=== PATIENT | male | born 1965 | race Caucasian/White ===

== ENCOUNTER 2018-09-29 18:07 | Observation (INO) | payer OTHER ==
--- NOTE | 2018-09-29 18:32 | ED ---
General Adult HPI - General Chief complaint: Shortness of Breath Stated complaint: Cough/Chest pain Time Seen by Provider: 09/29/18 18:16 Source: patient Mode of arrival: wheelchair Limitations: no limitations - History of Present Illness Initial comments: Dictation was produced using noodls dictation software. please excuse any gramma tical, word or spelling errors. Chief Complaint: 53-year-old male withpast medical history presents with exertional cough and chest pain. History of Present Illness: She is a 53-year-old male presents today with exertional cough and shortness of breath. Patient states he's been sick on and off for the last one week. Patient reports that he became really anxious about his symptoms. He did see his primary care doctor who told him a trial of antibiotics and antinausea medications. He states that he doesn't feel like he really improved with those interventions. Patient states that he is very active and over the last month he feels as though his symptoms have been worse with exe rtion. At rest patient does not feel any symptoms. He does report having strong family history of cardiac disease. He localizes the chest pain to his left anterior chest. States that it is improved with rest and only present with exertion. Denies any radiation to the shoulders and jaw. No associated diaphoresis. The ROS documented in this emergency department record has been reviewed and c onfirmed by me. Those systems with pertinent positive or negative responses have been documented in the HPI. All other systems are other negative and/or noncontributory. PHYSICAL EXAM: General Impression: Alert and oriented x3, not in acute distress HEENT: Normocephalic atraumatic, extra-ocular movements intact, pupils equal and reactive to light bilaterally, mucous membranes moist. Cardiovascular: Heart regular rate and rhythm, S1&S2 audible, no murmurs, rubs or gallops Chest: Lungs clear to auscultation bilaterally, no rhonchi, no wheeze, no rales Abdomen: Bowel sounds present, abdomen soft, non-tender, non-distended, no organomegaly Musculoskeletal: Pulses present and equal in all extremities, no peripheral edema Motor: no focal deficits noted Neurological: CN II-XII grossly intact, no focal motor or sensory deficits noted Skin: Intact with no visualized rashes Psych: Normal affect and mood ED course: 53yo male with chief complaint of exertional shortness of breath and chest pain. Vital signs upon I'll shows heart rate of 113, worse vital signs within acceptable limits. EKG shows nonspecific T-wave changes in the inferior leads. Laboratory evaluation obtained. CBC, coag panel, metabolic panel is obtained. There is essentially 3 showed potassium of 3.2. Patient also has some metabolic alkalosis. Magnesium 0.8. Cardiac enzymes negative. Chest x-ray is unremarkable. Patient given parenteral magnesium and by mouth potassium. Patient is pain-free at this time. We gave him 1 dose of chewable aspirin. Patient be admitted for ACS-type symptoms and electronic duration. Patient is understandable and agreeable to disposition. EKG interpretation: Ventricular rate 106, sinus tachycardia, VA interval 132, care Center 6, QTC 432. No VA prolongation, no QTC prolongation, no ST or T-wave changes noted. Overall, this EKG is unremarkable - Related Data Home Medications Medication Instructions Recorded Confirmed HYDROcodone/APAP 10-325MG [[place] 1 tab PO QID 09/29/18 09/29/18 10-325] Allergies Allergy/AdvReac Type Severity Reaction Status Date / Time No Known Allergies Allergy Verified 09/29/18 18:38 Review of Systems ROS Statement: Those systems with pertinent positive or pertinent negative responses have been documented in the HPI. ROS Other: All systems not noted in ROS Statement are negative. Past Medical History Past Medical History: No Reported History History of Any Multi-Drug Resistant Organisms: None Reported Past Surgical History: Hernia Repair Past Psychological History: No Psychological Hx Reported Smoking Status: Never smoker Past Alcohol Use History: None Reported Past Drug Use History: Marijuana General Exam Limitations: no limitations Course Vital Signs 09/29/18 09/29/18 09/29/18 18:10 18:32 18:34 Temperature 98.4 F Pulse Rate 113 H Respiratory 18 15 16 Rate Blood Pressure 125/85 O2 Sat by Pulse 97 Oximetry 09/29/18 09/29/18 09/29/18 19:00 19:10 19:40 Temperature Pulse Rate 104 H Respiratory 19 9 L Rate Blood Pressure 133/83 113/74 123/77 O2 Sat by Pulse 97 97 Oximetry Medical Decision Making - Lab Data Result diagrams: 09/29/18 18:46 09/29/18 18:46 Lab Results 09/29/18 09/29/18 09/29/18 Range/Units 18:46 18:46 18:46 WBC 5.8 (3.8-10.6) k/uL RBC 4.38 (4.30-5.90) m/uL Hgb 13.2 (13.0-17.5) gm/dL Hct 36.9 L (39.0-53.0) % MCV 84.4 (80.0-100.0) fL MCH 30.2 (25.0-35.0) pg MCHC 35.8 (31.0-37.0) g/dL RDW 13.1 (11.5-15.5) % Plt Count 129 L (150-450) k/uL Neutrophils % (Manual) 37 % Lymphocytes % (Manual) 46 % Monocytes % (Manual) 17 % Neutrophils # (Manual) 2.15 (1.3-7.7) k/uL Lymphocytes # (Manual) 2.67 (1.0-4.8) k/uL Monocytes # (Manual) 0.99 (0-1.0) k/uL Nucleated RBCs 0 (0-0) /100 WBC Hyperchromasia Slight PT (9.0-12.0) sec INR (<1.2) APTT (22.0-30.0) sec Sodium 139 (137-145) mmol/L Potassium 3.2 L (3.5-5.1) mmol/L Chloride 98 (98-107) mmol/L Carbon Dioxide 31 H (22-30) mmol/L Anion Gap 10 mmol/L BUN 16 (9-20) mg/dL Creatinine 1.25 (0.66-1.25) mg/dL Est GFR (CKD-EPI)AfAm 77 (>60 ml/min/1.73 sqM) Est GFR (CKD-EPI)NonAf 67 (>60 ml/min/1.73 sqM) Glucose 85 (74-99) mg/dL Calcium 8.1 L (8.4-10.2) mg/dL Magnesium 0.8 L* (1.6-2.3) mg/dL Total Bilirubin 0.9 (0.2-1.3) mg/dL AST 43 (17-59) U/L ALT 57 (21-72) U/L Alkaline Phosphatase 93 (38-126) U/L Troponin I (0.000-0.034) ng/mL NT-Pro-B Natriuret Pep 96 pg/mL Total Protein 6.7 (6.3-8.2) g/dL Albumin 3.6 (3.5-5.0) g/dL 09/29/18 09/29/18 Range/Units 18:46 18:46 WBC (3.8-10.6) k/uL RBC (4.30-5.90) m/uL Hgb (13.0-17.5) gm/dL Hct (39.0-53.0) % MCV (80.0-100.0) fL MCH (25.0-35.0) pg MCHC (31.0-37.0) g/dL RDW (11.5-15.5) % Plt Count (150-450) k/uL Neutrophils % (Manual) % Lymphocytes % (Manual) % Monocytes % (Manual) % Neutrophils # (Manual) (1.3-7.7) k/uL Lymphocytes # (Manual) (1.0-4.8) k/uL Monocytes # (Manual) (0-1.0) k/uL Nucleated RBCs (0-0) /100 WBC Hyperchromasia PT 11.5 (9.0-12.0) sec INR 1.1 (<1.2) APTT 25.8 (22.0-30.0) sec Sodium (137-145) mmol/L Potassium (3.5-5.1) mmol/L Chloride (98-107) mmol/L Carbon Dioxide (22-30) mmol/L Anion Gap mmol/L BUN (9-20) mg/dL Creatinine (0.66-1.25) mg/dL Est GFR (CKD-EPI)AfAm (>60 ml/min/1.73 sqM) Est GFR (CKD-EPI)NonAf (>60 ml/min/1.73 sqM) Glucose (74-99) mg/dL Calcium (8.4-10.2) mg/dL Magnesium (1.6-2.3) mg/dL Total Bilirubin (0.2-1.3) mg/dL AST (17-59) U/L ALT (21-72) U/L Alkaline Phosphatase (38-126) U/L Troponin I <0.012 (0.000-0.034) ng/mL NT-Pro-B Natriuret Pep pg/mL Total Protein (6.3-8.2) g/dL Albumin (3.5-5.0) g/dL Disposition Clinical Impression: Chest pain Disposition: ADMITTED IP TO THIS HOSP Condition: Good Is patient prescribed a controlled substance at d/c from ED?: No Referrals: Wing Whitney MD [Primary Care Provider] - 1-2 days Decision Time: 20:51
[2018-09-29 19:03] LABS: INR 1.1 (<1.2); Partial Thromboplastin Time 25.8 sec (22.0-30.0); Prothrombin Time 11.5 sec (9.0-12.0)
[2018-09-29 19:19] LABS: Albumin 3.6 g/dL (3.5-5.0); Calcium 8.1 mg/dL (8.4-10.2); Potassium 3.2 mmol/L (3.5-5.1); Total Bilirubin 0.9 mg/dL (0.2-1.3); Total Protein 6.7 g/dL (6.3-8.2)
--- NOTE | 2018-09-29 19:23 | XR ---
EXAMINATION TYPE: XR chest 2V DATE OF EXAM: 09/29/2018 COMPARISON: NONE HISTORY: Chest pain TECHNIQUE: Frontal and lateral views of the chest are obtained. FINDINGS: Heart and mediastinum are normal. Lungs are clear. Diaphragm is normal. Bony thorax appear s normal. There are chest leads. IMPRESSION: Normal chest.
[2018-09-29 19:25] LABS: HCT 36.9 % (39.0-53.0); HGB 13.2 gm/dL (13.0-17.5); Hyperchromasia Slight; MCH 30.2 pg (25.0-35.0); MCHC 35.8 g/dL (31.0-37.0); MCV 84.4 fL (80.0-100.0); Mean Platelet Volume 8.3; Platelet Count 129 k/uL (150-450); RBC 4.38 m/uL (4.30-5.90); RDW 13.1 % (11.5-15.5); WBC 5.8 k/uL (3.8-10.6)
[2018-09-29 19:28] LABS: Magnesium 0.8 mg/dL (1.6-2.3)
[2018-09-29] MEDS ORDERED: POTASSIUM CHLORIDE ER 20 MEQ TAB.ER PO STA (19:39)
[2018-09-29] MEDS: MAGNESIUM SULFATE-D5W PMX 1 GM in DEXTROSE/WATER 1 100ML.BAG IVPB SCH (20:05)
[2018-09-29 20:13] LABS: Lymphocytes # (M) 2.67 k/uL (1.0-4.8); Monocytes # (M) 0.99 k/uL (0-1.0); Neutrophils # (M) 2.15 k/uL (1.3-7.7); Neutrophils % (M) 37 %; Nucleated Red Blood Cells 0 /100 WBC (0-0); Total Cells Counted 100
[2018-09-29] MEDS ORDERED: ASPIRIN 81 MG PO STA (20:44)
[2018-09-29] MEDS ORDERED: NITROGLYCERIN SL TABS 0.4 MG TAB SUBLINGUAL PRN (20:44)
[2018-09-29] MEDS ORDERED: MAGNESIUM SULFATE-D5W PMX 1 GM in DEXTROSE/WATER 1 100ML.BAG IVPB ONE (21:04)
[2018-09-30 00:57] VITALS: BMI 20.6
[2018-09-30] MEDS: MAGNESIUM SULFATE-D5W PMX 1 GM in DEXTROSE/WATER 1 100ML.BAG IVPB SCH ×3 (00:58→11:29)
[2018-09-30 07:53] LABS: Cholesterol 125 mg/dL (<200); HDL Cholesterol 24 mg/dL (40-60); LDL Cholesterol,Calculated 76 mg/dL (0-99); Triglycerides 126 mg/dL (<150)
[2018-09-30] MEDS: ASPIRIN 325 MG TAB PO SCH (08:00)
--- NOTE | 2018-09-30 09:10 | P.CRDCN ---
<Maria T Cates E - Last Filed: 09/30/18 08:58> History of Present Illness Consult date: 09/30/18 Requesting physician: Carlos Catherine Consult reason: chest pain Chief complaint: Exertional chest pain and shortness of breath History of present illness: This is a 53-year-old gentleman who does not follow regularly with the doctor, he states that he sees Dr. Del Toro when needed. Over the past couple of weeks, patient states that he's been having cold symptoms and felt as though he may have the flu, he was having significant episodes of vomiting and diarrhea. According to the patient, he has also noticed over the past several months to have symptoms of exertional shortness of breath and chest tightness. He works at the [employer], states that he walks stairs on a regular basis, tries to avoid any walking or stairs because of these symptoms. As he thinks back, he thinks that this may have been going on for several months however worsening recently. When the patient sits down to rest, he states that the symptoms subside. He takes no home medications, he does take an occasional [place]. He denies any history of hypertension, no diabetes, no hyperlipidemia although he states he has not had regular lab tests, and does not check his blood pressure regularly. He does have a history of nicotine dependence but quit over 20 years ago, also states that as a young man he drank heavily but does not drink any alcohol. He Does use marijuana on occasion. He also states that his father had a myocardial infarction at a young age. I pressure on arrival here 125/85, heart rate 114, temperature 98.4 897% on room air. Chest x-ray normal. EKG showed normal sinus rhythm with nonspecific ST-T wave changes noted in the inferior leads. Laboratory data was reviewed, white blood cell count 5.8, hemoglobin 13.2, platelet count 129. Sodium 139, potassium 3.2, BUN 16, creatinine 1.2. Magnesium on admission 0.8, calcium 8.1. Troponins have been negative 3. Cholesterol 125, LDL 76, HDL 24, triglycerides 126. At the time of my examination this morning, patient denies any chest discomfort, he is res ting in bed. He does state that earlier this morning after a blood draw that he had some mild lightheadedness. Past Medical History Past Medical History: No Reported History History of Any Multi-Drug Resistant Organisms: None Reported Past Surgical History: Hernia Repair Past Anesthesia/Blood Transfusion Reactions: No Reported Reaction Past Psychological History: No Psychological Hx Reported Smoking Status: Never smoker Past Alcohol Use History: None Reported Past Drug Use History: Marijuana Medications and Allergies Home Medications Medication Instructions Recorded Confirmed Type HYDROcodone/APAP 10-325MG [[place] 1 tab PO QID 09/29/18 09/29/18 History 10-325] Allergies Allergy/AdvReac Type Severity Reaction Status Date / Time No Known Allergies Allergy Verified 09/29/18 18:38 Physical Exam Vitals: Vital Signs Temp Pulse Pulse Resp BP BP Pulse Ox 09/30/18 08:04 95 20 09/30/18 08:00 98.1 F 96 20 119/76 97 09/30/18 04:00 98.3 F 90 15 130/70 98 09/30/18 01:21 100 15 09/30/18 00:45 97.3 F L 100 15 131/76 96 09/30/18 00:10 98.1 F 93 15 09/29/18 23:10 127/85 09/29/18 22:40 10 L 123/99 96 09/29/18 22:10 12 128/95 97 09/29/18 21:40 105 H 9 L 141/94 97 09/29/18 21:10 103 H 9 L 134/100 97 09/29/18 21:00 106 H 13 99 09/29/18 20:40 127/77 99 09/29/18 20:10 114/80 98 09/29/18 19:50 123/77 97 09/29/18 19:40 104 H 9 L 123/77 97 09/29/18 19:10 113/74 09/29/18 19:00 19 133/83 97 09/29/18 18:34 16 09/29/18 18:32 15 09/29/18 18:10 98.4 F 113 H 18 125/85 97 Intake and Output 09/29/18 09/30/18 09/30/18 22:59 06:59 14:59 Intake Total 130 Balance 130 Intake: Oral 130 Other: Voiding Method Toilet # Voids 2 Weight 58.967 kg 66.3 kg PHYSICAL EXAMINATION: GENERAL: 53-year-old, anxious appearing gentleman in no acute distress at the time of my examination HEENT: Head is atraumatic, normocephalic. Pupils equal, round. Sclera anicteric. Conjunctiva are clear. Mucous membranes of the mouth are moist. Neck is supple. There is no elevated jugular venous pressure. No carotid bruit is heard. HEART EXAMINATION: Heart S1, S2 tachycardic . No murmur or gallop heard. CHEST EXAMINATION: Lungs are clear to auscultation and precussion. No chest wall tenderness is noted on palpation or with deep breathing. ABDOMEN: Soft, nontender. Bowel sounds are heard. No organomegaly noted. EXTREMITIES: 2+ peripheral pulses with no evidence of peripheral edema and no calf tenderness noted. NEUROLOGIC patient is awake, alert and oriented 3 . . Results 09/29/18 18:46 09/29/18 18:46 Cardiac Enzymes 09/29/18 09/29/18 09/30/18 Range/Units 18:46 18:46 00:31 AST 43 (17-59) U/L Troponin I <0.012 <0.012 (0.000-0.034) ng/mL 09/30/18 Range/Units 07:15 AST (17-59) U/L Troponin I <0.012 (0.000-0.034) ng/mL Coagulation 09/29/18 Range/Units 18:46 PT 11.5 (9.0-12.0) sec APTT 25.8 (22.0-30.0) sec Lipids 09/30/18 Range/Units 07:15 Triglycerides 126 (<150) mg/dL Cholesterol 125 (<200) mg/dL HDL Cholesterol 24 L (40-60) mg/dL CBC 09/29/18 Range/Units 18:46 WBC 5.8 (3.8-10.6) k/uL RBC 4.38 (4.30-5.90) m/uL Hgb 13.2 (13.0-17.5) gm/dL Hct 36.9 L (39.0-53.0) % Plt Count 129 L (150-450) k/uL Comprehensive Metabolic Panel 09/29/18 Range/Units 18:46 Sodium 139 (137-145) mmol/L Potassium 3.2 L (3.5-5.1) mmol/L Chloride 98 (98-107) mmol/L Carbon Dioxide 31 H (22-30) mmol/L BUN 16 (9-20) mg/dL Creatinine 1.25 (0.66-1.25) mg/dL Glucose 85 (74-99) mg/dL Calcium 8.1 L (8.4-10.2) mg/dL AST 43 (17-59) U/L ALT 57 (21-72) U/L Alkaline Phosphatase 93 (38-126) U/L Total Protein 6.7 (6.3-8.2) g/dL Albumin 3.6 (3.5-5.0) g/dL Current Medications Generic Name Dose Route Start Last Admin Trade Name Freq PRN Reason Stop Dose Admin Aspirin 325 mg 09/30/18 09:00 09/30/18 08:00 Aspirin PO 325 mg DAILY [facility]NEY Administration Nitroglycerin 0.4 mg 09/29/18 20:44 Nitrostat SUBLINGUAL Q5M PRN Chest Pain Intake and Output 09/29/18 09/30/18 09/30/18 22:59 06:59 14:59 Intake Total 130 Balance 130 Intake: Oral 130 Other: Voiding Method Toilet # Voids 2 Weight 58.967 kg 66.3 kg 09/29/18 18:46 09/29/18 18:46 EKG Interpretations (text) EKG shows normal sinus rhythm with ST-T wave changes noted in the inferior leads. Assessment and Plan Plan: Assessment and plan #1 symptoms of exertional shortness of breath and chest tightness, inserting 4 of possible angina. Troponins are negative 3. EKG shows normal sinus rhythm with nonspecific ST-T wave changes noted in the inferior leads. #2 hypomagnesemia, likely secondary to several episodes of vomiting and diarrhea #3 high flow currently anemia, likely secondary to same #4 no prior documented history of hypertension, nondiabetic, no hyperlipidemia #5 nonsmoker, patient did smoke, quit smoking approximately 20 years ago #6 marijuana use #7 family history of premature coronary artery disease in his father Plan We will obtain an echocardiogram with Doppler study. We will also obtain a hemoglobin A1c level, TSH and d-dimer. It was explained to the patient that he would need further evaluation to rule out underlying coronary artery disease by way of a stress test or cardiac catheterization, we will review his echocardiogram with Doppler study and further recommendations will be made. Potassium and magnesium levels will be replaced. Further recommendations to follow. DNP note has been reviewed, I agree with a documented findings and plan of care. Patient was seen and examined. <Shahid Bartholomew - Last Filed: 09/30/18 19:39> Physical Exam Vitals: Vital Signs Temp Pulse Pulse Resp BP BP Pulse Ox 09/30/18 19:37 97.6 F 100 18 123/81 97 09/30/18 15:34 98.0 F 94 20 119/75 98 09/30/18 14:50 81 18 09/30/18 11:25 81 18 09/30/18 11:24 97.6 F 81 18 117/73 97 09/30/18 08:04 95 20 09/30/18 08:00 98.1 F 96 20 119/76 97 09/30/18 04:00 98.3 F 90 15 130/70 98 09/30/18 01:21 100 15 09/30/18 00:45 97.3 F L 100 15 131/76 96 09/30/18 00:10 98.1 F 93 15 09/29/18 23:10 127/85 09/29/18 22:40 10 L 123/99 96 09/29/18 22:10 12 128/95 97 09/29/18 21:40 105 H 9 L 141/94 97 09/29/18 21:10 103 H 9 L 134/100 97 09/29/18 21:00 106 H 13 99 09/29/18 20:40 127/77 99 09/29/18 20:10 114/80 98 09/29/18 19:50 123/77 97 09/29/18 19:40 104 H 9 L 123/77 97 Intake and Output 09/30/18 09/30/18 09/30/18 06:59 14:59 22:59 Intake Total 930 240 Output Total 500 Balance 430 240 Intake: Intake, IV Titration 200 Amount Magnesium Sulfate-D5w Pmx 200 1 gm In Dextrose/Water 1 100ml.bag @ 100 mls/hr IVPB Q1H [facility] Rx#: [id number] Oral 730 240 Output: Urine 500 Other: Voiding Method Toilet # Voids 2 1 # Bowel Movements 1 Weight 66.3 kg Results 09/30/18 08:37 09/30/18 09:09 Cardiac Enzymes 04/10/1509/30/18 09/30/18 Range/Units 00:31 07:15 09:09 AST 32 (17-59) U/L Troponin I <0.012 <0.012 (0.000-0.034) ng/mL Lipids 09/30/18 Range/Units 07:15 Triglycerides 126 (<150) mg/dL Cholesterol 125 (<200) mg/dL HDL Cholesterol 24 L (40-60) mg/dL CBC 09/30/18 Range/Units 08:37 WBC 6.7 (3.8-10.6) k/uL RBC 4.31 (4.30-5.90) m/uL Hgb 12.9 L (13.0-17.5) gm/dL Hct 36.5 L (39.0-53.0) % Plt Count 137 L (150-450) k/uL Comprehensive Metabolic Panel 09/30/18 Range/Units 09:09 Sodium 141 (137-145) mmol/L Potassium 4.4 (3.5-5.1) mmol/L Chloride 102 (98-107) mmol/L Carbon Dioxide 31 H (22-30) mmol/L BUN 22 H (9-20) mg/dL Creatinine 1.37 H (0.66-1.25) mg/dL Glucose 93 (74-99) mg/dL Calcium 8.4 (8.4-10.2) mg/dL AST 32 (17-59) U/L ALT 57 (21-72) U/L Alkaline Phosphatase 78 (38-126) U/L Total Protein 6.6 (6.3-8.2) g/dL Albumin 3.6 (3.5-5.0) g/dL Current Medications Generic Name Dose Route Start Last Admin Trade Name Freq PRN Reason Stop Dose Admin Alprazolam 0.25 mg 09/30/18 12:10 Xanax PO Q6HR PRN Mild Anxiety Alprazolam 0.5 mg 09/30/18 12:10 Xanax PO Q6HR PRN Moderate Anxiety Aspirin 325 mg 09/30/18 09:00 09/30/18 08:00 Aspirin PO 325 mg DAILY [facility] Administration Atorvastatin Calcium 80 mg 10/01/18 08:00 Lipitor PO 10/01/18 08:01 ONCE ONE Sodium Chloride 1,000 ml/ IV 1,000 mls @ 66.3 mls/hr 09/30/18 12:10 09/30/18 13:02 Solution IV 10/01/18 03:14 Not Given .Q15H5M ONE 1 ML/KG/HR Sodium Chloride 1,000 mls @ 75 mls/hr 09/30/18 12:15 09/30/18 13:49 Saline 0.9% IV 75 mls/hr .[id number] K[facility]NEY Administration Nitroglycerin 0.4 mg 09/29/18 20:44 Nitrostat SUBLINGUAL Q5M PRN Chest Pain Intake and Output 09/30/18 09/30/18 09/30/18 06:59 14:59 22:59 Intake Total 930 240 Output Total 500 Balance 430 240 Intake: Intake, IV Titration 200 Amount Magnesium Sulfate-D5w Pmx 200 1 gm In Dextrose/Water 1 100ml.bag @ 100 mls/hr IVPB Q1H [facility] Rx#: [id number] Oral 730 240 Output: Urine 500 Other: Voiding Method Toilet # Voids 2 1 # Bowel Movements 1 Weight 66.3 kg 09/30/18 08:37 09/30/18 09:09
[2018-09-30 10:00] LABS: Albumin 3.6 g/dL (3.5-5.0); Calcium 8.4 mg/dL (8.4-10.2); Magnesium 1.4 mg/dL (1.6-2.3); Potassium 4.4 mmol/L (3.5-5.1); Total Bilirubin 0.8 mg/dL (0.2-1.3); Total Protein 6.6 g/dL (6.3-8.2)
[2018-09-30 10:18] LABS: HCT 36.5 % (39.0-53.0); HGB 12.9 gm/dL (13.0-17.5); MCH 29.9 pg (25.0-35.0); MCHC 35.3 g/dL (31.0-37.0); MCV 84.7 fL (80.0-100.0); Mean Platelet Volume 9.5; Platelet Count 137 k/uL (150-450); RBC 4.31 m/uL (4.30-5.90); RDW 12.6 % (11.5-15.5); WBC 6.7 k/uL (3.8-10.6)
--- NOTE | 2018-09-30 10:49 | ECHOF ---
Referral Reason:sob on exertion MEASUREMENTS -------- HEIGHT: 167.6 cm WEIGHT: 65.8 kg BP: IVSd: 0.6 cm (0.6 - 1.1) LVIDd: 4.4 cm (3.9 - 5.3) LVPWd: 0.7 cm (0.6 - 1.1) IVSs: 1.0 cm LVIDs: 2.5 cm LVPWs: 1.2 cm LAESV Index (A-L): 14.99 ml/m Ao Diam: 3.3 cm (2.0 - 3.7) AV Cusp: 2.2 cm (1.5 - 2.6) LA Diam: 2.5 cm (2.7 - 3.8) MV EXCURSION: 14.577 mm (> 18.000) MV EF SLOPE: 86 mm/s (70 - 150) EPSS: 0.5 cm MV E Ba: 0.73 m/s MV DecT: 186 ms MV A Ba: 0.71 m/s MV E/A Ratio: 1.04 RAP: 5.00 mmHg RVSP: 15.17 mmHg FINDINGS -------- Sinus rhythm. This was a technically good study. The left ventricular size is normal. Left ventricular wall thickness is normal. Overall left vent ricular systolic function is normal with, an EF between 55 - 60 %. The right ventricle is normal in size. The left atrial size is normal. The right atrial size is normal. The aortic valve is trileaflet and appears structurally normal. There is trace mitral regurgitation. Trace tricuspid regurgitation present. The right ventricular systolic pressure, as measured by Dopp ler, is 15.17mmHg. Pulmonic valve appears structurally normal. The aortic root size is normal. Normal inferior vena cava with normal inspiratory collapse consistent with estimated right atrial pre ssure of 5 mmHg. There is no pericardial effusion. CONCLUSIONS -------- 1. Sinus rhythm. 2. This was a technically good study. 3. The left ventricular size is normal. 4. Left ventricular wall thickness is normal. 5. Overall left ventricular systolic function is normal with, an EF between 55 - 60 %. 6. The right ventricle is normal in size. 7. The left atrial size is normal. 8. The right atrial size is normal. 9. The aortic valve is trileaflet and appears structurally normal. 10. There is trace mitral regurgitation. 11. Trace tricuspid regurgitation present. 12. The right ventricular systolic pressure, as measured by Doppler, is 15.17mmHg. 13. Pulmonic valve appears structurally normal. 14. The aortic root size is normal. 15. Normal inferior vena cava with normal inspiratory collapse consistent with estimated right atrial pressure of 5 mmHg. 16. There is no pericardial effusion. FASHION PATTERNMAKER: Noemi Dhillon RDCS
[2018-09-30] MEDS ORDERED: SODIUM CHLORIDE 0.9% 1,000 ML in EMPTY BAG 1 BAG IV ONE (12:10)
[2018-09-30] MEDS ORDERED: NITROGLYCERIN SL TABS 0.4 MG TAB SUBLINGUAL PRN (12:10)
[2018-09-30] MEDS ORDERED: ALPRAZolam 0.25 MG TAB PO PRN (12:10)
[2018-09-30] MEDS ORDERED: ASPIRIN 325 MG TAB PO STA (12:10)
[2018-09-30] MEDS ORDERED: ALPRAZolam 0.5 MG TAB PO PRN (12:10)
[2018-09-30] MEDS ORDERED: ATORVASTATIN 80 MG TAB PO STA (12:12)
[2018-09-30] MEDS: SODIUM CHLORIDE 0.9% 1,000 ML IV SCH (13:49)
--- NOTE | 2018-09-30 19:40 | P.CRDCN ---
History of Present Illness History of present illness: Patient admitted with at least one month of nausea vomiting diarrhea of unclear etiology at this time However even prior to that he was experiencing exertional chest discomfort and shortness of breath which she had ignored Review proceed with coronary angiography Patient states he has stopped smoking many years back and does not consume any significant amounts of alcohol Lipid panel Patient is nondiabetic no hypertension He was severely hypomagnesemic and had mild hypokalemia. This was replaced IV fluids were administered Plan is to perform coronary angiography tomorrow He will follow with me as an outpatient Past Medical History Past Medical History: No Reported History History of Any Multi-Drug Resistant Organisms: None Reported Past Surgical History: Hernia Repair Past Anesthesia/Blood Transfusion Reactions: No Reported Reaction Past Psychological History: No Psychological Hx Reported Smoking Status: Never smoker Past Alcohol Use History: None Reported Past Drug Use History: Marijuana Medications and Allergies Home Medications Medication Instructions Recorded Confirmed Type RX: HYDROcodone/APAP 10-325MG 1 tab PO QID 09/29/18 09/29/18 History [[place] 10-325] Allergies Allergy/AdvReac Type Severity Reaction Status Date / Time No Known Allergies Allergy Verified 09/29/18 18:38 Physical Exam Vitals: Vital Signs Temp Pulse Pulse Resp BP BP Pulse Ox 09/30/18 19:37 97.6 F 100 18 123/81 97 09/30/18 15:34 98.0 F 94 20 119/75 98 09/30/18 14:50 81 18 09/30/18 11:25 81 18 09/30/18 11:24 97.6 F 81 18 117/73 97 09/30/18 08:04 95 20 09/30/18 08:00 98.1 F 96 20 119/76 97 09/30/18 04:00 98.3 F 90 15 130/70 98 09/30/18 01:21 100 15 09/30/18 00:45 97.3 F L 100 15 131/76 96 09/30/18 00:10 98.1 F 93 15 09/29/18 23:10 127/85 09/29/18 22:40 10 L 123/99 96 09/29/18 22:10 12 128/95 97 09/29/18 21:40 105 H 9 L 141/94 97 09/29/18 21:10 103 H 9 L 134/100 97 09/29/18 21:00 106 H 13 99 04/03/19 20:40 127/77 99 09/29/18 20:10 114/80 98 09/29/18 19:50 123/77 97 Intake and Output 09/30/18 09/30/18 09/30/18 06:59 14:59 22:59 Intake Total 930 240 Output Total 500 Balance 430 240 Intake: Intake, IV Titration 200 Amount Magnesium Sulfate-D5w Pmx 200 1 gm In Dextrose/Water 1 100ml.bag @ 100 mls/hr IVPB Q1H [facility] Rx#: [id number] Oral 730 240 Output: Urine 500 Other: Voiding Method Toilet # Voids 2 1 1 # Bowel Movements 1 Weight 66.3 kg Results 09/30/18 08:37 09/30/18 09:09 Cardiac Enzymes 09/30/18 09/30/18 09/30/18 Range/Units 00:31 07:15 09:09 AST 32 (17-59) U/L Troponin I <0.012 <0.012 (0.000-0.034) ng/mL Lipids 09/30/18 Range/Units 07:15 Triglycerides 126 (<150) mg/dL Cholesterol 125 (<200) mg/dL HDL Cholesterol 24 L (40-60) mg/dL CBC 09/30/18 Range/Units 08:37 WBC 6.7 (3.8-10.6) k/uL RBC 4.31 (4.30-5.90) m/uL Hgb 12.9 L (13.0-17.5) gm/dL Hct 36.5 L (39.0-53.0) % Plt Count 137 L (150-450) k/uL Comprehensive Metabolic Panel 09/30/18 Range/Units 09:09 Sodium 141 (137-145) mmol/L Potassium 4.4 (3.5-5.1) mmol/L Chloride 102 (98-107) mmol/L Carbon Dioxide 31 H (22-30) mmol/L BUN 22 H (9-20) mg/dL Creatinine 1.37 H (0.66-1.25) mg/dL Glucose 93 (74-99) mg/dL Calcium 8.4 (8.4-10.2) mg/dL AST 32 (17-59) U/L ALT 57 (21-72) U/L Alkaline Phosphatase 78 (38-126) U/L Total Protein 6.6 (6.3-8.2) g/dL Albumin 3.6 (3.5-5.0) g/dL Current Medications Generic Name Dose Route Start Last Admin Trade Name Freq PRN Reason Stop Dose Admin Alprazolam 0.25 mg 09/30/18 12:10 Xanax PO Q6HR PRN Mild Anxiety Alprazolam 0.5 mg 09/30/18 12:10 Xanax PO Q6HR PRN Moderate Anxiety Aspirin 325 mg 09/30/18 09:00 09/30/18 08:00 Aspirin PO 325 mg DAILY [facility] Administration Atorvastatin Calcium 80 mg 10/01/18 08:00 Lipitor PO 10/01/18 08:01 ONCE ONE Sodium Chloride 1,000 ml/ IV 1,000 mls @ 66.3 mls/hr 09/30/18 12:10 09/30/18 13:02 Solution IV 10/01/18 03:14 Not Given .Q15H5M ONE 1 ML/KG/HR Sodium Chloride 1,000 mls @ 75 mls/hr 09/30/18 12:15 09/30/18 13:49 Saline 0.9% IV 75 mls/hr .[id number] KORTNEY Administration Nitroglycerin 0.4 mg 09/29/18 20:44 Nitrostat SUBLINGUAL Q5M PRN Chest Pain Intake and Output 09/30/18 09/30/18 09/30/18 06:59 14:59 22:59 Intake Total 930 240 Output Total 500 Balance 430 240 Intake: Intake, IV Titration 200 Amount Magnesium Sulfate-D5w Pmx 200 1 gm In Dextrose/Water 1 100ml.bag @ 100 mls/hr IVPB Q1H [facility] Rx#: [id number] Oral 730 240 Output: Urine 500 Other: Voiding Method Toilet # Voids 2 1 1 # Bowel Movements 1 Weight 66.3 kg 09/30/18 08:37 09/30/18 09:09
[2018-09-30 19:49] LABS: Hemoglobin A1C 5.8 % (4.0-6.0)
--- NOTE | 2018-09-30 22:07 | P.HPIM ---
History of Present Illness H&P Date: 09/30/18 Chief Complaint: Chest pain Patient is a 53-year-old male without significant past medical history and previous history of smoking came to ER with complaints of feeling sick for the past 2 weeks with nausea and vomiting and diarrhea. Patient says that he's been having chest tightness and exertional shortness of breath even prior to this illness, more than a month.. Patient has been having left retrosternal chest pain and not feeling right. Patient is also complaining of dizziness when he gets up. Patient has also having cough basically dry for the past 2 weeks. De nied any other illnesses. No fever no chills. Denied any recent alcohol use. No history of hypertension, diabetes, hyperlipidemia or family history of coronary disease. Patient used to smoke but quit over 20 years ago. EKG showed normal sinus rhythm with ST-T wave changes in the inferior leads Chest x-ray showed no acute cardio pulmonary process Medications 0.8, troponin 3 negative LDL 76 D-dimer not elevated. TSH within normal limits. His B A1c 5.8 Review of Systems Constitutional: Patient denies any fever or chills . No generalized weakness or weight loss. Abdomen: Patient denied any abdominal pain. Patient does have nausea vomiting a nd diarrhea Cardiovascular: Does have chest discomfort and exertional shortness of breath. No leg swelling. No palpitations.. Respiratory: patient denied any cough is from production. No shortness of breath Neurologic: Patient denied any numbness or tingling headache. Musculoskeletal: Patient denies any complaints of joint swelling or deformity. Skin: Negative Psychiatric: Negative Endocrine: No heat or cold intolerance. No recent weight gain. Genitourinary: No dysuria or hematuria. All other 14 point ROS negative except the above Past Medical History Past Medical History: No Reported History History of Any Multi-Drug Resistant Organisms: None Reported Past Surgical History: Hernia Repair Past Anesthesia/Blood Transfusion Reactions: No Reported Reaction Past Psychological History: No Psychological Hx Reported Smoking Status: Never smoker Past Alcohol Use History: None Reported Past Drug Use History: Marijuana Medications and Allergies Home Medications Medication Instructions Recorded Confirmed Type HYDROcodone/APAP 10-325MG [[place] 1 tab PO QID 09/29/18 09/29/18 History 10-325] Allergies Allergy/AdvReac Type Severity Reaction Status Date / Time No Known Allergies Allergy Verified 09/29/18 18:38 Physical Exam Vitals: Vital Signs Temp Pulse Pulse Resp BP BP Pulse Ox 09/30/18 14:50 81 18 09/30/18 11:25 81 18 09/30/18 11:24 97.6 F 81 18 117/73 97 09/30/18 08:04 95 20 09/30/18 08:00 98.1 F 96 20 119/76 97 09/30/18 04:00 98.3 F 90 15 130/70 98 09/30/18 01:21 100 15 09/30/18 00:45 97.3 F L 100 15 131/76 96 09/30/18 00:10 98.1 F 93 15 09/29/18 23:10 127/85 09/29/18 22:40 10 L 123/99 96 09/29/18 22:10 12 128/95 97 09/29/18 21:40 105 H 9 L 141/94 97 09/29/18 21:10 103 H 9 L 134/100 97 09/29/18 21:00 106 H 13 99 09/29/18 20:40 127/77 99 09/29/18 20:10 114/80 98 09/29/18 19:50 123/77 97 09/29/18 19:40 104 H 9 L 123/77 97 09/29/18 19:10 113/74 09/29/18 19:00 19 133/83 97 09/29/18 18:34 16 09/29/18 18:32 15 09/29/18 18:10 98.4 F 113 H 18 125/85 97 Intake and Output 09/30/18 09/30/18 09/30/18 06:59 14:59 22:59 Intake Total 930 Output Total 500 Balance 430 Intake: Intake, IV Titration 200 Amount Magnesium Sulfate-D5w Pmx 200 1 gm In Dextrose/Water 1 100ml.bag @ 100 mls/hr IVPB Q1H [facility] Rx#: [id number] Oral 730 Output: Urine 500 Other: Voiding Method Toilet # Voids 2 1 # Bowel Movements 1 Weight 66.3 kg PHYSICAL EXAMINATION: Patient is lying in the bed comfortably, no acute distress, awake alert and oriented.. HEENT: Normocephalic. Neck is supple. Pupils reactive. Nostrils clear. Oral cavity is moist. Ears reveal no drainage. Neck reveals no JVD, carotid bruits, or thyromegaly. CHEST EXAMINATION: Trachea is central. Symmetrical expansion. Lung hatch clear to auscultation and percussion. CARDIAC: Normal S1, S2 with no gallops. No murmurs ABDOMEN: Soft. Bowel sounds normal. No organomegaly. No abdominal bruits. Extremities: reveal no edema. No clubbing or cyanosis Neurologically awake, alert, oriented x3 with well-coordinated movements. No focal deficits noted Skin: No rash or skin lesions. Psychiatric: Coperative. Nonsuicidal. Anxious. Musculoskeletal: No joint swelling or deformity. Normal range of motion. Results CBC & Chem 7: 09/30/18 08:37 09/30/18 09:09 Labs: Abnormal Lab Results - Last 24 Hours (Table) 09/29/18 09/29/18 09/30/18 Range/Units 18:46 18:46 07:15 Hgb (13.0-17.5) gm/dL Hct 36.9 L (39.0-53.0) % Plt Count 129 L (150-450) k/uL Potassium 3.2 L (3.5-5.1) mmol/L Carbon Dioxide 31 H (22-30) mmol/L BUN (9-20) mg/dL Creatinine (0.66-1.25) mg/dL Calcium 8.1 L (8.4-10.2) mg/dL Magnesium 0.8 L* (1.6-2.3) mg/dL HDL Cholesterol 24 L (40-60) mg/dL 09/30/18 09/30/18 Range/Units 08:37 09:09 Hgb 12.9 L (13.0-17.5) gm/dL Hct 36.5 L (39.0-53.0) % Plt Count 137 L (150-450) k/uL Potassium (3.5-5.1) mmol/L Carbon Dioxide 31 H (22-30) mmol/L BUN 22 H (9-20) mg/dL Creatinine 1.37 H (0.66-1.25) mg/dL Calcium (8.4-10.2) mg/dL Magnesium 1.4 L (1.6-2.3) mg/dL HDL Cholesterol (40-60) mg/dL Thrombosis Risk Factor Assmnt - DVT/VTE Prophylaxis DVT/VTE Prophylaxis: Pharmacologic Prophylaxis ordered - Choose All That Apply Any of the Below Risk Factors Present?: Yes Each Factor Represents 1 point: Age 41-60 years Other Risk Factors: No Other congenital or acquired thrombophilia - If yes, enter type in comment: No Thrombosis Risk Factor Assessment Total Risk Factor Score: 1 Thrombosis Risk Factor Assessment Level: Low Risk Assessment and Plan Assessment: Chest tightness and Exertional shortness of breath possible stable angina. Hypomagnesemia Nausea vomiting and diarrhea. Possible acute gastroenteritis. improved now. History of marijuana use Previous history of smoking. Previous history of alcohol abuse Family history of coronary artery disease in his father DVT prophylaxis. Plan: The patient was replaced. Further admissions based on the clinical course. Patient be continued on telemetry monitoring. Serial troponins negative. 2-D levocardia was ordered. Cardiology is planning for catheterization tomorrow. Time with Patient: Greater than 30
[2018-10-01] MEDS: SODIUM CHLORIDE 0.9% 1,000 ML IV SCH ×2 (01:38→14:28)
[2018-10-01 06:23] LABS: Glucose,Whole Blood 116 mg/dL (75-99)
[2018-10-01] MEDS: ASPIRIN 325 MG TAB PO SCH (06:23)
[2018-10-01 06:47] LABS: HCT 36.7 % (39.0-53.0); HGB 12.8 gm/dL (13.0-17.5); MCH 29.6 pg (25.0-35.0); MCHC 34.9 g/dL (31.0-37.0); MCV 84.7 fL (80.0-100.0); Mean Platelet Volume 9.7; Platelet Count 124 k/uL (150-450); RBC 4.33 m/uL (4.30-5.90); RDW 13.6 % (11.5-15.5); WBC 5.2 k/uL (3.8-10.6)
[2018-10-01 06:57] LABS: Albumin 3.3 g/dL (3.5-5.0); Calcium 8.7 mg/dL (8.4-10.2); Magnesium 1.3 mg/dL (1.6-2.3); Potassium 4.4 mmol/L (3.5-5.1); Total Bilirubin 0.6 mg/dL (0.2-1.3); Total Protein 6.4 g/dL (6.3-8.2)
[2018-10-01] MEDS ORDERED: ATORVASTATIN 80 MG TAB PO ONE (08:00)
[2018-10-01] MEDS: MAGNESIUM SULFATE-D5W PMX 1 GM in DEXTROSE/WATER 1 100ML.BAG IVPB SCH ×4 (09:23→18:17)
[2018-10-01] MEDS ORDERED: LIDOCAINE 1% INJ 10MG/ML (20 ML MDV) ONE (10:01)
[2018-10-01] MEDS ORDERED: fentaNYL (PF) 50 MCG/ML 2 ML AMP ONE (10:01)
[2018-10-01] MEDS ORDERED: fentaNYL (PF) 50 MCG/ML 2 ML AMP IV ONE (10:18)
[2018-10-01] MEDS: MIDAZOLAM 2 MG/2 ML VIAL IVP ONE ×2 (10:18→10:26)
[2018-10-01] MEDS ORDERED: IV FLUID CONTINUATION 300 ML IV ONE (10:19)
[2018-10-01] MEDS ORDERED: LIDOCAINE 1% INJ 10MG/ML (20 ML MDV) SQ ONE (10:26)
[2018-10-01] MEDS ORDERED: IOPAMIDOL-370 150ML BTL INJ ONE (10:42)
[2018-10-01] MEDS ORDERED: SODIUM CHLORIDE 0.9% 500 ML 500 ML IV ONE (10:43)
[2018-10-01] MEDS ORDERED: RX INFO: IV CONTRAST WAS GIVEN 1 EACH MISC MISCELLANE PRN (10:53)
[2018-10-01] MEDS ORDERED: SODIUM CHLORIDE 0.9% 1,000 ML IV SCH (11:00)
--- NOTE | 2018-10-01 11:46 | CC ---
CARDIAC CATHETERIZATION REPORT Mr. Reyes is a 53-year-old gentleman who was admitted to the hospital with nausea, vomiting. Patient has been having symptoms of exertional shortness of breath over the last few weeks. The patient gets short of breath with minimal activities and climbing the stairs with a mild chest pressure. This may be suggestive of unstable angina. In view of that, the patient was recommended to have a cardiac catheterization for definitive diagnosis to rule out any significant underlying coronary artery disease. PROCEDURE: The right groin was prepped and draped in the usual manner and the right femoral artery was entered using a micropuncture needle under ultrasound guidance. A #6-Welsh sheath was placed in. Selective coronary angiography was then performed in multiple projections and the left ventriculography was performed in 30-degree WHEELER projection. Patient tolerated the procedure well. Good hemostasis was achieved with the use of Angio-Seal. Moderate sedation was used. Total sedation time was 27 minutes. HEMODYNAMICS: Left ventricular end-diastolic pressure is 8-10 mmHg prior to angiography. No gradient is noted across the aortic valve. SELECTIVE CORONARY ANGIOGRAPHY: Left main coronary artery is normal and patent. LAD is a good caliber blood vessel and mid LAD has a smooth narrowing of about 30%. Diagonal branch is normal. Circumflex coronary artery is a non-dominant in distribution and gives rise to a good size obtuse marginal branch. Circumflex coronary artery and its branches are normal. Right coronary artery is dominant in distribution and gives rise to small size PDA branch. Right coronary artery and its branches are normal. FINAL IMPRESSION: This study reveals mild nonobstructive coronary artery disease with about 30% smooth narrowing in the mid LAD. Circumflex and right coronary arteries are normal. Left ventriculography reveals normal left ventricular systolic function. RECOMMENDATION: Medical treatment and risk factor modification. We would recommend to start the patient on Lipitor 40 mg daily in view of the mild coronary artery disease and patient has a low HDL of 26. MMODL / IJN: [id number] /
--- NOTE | 2018-10-01 12:23 | P.PN ---
Progress Note - Text Patient underwent coronary angiography today and this showed nonobstructive coronary artery disease. Antiplatelet agents and statins have recommended Patient to follow with Dr. Reed as an outpatient within the next 2 weeks
[2018-10-01] MEDS ORDERED: MAGNESIUM SULFATE-D5W PMX 1 GM in DEXTROSE/WATER 1 100ML.BAG IVPB SCH (16:30)
[2018-10-01 17:35] VITALS: BP 120/75; PULSE 97; RESP 22; TEMP 97.8
[2018-10-02] MEDS ORDERED: ATORVASTATIN 40 MG TAB PO SCH (09:00)
[2018-10-02] MEDS ORDERED: ASPIRIN 81 MG PO SCH (09:00)
--- NOTE | 2018-10-12 12:25 | P.DS ---
Providers Date of admission: 09/29/18 20:46 Expected date of discharge: 10/01/18 Attending physician: Carlos Catherine Consults: 09/29/18 20:44 Consult Physician Urgent Consulting Provider: Terrell Holloway Consult Reason/Comments: chest pain Do you want consulting provider notified?: Yes Primary care physician: Chelo Dimas [facility] Course: Discharge diagnosis Chest tightness and Exertional shortness of breath possible stable angina. Ruled out ACS. Status post cardiac catheterization with normal coronaries. Hypomagnesemia Nausea vomiting and diarrhea. Possible acute gastroenteritis. improved now. History of marijuana use Previous history of smoking. Previous history of alcohol abuse Family history of coronary artery disease in his father DVT prophylaxis. Hospital course Patient is a 53-year-old male without significant past medical history and previous history of smoking came to ER with complaints of feeling sick for the past 2 weeks with nausea and vomiting and diarrhea. Patient says that he's been having chest tightness and exertional shortness of breath even prior to this illness, more than a month.. Patient has been having left retrosternal chest pain and not feeling right. Patient is also complaining of dizziness when he gets up. Patient has also having cough basically dry for the past 2 weeks. Denied any other illnesses. No fever no chills. Denied any recent alcohol use. No history of hypertension, diabetes, hyperlipidemia or family history of coronary disease. Patient used to smoke but quit over 20 years ago. EKG showed normal sinus rhythm with ST-T wave changes in the inferior leads Chest x-ray showed no acute cardio pulmonary process Medications 0.8, troponin 3 negative LDL 76 D-dimer not elevated. TSH within normal limits. His B A1c 5.8 Serial troponins negative. 2-D levocardia showed normal ejection fraction. Patient underwent coronary angiography today and this showed nonobstructive coronary artery disease. Antiplatelet agents and statins have recommended Patient to follow with Dr. Reed as an outpatient within the next 2 weeks. PHYSICAL EXAMINATION: Patient is lying in the bed comfortably, no acute distress, awake alert and oriented.. HEENT: Normocephalic. Neck is supple. Pupils reactive. Nostrils clear. Oral cavity is moist. Ears reveal no drainage. Neck reveals no JVD, carotid bruits, or thyromegaly. CHEST EXAMINATION: Trachea is central. Symmetrical expansion. Lung hatch clear to auscultation and percussion. CARDIAC: Normal S1, S2 with no gallops. No murmurs ABDOMEN: Soft. Bowel sounds normal. No organomegaly. No abdominal bruits. Extremities: reveal no edema. No clubbing or cyanosis Neurologically awake, alert, oriented x3 with well-coordinated movements. No focal deficits noted Skin: No rash or skin lesions. Psychiatric: Coperative. Nonsuicidal Musculoskeletal: No joint swelling or deformity. Normal range of motion. Discharge vitals reviewed Patient Condition at Discharge: Good Plan - Discharge Summary Discharge Rx Participant: Yes New Discharge Prescriptions: New Aspirin 81 mg PO DAILY #90 chewable Atorvastatin [Lipitor] 40 mg PO DAILY #90 tablet Magnesium Oxide [Mag-Ox] 400 mg PO BID 5 Days #10 tablet Discontinued HYDROcodone/APAP 10-325MG [[place] 10-325] 1 tab PO QID Discharge Medication List Aspirin 81 mg PO DAILY #90 chewable 10/01/18 [Rx] Atorvastatin [Lipitor] 40 mg PO DAILY #90 tablet 10/01/18 [Rx] Magnesium Oxide [Mag-Ox] 400 mg PO BID 5 Days #10 tablet 10/01/18 [Rx] Follow up Appointment(s)/Referral(s): Shahid Bartholomew MD [STAFF PHYSICIAN] - 10/14/18 8:30 am Wing Whitney MD [Primary Care Provider] - 10/12/18 10:40 am Patient Instructions/Handouts: *Surgery [facility] - After Heart Catheterization - [employer] [employer] Instructions, Heart Healthy Diet (DC), Hypokalemia (DC), Hypomagnesemia (DC) Activity/Diet/Wound Care/Special Instructions: Magnesium replacement for 5 more days Discharge Disposition: HOME SELF-CARE
== END 2018-10-01 20:00 | disposition home or self-care (01) ==
LOC: EC 18:07 → 3SCARD 20:46 → INTOOBSV 20:46 → 3SCARD 09-30 00:04 → UNDODISIN 10-01 20:00
PROVIDERS: ADMIT Hospitalist; ATTEND Hospitalist
PROC: B2151ZZ Fluoroscopy of Left Heart using Low Osmolar Contrast (ICD-10-PCS; 2018-10-01)
PROC: 4A023N7 Measurement of Cardiac Sampling and Pressure, Left Heart, Percutaneous Approach (ICD-10-PCS; principal; 2018-10-01 10:00)
PROC: B2111ZZ Fluoroscopy of Multiple Coronary Arteries using Low Osmolar Contrast (ICD-10-PCS; 2018-10-01 10:00)
DX: R07.2 Precordial pain (principal); E87.3 Alkalosis; R06.02 Shortness of breath; R11.2 Nausea with vomiting, unspecified; R19.7 Diarrhea, unspecified; R42 Dizziness and giddiness; R05 Cough; I25.10 Atherosclerotic heart disease of native coronary artery without angina pectoris; E83.42 Hypomagnesemia; E87.6 Hypokalemia; D64.9 Anemia, unspecified; Z79.891 Long term (current) use of opiate analgesic; Z87.891 Personal history of nicotine dependence; Z82.49 Family history of ischemic heart disease and other diseases of the circulatory system
CPT/HCPCS: 96361 ×2; 96366 ×3; 96365; 99285; 36415; 93005; 93306; 93458; 76937; 85379; 83880; 80061; 80053 ×3; 83735 ×3; 84443; 84484 ×2; 85025; 85027 ×2; 85610; 85730; 83036; 71046; G0378 ×3; C1760; C1894; C1769 ×2; J2250; J2001; J3010; J3475 ×3; Q9967

== ENCOUNTER 2019-02-03 15:21 | Inpatient (IN) | payer OTHER ==
[2019-02-03] MEDS ORDERED: SODIUM CHLORIDE 0.9% 1,000 ML IV STA ×2 (16:01)
[2019-02-03] MEDS ORDERED: ASPIRIN 81 MG PO STA (16:01)
--- NOTE | 2019-02-03 16:18 | ED ---
Chest Pain HPI - General Source: patient, RN notes reviewed, old records reviewed Mode of arrival: wheelchair Limitations: no limitations <Vani Robert - Last Filed: 02/03/19 17:12> <Tex Castro - Last Filed: 02/03/19 18:53> - General Chief Complaint: Chest Pain Stated Complaint: chest pain Time Seen by Provider: 02/03/19 16:01 - History of Present Illness Initial Comments: Patient is a 53-year-old male who presents emergency Department today with complaints of chest pain, general fatigue for the past week. Patient reports that he's had similar symptoms as this and at that time he was diagnosed with hypomagnesemia. Patient reports that he has been feeling like his magnesium levels were low acute earlier this year. Complains of generalized body aches. He does complain of heaviness over his chest. He reports he had a heart catheterization earlier this year which was read to be normal, unable to find report of catheterization on chart. Patient states that he's had no fevers or chills. He does report that he has daily vomiting after eating. Patient states that he doesn't seem to be vomiting is much as he was the first time he came in for hypomagnesemia. (Vani Robert) - Related Data Home Medications Medication Instructions Recorded Confirmed HYDROcodone/APAP 10-325MG [[place] 1 tab PO Q6HR PRN 02/03/19 02/03/19 10-325] Allergies Allergy/AdvReac Type Severity Reaction Status Date / Time No Known Allergies Allergy Verified 02/03/19 16:25 Review of Systems ROS Other: All systems not noted in ROS Statement are negative. <Vani Robert - Last Filed: 02/03/19 17:12> ROS Other: All systems not noted in ROS Statement are negative. <Tex Catsro - Last Filed: 02/03/19 18:53> ROS Statement: Those systems with pertinent positive or pertinent negative responses have been documented in the HPI. EKG Findings - EKG Comments: EKG Findings:: EKG performed at 1556 shows normal sinus rhythm normal EKG. Ventricular rate of 81 bpm. MT interval is 118 ms. QRS duration 86 ms. QT QTc is 356/413 ms. <Vani Robert - Last Filed: 02/03/19 17:12> Past Medical History Past Medical History: No Reported History History of Any Multi-Drug Resistant Organisms: None Reported Past Surgical History: Heart Catheterization With Stent, Hernia Repair Past Anesthesia/Blood Transfusion Reactions: No Reported Reaction Past Psychological History: No Psychological Hx Reported Smoking Status: Never smoker Past Alcohol Use History: None Reported Past Drug Use History: Marijuana <Vani Robert - Last Filed: 02/03/19 17:12> General Exam Limitations: no limitations General appearance: alert, in no apparent distress Head exam: Present: atraumatic, normocephalic, normal inspection Eye exam: Present: normal appearance, PERRL, EOMI. Absent: scleral icterus, conjunctival injection, periorbital swelling ENT exam: Present: normal exam, mucous membranes moist Neck exam: Present: normal inspection. Absent: tenderness, meningismus, lymphadenopathy Respiratory exam: Present: normal lung sounds bilaterally Cardiovascular Exam: Present: regular rate, normal rhythm, normal heart sounds. Absent: systolic murmur, diastolic murmur, rubs, gallop, clicks GI/Abdominal exam: Present: soft, normal bowel sounds. Absent: distended, tenderness, guarding, rebound, rigid Extremities exam: Present: normal inspection, full ROM, normal capillary refill. Absent: tenderness, pedal edema, joint swelling, calf tenderness Back exam: Present: normal inspection Neurological exam: Present: alert, oriented X3, CN II-XII intact Psychiatric exam: Present: normal affect, normal mood <Vani Robert - Last Filed: 02/03/19 17:12> - General Exam Comments Initial Comments: 33-year-old male. Alert and oriented 3. No distress. (Vani Robert) Course <Txe Castro - Last Filed: 02/03/19 18:53> Vital Signs 02/03/19 15:45 Temperature 98.4 F Pulse Rate 103 H Respiratory 20 Rate Blood Pressure 125/79 O2 Sat by Pulse 97 Oximetry - Reevaluation(s) Reevaluation #1: 02/03/19 18:52 Patient present: The patient did present with complaints of chest pain a recent catheterization showed nonobstructive coronary artery disease. Workup thus far is negative however the patient presentation is suspicious for heart disease he will be admitted Dr Antunez was consulted (Tex Castro) Chest Pain MDM <Vani Robert - Last Filed: 02/03/19 17:12> - [facility] This is a 53-year-old male presents emergency department for evaluation with complaints of chest discomfort, having this in the past week and complains of general fatigue. Patient reports he has had no energy to do in his normal activities. Patient reports he is concerned for his magnesium levels being low. At this time patient's magnesium is 1.0. Given IV replacement. Troponin EKG reviewed normal. He continues some chest discomfort. He did have an aspirin earlier today. Patient's case discussed with Dr. Paul. [place] the Patient for serial cardiac enzymes and hypomagnesemia. [facility] (Vani Robert) Disposition Is patient prescribed a controlled substance at d/c from ED?: No Time of Disposition: 17:14 <Vani Robert - Last Filed: 02/03/19 17:12> <Tex Castro - Last Filed: 02/03/19 18:53> Clinical Impression: Chest pain, Hypomagnesemia Disposition: HOME SELF-CARE Condition: Good Instructions (If sedation given, give patient instructions): Chest Pain (ED) Referrals: Wing Whitney MD [Primary Care Provider] - 1-2 days
[2019-02-03 16:34] LABS: Basophils % (A) 1 %; Eosinophils # (A) 0.2 k/uL (0-0.7); Eosinophils % (A) 4 %; HCT 40.7 % (39.0-53.0); HGB 14.4 gm/dL (13.0-17.5); Lymphocytes # (A) 1.7 k/uL (1.0-4.8); Lymphocytes % (A) 37 %; MCH 30.4 pg (25.0-35.0); MCHC 35.4 g/dL (31.0-37.0); Monocytes # (A) 0.3 k/uL (0-1.0); Monocytes % (A) 7 %; Neutrophils # (A) 2.1 k/uL (1.3-7.7); Neutrophils % (A) 48 %; Platelet Count 154 k/uL (150-450); RBC 4.73 m/uL (4.30-5.90); RDW 12.7 % (11.5-15.5); WBC 4.5 k/uL (3.8-10.6)
[2019-02-03 16:41] LABS: Prothrombin Time 10.4 sec (9.0-12.0)
[2019-02-03 16:44] LABS: Albumin 4.2 g/dL (3.5-5.0); Calcium 8.7 mg/dL (8.4-10.2); Potassium 4.2 mmol/L (3.5-5.1); Total Bilirubin 0.7 mg/dL (0.2-1.3)
--- NOTE | 2019-02-03 16:54 | XR ---
EXAMINATION TYPE: XR chest 2V DATE OF EXAM: 02/03/2019 COMPARISON: 09/29/2018 HISTORY: Chest pain TECHNIQUE: Frontal and lateral views of the chest are obtained. FINDINGS: Heart and mediastinum are normal. Lungs are clear. Diaphragm is normal. There are chest le ads. IMPRESSION: Normal chest. No change.
[2019-02-03] MEDS ORDERED: NITROGLYCERIN SL TABS 0.4 MG TAB SUBLINGUAL PRN (17:15)
[2019-02-03] MEDS: MAGNESIUM SULFATE-D5W PMX 1 GM in DEXTROSE/WATER 1 100ML.BAG IVPB SCH ×2 (17:50→18:53)
[2019-02-03 21:28] VITALS: BMI 25.5
[2019-02-03] MEDS ORDERED: HYDROcodone/APAP 10-325MG 1 EACH TAB PO PRN (22:22)
[2019-02-04 04:53] LABS: Calcium 8.6 mg/dL (8.4-10.2); Magnesium 1.5 mg/dL (1.6-2.3); Potassium 3.8 mmol/L (3.5-5.1)
[2019-02-04] MEDS ORDERED: Magnesium Replacement Protocol 1 EACH MISC MISCELLANE PRN (05:29)
[2019-02-04] MEDS: MAGNESIUM SULFATE-D5W PMX 1 GM in DEXTROSE/WATER 1 100ML.BAG IVPB SCH ×2 (05:45→06:47)
--- NOTE | 2019-02-04 08:21 | P.CRDCN ---
History of Present Illness Consult date: 02/04/19 Requesting physician: Carlos Catherine Consult reason: chest pain Chief complaint: Chest pain, vomiting History of present illness: This is a 53-year-old gentleman with no prior documented history of hypertension, no diabetes, no hyperlipidemia, he does not smoke, he states he used to drink heavily but does not drink anymore at all. He does use marijuana occasionally. His father had a myocardial infarction at a young age. Patient was admitted to the hospital in September with symptoms of chest discomfort with associated shortness of breath, he was noted on that admission to have a low magnesium level, he underwent a cardiac catheterization on that admission which revealed mild nonobstructive coronary artery disease with about a 30% smooth narrowing of the mid LAD, medical therapy was advised at that time. He also had an echocardiogram with Doppler study performed on that admission which revealed an ejection fraction of 55-60%. He presents to the hospital on this occasion with symptoms of chest pressure which she states has been occurring off and on for the past, however somewhat constant in nature. He does have associated nausea and vomiting, he states that whenever he eats, he is unable to keep it down and he vomits. He denies any diarrhea. He does complain of some mild shortness of breath. Chest x-ray on admission was normal. EKG shows normal sinus rhythm with no acute changes. Blood pressure 104/60 with a heart rate in the 60s, 98% on room air. White blood cell count 4.5, hemoglobin 14.4, platelet count 154. Sodium 141, potassium 3.8, BUN 18, creatinine 1.1. Magnesium on admission 1.0, this morning 1.5. Troponins are negative 3. Cholesterol 158, L DL 113, HDL 24 and triglycerides 107. Amylase and lipase are normal. At the time of my examination this morning, the patient is currently chest pain-free. Past Medical History Past Medical History: No Reported History History of Any Multi-Drug Resistant Organisms: None Reported Past Surgical History: Heart Catheterization With Stent, Hernia Repair Additional Past Surgical History / Comment(s): november 2018 heart cath with stent Past Anesthesia/Blood Transfusion Reactions: No Reported Reaction Date of Last Stent Placement:: 11/2018 Past Psychological History: No Psychological Hx Reported Smoking Status: Former smoker Past Alcohol Use History: None Reported Additional Past Alcohol Use History / Comment(s): quit smoking when he was 22 years old Past Drug Use History: Marijuana Medications and Allergies Home Medications Medication Instructions Recorded Confirmed Type HYDROcodone/APAP 10-325MG [[place] 1 tab PO Q6HR PRN 02/03/19 02/03/19 History 10-325] Allergies Allergy/AdvReac Type Severity Reaction Status Date / Time No Known Allergies Allergy Verified 02/03/19 16:25 Physical Exam Vitals: Vital Signs Temp Pulse Pulse Resp BP BP Pulse Ox 02/04/19 04:00 97.7 F 69 16 105/63 98 02/04/19 03:59 62 18 02/03/19 23:18 80 18 02/03/19 23:17 97.6 F 80 18 107/56 99 02/03/19 21:19 97.8 F 82 16 134/68 98 02/03/19 20:40 75 20 143/78 99 02/03/19 20:10 85 12 125/93 98 02/03/19 20:00 80 82 18 98 02/03/19 19:50 84 14 97 02/03/19 19:40 78 16 113/76 97 02/03/19 19:10 80 20 125/90 99 02/03/19 19:00 75 17 122/90 98 02/03/19 15:45 98.4 F 103 H 20 125/79 97 Intake and Output 02/03/19 02/04/19 02/04/19 22:59 06:59 14:59 Intake Total 800 Balance 800 Intake: Intake, IV Titration 800 Amount Sodium Chloride 0.9% 1, 800 000 ml @ 100 mls/hr IV . Q10H STA Rx#:[id number] Other: Voiding Method Toilet Toilet # Voids 1 Weight 58.967 kg 67.6 kg PHYSICAL EXAMINATION: GENERAL: 53-year-old gentleman in no acute distress at the time of my examination HEENT: Head is atraumatic, normocephalic. Pupils equal, round. Sclera anicteric. Conjunctiva are clear. Mucous membranes of the mouth are moist. Neck is supple. There is no elevated jugular venous pressure. No carotid] bruit is heard. HEART EXAMINATION: Heart S1, S2 normal. No murmur or gallop heard. CHEST EXAMINATION: Lungs are clear to auscultation and precussion. No chest wall tenderness is noted on palpation or with deep breathing. ABDOMEN: Soft, nontender. Bowel sounds are heard. No organomegaly noted. EXTREMITIES: 2+ peripheral pulses with no evidence of peripheral edema and no calf tenderness noted. NEUROLOGIC patient is awake, alert and oriented 3 . . Results 02/03/19 16:23 02/04/19 03:58 Cardiac Enzymes 02/03/19 02/03/19 02/03/19 Range/Units 16:23 16:23 22:24 AST 50 (17-59) U/L Troponin I <0.012 <0.012 (0.000-0.034) ng/mL 02/04/19 Range/Units 03:58 AST (17-59) U/L Troponin I <0.012 (0.000-0.034) ng/mL Coagulation 02/03/19 Range/Units 16:23 PT 10.4 (9.0-12.0) sec APTT 24.0 (22.0-30.0) sec Lipids 02/04/19 Range/Units 03:58 Triglycerides 107 (<150) mg/dL Cholesterol 158 (<200) mg/dL HDL Cholesterol 24 L (40-60) mg/dL CBC 02/03/19 Range/Units 16:23 WBC 4.5 (3.8-10.6) k/uL RBC 4.73 (4.30-5.90) m/uL Hgb 14.4 (13.0-17.5) gm/dL Hct 40.7 (39.0-53.0) % Plt Count 154 (150-450) k/uL Comprehensive Metabolic Panel 02/03/19 02/04/19 Range/Units 16:23 03:58 Sodium 143 141 (137-145) mmol/L Potassium 4.2 3.8 (3.5-5.1) mmol/L Chloride 105 103 (98-107) mmol/L Carbon Dioxide 29 33 H (22-30) mmol/L BUN 19 18 (9-20) mg/dL Creatinine 1.19 1.19 (0.66-1.25) mg/dL Glucose 119 H 101 H (74-99) mg/dL Calcium 8.7 8.6 (8.4-10.2) mg/dL AST 50 (17-59) U/L ALT 55 (21-72) U/L Alkaline Phosphatase 68 (38-126) U/L Total Protein 8.0 (6.3-8.2) g/dL Albumin 4.2 (3.5-5.0) g/dL Current Medications Generic Name Dose Route Start Last Admin Trade Name Freq PRN Reason Stop Dose Admin Hydrocodone Bitart/Acetaminophen 1 each 02/03/19 22:22 [place] 10 PO Q6HR PRN Pain Aspirin 325 mg 02/04/19 09:00 Aspirin PO DAILY KORTNEY Miscellaneous Information 1 each 02/04/19 05:29 Magnesium Per Protocol MISCELLANE DAILY PRN Per Protocol Protocol Nitroglycerin 0.4 mg 02/03/19 17:15 Nitrostat SUBLINGUAL Q5M PRN Chest Pain Intake and Output 02/03/19 02/04/19 02/04/19 22:59 06:59 14:59 Intake Total 800 Balance 800 Intake: Intake, IV Titration 800 Amount Sodium Chloride 0.9% 1, 800 000 ml @ 100 mls/hr IV . Q10H STA Rx#:[id number] Other: Voiding Method Toilet Toilet # Voids 1 Weight 58.967 kg 67.6 kg 02/03/19 16:23 02/04/19 03:58 EKG Interpretations (text) EKG shows normal sinus rhythm with no acute changes. Assessment and Plan Plan: Assessment and plan #1 chest pain, atypical for acute coronary syndrome. Troponins negative 3. Patient underwent a cardiac catheterization in September of this year which revealed mild nonobstructive coronary artery disease. Echo performed at that time showed normal LV function. #2 family history of premature coronary artery disease #3 hypomagnesemia #4 persistent nausea and vomiting #5 marijuana use #6 prior history of EtOH use of smoking Plan Patient had a heart cath in September of this year which revealed mild nonobstructive coronary artery disease, echo at that time showed normal LV function. No further workup from cardiac perspective. Recommend follow-up appointment in the office. DNP note has been reviewed, I agree with a documented findings and plan of care. Patient was seen and examined.
[2019-02-04 08:29] VITALS: BP 120/80; PULSE 80; RESP 18; TEMP 96.8
[2019-02-04] MEDS ORDERED: ASPIRIN 325 MG TAB PO SCH (09:00)
--- NOTE | 2019-02-18 12:19 | P.HPIM ---
History of Present Illness H&P Date: 02/04/19 Chief Complaint: Chest pain/vomiting 53-year-old gentleman with no prior documented history of hypertension, no diabetes, no hyperlipidemia, he does not smoke, he states he used to drink heavily but does not drink anymore at all. He does use marijuana occasionally. His father had a myocardial infarction at a young age. Patient was admitted to the hospital in September with symptoms of chest discomfort with associated shortness of breath, he was noted on that admission to have a low magnesium level, he underwent a cardiac catheterization on that admission which revealed mild nonobstructive coronary artery disease with about a 30% smooth narrowing of the mid LAD, medical therapy was advised at that time. He also had an echocardiogram with Doppler study performed on that admission which revealed an ejection fraction of 55-60%. He presents to the hospital on this occasion with symptoms of chest pressure which she states has been occurring off and on for the past, however somewhat constant in nature. He does have associated nausea and vomiting, he states that whenever he eats, he is unable to keep it down and he vomits. He denies any diarrhea. He does complain of some mild shortness of breath. Chest x-ray on admission was normal. EKG shows normal sinus rhythm with no acute changes. Blood pressure 104/60 with a heart rate in the 60s, 98% on room air. White blood cell count 4.5, hemoglobin 14.4, platelet count 154. Sodium 141, potassium 3.8, BUN 18, creatinine 1.1. Magnesium on admission 1.0, this morning 1.5. Troponins are negative 3. Cholesterol 158, LDL 113, HDL 24 and triglycerides 107. Amylase and lipase are normal. Review of Systems Constitutional: Denies chills, Denies fever Eyes: denies blurred vision, denies loss of vision Cardiovascular: Reports chest pain, Denies rapid heart beat, Denies shortness of breath Respiratory: Denies cough with sputum Gastrointestinal: Reports abdominal pain, Reports nausea, Reports vomiting Genitourinary: Denies dysuria, Denies hematuria Musculoskeletal: Denies arm numbness/tingling Past Medical History Past Medical History: No Reported History History of Any Multi-Drug Resistant Organisms: None Reported Past Surgical History: Heart Catheterization With Stent, Hernia Repair Additional Past Surgical History / Comment(s): november 2018 heart cath with stent Past Anesthesia/Blood Transfusion Reactions: No Reported Reaction Date of Last Stent Placement:: 11/2018 Past Psychological History: No Psychological Hx Reported Smoking Status: Former smoker Past Alcohol Use History: None Reported Additional Past Alcohol Use History / Comment(s): quit smoking when he was 22 years old Past Drug Use History: Marijuana Medications and Allergies Home Medications Medication Instructions Recorded Confirmed Type HYDROcodone/APAP 10-325MG [[place] 1 tab PO Q6HR PRN 02/03/19 02/03/19 History 10-325] Allergies Allergy/AdvReac Type Severity Reaction Status Date / Time No Known Allergies Allergy Verified 02/03/19 16:25 Physical Exam Vitals: Vital Signs Temp Pulse Pulse Resp BP BP Pulse Ox 02/04/19 08:23 96.8 F L 80 18 120/80 97 02/04/19 04:00 97.7 F 69 16 105/63 98 02/04/19 03:59 62 18 02/03/19 23:18 80 18 02/03/19 23:17 97.6 F 80 18 107/56 99 02/03/19 21:19 97.8 F 82 16 134/68 98 02/03/19 20:40 75 20 143/78 99 02/03/19 20:10 85 12 125/93 98 02/03/19 20:00 80 82 18 98 02/03/19 19:50 84 14 97 02/03/19 19:40 78 16 113/76 97 02/03/19 19:10 80 20 125/90 99 02/03/19 19:00 75 17 122/90 98 02/03/19 15:45 98.4 F 103 H 20 125/79 97 Intake and Output 02/03/19 02/04/19 02/04/19 22:59 06:59 14:59 Intake Total 800 Balance 800 Intake: Intake, IV Titration 800 Amount Sodium Chloride 0.9% 1, 800 000 ml @ 100 mls/hr IV . Q10H STA Rx#:[id number] Other: Voiding Method Toilet Toilet # Voids 1 Weight 58.967 kg 67.6 kg PHYSICAL EXAMINATION: GENERAL: The patient is alert and oriented x3, not in any acute distress. Well developed, well nourished. HEENT: Pupils are round and equally reacting to light. EOMI. No scleral icterus. No conjunctival pallor. Normocephalic, atraumatic. No pharyngeal erythema. No thyromegaly. CARDIOVASCULAR: S1 and S2 present. No murmurs, rubs, or gallops. PULMONARY: Chest is clear to auscultation, no wheezing or crackles. ABDOMEN: Soft, nontender, nondistended, normoactive bowel sounds. No palpable organomegaly. MUSCULOSKELETAL: No joint swelling or deformity. EXTREMITIES: No cyanosis, clubbing, or pedal edema. NEUROLOGICAL: Gross neurological examination did not reveal any focal deficits. SKIN: No rashes. Results CBC & Chem 7: 02/03/19 16:23 02/04/19 03:58 Labs: Abnormal Lab Results - Last 24 Hours (Table) 02/03/19 02/04/19 Range/Units 16:23 03:58 Carbon Dioxide 33 H (22-30) mmol/L Glucose 119 H 101 H (74-99) mg/dL Magnesium 1.0 L 1.5 L (1.6-2.3) mg/dL LDL Cholesterol, Calc 113 H (0-99) mg/dL HDL Cholesterol 24 L (40-60) mg/dL Thrombosis Risk Factor Assmnt - Choose All That Apply Any of the Below Risk Factors Present?: Yes Each Factor Represents 1 point: Age 41-60 years Other Risk Factors: No Other congenital or acquired thrombophilia - If yes, enter type in comment: No Thrombosis Risk Factor Assessment Total Risk Factor Score: 1 Thrombosis Risk Factor Assessment Level: Low Risk Assessment and Plan Assessment: 1. Chest pain; atypical for acute coronary syndrome per cardiology; EKG has been more noted and stable; troponin is negative; patient did have cardiac catheterization done in September 2018 which showed mild nonobstructive coronary artery disease; echo done at that time showed normal LV function - No further cardiac workup is recommended by cardiology service - Recommendations are possible discharge with follow-up with cardiology as outpatient 2. DVT prophylaxis; early ambulation CODE STATUS; full code Time with Patient: Greater than 30
--- NOTE | 2019-02-18 12:20 | P.DS ---
Providers Date of admission: 02/03/19 18:52 Expected date of discharge: 02/04/19 Attending physician: Carlos Catherine Consults: 02/03/19 17:15 Consult Physician Urgent Consulting Provider: Terrell Holloway Consult Reason/Comments: Chest pain Do you want consulting provider notified?: Yes Primary care physician: Chelo Gonzalez [facility] Course: 53-year-old gentleman with no prior documented history of hypertension, no diabetes, no hyperlipidemia, he does not smoke, he states he used to drink heavily but does not drink anymore at all. He does use marijuana occasionally. His father had a myocardial infarction at a young age. Patient was admitted to the hospital in September with symptoms of chest discomfort with associated shortness of breath, he was noted on that admission to have a low magnesium level, he underwent a cardiac catheterization on that admission which revealed mild nonobstructive coronary artery disease with about a 30% smooth narrowing of the mid LAD, medical therapy was advised at that time. He also had an echocardiogram with Doppler study performed on that admission which revealed an ejection fraction of 55-60%. He presents to the hospital on this occasion with symptoms of chest pressure which she states has been occurring off and on for the past, however somewhat constant in nature. He does have associated nausea and vomiting, he states that whenever he eats, he is unable to keep it down and he vomits. He denies any diarrhea. He does complain of some mild shortness of breath. Chest x-ray on admission was normal. EKG shows normal si nus rhythm with no acute changes. Blood pressure 104/60 with a heart rate in the 60s, 98% on room air. White blood cell count 4.5, hemoglobin 14.4, platelet count 154. Sodium 141, potassium 3.8, BUN 18, creatinine 1.1. Magnesium on admission 1.0, this morning 1.5. Troponins are negative 3. Cholesterol 158, LDL 113, HDL 24 and triglycerides 107. Amylase and lipase are normal. At the time of my examination this morning, the patient is currently chest pain-free. Patient had recent cardiac catheterization in September 2018 which showed mild nonobstructive coronary artery disease; echocardiogram done at that time showed stable left ventricular function; cardiology saw patient and recommended no further treatment and follow-up with cardiology as an outpatient Patient Condition at Discharge: Good Plan - Discharge Summary Discharge Rx Participant: No New Discharge Prescriptions: Continue HYDROcodone/APAP 10-325MG [[place] 10-325] 1 tab PO Q6HR PRN PRN Reason: Pain Discharge Medication List HYDROcodone/APAP 10-325MG [[place] 10-325] 1 tab PO Q6HR PRN 02/03/19 [History] Follow up Appointment(s)/Referral(s): Wing Whitney MD [Primary Care Provider] - 1-2 days Jyoti Jovel MD [STAFF PHYSICIAN] - 03/24/19 9:15 am (with Me[facility] [employer] Please call if there are any problems if you need to get in sooner) Patient Instructions/Handouts: Chest Pain (ED), Hypomagnesemia (DC) Discharge Disposition: HOME SELF-CARE
== END 2019-02-04 13:39 | disposition home or self-care (01) | DRG 641 ==
LOC: EC 15:21 → 3SCARD 18:52
PROVIDERS: ADMIT Hospitalist; ATTEND Hospitalist
DX: E83.42 Hypomagnesemia (principal); R07.89 Other chest pain; R06.02 Shortness of breath; R11.2 Nausea with vomiting, unspecified; I25.10 Atherosclerotic heart disease of native coronary artery without angina pectoris; F10.11 Alcohol abuse, in remission; Z95.5 Presence of coronary angioplasty implant and graft; Z87.891 Personal history of nicotine dependence; Z98.890 Other specified postprocedural states; Z82.49 Family history of ischemic heart disease and other diseases of the circulatory system
CPT/HCPCS: 36415; 71046; 80048; 80053; 80061; 82150; 83690; 83735; 83880; 84484; 85025; 85610; 85730; 93005; 96361; 96365; 96366; 99285

== ENCOUNTER 2019-05-14 16:28 | Inpatient (IN) | payer OTHER ==
[2019-05-14 16:57] VITALS: RESP 18
--- NOTE | 2019-05-14 17:06 | ED ---
Chest Pain HPI - General Chief Complaint: Chest Pain Stated Complaint: abn labs Time Seen by Provider: 05/14/19 17:01 Source: patient, RN notes reviewed, old records reviewed Mode of arrival: ambulatory Limitations: no limitations - History of Present Illness Initial Comments: This is a 53-year-old male the ER for evaluation presented today for evaluation of chest pain patient states he feels like his magnesium is low no significant medical history denies drugs or alcohol abuse. Patient states she's been feeling jittery and anxious. He states he does suffer from depression when he gets like this he does not have significantly high activity level. He has had previous hospitalizations for the same amount of low magnesium but unknown reason why. Patient does not take any supplementations no [id number] medications. Patient has no real significant waking or weight loss as of late MD Complaint: chest pain -: unknown Onset: during rest, during exertion Pain Location: substernal Pain Radiation: none Severity: mild Severity scale (1-10): 3 Quality: tightness Consistency: constant Improves With: nothing Worsens With: nothing Context: recent illness Anginal Symptoms: nausea, dyspnea Other Symptoms: palpitations Treatments Prior to Arrival: none - Related Data Home Medications Medication Instructions Recorded Confirmed HYDROcodone/APAP 10-325MG [[place] 1 tab PO Q6H 02/03/19 05/14/19 10-325] Multivitamins, Thera [Multivitamin 1 tab PO DAILY 05/14/19 05/14/19 (formulary)] Allergies Allergy/AdvReac Type Severity Reaction Status Date / Time No Known Allergies Allergy Verified 05/14/19 18:52 Review of Systems ROS Statement: Those systems with pertinent positive or pertinent negative responses have been documented in the HPI. ROS Other: All systems not noted in ROS Statement are negative. EKG Findings - EKG Comments: EKG Findings:: EKG shows sinus rhythm rate of 86, PA 120, QRS 70, QTc 411 Past Medical History Past Medical History: No Reported History History of Any Multi-Drug Resistant Organisms: None Reported Past Surgical History: Heart Catheterization With Stent, Hernia Repair Additional Past Surgical History / Comment(s): november 2018 heart cath with stent Past Anesthesia/Blood Transfusion Reactions: No Reported Reaction Date of Last Stent Placement:: 11/2018 Past Psychological History: No Psychological Hx Reported Smoking Status: Former smoker Past Alcohol Use History: None Reported Past Drug Use History: Marijuana General Exam Limitations: no limitations General appearance: alert, in no apparent distress, anxious Head exam: Present: atraumatic, normocephalic, normal inspection Eye exam: Present: normal appearance, PERRL, EOMI. Absent: scleral icterus, conjunctival injection, periorbital swelling ENT exam: Present: normal exam, mucous membranes moist Neck exam: Present: normal inspection. Absent: tenderness, meningismus, lymphadenopathy Respiratory exam: Present: normal lung sounds bilaterally. Absent: respiratory distress, wheezes, rales, rhonchi, stridor Cardiovascular Exam: Present: normal rhythm, tachycardia, normal heart sounds. Absent: systolic murmur, diastolic murmur, rubs, gallop, clicks GI/Abdominal exam: Present: soft, normal bowel sounds. Absent: distended, tenderness, guarding, rebound, rigid Extremities exam: Present: normal inspection, full ROM, normal capillary refill. Absent: tenderness, pedal edema, joint swelling, calf tenderness Back exam: Present: normal inspection Neurological exam: Present: alert, oriented X3, CN II-XII intact Psychiatric exam: Present: normal affect, normal mood Skin exam: Present: warm, dry, intact, normal color. Absent: rash Course Vital Signs 05/14/19 05/14/19 16:51 18:44 Temperature 97.9 F Pulse Rate 114 H 82 Respiratory 18 18 Rate Blood Pressure 137/82 109/63 O2 Sat by Pulse 97 98 Oximetry - Reevaluation(s) Reevaluation #1: 05/14/19 19:07 Medical record is reviewed Reevaluation #2: 05/14/19 19:07 Patient not feeling any better so chest pain still feels weak - Consultations Consultation #1: spoke with Dr. Singleton who is okay for admission Chest Pain MDM - [facility] 53 male the ER for evaluation patient presents today for evaluation of chest pain chest pain low magnesium will not for magnesium replacement troponin rule out Disposition Clinical Impression: Chest pain, Hypomagnesemia Disposition: ADMITTED IP TO THIS HOSP Condition: Fair Is patient prescribed a controlled substance at d/c from ED?: No Referrals: Jessee Sandoval MD [Primary Care Provider] - 1-2 days
[2019-05-14 18:14] LABS: ALT 54 U/L (21-72); AST 38 U/L (17-59); African American GFR (CKD) >90 (>60 ml/min/1.73 sqM); Albumin 4.1 g/dL (3.5-5.0); Alcohol <10 mg/dL; Alkaline Phosphatase 68 U/L (38-126); Anion Gap 9 mmol/L; Blood Urea Nitrogen 16 mg/dL (9-20); Calcium 8.7 mg/dL (8.4-10.2); Carbon Dioxide 31 mmol/L (22-30); Chloride 100 mmol/L (98-107); Glucose 86 mg/dL (74-99); Non-African American GFR(CKD) 78 (>60 ml/min/1.73 sqM); Partial Thromboplastin Time 26.4 sec (22.0-30.0); Potassium 3.4 mmol/L (3.5-5.1); Prothrombin Time 10.4 sec (9.0-12.0); Sodium 140 mmol/L (137-145); Total Bilirubin 0.3 mg/dL (0.2-1.3); Total Protein 8.1 g/dL (6.3-8.2)
[2019-05-14] MEDS ORDERED: POTASSIUM BICARBONATE/CIT AC 20 MEQ TABLET.EFF PO ONE (18:17)
[2019-05-14] MEDS ORDERED: MAGNESIUM OXIDE 400 MG TAB PO STA (18:17)
--- NOTE | 2019-05-14 18:19 | XR ---
EXAMINATION TYPE: XR chest 2V DATE OF EXAM: 05/14/2019 COMPARISON: 02/03/2019 HISTORY: Chest pain TECHNIQUE: Frontal and lateral views of the chest are obtained. FINDINGS: Heart and mediastinum are normal. Lungs are clear. Diaphragm is normal. Bony thorax appear s normal. There are chest leads. IMPRESSION: Normal chest. No change.
[2019-05-14 18:28] LABS: Basophils # (A) 0.1 k/uL (0-0.2); Basophils % (A) 3 %; Eosinophils # (A) 0.1 k/uL (0-0.7); Eosinophils % (A) 2 %; HCT 37.9 % (39.0-53.0); HGB 13.2 gm/dL (13.0-17.5); Lymphocytes % (A) 27 %; MCH 31.2 pg (25.0-35.0); MCHC 34.9 g/dL (31.0-37.0); MCV 89.4 fL (80.0-100.0); Mean Platelet Volume 7.8; Monocytes # (A) 0.3 k/uL (0-1.0); Monocytes % (A) 10 %; Neutrophils # (A) 1.9 k/uL (1.3-7.7); Neutrophils % (A) 55 %; Platelet Count 113 k/uL (150-450); RBC 4.24 m/uL (4.30-5.90); RDW 12.4 % (11.5-15.5); WBC 3.5 k/uL (3.8-10.6)
[2019-05-14] MEDS: MAGNESIUM SULFATE-D5W PMX 1 GM in DEXTROSE/WATER 1 100ML.BAG IVPB SCH ×2 (18:56→20:00)
[2019-05-14] MEDS ORDERED: ASPIRIN 81 MG PO STA (19:04)
[2019-05-14] MEDS ORDERED: NITROGLYCERIN SL TABS 0.4 MG TAB SUBLINGUAL PRN (19:04)
[2019-05-14] MEDS: SODIUM CHLORIDE 0.9% 1,000 ML IV SCH (19:27)
[2019-05-15 06:10] LABS: Cholesterol 130 mg/dL (<200); HDL Cholesterol 27 mg/dL (40-60); LDL Cholesterol,Calculated 85 mg/dL (0-99); Triglycerides 89 mg/dL (<150)
[2019-05-15] MEDS: SODIUM CHLORIDE 0.9% 1,000 ML IV SCH (06:21)
[2019-05-15] MEDS ORDERED: INFLUENZA VACCINE (6 MOS+) 60 MCG/0.5 ML SYRINGE IM ONE (06:45)
[2019-05-15 06:52] LABS: Calcium 8.3 mg/dL (8.4-10.2); Magnesium 1.5 mg/dL (1.6-2.3); Potassium 4.3 mmol/L (3.5-5.1)
[2019-05-15] MEDS ORDERED: ASPIRIN 325 MG TAB PO SCH (09:00)
[2019-05-15] MEDS ORDERED: MAGNESIUM OXIDE 400 MG TAB PO SCH (09:00)
[2019-05-15 09:05] VITALS: TEMP 98
[2019-05-15 09:54] LABS: Calcium 8.2 mg/dL (8.4-10.2); Magnesium 1.5 mg/dL (1.6-2.3); Potassium 4.3 mmol/L (3.5-5.1)
--- NOTE | 2019-05-15 11:06 | P.HPIM ---
History of Present Illness H&P Date: 05/15/19 Chief Complaint: Chest pain, anorexia HISTORY AND PHYSICAL AND DISCHARGE SUMMARY: This is a 53-year-old male who recently started seen Dr. Sandoval 2 days ago. He has past medical history other than chronic pain to his knee for torn meniscus following with Dr. Martines for pain management and hypomagnesemia, remote history of tobacco use and alcohol abuse. He has had 2 admissions this year as he presented with chest discomfort with associated shortness of breath, noted to have a low magnesium level. He underwent a cardiac catheterization on his September admission which revealed mild nonobstructive coronary artery disease with about a 30% smooth narrowing of the mid LAD, medical therapy was advised at that time. He also had an echocardiogram with Doppler study performed on that admission which revealed an ejection fraction of 55-60%. He present presented on his second admission in January of this year with chest pressure occurring on and off and he was evaluated by cardiology with no further investigation. Patient now presents again with chest pain states he has not been eating and he has the same symptoms as previously on other admissions. He is also concerned that he may be depressed lately or have a new onset of anxiety but he denies any depression or anxiety at the time of evaluation. Patient denies having any diarrhea or frequent bowel movements. He does not know why he does not have much appetite. On presentation patient was found to have a magnesium level of 1 and potassium 3.4. W BC 3.4, hemoglobin 13.2 and platelet count 113. Sodium 140, potassium 3.4, chloride 100, CO2 31, BUN 16 creatinine 1.09. Liver function tests were normal and troponins negative on 3 draws. Triglycerides 89, cholesterol 130, LDL 85, HDL 27, lipase 168 and serum alcohol level less than 10. Patient was given 2 g IV magnesium and oral along with potassium 40 mEq and recheck of magnesium is 1.5, potassium 4.3. The patient will be provided magnesium IV to grams and discharge home today with follow-up with Dr. Sandoval in the office this week for repeat blood work. Patient has mild pancytopenia which may need to have further workup with hematology. Review of Systems Constitutional: Reports anorexia, Reports chronic pain, Reports poor appetite, Denies chills, Denies fever, Denies lethargy, Denies malaise Eyes: denies blurred vision, denies pain Ears, nose, mouth and throat: Denies headache, Denies nasal congestion, Denies nasal discharge, Denies sore throat, Denies vertigo Cardiovascular: Reports chest pain, Denies decreased exercise tolerance, Denies leg edema, Denies lightheadedness, Denies shortness of breath, Denies syncope Respiratory: Denies cough, Denies cough with sputum, Denies dyspnea, Denies excessive sputum, Denies hemoptysis, Denies home oxygen, Denies wheezing Gastrointestinal: Reports loss of appetite, Denies abdominal pain, Denies diarrhea, Denies nausea, Denies vomiting Genitourinary: Denies dysuria, Denies urinary retention Musculoskeletal: Denies frequent falls, Denies gait dysfunction, Denies muscle weakness, Denies myalgias Integumentary: Denies pruritus, Denies rash, Denies wounds Neurological: Denies gait dysfunction, Denies numbness, Denies weakness Psychiatric: Reports anxiety, Reports depression Endocrine: Denies fatigue, Denies weight change Past Medical History Past Medical History: No Reported History History of Any Multi-Drug Resistant Organisms: None Reported Past Surgical History: Heart Catheterization, Hernia Repair Additional Past Surgical History / Comment(s): november 2018 heart cath Past Anesthesia/Blood Transfusion Reactions: No Reported Reaction Date of Last Stent Placement:: 11/2018 Past Psychological History: No Psychological Hx Reported Smoking Status: Former smoker Past Alcohol Use History: None Reported Additional Past Alcohol Use History / Comment(s): Patient was a smoker of 2 packs per day for 25 years and quit most 20 years ago. He also states that he drank alcohol heavily up to a fifth a day for 10 years and quit about 20 years ago. He has not followed with AA and did it on his own. He works in [employer] and [employer]. He is single and does not have any children. Past Drug Use History: Marijuana - Past Family History Father Additional Family Medical History / Comment(s): Father in his 70s from some type of cancer. Mother Additional Family Medical History / Comment(s): Mother in her 60s from Alzheimer's dementia. Brother(s) Additional Family Medical History / Comment(s): Patient has 1 brother and 1 sister with no major medical problems. Medications and Allergies Home Medications Medication Instructions Recorded Confirmed Type HYDROcodone/APAP 10-325MG [[place] 1 tab PO Q6H 02/03/19 05/14/19 History 10-325] Multivitamins, Thera [Multivitamin 1 tab PO DAILY 05/14/19 05/14/19 History (formulary)] Magnesium Oxide [Mag-Ox] 400 mg PO BID tab 05/15/19 Rx Allergies Allergy/AdvReac Type Severity Reaction Status Date / Time No Known Allergies Allergy Verified 05/14/19 18:52 Physical Exam Vitals: Vital Signs Temp Pulse Pulse Resp BP BP Pulse Ox 05/15/19 04:00 72 18 101/62 96 05/15/19 00:00 78 18 120/80 98 05/14/19 20:00 82 05/14/19 19:41 97.7 F 82 18 125/81 99 05/14/19 19:38 98.2 F 05/14/19 19:32 76 18 112/82 100 05/14/19 18:44 82 18 109/63 98 05/14/19 16:51 97.9 F 114 H 18 137/82 97 Intake and Output 05/14/19 05/15/19 05/15/19 22:59 06:59 14:59 Other: Voiding Method Toilet Toilet # Voids 1 Weight 58.967 kg 66.1 kg Gen: This is a thin 53-year-old male. He is resting in bed appears be comfortable and in no acute distress. HEENT: Head is atraumatic, normocephalic. Pupils equal, round. Sclerae is anicteric. NECK: Supple. No JVD. No lymphadenopathy. No thyromegaly. LUNGS: Clear to auscultation. No wheezes or rhonchi. No intercostal retractions. HEART: Regular rate and rhythm. No murmur. ABDOMEN: Soft. Bowel sounds are present. No masses. No abdominal tenderness. EXTREMITIES: No pedal edema. No calf tenderness. NEUROLOGICAL: Patient is awake, alert and oriented x3. Cranial nerves 2 through 12 are grossly intact. Results CBC & Chem 7: 05/14/19 17:52 05/15/19 09:24 Labs: Abnormal Lab Results - Last 24 Hours (Table) 05/14/19 05/14/19 05/15/19 Range/Units 17:52 17:52 05:25 WBC 3.5 L (3.8-10.6) k/uL RBC 4.24 L (4.30-5.90) m/uL Hct 37.9 L (39.0-53.0) % Plt Count 113 L (150-450) k/uL Potassium 3.4 L (3.5-5.1) mmol/L Carbon Dioxide 31 H (22-30) mmol/L Glucose (74-99) mg/dL Calcium (8.4-10.2) mg/dL Magnesium 1.0 L (1.6-2.3) mg/dL HDL Cholesterol 27 L (40-60) mg/dL 05/15/19 Range/Units 05:25 WBC (3.8-10.6) k/uL RBC (4.30-5.90) m/uL Hct (39.0-53.0) % Plt Count (150-450) k/uL Potassium (3.5-5.1) mmol/L Carbon Dioxide 31 H (22-30) mmol/L Glucose 106 H (74-99) mg/dL Calcium 8.3 L (8.4-10.2) mg/dL Magnesium 1.5 L (1.6-2.3) mg/dL HDL Cholesterol (40-60) mg/dL Thrombosis Risk Factor Assmnt - Choose All That Apply Each Factor Represents 1 point: Age 41-60 years Thrombosis Risk Factor Assessment Total Risk Factor Score: 1 Thrombosis Risk Factor Assessment Level: Low Risk Assessment and Plan Plan: 1. Chest plain with negative troponins, resolved. 2. Electrolyte abnormalities including hypomagnesemia and hypokalemia of unclear etiology. Patient denies any recent diarrhea or frequent bowel movements. Magnesium will be placed and patient will be discharged home on magnesium twice daily. 3. Mild pancytopenia of unclear etiology. Patient to follow-up with Dr. Sandoval and have repeat lab work done next week. Patient may need follow-up with deputy insurance commissioner. 4. Intermittent episodes of anorexia of unclear etiology. 5. Remote history of tobacco use and dependence and alcohol abuse. 6. Chronic knee pain under the care of Dr. Martines. Patient will be admitted to the hospital for a minimum of 1 night stay. Discharge plan: Home Discharge Medication List HYDROcodone/APAP 10-325MG [[place] 10-325] 1 tab PO Q6H 02/03/19 [History] Multivitamins, Thera [Multivitamin (formulary)] 1 tab PO DAILY 05/14/19 [History] Magnesium Oxide [Mag-Ox] 400 mg PO BID tab 05/15/19 [Rx] Impression and plan of care have been directed as dictated by the signing physician. Niesha Quintana nurse practitioner acting as scribe for signing physician.
[2019-05-15] MEDS: MAGNESIUM SULFATE-D5W PMX 1 GM in DEXTROSE/WATER 1 100ML.BAG IVPB SCH ×2 (11:44→12:46)
[2019-05-15 12:38] VITALS: BP 130/80; PULSE 76
== END 2019-05-15 14:51 | disposition home or self-care (01) | DRG 641 ==
LOC: EC 16:28 → 3SCARD 19:04
PROVIDERS: ADMIT Internal Medicine; ATTEND Internal Medicine
DX: E83.42 Hypomagnesemia (principal); D61.818 Other pancytopenia; E87.6 Hypokalemia; R07.9 Chest pain, unspecified; I25.10 Atherosclerotic heart disease of native coronary artery without angina pectoris; F32.9 Major depressive disorder, single episode, unspecified; Z23 Encounter for immunization; G89.29 Other chronic pain; S83.209A Unspecified tear of unspecified meniscus, current injury, unspecified knee, initial encounter; F10.10 Alcohol abuse, uncomplicated; R63.0 Anorexia; Y90.0 Blood alcohol level of less than 20 mg/100 ml; Z79.891 Long term (current) use of opiate analgesic; Z79.899 Other long term (current) drug therapy; Z95.5 Presence of coronary angioplasty implant and graft; Z98.890 Other specified postprocedural states; Z87.891 Personal history of nicotine dependence; Z82.0 Family history of epilepsy and other diseases of the nervous system; Z80.9 Family history of malignant neoplasm, unspecified
CPT/HCPCS: 36415; 71046; 80048; 80053; 80061; 80320; 83690; 83735; 84484; 85025; 85610; 85730; 93005; 96365; 99285

== ENCOUNTER 2019-07-31 19:16 | Inpatient (IN) | payer OTHER ==
--- NOTE | 2019-07-31 19:49 | ED ---
General Adult HPI - General Chief complaint: Chest Pain Stated complaint: Chest pain Time Seen by Provider: 07/31/19 19:28 Source: patient, RN notes reviewed, old records reviewed Mode of arrival: ambulatory Limitations: no limitations - History of Present Illness Initial comments: 54-year-old male presents for evaluation of chest pain, dyspnea, and concern for low magnesium. Patient states he's had several episodes similar to this in the past. He states 1 week history of mild chest tightness and dyspnea. He is not currently on a magnesium supplement. He denies alcohol consumption. He has no known history of CAD. He denies cough or fever. Denies abdominal pain. He said some nausea and vomiting associated with his chest tightness. No lower extremity edema. - Related Data Home Medications Medication Instructions Recorded Confirmed HYDROcodone/APAP 10-325MG [[place] 1 tab PO Q6H 02/03/19 05/14/19 10-325] Multivitamins, Thera [Multivitamin 1 tab PO DAILY 05/14/19 05/14/19 (formulary)] Previous Rx's Medication Instructions Recorded Magnesium Oxide [Mag-Ox] 400 mg PO BID tab 05/15/19 Allergies Allergy/AdvReac Type Severity Reaction Status Date / Time No Known Allergies Allergy Verified 07/31/19 19:22 Review of Systems ROS Statement: Those systems with pertinent positive or pertinent negative responses have been documented in the HPI. ROS Other: All systems not noted in ROS Statement are negative. Past Medical History Past Medical History: No Reported History History of Any Multi-Drug Resistant Organisms: None Reported Past Surgical History: Heart Catheterization, Hernia Repair Additional Past Surgical History / Comment(s): november 2018 heart cath Past Anesthesia/Blood Transfusion Reactions: No Reported Reaction Date of Last Stent Placement:: 11/2018 Past Psychological History: No Psychological Hx Reported Smoking Status: Former smoker Past Alcohol Use History: None Reported Past Drug Use History: Marijuana - Past Family History Father Additional Family Medical History / Comment(s): Father in his 70s from some type of cancer. Mother Additional Family Medical History / Comment(s): Mother in her 60s from Alzheimer's dementia. Brother(s) Additional Family Medical History / Comment(s): Patient has 1 brother and 1 sister with no major medical problems. General Exam Limitations: no limitations General appearance: alert, in no apparent distress Head exam: Present: atraumatic, normocephalic Eye exam: Present: normal appearance, PERRL ENT exam: Present: normal exam Neck exam: Present: normal inspection. Absent: tenderness, meningismus Respiratory exam: Present: normal lung sounds bilaterally. Absent: respiratory distress, wheezes Cardiovascular Exam: Present: regular rate, normal rhythm GI/Abdominal exam: Present: soft. Absent: distended, tenderness, guarding Extremities exam: Present: normal inspection, normal capillary refill. Absent: pedal edema Neurological exam: Present: alert, oriented X3, CN II-XII intact. Absent: motor sensory deficit Psychiatric exam: Present: normal affect, normal mood Skin exam: Present: warm, dry, intact. Absent: cyanosis, diaphoretic Course Vital Signs 07/31/19 07/31/19 07/31/19 19:20 19:40 20:32 Temperature 100.0 F H 99.9 F H 99.3 F Pulse Rate 107 H 94 98 Respiratory 16 18 18 Rate Blood Pressure 124/74 94/82 102/79 O2 Sat by Pulse 98 99 99 Oximetry 07/31/19 21:43 Temperature Pulse Rate 97 Respiratory 18 Rate Blood Pressure 96/62 O2 Sat by Pulse 96 Oximetry EKG Findings - EKG Comments: EKG Findings:: EKG: Normal sinus rhythm with sinus arrhythmia, rate of 85, SC interval 112, QRS duration 74, QTC 406, no ST segment elevation Medical Decision Making - Medical Decision Making 54-year-old male presenting with mild dyspnea vague chest discomfort, stating this is related to his magnesium level. Magnesium level is obtained, this is 1.0 which is very low. He also has additional abnormalities including calcium 7.9. Creatinine 1.32 which is mildly increased from baseline. He has pancytopenia with white blood cell count 3.1, hemoglobin down trending of 11.7, platelets down trending of 101. His troponin is negative. Chest x-ray is negative. Patient is given both magnesium and calcium in the emergency department. I did discuss case with the admitting physician Dr. Alejo, will admit for likely replacement, serial troponins, close monitoring. - Lab Data Result diagrams: 07/31/19 19:50 07/31/19 19:50 Lab Results 07/31/19 07/31/19 07/31/19 Range/Units 19:50 19:50 19:50 WBC 3.1 L (3.8-10.6) k/uL RBC 3.78 L (4.30-5.90) m/uL Hgb 11.7 L (13.0-17.5) gm/dL Hct 33.4 L (39.0-53.0) % MCV 88.3 (80.0-100.0) fL MCH 31.0 (25.0-35.0) pg MCHC 35.1 (31.0-37.0) g/dL RDW 12.1 (11.5-15.5) % Plt Count 101 L (150-450) k/uL Neutrophils % (Manual) 54 % Lymphocytes % (Manual) 27 % Monocytes % (Manual) 10 % Eosinophils % (Manual) 9 % Neutrophils # (Manual) 1.67 (1.3-7.7) k/uL Lymphocytes # (Manual) 0.84 L (1.0-4.8) k/uL Monocytes # (Manual) 0.31 (0-1.0) k/uL Eosinophils # (Manual) 0.28 (0-0.7) k/uL Nucleated RBCs 0 (0-0) /100 WBC Manual Slide Review Performed RBC Morphology Normal PT 10.2 (9.0-12.0) sec INR 1.0 (<1.2) APTT 25.2 (22.0-30.0) sec D-Dimer 0.40 (<0.60) mg/L FEU Sodium 139 (137-145) mmol/L Potassium 3.8 (3.5-5.1) mmol/L Chloride 101 (98-107) mmol/L Carbon Dioxide 31 H (22-30) mmol/L Anion Gap 7 mmol/L BUN 15 (9-20) mg/dL Creatinine 1.32 H (0.66-1.25) mg/dL Est GFR (CKD-EPI)AfAm 72 (>60 ml/min/1.73 sqM) Est GFR (CKD-EPI)NonAf 62 (>60 ml/min/1.73 sqM) Glucose 127 H (74-99) mg/dL Calcium 7.9 L (8.4-10.2) mg/dL Magnesium 1.0 L (1.6-2.3) mg/dL Total Bilirubin 0.5 (0.2-1.3) mg/dL AST 32 (17-59) U/L ALT 26 (4-49) U/L Alkaline Phosphatase 72 (38-126) U/L Troponin I (0.000-0.034) ng/mL NT-Pro-B Natriuret Pep pg/mL Total Protein 7.5 (6.3-8.2) g/dL Albumin 3.6 (3.5-5.0) g/dL Lipase 168 (23-300) U/L 07/31/19 07/31/19 Range/Units 19:50 19:50 WBC (3.8-10.6) k/uL RBC (4.30-5.90) m/uL Hgb (13.0-17.5) gm/dL Hct (39.0-53.0) % MCV (80.0-100.0) fL MCH (25.0-35.0) pg MCHC (31.0-37.0) g/dL RDW (11.5-15.5) % Plt Count (150-450) k/uL Neutrophils % (Manual) % Lymphocytes % (Manual) % Monocytes % (Manual) % Eosinophils % (Manual) % Neutrophils # (Manual) (1.3-7.7) k/uL Lymphocytes # (Manual) (1.0-4.8) k/uL Monocytes # (Manual) (0-1.0) k/uL Eosinophils # (Manual) (0-0.7) k/uL Nucleated RBCs (0-0) /100 WBC Manual Slide Review RBC Morphology PT (9.0-12.0) sec INR (<1.2) APTT (22.0-30.0) sec D-Dimer (<0.60) mg/L FEU Sodium (137-145) mmol/L Potassium (3.5-5.1) mmol/L Chloride (98-107) mmol/L Carbon Dioxide (22-30) mmol/L Anion Gap mmol/L BUN (9-20) mg/dL Creatinine (0.66-1.25) mg/dL Est GFR (CKD-EPI)AfAm (>60 ml/min/1.73 sqM) Est GFR (CKD-EPI)NonAf (>60 ml/min/1.73 sqM) Glucose (74-99) mg/dL Calcium (8.4-10.2) mg/dL Magnesium (1.6-2.3) mg/dL Total Bilirubin (0.2-1.3) mg/dL AST (17-59) U/L ALT (4-49) U/L Alkaline Phosphatase (38-126) U/L Troponin I <0.012 (0.000-0.034) ng/mL NT-Pro-B Natriuret Pep 40 pg/mL Total Protein (6.3-8.2) g/dL Albumin (3.5-5.0) g/dL Lipase (23-300) U/L Disposition Clinical Impression: Chest pain, Hypomagnesemia, Pancytopenia Disposition: ADMITTED IP TO THIS [facility] Condition: Stable Is patient prescribed a controlled substance at d/c from ED?: No Referrals: Jessee Sandoval MD [Primary Care Provider] - 1-2 days Decision to Admit Reason: Admit from EC Decision Date: 07/31/19 Decision Time: 21:54
[2019-07-31 20:03] LABS: HCT 33.4 % (39.0-53.0); HGB 11.7 gm/dL (13.0-17.5); MCHC 35.1 g/dL (31.0-37.0); MCV 88.3 fL (80.0-100.0); Mean Platelet Volume 9.2; Platelet Count 101 k/uL (150-450); RBC 3.78 m/uL (4.30-5.90); RDW 12.1 % (11.5-15.5); WBC 3.1 k/uL (3.8-10.6)
[2019-07-31 20:08] LABS: Albumin 3.6 g/dL (3.5-5.0); Calcium 7.9 mg/dL (8.4-10.2); Potassium 3.8 mmol/L (3.5-5.1); Total Bilirubin 0.5 mg/dL (0.2-1.3); Total Protein 7.5 g/dL (6.3-8.2)
[2019-07-31 20:13] LABS: D-Dimer 0.4 mg/L FEU (<0.60); Partial Thromboplastin Time 25.2 sec (22.0-30.0); Prothrombin Time 10.2 sec (9.0-12.0)
[2019-07-31 20:18] LABS: Eosinophils # (M) 0.28 k/uL (0-0.7); Lymphocytes # (M) 0.84 k/uL (1.0-4.8); Monocytes # (M) 0.31 k/uL (0-1.0); Neutrophils # (M) 1.67 k/uL (1.3-7.7); Neutrophils % (M) 54 %; Nucleated Red Blood Cells 0 /100 WBC (0-0); Total Cells Counted 100
--- NOTE | 2019-07-31 20:33 | XR ---
EXAMINATION TYPE: XR chest 2V DATE OF EXAM: 07/31/2019 COMPARISON: 05/14/2019 HISTORY: Chest pain TECHNIQUE: FINDINGS: Heart and mediastinum are normal. Lungs are clear. Diaphragm is normal. Bony thorax appears normal. IMPRESSION: Normal chest. No change.
[2019-07-31] MEDS ORDERED: CALCIUM GLUCONATE 1 GM in SODIUM CHLORIDE 0.9% 100 ML IVPB ONE (21:00)
[2019-07-31] MEDS: MAGNESIUM SULFATE-D5W PMX 1 GM in DEXTROSE/WATER 1 100ML.BAG IVPB SCH ×2 (21:19→22:25)
[2019-07-31] MEDS: SODIUM CHLORIDE 0.9% 1,000 ML IV SCH ×2 (21:19→22:54)
[2019-07-31] MEDS ORDERED: NALOXONE 0.4 MG/ML 1 ML VIAL IV PRN (21:49)
[2019-07-31] MEDS ORDERED: ACETAMINOPHEN TAB 325 MG TAB PO PRN (21:49)
[2019-07-31] MEDS ORDERED: HYDROmorphone 0.5 MG/0.5 ML SYRINGE IVP PRN (21:49)
[2019-07-31] MEDS ORDERED: Magnesium Replacement Protocol 1 EACH MISC MISCELLANE PRN (23:10)
[2019-07-31] MEDS ORDERED: Potassium Replacement Protocol 1 EACH MISC MISCELLANE PRN (23:11)
[2019-07-31] MEDS ORDERED: HYDROcodone/APAP 10-325MG 1 EACH TAB PO PRN (23:12)
[2019-07-31] MEDS ORDERED: HYDROcodone/APAP 10-325MG 1 EACH TAB PO SCH (23:15)
[2019-08-01 07:00] LABS: Basophils # (A) 0.1 k/uL (0-0.2); Basophils % (A) 3 %; Eosinophils # (A) 0.3 k/uL (0-0.7); Eosinophils % (A) 11 %; HCT 31.6 % (39.0-53.0); HGB 10.8 gm/dL (13.0-17.5); Lymphocytes # (A) 0.8 k/uL (1.0-4.8); Lymphocytes % (A) 25 %; MCH 30.3 pg (25.0-35.0); MCHC 34.3 g/dL (31.0-37.0); MCV 88.3 fL (80.0-100.0); Mean Platelet Volume 9.6; Monocytes # (A) 0.3 k/uL (0-1.0); Monocytes % (A) 9 %; Neutrophils # (A) 1.5 k/uL (1.3-7.7); Neutrophils % (A) 50 %; RBC 3.57 m/uL (4.30-5.90); RDW 12.3 % (11.5-15.5); WBC 3.1 k/uL (3.8-10.6)
[2019-08-01 07:07] LABS: Albumin 3.1 g/dL (3.5-5.0); Calcium 7.8 mg/dL (8.4-10.2); Magnesium 1.4 mg/dL (1.6-2.3); Phosphorus 3.3 mg/dL (2.5-4.5); Potassium 3.7 mmol/L (3.5-5.1); Total Bilirubin 0.6 mg/dL (0.2-1.3); Total Protein 6.9 g/dL (6.3-8.2)
[2019-08-01 08:39] LABS: Platelet Count 96 k/uL (150-450)
[2019-08-01] MEDS: MAGNESIUM OXIDE 400 MG TAB PO SCH ×2 (09:20→21:18)
[2019-08-01] MEDS: MULTIVITAMINS, THERA 1 EACH TAB PO SCH (09:20)
[2019-08-01 10:59] LABS: Reticulocyte % 1.7 % (0.5-2.0)
--- NOTE | 2019-08-01 15:13 | P.HPIM ---
History of Present Illness H&P Date: 08/01/19 This is a 54-year-old male patient of Dr. Sandoval with past medical history other than chronic pain to his knee for torn meniscus following with Dr. Martines for pain management and hypomagnesemia, remote history of tobacco use and alcohol abuse. He has had 3 admissions last year as he presented with chest discomfort with associated shortness of breath, noted to have a low magnesium level. He underwent a cardiac catheterization on his September admission which revealed mild nonobstructive coronary artery disease with about a 30% smooth narrowing of the mid LAD, medical therapy was advised at that time. He also had an echocardiogram with Doppler study performed on that admission which revealed an ejection fraction of 55-60%. He present presented on his second admission in January 2019 with chest pressure occurring on and off and he was evaluated by cardiology with no further investigation. Third episode was in April 2019, patient presented with chest pain states he has not been eating and he has the same symptoms as previously on other admissions. He had a magnesium level of 1, potassium 3.4. Patient had replacement done and was discharged home with planned follow-up with Dr. Sandoval. Patient followed up once with Dr. Sandoval but due to miscommunication has not been back to see him. Patient presents initially starting a little dizzy with shortness of breath and chest pain. He states he stopped eating and then had vomiting. He came in the hospital and was found to have a low magnesium level. He denies any lower extremity cramps, no restless leg syndrome. He states he urinates a lot and his nocturia. With all admissions, patient has been noted to have pancytopenia gradually worsening over time. Lab work reveals white count 3.1, hemoglobin 13.7, platelet count 101, d-dimer 0.4. BUN 15 and creatinine 1.32, CO2 31, electrolytes within normal limits, magnesium 1.0, troponins negative on 3 draws, lipase 168. Patient admitted to the cardiac stepdown unit and magnesium replaced with repeat magnesium this morning of 1.4 to be replaced again. Consult added for oncology, iron studies, ARIC, rheumatoid factor, B12 and folate. Patient also complains of new onset of rash to his left hand and forearm that appears to be some psoriatic type. Review of Systems Constitutional: Reports anorexia, Reports chronic pain, Reports poor appetite, Denies chills, Denies fever, Denies lethargy, Denies malaise Eyes: denies blurred vision, denies pain Ears, nose, mouth and throat: Denies headache, Denies nasal congestion, Denies nasal discharge, Denies sore throat, Denies vertigo Cardiovascular: Reports chest pain, Denies decreased exercise tolerance, Denies leg edema, Denies lightheadedness, reports intermittent shortness of breath, Denies syncope Respiratory: Denies cough, Denies cough with sputum, Denies dyspnea, Denies excessive sputum, Denies hemoptysis, Denies home oxygen, Denies wheezing Gastrointestinal: Reports loss of appetite, Denies abdominal pain, Denies diarrhea, Denies nausea, Denies vomiting Genitourinary: Denies dysuria, Denies urinary retention, reports nocturia Musculoskeletal: Denies frequent falls, Denies gait dysfunction, Denies muscle weakness, Denies myalgias, reports bone pain Integumentary: Denies pruritus, Denies rash, Denies wounds Neurological: Denies gait dysfunction, Denies numbness, Denies weakness Psychiatric: Reports anxiety, Reports depression Endocrine: Denies fatigue, Denies weight change Past Medical History Past Medical History: No Reported History History of Any Multi-Drug Resistant Organisms: None Reported Past Surgical History: Heart Catheterization, Hernia Repair Additional Past Surgical History / Comment(s): november 2018 heart cath Past Anesthesia/Blood Transfusion Reactions: No Reported Reaction Date of Last Stent Placement:: 11/2018 Past Psychological History: No Psychological Hx Reported Smoking Status: Former smoker Past Alcohol Use History: None Reported Additional Past Alcohol Use History / Comment(s): Patient was a smoker of 2 packs per day for 25 years and quit most 20 years ago. He also states that he drank alcohol heavily up to a fifth a day for 15 years and quit about 20 years ago. He has not followed with AA and did it on his own. He works in [employer] and [employer]. He is single and does not have any children. Past Drug Use History: Marijuana - Past Family History Father Additional Family Medical History / Comment(s): Father in his 70s from some type of cancer. Mother Additional Family Medical History / Comment(s): Mother in her 60s from Alzheimer's dementia. Brother(s) Additional Family Medical History / Comment(s): Patient has 1 brother and 1 sister with no major medical problems. Medications and Allergies Home Medications Medication Instructions Recorded Confirmed Type HYDROcodone/APAP 10-325MG [[place] 1 tab PO QID 02/03/19 08/01/19 History 10-325] Multivitamins, Thera [Multivitamin 1 tab PO DAILY 05/14/19 08/01/19 History (formulary)] Magnesium Oxide [Mag-Ox] 400 mg PO BID tab 05/15/19 08/01/19 Rx Allergies Allergy/AdvReac Type Severity Reaction Status Date / Time No Known Allergies Allergy Verified 08/01/19 08:15 Physical Exam Vitals: Vital Signs Temp Pulse Pulse Resp BP BP Pulse Ox 08/01/19 04:00 98.5 F 86 18 103/88 97 07/31/19 23:59 85 18 07/31/19 23:58 98.7 F 85 18 125/74 99 07/31/19 22:43 98.9 F 89 18 132/61 99 07/31/19 22:30 89 18 07/31/19 22:24 98.6 F 83 15 105/58 99 07/31/19 21:43 97 18 96/62 96 07/31/19 20:32 99.3 F 98 18 102/79 99 07/31/19 19:40 99.9 F H 94 18 94/82 99 07/31/19 19:20 100.0 F H 107 H 16 124/74 98 Intake and Output 07/31/19 08/01/19 08/01/19 22:59 06:59 14:59 Intake Total 600 240 Balance 600 240 Intake: Intake, IV Titration 600 Amount Sodium Chloride 0.9% 1, 600 000 ml @ 75 mls/hr IV . [id number] [facility] Rx#:[id number] Oral 240 Other: Voiding Method Toilet Toilet Weight 63.503 kg 61.5 kg Gen: This is a thin 54-year-old male. He is resting in bed appears be comfortable and in no acute distress. HEENT: Head is atraumatic, normocephalic. Pupils equal, round. Sclerae is anicteric. NECK: Supple. No JVD. No lymphadenopathy. No thyromegaly. LUNGS: Clear to auscultation. No wheezes or rhonchi. No intercostal retractions. HEART: Regular rate and rhythm. No murmur. ABDOMEN: Soft. Bowel sounds are present. No masses. No abdominal tenderness. Hepatosplenomegaly. EXTREMITIES: No pedal edema. No calf tenderness. NEUROLOGICAL: Patient is awake, alert and oriented x3. Cranial nerves 2 through 12 are grossly intact. Results CBC & Chem 7: 08/01/19 06:45 08/01/19 06:45 Labs: Abnormal Lab Results - Last 24 Hours (Table) 07/31/19 07/31/19 08/01/19 Range/Units 19:50 19:50 06:45 WBC 3.1 L 3.1 L (3.8-10.6) k/uL RBC 3.78 L 3.57 L (4.30-5.90) m/uL Hgb 11.7 L 10.8 L (13.0-17.5) gm/dL Hct 33.4 L 31.6 L (39.0-53.0) % Plt Count 101 L 96 L (150-450) k/uL Lymphocytes # 0.8 L (1.0-4.8) k/uL Lymphocytes # (Manual) 0.84 L (1.0-4.8) k/uL Carbon Dioxide 31 H (22-30) mmol/L Creatinine 1.32 H (0.66-1.25) mg/dL Glucose 127 H (74-99) mg/dL Calcium 7.9 L (8.4-10.2) mg/dL Magnesium 1.0 L (1.6-2.3) mg/dL Albumin (3.5-5.0) g/dL 08/01/19 Range/Units 06:45 WBC (3.8-10.6) k/uL RBC (4.30-5.90) m/uL Hgb (13.0-17.5) gm/dL Hct (39.0-53.0) % Plt Count (150-450) k/uL Lymphocytes # (1.0-4.8) k/uL Lymphocytes # (Manual) (1.0-4.8) k/uL Carbon Dioxide (22-30) mmol/L Creatinine 1.32 H (0.66-1.25) mg/dL Glucose 120 H (74-99) mg/dL Calcium 7.8 L (8.4-10.2) mg/dL Magnesium 1.4 L (1.6-2.3) mg/dL Albumin 3.1 L (3.5-5.0) g/dL Thrombosis Risk Factor Assmnt - DVT/VTE Prophylaxis DVT/VTE Prophylaxis: Mechanical Prophylaxis ordered - Choose All That Apply Any of the Below Risk Factors Present?: Yes Each Factor Represents 1 point: Age 41-60 years Other Risk Factors: No Other congenital or acquired thrombophilia - If yes, enter type in comment: No Thrombosis Risk Factor Assessment Total Risk Factor Score: 1 Thrombosis Risk Factor Assessment Level: Low Risk Assessment and Plan Plan: 1. Chest plain with negative troponins, resolved. No need for cardiac workup. 2. Hypomagnesemia of unclear etiology. Replace and recheck levels in the morning. 3. Pancytopenia of unclear etiology, rule out underlying autoimmune disorder or other pathology causing bone marrow suppression. Consult with Dr. Zuluaga. Patient was recommended to follow-up with hematology after discharge on April admission. ARIC, rheumatoid factor, B12, folate, ferritin, haptoglobin, recheck count, iron studies ordered. 4. Hepatomegaly, splenomegaly. Abdominal ultrasound ordered. 5. Intermittent episodes of anorexia of unclear etiology. 6. Remote history of tobacco use and dependence and alcohol abuse. 7. Chronic knee pain under the care of Dr. Martines. 8. DVT prophylaxis. SCDs and YARI [place]. Patient will be admitted to the hospital for a minimum of 2night stay. Discharge plan: Home Impression and plan of care have been directed as dictated by the signing physician. Niesha Quintana nurse practitioner acting as scribe for signing physician.
--- NOTE | 2019-08-01 15:58 | US ---
EXAMINATION TYPE: US abdomen complete DATE OF EXAM: 08/01/2019 COMPARISON: NONE CLINICAL HISTORY: splenomegaly, hepatomegaly. Pain EXAM MEASUREMENTS: Liver Length: 13.1 cm Gallbladder Wall: .2 cm CBD: .4 cm Spleen: 12.6 cm Right Kidney: 8.3 x 3.2 x 4.1 cm Left Kidney: 9.1 x 4.6 x 3.4 cm Pancreas: Obscured by bowel gas Liver: There is increased echogenicity of the hepatic parenchyma with diminished visualization of th e portal triads most commonly relating to hepatic steatosis and limiting evaluation for underlying he patic masses. Gallbladder: Limited evaluation however biliary sludge is seen layering dependently. Evidence for sonographic Cormier's sign: No CBD: wnl Spleen: wnl Right Kidney: No hydronephrosis. Probable cyst measuring 1.4 x 1.4 x 1.3 cm within the the right lowe r pole, however no increased or transmission is seen definitively. Left Kidney: wnl Upper IVC: wnl Abd Aorta: wnl Spleen: Upper limits of normal size. IMPRESSION: 1. Upper limits of normal size of the spleen. 2. Biliary sludge. 3. Sonographic findings most commonly related to hepatic steatosis. Correlate with liver function madeline ts. 4. Probable right renal cyst measuring 1.4 cm. This could be confirmed with three-phase CT abdomen. 5. Obscuration of the pancreas by overlying bowel gas.
[2019-08-01] MEDS: MAGNESIUM SULFATE-D5W PMX 1 GM in DEXTROSE/WATER 1 100ML.BAG IVPB SCH ×2 (16:30→18:53)
[2019-08-01 17:42] LABS: % Iron Saturation 46.74 (15.00-50.00); Ferritin 719.2 ng/mL (22.0-322.0)
[2019-08-01] MEDS: SODIUM CHLORIDE 0.9% 1,000 ML IV SCH (23:30)
[2019-08-02 08:26] LABS: HCT 34.6 % (39.0-53.0); HGB 11.6 gm/dL (13.0-17.5); MCH 30.1 pg (25.0-35.0); MCHC 33.7 g/dL (31.0-37.0); MCV 89.5 fL (80.0-100.0); Mean Platelet Volume 9.5; RBC 3.86 m/uL (4.30-5.90); RDW 12.2 % (11.5-15.5); WBC 2.5 k/uL (3.8-10.6)
[2019-08-02 08:32] LABS: Platelet Count 91 k/uL (150-450)
[2019-08-02 08:39] LABS: Albumin 3.4 g/dL (3.5-5.0); Calcium 8.7 mg/dL (8.4-10.2); Magnesium 1.5 mg/dL (1.6-2.3); Potassium 3.6 mmol/L (3.5-5.1); Total Bilirubin 0.6 mg/dL (0.2-1.3); Total Protein 7.5 g/dL (6.3-8.2)
[2019-08-02] MEDS: MAGNESIUM OXIDE 400 MG TAB PO SCH (09:12)
[2019-08-02] MEDS: MULTIVITAMINS, THERA 1 EACH TAB PO SCH (09:12)
[2019-08-02] MEDS: MAGNESIUM SULFATE-D5W PMX 1 GM in DEXTROSE/WATER 1 100ML.BAG IVPB SCH ×2 (11:56→13:29)
[2019-08-02 12:22] VITALS: BP 124/72; PULSE 77; RESP 16; TEMP 97.4
--- NOTE | 2019-08-02 14:21 | P.DS ---
Providers Date of admission: 07/31/19 21:49 Expected date of discharge: 08/02/19 Attending physician: Camille Alejo Consults: 08/01/19 10:32 Consult Physician Routine Consulting Provider: Juan Zuluaga Consult Reason/Comments: pancytopenia Do you want consulting provider notified?: Yes Primary care physician: Jessee [facility] Course: This is a 54-year-old male patient of Dr. Sandoval with past medical history other than chronic pain to his knee for torn meniscus following with Dr. Martines for pain management and hypomagnesemia, remote history of tobacco use and alcohol abuse. He has had 3 admissions last year as he presented with chest discomfort with associated shortness of breath, noted to have a low magnesium level. He underwent a cardiac catheterization on his September admission which revealed mild nonobstructive coronary artery disease with about a 30% smooth narrowing of the mid LAD, medical therapy was advised at that time. He also had an echocardiogram with Doppler study performed on that admission which revealed an ejection fraction of 55-60%. He present presented on his second admission in January 2019 with chest pressure occurring on and off and he was evaluated by cardiology with no further investigation. Third episode was in April 2019, patient presented with chest pain states he has not been eating and he has the same symptoms as previously on other admissions. He had a magnesium level of 1, potassium 3.4. Patient had replacement done and was discharged home with planned follow-up with Dr. Sandoval. Patient followed up once with Dr. Sandoval but due to miscommunication has not been back to see him. Patient presents initially starting a little dizzy with shortness of breath and chest pain. He states he stopped eating and then had vomiting. He came in the hospital and was found to have a low magnesium level. He denies any lower extremity cramps, no restless leg syndrome. He states he urinates a lot and his nocturia. With all admissions, patient has been noted to have pancytopenia gradually worsening over time. Lab work reveals white count 3.1, hemoglobin 13.7, platelet count 101, d-dimer 0.4. BUN 15 and creatinine 1.32, CO2 31, electrolytes within normal limits, magnesium 1.0, troponins negative on 3 draws, lipase 168. Patient admitted to the cardiac stepdown unit and magnesium replaced with repeat magnesium this morning of 1.4 to be replaced again. Consult added for oncology, iron studies, ARIC, rheumatoid factor, B12 and folate. Patient also complains of new onset of rash to his left hand and forearm that appears to be some psoriatic type. 2: Repeat lab work reveals WBC 2.5, hemoglobin 11.6, platelet count 91. Magnesium 1.5 and will be replaced with 2 g of magnesium sulfate today prior to discharge. Rheumatoid factor XVII, ARIC negative, vitamin B12 778, RBC folate 696, iron 43, TIBC 92, iron saturation 46.7, ferritin 719. Abdominal ultrasound revealed upper limits of normal size for spleen. Biliary sludge. Hepatic steatosis. Probable right renal cyst 1.4 cm. Obscuration of the pancreas by bowel gas. Patient has no new complaints. He has been seen by oncology and additional lab work has been ordered. Patient will be discharged home today in stable condition. Free [place] light chain, immunofixation, methylmalonic acid, protein electrophoresis ordered by oncology. Discharge diagnoses: 1. Chest plain with negative troponins, resolved. No need for cardiac workup. 2. Hypomagnesemia of unclear etiology status post replacement. 3. Pancytopenia of unclear etiology, rule out underlying autoimmune disorder or other pathology causing bone marrow suppression. 4. Hepatomegaly, splenomegaly. 5. Intermittent episodes of anorexia of unclear etiology. 6. Remote history of tobacco use and dependence and alcohol abuse. 7. Chronic knee pain under the care of Dr. Martines. Discharge plan: Home Impression and plan of care have been directed as dictated by the signing physician. Niesha Quintana nurse practitioner acting as scribe for signing physician. Patient Condition at Discharge: Good Plan - Discharge Summary Discharge Rx Participant: No New Discharge Prescriptions: Continue HYDROcodone/APAP 10-325MG [[place] 10-325] 1 tab PO QID Multivitamins, Thera [Multivitamin (formulary)] 1 tab PO DAILY Magnesium Oxide [Mag-Ox] 400 mg PO BID tab Discharge Medication List HYDROcodone/APAP 10-325MG [[place] 10-325] 1 tab PO QID 02/03/19 [History] Multivitamins, Thera [Multivitamin (formulary)] 1 tab PO DAILY 05/14/19 [History] Magnesium Oxide [Mag-Ox] 400 mg PO BID tab 05/15/19 [Rx] Follow up Appointment(s)/Referral(s): Juan Zuluaga MD [STAFF PHYSICIAN] - 2 Weeks (office will call patient to schedule his appt) Jessee Sandoval MD [Primary Care Provider] - 08/09/19 11:00 am Discharge Disposition: HOME SELF-CARE
[2019-08-02] MEDS: SODIUM CHLORIDE 0.9% 1,000 ML IV SCH (15:03)
--- NOTE | 2019-08-02 16:31 | P.CONS ---
History of Present Illness - Reason for Consult Consult date: 08/02/19 pancytopenia Requesting physician: Niesha Quintana - Chief Complaint chest pain - History of Present Illness Mr. Reyes is a very pleasant 54 year old male with a benign medical history other then right knee pain and low magnesium levels, who we have been asked to see for pancytopenia. He denies previously low counts, fevers, chills, sweats, lymph node swellings, thinks he has had a colonoscopy, no other physical c/o on a 14 point ROS, he feels he generally in good health Review of Systems 14 point ROS is negative except as stated in HPI Past Medical History Past Medical History: No Reported History History of Any Multi-Drug Resistant Organisms: None Reported Past Surgical History: Heart Catheterization, Hernia Repair Additional Past Surgical History / Comment(s): november 2018 heart cath Past Anesthesia/Blood Transfusion Reactions: No Reported Reaction Date of Last Stent Placement:: 11/2018 Past Psychological History: No Psychological Hx Reported Smoking Status: Former smoker Past Alcohol Use History: None Reported, Heavy (remote, fifth of alcohol daily) Additional Past Alcohol Use History / Comment(s): Patient was a smoker of 2 packs per day for 25 years and quit most 20 years ago. He also states that he drank alcohol heavily up to a fifth a day for 15 years and quit about 20 years ago. He has not followed with AA and did it on his own. He works in [employer] and [employer]. He is single and does not have any children. Past Drug Use History: Marijuana - Past Family History Father Additional Family Medical History / Comment(s): Father in his 70s from some type of cancer. Mother Additional Family Medical History / Comment(s): Mother in her 60s from Alzheimer's dementia. Brother(s) Additional Family Medical History / Comment(s): Patient has 1 brother and 1 sister with no major medical problems. Medications and Allergies Home Medications Medication Instructions Recorded Confirmed Type HYDROcodone/APAP 10-325MG [[place] 1 tab PO QID 02/03/19 08/01/19 History 10-325] Multivitamins, Thera [Multivitamin 1 tab PO DAILY 05/14/19 08/01/19 History (formulary)] Magnesium Oxide [Mag-Ox] 400 mg PO BID tab 05/15/19 08/01/19 Rx Allergies Allergy/AdvReac Type Severity Reaction Status Date / Time No Known Allergies Allergy Verified 08/01/19 08:15 Physical Exam Vitals: Vital Signs Temp Pulse Resp BP Pulse Ox 08/02/19 12:20 97.4 F L 77 16 124/72 98 08/02/19 12:09 98.6 F 80 17 105/63 98 08/02/19 08:09 78 08/02/19 08:06 97.6 F 78 18 118/71 08/02/19 05:00 97.8 F 80 16 99/60 98 08/02/19 00:52 98.4 F 76 18 107/58 98 08/01/19 23:26 98.2 F 89 16 100/63 95 08/01/19 20:00 98 F 92 18 124/65 97 Intake and Output 08/02/19 08/02/19 08/02/19 06:59 14:59 22:59 Other: Voiding Method Toilet Toilet # Voids 1 - Constitutional General appearance: average body habitus, cooperative, no acute distress - EENT Eyes: anicteric sclerae, edentulous ENT: hearing grossly normal, normal oropharynx - Neck Neck: no lymphadenopathy - Respiratory Respiratory: bilateral: CTA - Cardiovascular Rhythm: regular Heart sounds: normal: S1, S2 Abnormal Heart Sounds: no systolic murmur, no diastolic murmur, no rub, no S3 Gallop, no S4 Gallop, no click, no other leg Peripheral Edema: bilateral: None - Gastrointestinal General gastrointestinal: no absent bowel sounds, no decreased bowel sounds, no distended, no hepatomegaly, no hyperactive bowel sounds, normal bowel sounds, no organomegaly, no rigid, no scaphoid, soft, no splenomegaly, no tenderness, no umbilical hernia, no ventral hernia - Integumentary Integumentary: normal - Neurologic Neurologic: CNII-XII intact - Musculoskeletal Musculoskeletal: strength equal bilaterally - Psychiatric Psychiatric: A&O x's 3, appropriate affect, intact judgment & insight Results CBC & Chem 7: 08/02/19 07:21 08/02/19 07:21 Labs: Abnormal Lab Results - Last 24 Hours (Table) 08/01/19 08/02/19 08/02/19 Range/Units 06:45 07:21 07:21 WBC 2.5 L (3.8-10.6) k/uL RBC 3.86 L (4.30-5.90) m/uL Hgb 11.6 L (13.0-17.5) gm/dL Hct 34.6 L (39.0-53.0) % Plt Count 91 L (150-450) k/uL Carbon Dioxide 31 H (22-30) mmol/L Glucose 102 H (74-99) mg/dL Magnesium 1.5 L (1.6-2.3) mg/dL Iron 43 L (65-175) ug/dL TIBC 92 L (228-460) ug/dL Ferritin 719.2 H (22.0-322.0) ng/mL Albumin 3.4 L (3.5-5.0) g/dL Rheumatoid Factor 17 H (0-15) IU/mL Chest x-ray: report reviewed US - abdomen: report reviewed Assessment and Plan (1) Pancytopenia Narrative/Plan: Low counts noted in chart for last 6 months, initially platelets, now progressive including WBC and Hgb. None of his counts are at a dangerous level or requiring transfusion/intervention. Discussed with pt the Hx of heavy ETOH can cause marrow damage and over time his counts can go down. Pancytopenia will be worse when he is acutely ill. Pancytopenia work up ordered. If progressively low counts, bone marrow may be indicated. He verbalized understanding. Status: Acute Priority: Medium Code(s): D61.818 - OTHER PANCYTOPENIA SNOMED Code(s): 373679193
[2019-08-02 18:41] LABS: Protein, Total 6.6 g/dL (6.2-8.2)
[2019-08-04 13:01] LABS: Albumin 3.14 g/dL (3.80-4.90); Gamma Globulin 1.49 g/dL (0.70-1.50)
== END 2019-08-02 15:30 | disposition home or self-care (01) | DRG 641 ==
LOC: EC 19:16 → 3SCARD 21:49 → 5NMEDONC 08-02 00:43
PROVIDERS: ADMIT Internal Medicine; ATTEND Internal Medicine
DX: E83.42 Hypomagnesemia (principal); D61.818 Other pancytopenia; R07.89 Other chest pain; G89.29 Other chronic pain; I25.10 Atherosclerotic heart disease of native coronary artery without angina pectoris; N28.1 Cyst of kidney, acquired; D89.89 Other specified disorders involving the immune mechanism, not elsewhere classified; L40.9 Psoriasis, unspecified; R16.2 Hepatomegaly with splenomegaly, not elsewhere classified; R63.0 Anorexia; M25.569 Pain in unspecified knee; Z82.0 Family history of epilepsy and other diseases of the nervous system; Z87.891 Personal history of nicotine dependence
CPT/HCPCS: 36415; 71046; 76700; 80053; 82607; 82728; 82747; 83010; 83540; 83550; 83690; 83735; 83880; 83883; 83921; 84100; 84165; 84484; 85025; 85027; 85045; 85379; 85610; 85730; 86038; 86334; 86431; 93005; 96365; 96368; 99285

== ENCOUNTER 2019-08-22 16:31 | Inpatient (IN) | payer OTHER ==
--- NOTE | 2019-08-22 17:35 | ED ---
Weakness HPI - General Chief complaint: Recheck/Abnormal Lab/Rx Stated complaint: chest pain/SOB/vomiting Time Seen by Provider: 08/22/19 17:18 Source: patient, RN notes reviewed, old records reviewed Mode of arrival: ambulatory Limitations: no limitations - History of Present Illness Initial comments: This is a 54-year-old male who presents to the ER for evaluation of weakness not final present nausea vomiting and what he believes is related to low magnesium. Patient is similar with hydration here in the ER magnesium again is significantly low. Patient has been taking her magnesium pills on medication at home denies drug or alcohol abuse. Denies significantly cane or weight loss. No other supplements. Patient denies any other complaints except just feeling weak and not himself Complaint: generalized weakness, lack of energy -: month(s) Location: generalized Severity: moderate Severity scale (1-10): 4 Quality: numbness Consistency: constant Improves with: none Worsens with: none Context: new medication, recent illness Associated Symptoms: nausea/vomiting, myalgias - Related Data Home Medications Medication Instructions Recorded Confirmed RX: HYDROcodone/APAP 10-325MG 1 tab PO QID 02/03/19 08/01/19 [[place] 10-325] RX: Multivitamins, Thera 1 tab PO DAILY 05/14/19 08/01/19 [Multivitamin (formulary)] Previous Rx's Medication Instructions Recorded RX: Magnesium Oxide [Mag-Ox] 400 mg PO BID tab 05/15/19 Allergies Allergy/AdvReac Type Severity Reaction Status Date / Time No Known Allergies Allergy Verified 08/22/19 16:37 Review of Systems ROS Statement: Those systems with pertinent positive or pertinent negative responses have been documented in the HPI. ROS Other: All systems not noted in ROS Statement are negative. Past Medical History Past Medical History: No Reported History Additional Past Medical History / Comment(s): low mag History of Any Multi-Drug Resistant Organisms: None Reported Past Surgical History: Heart Catheterization, Hernia Repair Additional Past Surgical History / Comment(s): november 2018 heart cath Past Anesthesia/Blood Transfusion Reactions: No Reported Reaction Date of Last Stent Placement:: 11/2018 Past Psychological History: Depression Smoking Status: Former smoker Past Alcohol Use History: Heavy Past Drug Use History: Marijuana - Past Family History Father Additional Family Medical History / Comment(s): Father in his 70s from some type of cancer. Mother Additional Family Medical History / Comment(s): Mother in her 60s from Alzheimer's dementia. Brother(s) Additional Family Medical History / Comment(s): Patient has 1 brother and 1 sister with no major medical problems. General Exam Limitations: no limitations General appearance: alert, in no apparent distress Head exam: Present: atraumatic, normocephalic, normal inspection Eye exam: Present: normal appearance, PERRL, EOMI. Absent: scleral icterus, conjunctival injection, periorbital swelling ENT exam: Present: normal exam, mucous membranes moist Neck exam: Present: normal inspection. Absent: tenderness, meningismus, lymphadenopathy Respiratory exam: Present: normal lung sounds bilaterally. Absent: respiratory distress, wheezes, rales, rhonchi, stridor Cardiovascular Exam: Present: normal rhythm, tachycardia, normal heart sounds. Absent: systolic murmur, diastolic murmur, rubs, gallop, clicks GI/Abdominal exam: Present: soft, normal bowel sounds. Absent: distended, tenderness, guarding, rebound, rigid Extremities exam: Present: normal inspection, full ROM, normal capillary refill. Absent: tenderness, pedal edema, joint swelling, calf tenderness Back exam: Present: normal inspection Neurological exam: Present: alert, oriented X3, CN II-XII intact Psychiatric exam: Present: normal affect, normal mood Skin exam: Present: warm, dry, intact, normal color. 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 ] Respiratory 20 Rate Blood Pressure 108/81 O2 Sat by Pulse 100 Oximetry - Reevaluation(s) Reevaluation #1: 08/22/19 19:45 Records reviewed as well as prior lab studies Reevaluation #2: 08/22/19 19:45 Patient's magnesium is chronically low 08/22/19 19:45 Reevaluation #3: 08/22/19 19:45 Patient will be admitted for magnesium replacement Reevaluation #4: 08/22/19 19:46 Patient still feels terrible, weak nausea and vomiting - Consultations Consultation #1: Spoke with [facility] were agreeable to admission EKG Findings - EKG Comments: EKG Findings:: KEG shows NSR 100 MA 114 QRS 76 QTc 430 Medical Decision Making - Medical Decision Making 52 male to the ER for evaluation persistent weakness with nausea and vomiting decreased appetite severely low magnesium. Patient will be admitted for magnesium replacement continued evaluation monitor - Lab Data Result diagrams: 08/22/19 17:11 08/22/19 17:11 Lab Results 08/22/19 08/22/19 08/22/19 Range/Units 17:11 17:11 18:30 WBC 3.5 L (3.8-10.6) k/uL RBC 4.13 L (4.30-5.90) m/uL Hgb 12.4 L (13.0-17.5) gm/dL Hct 36.3 L (39.0-53.0) % MCV 87.8 (80.0-100.0) fL MCH 29.9 (25.0-35.0) pg MCHC 34.0 (31.0-37.0) g/dL RDW 12.0 (11.5-15.5) % Plt Count 144 L D (150-450) k/uL Neutrophils % 61 % Lymphocytes % 19 % Monocytes % 9 % Eosinophils % 7 % Basophils % 0 % Neutrophils # 2.1 (1.3-7.7) k/uL Lymphocytes # 0.7 L (1.0-4.8) k/uL Monocytes # 0.3 (0-1.0) k/uL Eosinophils # 0.2 (0-0.7) k/uL Basophils # 0.0 (0-0.2) k/uL Sodium 137 (137-145) mmol/L Potassium 3.9 (3.5-5.1) mmol/L Chloride 94 L (98-107) mmol/L Carbon Dioxide 30 (22-30) mmol/L Anion Gap 13 mmol/L BUN 23 H (9-20) mg/dL Creatinine 1.48 H (0.66-1.25) mg/dL Est GFR (CKD-EPI)AfAm 62 (>60 ml/min/1.73 sqM) Est GFR (CKD-EPI)NonAf 54 (>60 ml/min/1.73 sqM) Glucose 90 (74-99) mg/dL Calcium 8.8 (8.4-10.2) mg/dL Phosphorus 3.6 (2.5-4.5) mg/dL Magnesium 1.0 L (1.6-2.3) mg/dL Total Bilirubin 0.5 (0.2-1.3) mg/dL AST 64 H (17-59) U/L ALT 87 H (4-49) U/L Alkaline Phosphatase 107 (38-126) U/L Creatine Kinase 35 L (55-170) U/L Total Protein 9.1 H (6.3-8.2) g/dL Albumin 4.4 (3.5-5.0) g/dL TSH 3.740 (0.465-4.680) mIU/L Urine Color Yellow Urine Appearance Clear (Clear) Urine pH 5.5 (5.0-8.0) Ur Specific [place] 1.012 (1.001-1.035) Urine Protein Trace H (Negative) Urine Glucose (UA) Negative (Negative) Urine Ketones Negative (Negative) Urine Blood Negative (Negative) Urine Nitrite Negative (Negative) Urine Bilirubin Negative (Negative) Urine Urobilinogen 2.0 (<2.0) mg/dL Ur Leukocyte Esterase Negative (Negative) Salicylates <1.0 mg/dL Urine Opiates Screen Not Detected (NotDetected) Ur Oxycodone Screen Not Detected (NotDetected) Urine Methadone Screen Not Detected (NotDetected) Ur Propoxyphene Screen Not Detected (NotDetected) Acetaminophen <10.0 ug/mL Ur Barbiturates Screen Not Detected (NotDetected) U Tricyclic Antidepress Not Detected (NotDetected) Ur Phencyclidine Scrn Not Detected (NotDetected) Ur Amphetamines Screen Not Detected (NotDetected) U Methamphetamines Scrn Not Detected (NotDetected) U Benzodiazepines Scrn Not Detected (NotDetected) Urine Cocaine Screen Not Detected (NotDetected) U Marijuana (THC) Screen Not Detected (NotDetected) Serum Alcohol <10 mg/dL Disposition Clinical Impression: Hypomagnesemia, Weakness Disposition: ADMITTED IP TO THIS [facility] Condition: Good Is patient prescribed a controlled substance at d/c from ED?: No Referrals: None,Stated [Primary Care Provider] - 1-2 days
[2019-08-22] MEDS ORDERED: SODIUM CHLORIDE 0.9% 1,000 ML IV STA (17:36)
[2019-08-22 17:52] LABS: Basophils % (A) 0 %; Eosinophils # (A) 0.2 k/uL (0-0.7); Eosinophils % (A) 7 %; HCT 36.3 % (39.0-53.0); HGB 12.4 gm/dL (13.0-17.5); Lymphocytes # (A) 0.7 k/uL (1.0-4.8); Lymphocytes % (A) 19 %; MCH 29.9 pg (25.0-35.0); MCV 87.8 fL (80.0-100.0); Mean Platelet Volume 9.3; Monocytes # (A) 0.3 k/uL (0-1.0); Monocytes % (A) 9 %; Neutrophils # (A) 2.1 k/uL (1.3-7.7); Neutrophils % (A) 61 %; RBC 4.13 m/uL (4.30-5.90); WBC 3.5 k/uL (3.8-10.6)
[2019-08-22 18:02] LABS: ALT 87 U/L (4-49); AST 64 U/L (17-59); Acetaminophen <10.0 ug/mL; African American GFR (CKD) 62 (>60 ml/min/1.73 sqM); Albumin 4.4 g/dL (3.5-5.0); Alcohol <10 mg/dL; Alkaline Phosphatase 107 U/L (38-126); Anion Gap 13 mmol/L; Blood Urea Nitrogen 23 mg/dL (9-20); Calcium 8.8 mg/dL (8.4-10.2); Carbon Dioxide 30 mmol/L (22-30); Chloride 94 mmol/L (98-107); Creatine Kinase 35 U/L (55-170); Glucose 90 mg/dL (74-99); Non-African American GFR(CKD) 54 (>60 ml/min/1.73 sqM); Phosphorus 3.6 mg/dL (2.5-4.5); Platelet Count 144 k/uL (150-450); Potassium 3.9 mmol/L (3.5-5.1); Salicylate <1.0 mg/dL; Sodium 137 mmol/L (137-145); Total Bilirubin 0.5 mg/dL (0.2-1.3); Total Protein 9.1 g/dL (6.3-8.2)
[2019-08-22 18:36] LABS: Appearance,Urine Clear (Clear); Bilirubin,Urine Negative (Negative); Blood,Urine Negative (Negative); Color,Urine Yellow; Glucose,Urine (UA) Negative (Negative); Ketones,Urine Negative (Negative); Leukocyte Esterase,Urine Negative (Negative); Nitrite,Urine Negative (Negative); PH, Urine 5.5 (5.0-8.0); Protein,Urine Trace (Negative); Specific Gravity,Urine 1.012 (1.001-1.035)
[2019-08-22 18:45] LABS: Amphetamine Screen,Urine Not Detected (NotDetected); Barbiturate Screen,Urine Not Detected (NotDetected); Benzodiazepines Screen,Urine Not Detected (NotDetected); Cocaine Screen,Urine Not Detected (NotDetected); Methadone Screen, Urine Not Detected (NotDetected); Opiate Screen,Urine Not Detected (NotDetected); Oxycodone Screen, Urine Not Detected (NotDetected); Phencyclidine Screen,Urine Not Detected (NotDetected); Tricyclic Antidepressant,Urine Not Detected (NotDetected); Urn Cannabinoid Scrn Not Detected (NotDetected)
[2019-08-22] MEDS ORDERED: Magnesium Replacement Protocol 1 EACH MISC MISCELLANE PRN (19:43)
[2019-08-22] MEDS ORDERED: SODIUM CHLORIDE 0.9% 1,000 ML IV ONE (19:43)
[2019-08-22] MEDS ORDERED: MAGNESIUM OXIDE 400 MG TAB PO STA (19:44)
[2019-08-22] MEDS: MAGNESIUM SULFATE-D5W PMX 1 GM in DEXTROSE/WATER 1 100ML.BAG IVPB SCH ×4 (20:15→23:48)
[2019-08-22] MEDS: HYDROcodone/APAP 10-325MG 1 EACH TAB PO SCH (22:19)
[2019-08-23 07:59] VITALS: RESP 16
[2019-08-23] MEDS: HYDROcodone/APAP 10-325MG 1 EACH TAB PO SCH ×2 (08:34→12:06)
[2019-08-23] MEDS ORDERED: MULTIVITAMINS, THERA 1 EACH TAB PO SCH (09:00)
[2019-08-23] MEDS ORDERED: HEPARIN SODIUM,PORCINE 5,000 UNIT/ML 1 ML VIAL SQ SCH (09:00)
[2019-08-23] MEDS ORDERED: MAGNESIUM OXIDE 400 MG TAB PO SCH (09:00)
[2019-08-23 09:45] LABS: HCT 29.8 % (39.0-53.0); HGB 10.4 gm/dL (13.0-17.5); MCH 30.7 pg (25.0-35.0); MCHC 34.9 g/dL (31.0-37.0); MCV 87.8 fL (80.0-100.0); Mean Platelet Volume 9.5; Platelet Count 121 k/uL (150-450); RBC 3.39 m/uL (4.30-5.90); RDW 12.1 % (11.5-15.5); WBC 2.7 k/uL (3.8-10.6)
[2019-08-23 11:49] LABS: Eosinophils # (M) 0.16 k/uL (0-0.7); Lymphocytes # (M) 0.49 k/uL (1.0-4.8); Monocytes # (M) 0.43 k/uL (0-1.0); Neutrophils # (M) 1.62 k/uL (1.3-7.7); Neutrophils % (M) 60 %; Nucleated Red Blood Cells 0 /100 WBC (0-0); Total Cells Counted 100
[2019-08-23] MEDS ORDERED: PANTOPRAZOLE 40 MG/10 ML VIAL IVP SCH (12:45)
[2019-08-23 12:56] LABS: Calcium 7.8 mg/dL (8.4-10.2); Potassium 4.1 mmol/L (3.5-5.1)
--- NOTE | 2019-08-23 13:47 | P.HPIM ---
History of Present Illness Patient is a pleasant the 54-year-old male came in with complains of for generalized weakness. Patient believed his generalized weakness is secondary to hypomagnesemia because it happened in the past as per the patient and the patie nt is found to have low magnesium of 1 and patient. Secondly admitted for further evaluation. Upon questioning patient admits to gastroesophageal reflux disease on multiple episodes of vomiting patient has acute and failure with creatinine of 1.48 patient had multiple episodes of nausea vomiting along with the burning sensation in the epigastric area. Patient denied alcohol abuse use to drink alcohol in the past which he quit drinking. Does have mild liver enzyme elevation. Review of Systems REVIEW OF SYSTEMS: CONSTITUTIONAL: No fever, no malaise, HEENT: No recent visual problems or hearing problems. Denied any sore throat. CARDIOVASCULAR: No chest pain, orthopnea, PND, no palpitations, no syncope. PULMONARY: No shortness of breath, no cough, no hemoptysis. GASTROINTESTINAL: As mentioned in HPI NEUROLOGICAL: No headaches, no weakness, no numbness. HEMATOLOGICAL: Denies any bleeding or petechiae. GENITOURINARY: Denies any burning micturition, frequency, or urgency. MUSCULOSKELETAL/RHEUMATOLOGICAL: Denies any joint pain, swelling, or any muscle pain. ENDOCRINE: Denies any polyuria or polydipsia. The rest of the 14-point review of systems is negative. Past Medical History Past Medical History: No Reported History Additional Past Medical History / Comment(s): low mag History of Any Multi-Drug Resistant Organisms: None Reported Past Surgical History: Heart Catheterization, Hernia Repair Additional Past Surgical History / Comment(s): november 2018 heart cath Past Anesthesia/Blood Transfusion Reactions: No Reported Reaction Date of Last Stent Placement:: 11/2018 Past Psychological History: Depression Smoking Status: Former smoker Past Alcohol Use History: Heavy Additional Past Alcohol Use History / Comment(s): Patient was a smoker of 2 packs per day for 25 years and quit most 20 years ago. He also states that he drank alcohol heavily up to a fifth a day for 15 years and quit about 20 years ago. He has not followed with AA and did it on his own. He works in [employer] and [employer]. He is single and does not have any children. Past Drug Use History: Marijuana Additional Drug Use History / Comment(s): states smokes marijuana on occasion. - Past Family History Father Additional Family Medical History / Comment(s): Father in his 70s from some type of cancer. Mother Additional Family Medical History / Comment(s): Mother in her 60s from Alzheimer's dementia. Brother(s) Additional Family Medical History / Comment(s): Patient has 1 brother and 1 sister with no major medical problems. Medications and Allergies Home Medications Medication Instructions Recorded Confirmed Type HYDROcodone/APAP 10-325MG [[place] 1 tab PO QID 02/03/19 08/22/19 History 10-325] Multivitamins, Thera [Multivitamin 1 tab PO DAILY 05/14/19 08/22/19 History (formulary)] Magnesium Oxide [Mag-Ox] 800 mg PO BID #0 tab 08/23/19 08/22/19 Rx Omeprazole [PriLOSEC] 40 mg PO AC-BRKFST #14 capsule. 08/23/19 Rx Allergies Allergy/AdvReac Type Severity Reaction Status Date / Time No Known Allergies Allergy Verified 08/22/19 20:23 Physical Exam Vitals: Vital Signs Temp Pulse Pulse Resp BP BP Pulse Ox 08/23/19 07:00 98.3 F 87 16 107/71 99 08/22/19 21:00 98.4 F 89 18 122/73 100 08/22/19 17:17 105 H 08/22/19 16:33 98.0 F 114 H 20 108/81 100 Intake and Output 08/22/19 08/23/19 08/23/19 22:59 06:59 14:59 Intake Total 350 Balance 350 Intake: Oral 350 Other: Voiding Method Toilet # Voids 1 2 Weight 65.771 kg PHYSICAL EXAMINATION: GENERAL: The patient is alert and oriented x3, not in any acute distress. Well developed, well nourished. HEENT: Pupils are round and equally reacting to light. EOMI. No scleral icterus. No conjunctival pallor. Normocephalic, atraumatic. No pharyngeal erythema. No thyromegaly. CARDIOVASCULAR: S1 and S2 present. No murmurs, rubs, or gallops. PULMONARY: Chest is clear to auscultation, no wheezing or crackles. ABDOMEN: Soft, nontender, nondistended, normoactive bowel sounds. No palpable organomegaly. MUSCULOSKELETAL: No joint swelling or deformity. EXTREMITIES: No cyanosis, clubbing, or pedal edema. NEUROLOGICAL: Gross neurological examination did not reveal any focal deficits. SKIN: No rashes. Results CBC & Chem 7: 08/23/19 08:17 08/23/19 08:17 Labs: Abnormal Lab Results - Last 24 Hours (Table) 08/22/19 08/22/19 08/22/19 Range/Units 17:11 17:11 18:30 WBC 3.5 L (3.8-10.6) k/uL RBC 4.13 L (4.30-5.90) m/uL Hgb 12.4 L (13.0-17.5) gm/dL Hct 36.3 L (39.0-53.0) % Plt Count 144 L D (150-450) k/uL Lymphocytes # 0.7 L (1.0-4.8) k/uL Lymphocytes # (Manual) (1.0-4.8) k/uL Chloride 94 L (98-107) mmol/L BUN 23 H (9-20) mg/dL Creatinine 1.48 H (0.66-1.25) mg/dL Glucose (74-99) mg/dL Calcium (8.4-10.2) mg/dL Magnesium 1.0 L (1.6-2.3) mg/dL AST 64 H (17-59) U/L ALT 87 H (4-49) U/L Creatine Kinase 35 L (55-170) U/L Total Protein 9.1 H (6.3-8.2) g/dL Urine Protein Trace H (Negative) 08/23/19 08/23/19 Range/Units 08:17 08:17 WBC 2.7 L (3.8-10.6) k/uL RBC 3.39 L (4.30-5.90) m/uL Hgb 10.4 L (13.0-17.5) gm/dL Hct 29.8 L (39.0-53.0) % Plt Count 121 L (150-450) k/uL Lymphocytes # (1.0-4.8) k/uL Lymphocytes # (Manual) 0.49 L (1.0-4.8) k/uL Chloride (98-107) mmol/L BUN (9-20) mg/dL Creatinine (0.66-1.25) mg/dL Glucose 135 H (74-99) mg/dL Calcium 7.8 L (8.4-10.2) mg/dL Magnesium (1.6-2.3) mg/dL AST (17-59) U/L ALT (4-49) U/L Creatine Kinase (55-170) U/L Total Protein (6.3-8.2) g/dL Urine Protein (Negative) Thrombosis Risk Factor Assmnt - Choose All That Apply Any of the Below Risk Factors Present?: Yes Each Factor Represents 1 point: Age 41-60 years Other Risk Factors: No Other congenital or acquired thrombophilia - If yes, enter type in comment: No Thrombosis Risk Factor Assessment Total Risk Factor Score: 1 Thrombosis Risk Factor Assessment Level: Low Risk Assessment and Plan Plan: -Generalized weakness probably secondary to dehydration patient received IV fluids we'll repeat basic metabolic profile if it improves patient can be discharged. And the acute renal failure secondary to dehydration from her nausea vomiting. -Nausea vomiting process probably secondary to gastritis or peptic ulcer disease patient had ultrasound of the liver and gallbladder earlier this month which showed mild sludge. Patient will be discharged on empiric proton inhibitor if that doesn't improve his symptoms patient probably will need an upper GI endoscopy at that time -Hypomagnesemia can be related to nausea vomiting although patient denies using any alcohol I'm increasing his magnesium supplementation if her kidney function comes back to normal patient will be discharged patient weakness completely res olved at this time. -Mildly elevated liver enzymes as his only myelination I'm not concerned at this time this can these can be repeated again as an outpatient and this is probably residual elevation from his previous alcohol use -Mild coronary artery disease patient is supposed with aspirin and a statin which she is not taking patient will be advised regarding this Patient probably will be discharged later today as mentioned above
--- NOTE | 2019-08-23 13:47 | P.DS ---
Providers Date of admission: 08/22/19 19:43 Attending physician: Carlos Catherine Primary care physician: Stated None Hospital Course: Please refer to my history of present illness for further details Patient Condition at Discharge: Good Plan - Discharge Summary Discharge Rx Participant: No New Discharge Prescriptions: New Omeprazole [PriLOSEC] 40 mg PO AC-BRKFST #14 capsule. Aspirin 81 mg PO DAILY #30 chewable Atorvastatin Calcium [Lipitor] 20 mg PO HS #30 tab Continue HYDROcodone/APAP 10-325MG [[place] 10-325] 1 tab PO QID Multivitamins, Thera [Multivitamin (formulary)] 1 tab PO DAILY Changed Magnesium Oxide [Mag-Ox] 800 mg PO BID #0 tab Discharge Medication List HYDROcodone/APAP 10-325MG [[place] 10-325] 1 tab PO QID 02/03/19 [History] Multivitamins, Thera [Multivitamin (formulary)] 1 tab PO DAILY 05/14/19 [History] Aspirin 81 mg PO DAILY #30 chewable 08/23/19 [Rx] Atorvastatin Calcium [Lipitor] 20 mg PO HS #30 tab 08/23/19 [Rx] Magnesium Oxide [Mag-Ox] 800 mg PO BID #0 tab 08/23/19 [Rx] Omeprazole [PriLOSEC] 40 mg PO AC-BRKFST #14 capsule. 08/23/19 [Rx] Follow up Appointment(s)/Referral(s): Chante Guerra MD [STAFF PHYSICIAN] - 1 Week Gregory Ruiz III, MD [STAFF PHYSICIAN] - 3 Days None,Stated [Primary Care Provider] - 1-2 days Discharge Disposition: HOME SELF-CARE
--- NOTE | 2019-08-23 14:34 | CDI ---
Documentation Clarification Form Date: 08/23/2019 02:24:19 PM From: Darlene PeraltaLopezMIRANDA jason, CCDS Admit Date: 08/22/2019 07:43:00 PM Patient Name: Ede Reyes Visit Number: [id number] Discharge Date: ATTENTION: The Clinical Documentation Specialists (CDI) and [facility] Coding Staff appreciate your assistance in clarifying documentation. Please respond to the clarification below the line at the bottom and electronically sign. The CDI & [facility] Coding staff will review the response and follow-up if needed. Please note: Queries are made part of the Legal Health Record. If you have any questions, please contact the author of this message via ITS. Dr. Cathy Gutierrez: Patient presented to the ED on 08/22 with low Magnesium (1.0*) despite taking Magnesium at home. The patient also has abnormal labs on admission 08/22: WBC 3.5* RBC 4.13* Hgb 12.4* Hct 36.3* Pl Ct 144* History/Risk Factors: Hypomagnesium, History of alcohol abuse, former smoker, Cannabis use & depression. Clinical indicators: Presented with weakness, nausea & vomiting. Other labs on admission (08/22): BUN 23^, Cr 1.48^, AST 64^, ALT 87^. Treatment: IV fluid bolus 1,000 mls @ 999 mls/hr, IV fluid 1,000 mls @ 100 mls/hr, PO Mag Oxide 400 mg, IV Mag Sulfate/Dextrose 100 mls @ 100 mls/hr. Clinical significance of diagnostic testing and treatment cannot be assumed or coded without physician documentation of significance if any. Please clarify what abnormal laboratory signifies: Abnormal Lab Value, Please specify associated diagnosis: Unable to determine Other, please specify (Last Revision: March 2017) Appropriate documentation is already dictated and this query is unnecessary MTDD
[2019-08-23 14:43] VITALS: BP 105/68; PULSE 97; TEMP 97.6
== END 2019-08-23 15:03 | disposition home or self-care (01) | DRG 641 ==
LOC: EC 16:31 → 6NMEDSUR 19:43
PROVIDERS: ADMIT Hospitalist; ATTEND Hospitalist
DX: E83.42 Hypomagnesemia (principal); N17.9 Acute kidney failure, unspecified; E86.0 Dehydration; F32.9 Major depressive disorder, single episode, unspecified; I25.10 Atherosclerotic heart disease of native coronary artery without angina pectoris; K21.9 Gastro-esophageal reflux disease without esophagitis; K29.70 Gastritis, unspecified, without bleeding; R74.8 Abnormal levels of other serum enzymes; K27.9 Peptic ulcer, site unspecified, unspecified as acute or chronic, without hemorrhage or perforation; Z87.891 Personal history of nicotine dependence; Z79.899 Other long term (current) drug therapy; Z82.0 Family history of epilepsy and other diseases of the nervous system; Z80.9 Family history of malignant neoplasm, unspecified
CPT/HCPCS: 36415; 80048; 80053; 80306; 80320; 80329; 81003; 82550; 83520; 83735; 84100; 84443; 85025; 93005; 96361; 96365; 99285

== ENCOUNTER 2019-09-17 13:15 | Inpatient (IN) | payer OTHER ==
[2019-09-17] MEDS ORDERED: SODIUM CHLORIDE 0.9% 1,000 ML IV STA ×2 (13:32)
--- NOTE | 2019-09-17 13:46 | ED ---
Dizziness HPI - General Chief Complaint: Syncope Stated Complaint: syncope Time Seen by Provider: 09/17/19 13:21 Source: patient, RN notes reviewed, old records reviewed Mode of arrival: ambulatory Limitations: no limitations - History of Present Illness Initial Comments: This Patient is a 54-year-old male who presented today for evaluation after syncopal episode while at [employer]. Patient reportedly was feeling somewhat dizzy and lightheaded and went down. He denies any head injury or loss of consciousness. He was only down for a few brief seconds. He's had syncopal episodes before. He also reports these been having some shortness of breath and occasional chest pain with this. Patient states that he has no current pains at this time. Patient reportedly has low magnesium and they believe his previous syncopal weakness episodes related to his magnesium level. He's been taking supplements but has not had it rechecked. Patient reports that he has no other significant complaints. - Related Data Home Medications Medication Instructions Recorded Confirmed HYDROcodone/APAP 10-325MG [[place] 1 tab PO QID 02/03/19 09/17/19 10-325] Multivitamins, Thera [Multivitamin 1 tab PO DAILY 05/14/19 09/17/19 (formulary)] Atorvastatin Calcium [Lipitor] 20 mg PO DAILY 09/17/19 09/17/19 Previous Rx's Medication Instructions Recorded Aspirin 81 mg PO DAILY #30 chewable 08/23/19 Magnesium Oxide [Mag-Ox] 800 mg PO BID #0 tab 08/23/19 Allergies Allergy/AdvReac Type Severity Reaction Status Date / Time No Known Allergies Allergy Verified 09/17/19 13:25 Review of Systems ROS Statement: Those systems with pertinent positive or pertinent negative responses have been documented in the HPI. ROS Other: All systems not noted in ROS Statement are negative. Past Medical History Past Medical History: No Reported History Additional Past Medical History / Comment(s): low mag History of Any Multi-Drug Resistant Organisms: None Reported Past Surgical History: Heart Catheterization, Hernia Repair Additional Past Surgical History / Comment(s): november 2018 heart cath Past Anesthesia/Blood Transfusion Reactions: No Reported Reaction Date of Last Stent Placement:: 11/2018 Past Psychological History: Depression Smoking Status: Former smoker Past Alcohol Use History: None Reported, Heavy Past Drug Use History: None Reported, Marijuana - Past Family History Father Additional Family Medical History / Comment(s): Father in his 70s from some type of cancer. Mother Additional Family Medical History / Comment(s): Mother in her 60s from Alzheimer's dementia. Brother(s) Additional Family Medical History / Comment(s): Patient has 1 brother and 1 si ster with no major medical problems. General Exam - General Exam Comments Initial Comments: 54 year old male. Limitations: no limitations General appearance: alert, in no apparent distress Head exam: Present: atraumatic, normocephalic, normal inspection Eye exam: Present: normal appearance, PERRL, EOMI. Absent: scleral icterus, conjunctival injection, periorbital swelling ENT exam: Present: normal exam, mucous membranes moist Neck exam: Present: normal inspection. Absent: tenderness, meningismus, lymphadenopathy Respiratory exam: Present: normal lung sounds bilaterally. Absent: respiratory distress, wheezes, rales, rhonchi, stridor Cardiovascular Exam: Present: regular rate, normal rhythm, normal heart sounds. Absent: systolic murmur, diastolic murmur, rubs, gallop, clicks GI/Abdominal exam: Present: soft, normal bowel sounds. Absent: distended, tenderness, guarding, rebound, rigid Extremities exam: Present: normal inspection, full ROM, normal capillary refill. Absent: tenderness, pedal edema, joint swelling, calf tenderness Back exam: Present: normal inspection Neurological exam: Present: alert, oriented X3, CN II-XII intact Psychiatric exam: Present: normal affect, normal mood Skin exam: Present: warm, dry, intact, normal color. Absent: rash Course Vital Signs 09/17/19 09/17/19 13:25 13:31 Temperature 98.5 F Pulse Rate 102 H Pulse Rate [ 102 H [employer] ] Respiratory 18 Rate Blood Pressure 111/76 O2 Sat by Pulse 100 Oximetry Medical Decision Making - Medical Decision Making This Patient is a 54-year-old male presents emergency Department after diaphoresis and syncopal episode today while shopping at [employer]. Also has been complaining some intermittent chest pain shortness of breath. This ends E KG is negative for any acute process. When he was resting in bed and he denies any other further pain at this time. Patient's labwork was reviewed. He has a negative troponin. He does have evidence of a low magnesium level I.1. He is given IV magnesium replacement. Patient Labs shows no evidence of anemia white blood cells of 3.5. Hemoglobin of 10.2. Somewhat dehydrated with sodium of 1:30 elevated BUN of 25 for any and 1.4. He denies any alcohol use. Discussed at this time to admit for concern for syncopal episode and intermittent chest pain. - Lab Data Result diagrams: 09/17/19 13:30 09/17/19 13:30 Lab Results 09/17/19 09/17/19 09/17/19 Range/Units 13:30 13:30 13:30 WBC 3.5 L (3.8-10.6) k/uL RBC 3.40 L (4.30-5.90) m/uL Hgb 10.2 L (13.0-17.5) gm/dL Hct 29.1 L (39.0-53.0) % MCV 85.4 (80.0-100.0) fL MCH 29.9 (25.0-35.0) pg MCHC 35.0 (31.0-37.0) g/dL RDW 12.1 (11.5-15.5) % Plt Count 163 (150-450) k/uL Neutrophils % 63 % Lymphocytes % 17 % Monocytes % 7 % Eosinophils % 9 % Basophils % 1 % Neutrophils # 2.2 (1.3-7.7) k/uL Lymphocytes # 0.6 L (1.0-4.8) k/uL Monocytes # 0.2 (0-1.0) k/uL Eosinophils # 0.3 (0-0.7) k/uL Basophils # 0.0 (0-0.2) k/uL PT 10.8 (9.0-12.0) sec INR 1.1 (<1.2) APTT 25.0 (22.0-30.0) sec Sodium 130 L (137-145) mmol/L Potassium 4.3 (3.5-5.1) mmol/L Chloride 90 L (98-107) mmol/L Carbon Dioxide 30 (22-30) mmol/L Anion Gap 10 mmol/L BUN 25 H (9-20) mg/dL Creatinine 1.40 H (0.66-1.25) mg/dL Est GFR (CKD-EPI)AfAm 67 (>60 ml/min/1.73 sqM) Est GFR (CKD-EPI)NonAf 58 (>60 ml/min/1.73 sqM) Glucose 116 H (74-99) mg/dL Calcium 8.9 (8.4-10.2) mg/dL Magnesium 1.1 L (1.6-2.3) mg/dL Total Bilirubin 0.5 (0.2-1.3) mg/dL AST 57 (17-59) U/L ALT 51 H (4-49) U/L Alkaline Phosphatase 141 H (38-126) U/L Troponin I (0.000-0.034) ng/mL Total Protein 8.2 (6.3-8.2) g/dL Albumin 3.7 (3.5-5.0) g/dL 09/17/19 Range/Units 13:30 WBC (3.8-10.6) k/uL RBC (4.30-5.90) m/uL Hgb (13.0-17.5) gm/dL Hct (39.0-53.0) % MCV (80.0-100.0) fL MCH (25.0-35.0) pg MCHC (31.0-37.0) g/dL RDW (11.5-15.5) % Plt Count (150-450) k/uL Neutrophils % % Lymphocytes % % Monocytes % % Eosinophils % % Basophils % % Neutrophils # (1.3-7.7) k/uL Lymphocytes # (1.0-4.8) k/uL Monocytes # (0-1.0) k/uL Eosinophils # (0-0.7) k/uL Basophils # (0-0.2) k/uL PT (9.0-12.0) sec INR (<1.2) APTT (22.0-30.0) sec Sodium (137-145) mmol/L Potassium (3.5-5.1) mmol/L Chloride (98-107) mmol/L Carbon Dioxide (22-30) mmol/L Anion Gap mmol/L BUN (9-20) mg/dL Creatinine (0.66-1.25) mg/dL Est GFR (CKD-EPI)AfAm (>60 ml/min/1.73 sqM) Est GFR (CKD-EPI)NonAf (>60 ml/min/1.73 sqM) Glucose (74-99) mg/dL Calcium (8.4-10.2) mg/dL Magnesium (1.6-2.3) mg/dL Total Bilirubin (0.2-1.3) mg/dL AST (17-59) U/L ALT (4-49) U/L Alkaline Phosphatase (38-126) U/L Troponin I <0.012 (0.000-0.034) ng/mL Total Protein (6.3-8.2) g/dL Albumin (3.5-5.0) g/dL 09/17/19 13:46 EKG shows sinus tachycardia cannot rule out inferior infarct age undetermined. Abnormal EKG. Ventricular rate of 103 beats were minute. OR interval is 160 ms. QRS duration is 74 ms. QT QTc is 332/434 ms. - Radiology Data Radiology results: report reviewed EKG performed at 1328 shows sinus tachycardia cannot rule out inferior infarct age undetermined. Abnormal EKG. Ventricular rate 103 beats were minute. Intervals 116 ms. QRS duration 74 ms. QT QTc is 332/434 ms. Normal chest x-ray. Disposition Clinical Impression: Chest pain, Hypomagnesemia Disposition: ADMITTED IP TO THIS HOSP Condition: Stable Is patient prescribed a controlled substance at d/c from ED?: No Referrals: None,Stated [Primary Care Provider] - 1-2 days Time of Disposition: 15:00
[2019-09-17 13:50] LABS: Basophils % (A) 1 %; Eosinophils # (A) 0.3 k/uL (0-0.7); Eosinophils % (A) 9 %; HCT 29.1 % (39.0-53.0); HGB 10.2 gm/dL (13.0-17.5); Lymphocytes # (A) 0.6 k/uL (1.0-4.8); Lymphocytes % (A) 17 %; MCH 29.9 pg (25.0-35.0); MCV 85.4 fL (80.0-100.0); Mean Platelet Volume 9.4; Monocytes # (A) 0.2 k/uL (0-1.0); Monocytes % (A) 7 %; Neutrophils # (A) 2.2 k/uL (1.3-7.7); Neutrophils % (A) 63 %; Platelet Count 163 k/uL (150-450); RDW 12.1 % (11.5-15.5); WBC 3.5 k/uL (3.8-10.6)
--- NOTE | 2019-09-17 13:52 | XR ---
EXAMINATION TYPE: XR chest 2V DATE OF EXAM: 09/17/2019 HISTORY: syncope. REFERENCE: Previous study dated 07/31/2019. FINDINGS: The lungs remain clear. Pleural space are clear. The heart is not enlarged. IMPRESSION: NORMAL CHEST.
[2019-09-17 13:55] LABS: INR 1.1 (<1.2); Prothrombin Time 10.8 sec (9.0-12.0)
[2019-09-17 14:02] LABS: Albumin 3.7 g/dL (3.5-5.0); Calcium 8.9 mg/dL (8.4-10.2); Magnesium 1.1 mg/dL (1.6-2.3); Potassium 4.3 mmol/L (3.5-5.1); Total Bilirubin 0.5 mg/dL (0.2-1.3); Total Protein 8.2 g/dL (6.3-8.2)
[2019-09-17] MEDS: MAGNESIUM SULFATE-D5W PMX 1 GM in DEXTROSE/WATER 1 100ML.BAG IVPB SCH ×5 (14:58→22:38)
[2019-09-17] MEDS ORDERED: NITROGLYCERIN SL TABS 0.4 MG TAB SUBLINGUAL PRN (15:01)
[2019-09-17] MEDS ORDERED: MORPHINE SULFATE 4 MG/ML SYRINGE IV PRN ×2 (15:01→18:27)
[2019-09-17] MEDS ORDERED: ASPIRIN 81 MG PO STA (15:01)
[2019-09-17] MEDS ORDERED: INFLUENZA VACCINE (6 MOS+) 60 MCG/0.5 ML SYRINGE IM ONE (16:39)
[2019-09-17] MEDS: HYDROcodone/APAP 10-325MG 1 EACH TAB PO SCH ×2 (18:21→21:16)
[2019-09-17] MEDS ORDERED: ACETAMINOPHEN TAB 325 MG TAB PO PRN (18:27)
[2019-09-17] MEDS ORDERED: NALOXONE 0.4 MG/ML 1 ML VIAL IV PRN (18:27)
[2019-09-17] MEDS ORDERED: HYDROcodone/APAP 5-325MG 1 EACH TAB PO PRN (18:27)
--- NOTE | 2019-09-17 18:35 | P.HPIM ---
History of Present Illness H&P Date: 09/17/19 Chief Complaint: Lightheadedness 54-year-old male with previous history of alcohol abuse quit 20 years ago presents the ED for presyncopal symptoms. Patient states that he was grocery shopping when he felt the sudden onset of lightheadedness. Patient also reported feeling hot and sweaty. He was able to grab onto something but did fall and hit the back of his head. His girlfriend thinks that he may have passed out for a few seconds. Girlfriend noted he had some fine tremors of his hands. There was no bladder or bowel incontinence. Patient states that he was confused for a couple of minutes after regaining consciousness. Patient reports feeling unwell for the last couple of weeks. His symptoms are characteristic of nausea along with anorexia and lightheadedness. He also reports chest pain and shortness of breath that has been getting worse over the past 2 weeks. Patient reports the chest pain to be pressure-like in sensation. He reports diarrhea for the past 2 days but normal bowels otherwise. He denies any headache, lower extremity edema, fever or chills, cough, palpitations, changes in urination. No changes in appetite or weight. No numbness/weakness/tingling of the extremities. Patient reports severe alcohol abuse drinking 1 gallon of liquor daily but quit 20 years ago. He denies any illicit drug use. In the ED, his vital signs are stable except for tachycardia with heart rate of 102. CBC showed WBC count 3.5, hemoglobin 10.2, hematocrit 29.1. CMP shows sodium of 130, chloride 98, BUN 25, creatinine 1.4, glucose 116. Magnesium was 1.1. ALT 51, alkaline phosphatase 141. Troponin was less than 0.012, EKG showing sinus tachycardia with T-wave inversions. Chest x-ray was negative. Patient is admitted for presyncope, rule out acute coronary syndrome and magnesium replacement. Review of Systems Pertinent positives and negatives as discussed in HPI, a complete review of systems was performed and all other systems are negative. Past Medical History Past Medical History: No Reported History Additional Past Medical History / Comment(s): low mag History of Any Multi-Drug Resistant Organisms: None Reported Past Surgical History: Heart Catheterization, Hernia Repair Additional Past Surgical History / Comment(s): november 2018 heart cath Past Anesthesia/Blood Transfusion Reactions: No Reported Reaction Date of Last Stent Placement:: 11/2018 Past Psychological History: Depression Smoking Status: Former smoker Past Alcohol Use History: None Reported, Heavy Additional Past Alcohol Use History / Comment(s): Patient was a smoker of 2 packs per day for 25 years and quit most 20 years ago. He also states that he drank alcohol heavily up to a fifth a day for 15 years and quit about 20 years ago. He has not followed with AA and did it on his own. He works in [employer]. He is single and does not have any children. Past Drug Use History: None Reported - Past Family History Father Additional Family Medical History / Comment(s): Father in his 70s from some type of cancer. Mother Additional Family Medical History / Comment(s): Mother in her 60s from Alzheimer's dementia. Brother(s) Additional Family Medical History / Comment(s): Patient has 1 brother and 1 sister with no major medical problems. Medications and Allergies Home Medications Medication Instructions Recorded Confirmed Type RX: HYDROcodone/APAP 10-325MG 1 tab PO QID 02/03/19 09/17/19 History [[place] 10-325] RX: Multivitamins, Thera 1 tab PO DAILY 05/14/19 09/17/19 History [Multivitamin (formulary)] RX: Aspirin 81 mg PO DAILY #30 chewable 08/23/19 09/17/19 Rx RX: Magnesium Oxide [Mag-Ox] 800 mg PO BID #0 tab 08/23/19 09/17/19 Rx Atorvastatin Calcium [Lipitor] 20 mg PO DAILY 09/17/19 09/17/19 History Allergies Allergy/AdvReac Type Severity Reaction Status Date / Time No Known Allergies Allergy Verified 09/17/19 13:25 Physical Exam Vitals: Vital Signs Temp Pulse Pulse Pulse Resp BP Pulse Ox 09/17/19 16:23 98.5 F 97 16 99 09/17/19 15:00 97 18 110/72 100 09/17/19 13:31 102 H 09/17/19 13:25 98.5 F 102 H 18 111/76 100 Intake and Output 09/17/19 09/17/19 09/17/19 06:59 14:59 22:59 Other: Weight 63.503 kg 57.8 kg General: [non toxic], [no distress], [appears at stated age] Derm: [warm], [dry] Head: [atraumatic], [normocephalic], [symmetric] Eyes: [EOMI], [no lid lag], [anicteric sclera] Mouth: [no lip lesion], [mucus membranes moist] Cardiovascular: [S1S2 reg], [tachycardia], [positive DP pulse bilateral], Lungs: [CTA bilateral], [no rhonchi, no rales] , [no accessory muscle use] Abdominal: [soft], [ nontender to palpation], [no guarding], [no appreciable organomegaly] Ext: [no gross muscle atrophy], [no edema], [no contractures] Neuro: [ CN II-XI grossly intact], [no focal neuro deficits] Psych: [Alert], [oriented], [appropriate affect] Results CBC & Chem 7: 09/17/19 13:30 09/17/19 13:30 Labs: Abnormal Lab Results - Last 24 Hours (Table) 09/17/19 09/17/19 Range/Units 13:30 13:30 WBC 3.5 L (3.8-10.6) k/uL RBC 3.40 L (4.30-5.90) m/uL Hgb 10.2 L (13.0-17.5) gm/dL Hct 29.1 L (39.0-53.0) % Lymphocytes # 0.6 L (1.0-4.8) k/uL Sodium 130 L (137-145) mmol/L Chloride 90 L (98-107) mmol/L BUN 25 H (9-20) mg/dL Creatinine 1.40 H (0.66-1.25) mg/dL Glucose 116 H (74-99) mg/dL Magnesium 1.1 L (1.6-2.3) mg/dL ALT 51 H (4-49) U/L Alkaline Phosphatase 141 H (38-126) U/L Thrombosis Risk Factor Assmnt - Choose All That Apply Any of the Below Risk Factors Present?: Yes Each Factor Represents 1 point: Age 41-60 years Thrombosis Risk Factor Assessment Total Risk Factor Score: 1 Thrombosis Risk Factor Assessment Level: Low Risk Assessment and Plan Assessment: Presyncope with chest pain rule out ACS Hypomagnesemia Hyponatremia Acute kidney injury Elevated ALT Normocytic anemia Patient symptoms of lightheadedness, anorexia, nausea and chest pain could be related to hypomagnesemia. Troponin was less than 0.012 with EKG showing sinus tachycardia and T-wave inversions. Patient will be started on aspirin and Lipitor. Plan is to trend troponin/EKG to rule out ACS. Echocardiogram has been ordered. He will be kept on telemetry monitoring and neurochecks. Patient is noted to have magnesium of 1.1 on admission. This will be replaced via IV. Magnesium will be rechecked tomorrow. Nephrology will be consulted. Patient was noted to have sodium of 130 and creatinine 1.4 which is likely related to dehydration. He'll be started on normal saline at 130 mL/h and BMP will be repeated tomorrow. He will be placed on fall precautions. His elevated ALT of 51 is of uncertain significance and will be repeated tomorrow morning. His hemoglobin of 10.2 stable and at baseline. Patient is pending clinical improvement. Anticipated DC in 1-2 days. DVT prophylaxis: [SCD boots] Discussed with: [Patient] Anticipated discharge: [1-2 days] Anticipated discharge place: [Home] A total of [35] minutes was spent on the care of this complex patient more than 50% of the time was spent in counseling and care coordination. Patient names his siblings Corby and Marielena decision maker if he can't make decisions for himself. Patient elected to be full code.
[2019-09-17 18:41] LABS: Appearance,Urine Clear (Clear); Bilirubin,Urine Negative (Negative); Blood,Urine Negative (Negative); Color,Urine Light Yellow; Glucose,Urine (UA) Negative (Negative); Ketones,Urine Negative (Negative); Leukocyte Esterase,Urine Negative (Negative); Nitrite,Urine Negative (Negative); PH, Urine 5.5 (5.0-8.0); Protein,Urine Negative (Negative); Specific Gravity,Urine 1.005 (1.001-1.035); Urobilinogen,Urine <2.0 mg/dL (<2.0)
[2019-09-17] MEDS: MAGNESIUM OXIDE 400 MG TAB PO SCH (21:16)
[2019-09-17 23:04] LABS: Hemoglobin A1C 5.9 % (4.0-6.0)
[2019-09-18] MEDS: MAGNESIUM SULFATE-D5W PMX 1 GM in DEXTROSE/WATER 1 100ML.BAG IVPB SCH (00:09)
[2019-09-18 07:04] LABS: Basophils % (A) 1 %; Eosinophils # (A) 0.4 k/uL (0-0.7); Eosinophils % (A) 13 %; HCT 27.8 % (39.0-53.0); HGB 9.6 gm/dL (13.0-17.5); Lymphocytes # (A) 0.4 k/uL (1.0-4.8); Lymphocytes % (A) 13 %; MCH 30.2 pg (25.0-35.0); MCHC 34.5 g/dL (31.0-37.0); MCV 87.6 fL (80.0-100.0); Monocytes # (A) 0.2 k/uL (0-1.0); Monocytes % (A) 7 %; Neutrophils # (A) 2.1 k/uL (1.3-7.7); Neutrophils % (A) 64 %; Platelet Count 139 k/uL (150-450); RBC 3.17 m/uL (4.30-5.90); RDW 11.9 % (11.5-15.5); WBC 3.3 k/uL (3.8-10.6)
[2019-09-18 07:18] LABS: Albumin 3.1 g/dL (3.5-5.0); Total Bilirubin 0.3 mg/dL (0.2-1.3); Total Protein 7.3 g/dL (6.3-8.2)
[2019-09-18 07:31] LABS: Calcium 8.1 mg/dL (8.4-10.2); Magnesium 2.7 mg/dL (1.6-2.3); Potassium 4.3 mmol/L (3.5-5.1)
[2019-09-18] MEDS: MAGNESIUM OXIDE 400 MG TAB PO SCH ×2 (07:44→10:20)
[2019-09-18] MEDS: ATORVASTATIN 20 MG TAB PO SCH (07:44)
[2019-09-18] MEDS: ASPIRIN 81 MG PO SCH (07:44)
[2019-09-18] MEDS: HYDROcodone/APAP 10-325MG 1 EACH TAB PO SCH ×3 (07:44→17:43)
[2019-09-18] MEDS ORDERED: ASPIRIN 325 MG TAB PO SCH (09:00)
[2019-09-18] MEDS ORDERED: MAGNESIUM SULFATE-D5W PMX 1 GM in DEXTROSE/WATER 1 100ML.BAG IVPB SCH (09:30)
[2019-09-18] MEDS ORDERED: SODIUM CHLORIDE 0.9% 1,000 ML IV SCH (09:30)
[2019-09-18] MEDS: SODIUM CHLORIDE 0.9% 1,000 ML IV SCH (10:22)
--- NOTE | 2019-09-18 10:41 | P.NPCON ---
History of Present Illness - Reason for Consult acute renal failure - History of Present Illness Reason for consultation: Hypomagnesemia an acute kidney injury History of present illness: Patient is a 54-year-old male seen in renal consultation for acute kidney injury and hypomagnesemia. Patient's creatinine was 1.4 on admission and is down to 1.14 today. He is maintained on IV fluids. He received 1 L of normal saline bolus in the ER and is currently maintained on normal saline at 1 50 mL an hour. Patient's magnesium level was 1.1 on admission and he received total of 6 g of IV magnesium sulfate. Magnesium level is up to 2.7 today. Patient states he was having diarrhea for about 2 days prior to admission. He denies taking any diuretics. Oral intake has been poor the last few days. No history of diabetes. He admits to good urine output. No hematuria or dysuria. Denies any family history of kidney disease or electrolyte disorders. Patient does have history of alcohol use but states he quit about 20 years ago. Denies use of nonsteroidals. Denies using proton pump inhibitors. No nausea or vomiting. No fever or chills. Vital signs are stable. General: The patient appeared well nourished and normally developed. HEENT: Head exam is unremarkable. Neck is without jugular venous distension. LUNGS: Lungs are clear to auscultation and percussion. Breath sounds decreased. HEART: Rate and Rhythm are regular. First and second heart sounds normal. No murmurs, rubs or gallops. ABDOMEN: Abdominal exam reveals normal bowel sounds. Non-tender and non- distended. No evidence of peritonitis. EXTREMITITES: No clubbing, cyanosis, or edema. Past Medical History Past Medical History: No Reported History Additional Past Medical History / Comment(s): low mag History of Any Multi-Drug Resistant Organisms: None Reported Past Surgical History: Heart Catheterization, Hernia Repair Additional Past Surgical History / Comment(s): november 2018 heart cath Past Anesthesia/Blood Transfusion Reactions: No Reported Reaction Date of Last Stent Placement:: 11/2018 Past Psychological History: Depression Smoking Status: Former smoker Past Alcohol Use History: None Reported, Heavy Additional Past Alcohol Use History / Comment(s): Patient was a smoker of 2 packs per day for 25 years and quit most 20 years ago. He also states that he drank alcohol heavily up to a fifth a day for 15 years and quit about 20 years ago. He has not followed with AA and did it on his own. He works in [employer] and [employer]. He is single and does not have any children. Past Drug Use History: None Reported - Past Family History Father Additional Family Medical History / Comment(s): Father in his 70s from some type of cancer. Mother Additional Family Medical History / Comment(s): Mother in her 60s from Alzheimer's dementia. Brother(s) Additional Family Medical History / Comment(s): Patient has 1 brother and 1 sister with no major medical problems. Medications and Allergies Home Medications Medication Instructions Recorded Confirmed Type HYDROcodone/APAP 10-325MG [[place] 1 tab PO QID 02/03/19 09/17/19 History 10-325] Multivitamins, Thera [Multivitamin 1 tab PO DAILY 05/14/19 09/17/19 History (formulary)] Aspirin 81 mg PO DAILY #30 chewable 08/23/19 09/17/19 Rx Magnesium Oxide [Mag-Ox] 800 mg PO BID #0 tab 08/23/19 09/17/19 Rx Atorvastatin Calcium [Lipitor] 20 mg PO DAILY 09/17/19 09/17/19 History Allergies Allergy/AdvReac Type Severity Reaction Status Date / Time No Known Allergies Allergy Verified 09/17/19 13:25 Physical Exam Vitals: Vital Signs Temp Pulse Pulse Pulse Resp BP BP 09/18/19 07:40 98.3 F 87 16 122/79 09/18/19 06:09 98.0 F 84 16 118/74 09/18/19 00:19 97.8 F 81 16 110/66 09/17/19 20:25 97.4 F L 99 16 103/71 09/17/19 16:23 98.5 F 97 16 09/17/19 15:00 97 18 110/72 09/17/19 13:31 102 H 09/17/19 13:25 98.5 F 102 H 18 111/76 Pulse Ox 09/18/19 07:40 98 09/18/19 06:09 96 09/18/19 00:19 96 09/17/19 20:25 97 09/17/19 16:23 99 09/17/19 15:00 100 09/17/19 13:31 09/17/19 13:25 100 Intake and Output 09/17/19 09/18/19 09/18/19 22:59 06:59 14:59 Intake Total 1088 1015 100 Output Total 500 Balance 1088 515 100 Intake: Intake, IV Titration 200 535 Amount Magnesium Sulfate-D5w Pmx 100 100 1 gm In Dextrose/Water 1 100ml.bag @ 100 mls/hr IVPB Q1H [facility] Rx#: [id number] Magnesium Sulfate-D5w Pmx 100 100 1 gm In Dextrose/Water 1 100ml.bag @ 100 mls/hr IVPB Q1H [facility] Rx#: [id number] Sodium Chloride 0.9% 1, 335 000 ml @ 130 mls/hr IV . Q7H42M STA Rx#:[id number] Oral 888 480 100 Output: Urine 500 Other: Weight 57.8 kg 58.3 kg Results - Lab Results Most recent lab results Calcium 8.1 mg/dL (8.4-10.2) L 09/18/19 05:59 Magnesium 2.7 mg/dL (1.6-2.3) H 09/18/19 05:59 09/18/19 05:59 09/18/19 05:59 Assessment and Plan Plan: Assessment: 1. Acute kidney injury mostly prerenal secondary to intravascular volume depletion from diarrhea and poor oral intake. Creatinine was 1.4 on admission and is down to 1.14 today. 2. Hypomagnesemia secondary to GI losses. Also component of renal magnesium loss from volume expansion with normal saline. Improved posterior placement. 3. Hyponatremia from poor oral solute intake and acute kidney injury. 4. Hypocalcemia secondary to hypoalbuminemia as well as hypomagnesemia-induced parathyroid hormone resistance. Plan: Maintain normal saline at 80 mL an hour. Encouraged oral intake, particularly protein. Hold oral magnesium supplementation today. Check fractional excretion of magnesium. Repeat electrolytes in the morning. Thank you for the consultation. I will continue to follow the patient with you during his hospital stay.
[2019-09-18 11:32] VITALS: RESP 18
[2019-09-18] MEDS: MULTIVITAMINS, THERA 1 EACH TAB PO SCH (12:30)
--- NOTE | 2019-09-18 14:15 | P.PN ---
Subjective Progress Note Date: 09/18/19 Principal diagnosis: Hypomagnesemia Patient was seen and examined. No acute events overnight. Patient reports resolution of his symptoms. He denies any chest pain, shortness breath or palpitations. He does complain of some mild tremors. No nausea or vomiting. No fever or chills. Objective - Vital Signs Vital signs: Vital Signs Temp 97.8 F 09/18/19 11:28 Pulse 101 H 09/18/19 11:28 Resp 18 09/18/19 11:28 BP 110/66 09/18/19 11:28 Pulse Ox 94 L 09/18/19 11:28 Intake & Output 09/17/19 09/18/19 09/18/19 18:59 06:59 18:59 Intake Total 444 1659 700 Output Total 500 Balance 444 1159 700 Weight 57.8 kg 58.3 kg Intake: Intake, IV Titration 735 Amount Magnesium Sulfate-D5w Pmx 200 1 gm In Dextrose/Water 1 100ml.bag @ 100 mls/hr IVPB Q1H [facility] Rx#: [id number] Magnesium Sulfate-D5w Pmx 200 1 gm In Dextrose/Water 1 100ml.bag @ 100 mls/hr IVPB Q1H [facility] Rx#: [id number] Sodium Chloride 0.9% 1, 335 000 ml @ 130 mls/hr IV . Q7H42M STA Rx#:[id number] Oral 444 924 700 Output: Urine 500 - Exam General: [non toxic], [no distress], [appears at stated age] Derm: [warm], [dry] Head: [atraumatic], [normocephalic], [symmetric] Eyes: [EOMI], [no lid lag], [anicteric sclera] Mouth: [no lip lesion], [mucus membranes moist] Cardiovascular: [S1S2 reg], [tachycardia], [positive DP pulse bilateral], Lungs: [CTA bilateral], [no rhonchi, no rales] , [no accessory muscle use] Abdominal: [soft], [ nontender to palpation], [no guarding], [no appreciable organomegaly] Ext: [no gross muscle atrophy], [no edema], [no contractures] Neuro: [no focal neuro deficits] Psych: [Alert], [oriented], [appropriate affect] - Labs CBC & Chem 7: 09/18/19 05:59 09/18/19 05:59 Labs: Abnormal Lab Results - Last 24 Hours (Table) 09/18/19 09/18/19 Range/Units 05:59 05:59 WBC 3.3 L (3.8-10.6) k/uL RBC 3.17 L (4.30-5.90) m/uL Hgb 9.6 L (13.0-17.5) gm/dL Hct 27.8 L (39.0-53.0) % Plt Count 139 L (150-450) k/uL Lymphocytes # 0.4 L (1.0-4.8) k/uL Sodium 130 L (137-145) mmol/L Chloride 91 L (98-107) mmol/L BUN 21 H (9-20) mg/dL Glucose 110 H (74-99) mg/dL Calcium 8.1 L (8.4-10.2) mg/dL Magnesium 2.7 H (1.6-2.3) mg/dL Albumin 3.1 L (3.5-5.0) g/dL HDL Cholesterol 22 L (40-60) mg/dL Assessment and Plan Assessment: Presyncope with chest pain rule out ACS Hyponatremia Normocytic anemia Improved: Hypomagnesemia, acute kidney injury Patient symptoms of lightheadedness, anorexia, nausea and chest pain could be related to hypomagnesemia. Troponin was less than 0.012 3 with EKG showing sinus tachycardia and T-wave inversions. Patient will be started on aspirin and Lipitor. Acute coronary syndrome has been ruled out. Echocardiogram has been ordered which is still pending. He will be kept on telemetry monitoring and neurochecks. Patient is noted to have magnesium of 1.1 on admission, his magnesium today is slightly elevated at 2.7. Nephrology was consulted and fractional excretion of magnesium will be obtained. Patient was noted to have sodium of 130 which is likely related to dehydration. He'll be started on normal saline at 80 mL/h and BMP will be repeated tomorrow. He will be placed on fall precautions. His hemoglobin of 10.2-9.6 is stable and at baseline (the drop is likely dilutional). Patient is pending clinical improvement. Anticipated DC in tomorrow once electrolytes are improved.
[2019-09-19] MEDS: HYDROcodone/APAP 10-325MG 1 EACH TAB PO SCH ×3 (06:22→14:28)
[2019-09-19 06:29] LABS: Magnesium 1.6 mg/dL (1.6-2.3); Potassium 4.1 mmol/L (3.5-5.1)
[2019-09-19] MEDS: SODIUM CHLORIDE 0.9% 1,000 ML IV SCH ×2 (08:13→12:09)
[2019-09-19] MEDS: MAGNESIUM OXIDE 400 MG TAB PO SCH (08:14)
[2019-09-19] MEDS: ATORVASTATIN 20 MG TAB PO SCH (08:15)
[2019-09-19] MEDS: MULTIVITAMINS, THERA 1 EACH TAB PO SCH (08:15)
[2019-09-19] MEDS: ASPIRIN 81 MG PO SCH (08:15)
[2019-09-19] MEDS ORDERED: LORazepam 2 MG/ML INJ IV STA (08:29)
[2019-09-19] MEDS: MAGNESIUM SULFATE-D5W PMX 1 GM in DEXTROSE/WATER 1 100ML.BAG IVPB SCH ×2 (09:02→12:08)
--- NOTE | 2019-09-19 09:21 | ECHOF ---
Referral Reason:Syncope, chest pain MEASUREMENTS -------- HEIGHT: 165.1 cm WEIGHT: 57.2 kg BP: IVSd: 1.0 cm (0.6 - 1.1) LVIDd: 3.5 cm (3.9 - 5.3) LVPWd: 0.9 cm (0.6 - 1.1) IVSs: 1.2 cm LVIDs: 2.1 cm LVPWs: 1.3 cm Ao Diam: 3.4 cm (2.0 - 3.7) AV Cusp: 2.0 cm (1.5 - 2.6) MV EXCURSION: 16.095 mm (> 18.000) MV EF SLOPE: 99 mm/s (70 - 150) MV E Ba: 0.59 m/s MV DecT: 174 ms MV A Ba: 0.76 m/s MV E/A Ratio: 0.77 RAP: 5.00 mmHg RVSP: 12.32 mmHg FINDINGS -------- Sinus rhythm. This was a technically good study. LV size, wall thickness and systolic function are normal, with an EF greater than 55%. The left david tricular size is normal. The right ventricle is normal in size. The left atrial size is normal. The right atrial size is normal. There is mild aortic valve sclerosis. There is no evidence of aortic regurgitation. Mild mitral annular calcification present. Mild mitral regurgitation is present. Mild tricuspid regurgitation present. Right ventricular systolic pressure is normal at < 35 mmHg. There is no evidence of pulmonary hypertension. There is no pulmonic regurgitation present. The aortic root size is normal. There is no pericardial effusion. CONCLUSIONS -------- 1. Sinus rhythm. 2. This was a technically good study. 3. LV size, wall thickness and systolic function are normal, with an EF greater than 55%. 4. The left ventricular size is normal. 5. The right ventricle is normal in size. 6. The left atrial size is normal. 7. The right atrial size is normal. 8. There is mild aortic valve sclerosis. 9. Mild mitral annular calcification present. 10. Mild mitral regurgitation is present. 11. Mild tricuspid regurgitation present. 12. Right ventricular systolic pressure is normal at < 35 mmHg. 13. There is no evidence of pulmonary hypertension. 14. There is no pulmonic regurgitation present. 15. The aortic root size is normal. 16. There is no pericardial effusion. [employer]: Roslyn Hale RDCS
--- NOTE | 2019-09-19 11:18 | P.PN ---
Subjective Patient is seen in follow-up for hypomagnesemia. Magnesium level 1.6 today. Oral intake remains poor. He did have loose bowel movements earlier today. Vital signs are stable. General: The patient appeared well nourished and normally developed. HEENT: Head exam is unremarkable. Neck is without jugular venous distension. LUNGS: Lungs are clear to auscultation and percussion. Breath sounds decreased. HEART: Rate and Rhythm are regular. First and second heart sounds normal. No murmurs, rubs or gallops. ABDOMEN: Abdominal exam reveals normal bowel sounds. Non-tender and non- distended. No evidence of peritonitis. EXTREMITITES: No clubbing, cyanosis, or edema. Objective - Vital Signs Vital signs: Vital Signs Temp 98.6 F 09/19/19 08:00 Pulse 114 H 09/19/19 08:00 Resp 18 09/19/19 08:00 BP 117/66 09/19/19 08:00 Pulse Ox 95 09/19/19 08:00 Intake & Output 09/18/19 09/19/19 09/19/19 18:59 06:59 18:59 Intake Total 1780 237 Output Total 1 Balance 1780 -1 237 Weight 58.1 kg Intake: Oral 1780 237 Output: Urine 1 Other: # Voids 1 # Bowel Movements 1 - Labs CBC & Chem 7: 09/18/19 05:59 09/19/19 06:08 Labs: Abnormal Lab Results - Last 24 Hours (Table) 09/19/19 Range/Units 06:08 Sodium 130 L (137-145) mmol/L Chloride 93 L (98-107) mmol/L Glucose 112 H (74-99) mg/dL Calcium 8.0 L (8.4-10.2) mg/dL Assessment and Plan Plan: Assessment: 1. Acute kidney injury mostly prerenal secondary to intravascular volume depletion from diarrhea and poor oral intake. Creatinine was 1.4 on admission and is stable at 1.15 today. 2. Hypomagnesemia secondary to GI losses and poor oral intake. Also component of renal magnesium loss from volume expansion with normal saline. Improved posterior placement. 3. Hyponatremia from poor oral solute intake and acute kidney injury. 4. Hypocalcemia secondary to hypoalbuminemia as well as hypomagnesemia-induced parathyroid hormone resistance. Plan: Maintain normal saline at 80 mL an hour. Encouraged oral intake, particularly protein. Resume oral magnesium supplementation. Increase frequency to 3 times daily. Follow-up fractional excretion of magnesium. Repeat electrolytes in the morning. 2 g IV magnesium sulfate today. Anticipate discharge soon. Repeat BMP and magnesium level 2-3 days postdischarge. Follow up outpatient in 1-2 weeks.
--- NOTE | 2019-09-19 12:54 | P.DS ---
Providers Date of admission: 09/18/19 11:41 Expected date of discharge: 09/19/19 Attending physician: Shae Ross DO Consults: 09/17/19 18:28 Consult Physician Routine Consulting Provider: Chato Liao Consult Reason/Comments: Hypomagnesemia, chronic, unknown etiology Do you want consulting provider notified?: Yes Primary care physician: Stated None Hospital Course: 54-year-old male with previous history of alcohol abuse quit 20 years ago presents the ED for presyncopal symptoms. Patient states that he was grocery shopping when he felt the sudden onset of lightheadedness. Patient also reported feeling hot and sweaty. He was able to grab onto something but did fall and hit the back of his head. His girlfriend thinks that he may have passed out for a few seconds. Girlfriend noted he had some fine tremors of his hands. There was no bladder or bowel incontinence. Patient states that he was confused for a couple of minutes after regaining consciousness. Patient reports feeling unwell for the last couple of weeks. His symptoms are characteristic of nausea along with anorexia and lightheadedness. He also reports chest pain and shortness of breath that has been getting worse over the past 2 weeks. Patient reports the chest pain to be pressure-like in sensation. He reports diarrhea for the past 2 days but normal bowels otherwise. He denies any headache, lower extremity edema, fever or chills, cough, palpitations, changes in urination. No changes in appetite or weight. No numbness/weakness/tingling of the extremities. Patient reports severe alcohol abuse drinking 1 gallon of liquor daily but quit 20 years ago. He denies any illicit drug use. In the ED, his vital signs are stable except for tachycardia with heart rate of 102. CBC sh owed WBC count 3.5, hemoglobin 10.2, hematocrit 29.1. CMP shows sodium of 130, chloride 98, BUN 25, creatinine 1.4, glucose 116. Magnesium was 1.1. ALT 51, alkaline phosphatase 141. Troponin was less than 0.012, EKG showing sinus tachycardia with T-wave inversions. Chest x-ray was negative. Patient is admitted for presyncope, rule out acute coronary syndrome and magnesium replacement. Patient symptoms of lightheadedness, anorexia, nausea and chest pain could be related to hypomagnesemia. Troponin was less than 0.012 3 with EKG showing sinus tachycardia and T-wave inversions. Patient will be started on aspirin and Lipitor. Acute coronary syndrome has been ruled out. Echocardiogram has been ordered which was within normal limits. He will be kept on telemetry monitoring and neurochecks. Patient is noted to have magnesium of 1.1 on admission, his magnesium today is slightly elevated at 2.7 after receiving 6 g. Repeat magnesium was 1.6 which was replaced with another 2 g. Nephrology was consulted and fractional excretion of magnesium will be obtained. Patient was noted to have sodium of 130 which is likely related to dehydration. He was started on normal saline and sodium remained 130 at the time of discharge. Nephrology cleared the patient for discharge. Patient was seen and examined. No acute events overnight. Patient denies any chest pain, shortness of breath or palpitations. Had some anxiety this morning for which he was given Ativan. General: [non toxic], [no distress], [appears at stated age] Derm: [warm], [dry] Head: [atraumatic], [normocephalic], [symmetric] Eyes: [EOMI], [no lid lag], [anicteric sclera] Mouth: [no lip lesion], [mucus membranes moist] Cardiovascular: [S1S2 reg], [tachycardia], [positive DP pulse bilateral], Lungs: [CTA bilateral], [no rhonchi, no rales] , [no accessory muscle use] Abdominal: [soft], [ nontender to palpation], [no guarding], [no appreciable organomegaly] Ext: [no gross muscle atrophy], [no edema], [no contractures] Neuro: [no focal neuro deficits] Psych: [Alert], [oriented], [appropriate affect] Presyncope with chest pain rule out ACS Hyponatremia Normocytic anemia Improved: Hypomagnesemia, acute kidney injury Patient symptoms have resolved. Troponin was less than 0.012 3 with EKG showing sinus tachycardia and T-wave inversions, Acute coronary syndrome has been ruled out. Echocardiogram was within normal limits. Patient is noted to have magnesium of 1.6 today which will be replaced. Nephrology was consulted and fractional excretion of magnesium will be obtained. Patient was noted to have sodium of 130 which has been persistent. He has been asymptomatic. He will be placed on fall precautions. His hemoglobin of 10.2-9.6 is stable and at baseline (the drop is likely dilutional). Patient is pending clinical improvement. Anticipated DC today since he has been cleared by nephrology. This complex discharge took about 35 minutes to complete.. Pertinent Studies: Chest x-ray, echocardiogram Patient Condition at Discharge: Stable Plan - Discharge Summary Discharge Rx Participant: No New Discharge Prescriptions: New Magnesium Oxide [Mag-Ox] 800 mg PO TID #180 tab Continue HYDROcodone/APAP 10-325MG [[place] 10-325] 1 tab PO QID Multivitamins, Thera [Multivitamin (formulary)] 1 tab PO DAILY Aspirin 81 mg PO DAILY #30 chewable Atorvastatin Calcium [Lipitor] 20 mg PO DAILY Discontinued Magnesium Oxide [Mag-Ox] 800 mg PO BID #0 tab Discharge Medication List HYDROcodone/APAP 10-325MG [[place] 10-325] 1 tab PO QID 02/03/19 [History] Multivitamins, Thera [Multivitamin (formulary)] 1 tab PO DAILY 05/14/19 [History] Aspirin 81 mg PO DAILY #30 chewable 08/23/19 [Rx] Atorvastatin Calcium [Lipitor] 20 mg PO DAILY 09/17/19 [History] Magnesium Oxide [Mag-Ox] 800 mg PO TID #180 tab 09/19/19 [Rx] Follow up Appointment(s)/Referral(s): None,Stated [Primary Care Provider] - 1-2 days Chato Liao DO [STAFF PHYSICIAN] - 1 Week Activity/Diet/Wound Care/Special Instructions: Per Dr. Liao patient is to have outpatient labs this (BMP and a Mg). Discharge Disposition: HOME SELF-CARE
[2019-09-19 13:06] VITALS: BP 128/85; PULSE 124; TEMP 98.3
[2019-09-19] MEDS ORDERED: MAGNESIUM OXIDE 400 MG TAB PO SCH (16:00)
== END 2019-09-19 15:57 | disposition home or self-care (01) | DRG 641 ==
LOC: EC 13:15 → 3SCARD 15:28 → OBSVTOIN 09-18 11:41
PROVIDERS: ADMIT Internal Medicine; ATTEND Internal Medicine
DX: E83.42 Hypomagnesemia (principal); N17.9 Acute kidney failure, unspecified; E87.1 Hypo-osmolality and hyponatremia; E88.09 Other disorders of plasma-protein metabolism, not elsewhere classified; Z23 Encounter for immunization; E86.0 Dehydration; E83.51 Hypocalcemia; D64.9 Anemia, unspecified; F10.11 Alcohol abuse, in remission; Z79.82 Long term (current) use of aspirin; Z79.899 Other long term (current) drug therapy; Z87.891 Personal history of nicotine dependence; Z80.9 Family history of malignant neoplasm, unspecified; Z82.0 Family history of epilepsy and other diseases of the nervous system; Z86.59 Personal history of other mental and behavioral disorders
CPT/HCPCS: 36415; 71046; 80048; 80053; 80061; 81003; 82570; 83036; 83735; 84484; 85025; 85610; 85730; 90686; 93005; 93306; 96361; 96365; 99285

== ENCOUNTER 2019-09-30 17:05 | Emergency (ER) | payer OTHER ==
[2019-09-30] MEDS ORDERED: SODIUM CHLORIDE 0.9% 500 ML 500 ML IV STA (17:37)
[2019-09-30] MEDS ORDERED: SODIUM CHLORIDE 0.9% 1,000 ML IV STA ×2 (17:37)
--- NOTE | 2019-09-30 17:39 | ED ---
Recheck HPI - General Chief Complaint: Recheck/Abnormal Lab/Rx Stated Complaint: Low magnesium Time Seen by Provider: 09/30/19 17:28 Source: patient, RN notes reviewed, old records reviewed Mode of arrival: ambulatory Limitations: no limitations - History of Present Illness Initial Comments: This is a 54 male to the ED for evaluation patient presents today for evaluation regards to recurrent low magnesium. This is been an ongoing issue the patient quite some time he is finally got himself into an outpatient, primary care physician doing further evaluations management patient continues to admit to weight loss decreased appetite. Denying any other significant symptoms as far as nausea vomiting headache chest pain abdominal pain diarrhea. Patient was sent here by primary care for evaluation of abnormal lab values MD Complaint: abnormal lab (Low magnesium) -: days(s) Returns Today for: Called Because of Abnormal Lab/Test (Low magnesium) Symptoms Since Prior Visit: no new symptoms Context: called for abnormal lab result Associated Symptoms: none Treatments Prior to Arrival: other medications (A shunt is on outpatient magnesium) - Related Data Home Medications Medication Instructions Recorded Confirmed HYDROcodone/APAP 10-325MG [[place] 1 tab PO QID 02/03/19 09/17/19 10-325] Multivitamins, Thera [Multivitamin 1 tab PO DAILY 05/14/19 09/17/19 (formulary)] Atorvastatin Calcium [Lipitor] 20 mg PO DAILY 09/17/19 09/17/19 Previous Rx's Medication Instructions Recorded Aspirin 81 mg PO DAILY #30 chewable 08/23/19 Magnesium Oxide [Mag-Ox] 800 mg PO TID #180 tab 09/19/19 Allergies Allergy/AdvReac Type Severity Reaction Status Date / Time No Known Allergies Allergy Verified 09/30/19 17:12 Review of Systems ROS Statement: Those systems with pertinent positive or pertinent negative responses have been documented in the HPI. ROS Other: All systems not noted in ROS Statement are negative. Past Medical History Past Medical History: No Reported History Additional Past Medical History / Comment(s): low mag History of Any Multi-Drug Resistant Organisms: None Reported Past Surgical History: Heart Catheterization, Hernia Repair Additional Past Surgical History / Comment(s): november 2018 heart cath Past Anesthesia/Blood Transfusion Reactions: No Reported Reaction Date of Last Stent Placement:: 11/2018 Past Psychological History: Depression Smoking Status: Former smoker Past Alcohol Use History: None Reported, Heavy Past Drug Use History: None Reported - Past Family History Father Additional Family Medical History / Comment(s): Father in his 70s from some type of cancer. Mother Additional Family Medical History / Comment(s): Mother in her 60s from Alzheimer's dementia. Brother(s) Additional Family Medical History / Comment(s): Patient has 1 brother and 1 sister with no major medical problems. General Exam Limitations: no limitations General appearance: alert, in no apparent distress Head exam: Present: atraumatic, normocephalic, normal inspection Eye exam: Present: normal appearance, PERRL, EOMI. Absent: scleral icterus, conjunctival injection, periorbital swelling ENT exam: Present: normal exam, mucous membranes moist Neck exam: Present: normal inspection. Absent: tenderness, meningismus, lymphadenopathy Respiratory exam: Present: normal lung sounds bilaterally. Absent: respiratory distress, wheezes, rales, rhonchi, stridor Cardiovascular Exam: Present: normal rhythm, tachycardia, normal heart sounds. Absent: systolic murmur, diastolic murmur, rubs, gallop, clicks GI/Abdominal exam: Present: soft, normal bowel sounds. Absent: distended, tenderness, guarding, rebound, rigid Extremities exam: Present: normal inspection, full ROM, normal capillary refill. Absent: tenderness, pedal edema, joint swelling, calf tenderness Back exam: Present: normal inspection Neurological exam: Present: alert, oriented X3, CN II-XII intact Psychiatric exam: Present: normal affect, normal mood Skin exam: Present: warm, dry, intact, normal color. Absent: rash Course Vital Signs 09/30/19 17:07 Temperature 98.8 F Pulse Rate 128 H Respiratory 22 Rate Blood Pressure 88/66 O2 Sat by Pulse 100 Oximetry - Reevaluation(s) Reevaluation #1: 09/30/19 18:34 Medical record is reviewed Reevaluation #2: 09/30/19 18:34 Patient presents for for low magnesium and we'll replace Medical Decision Making - Medical Decision Making 50 mailed ER with abnormal lab results hypomagnesemia. Seen and evaluated patient can be discharged home magnesium was replaced - Lab Data Result diagrams: 09/30/19 18:10 09/30/19 18:10 Lab Results 04/03/20 04/03/20 04/03/20 Range/Units 18:10 18:10 18:10 WBC 4.0 (3.8-10.6) k/uL RBC 3.89 L (4.30-5.90) m/uL Hgb 11.3 L (13.0-17.5) gm/dL Hct 33.4 L (39.0-53.0) % MCV 85.9 (80.0-100.0) fL MCH 29.1 (25.0-35.0) pg MCHC 33.9 (31.0-37.0) g/dL RDW 12.2 (11.5-15.5) % Plt Count 130 L (150-450) k/uL Neutrophils % 73 % Lymphocytes % 10 % Monocytes % 6 % Eosinophils % 8 % Basophils % 1 % Neutrophils # 2.9 (1.3-7.7) k/uL Lymphocytes # 0.4 L (1.0-4.8) k/uL Monocytes # 0.2 (0-1.0) k/uL Eosinophils # 0.3 (0-0.7) k/uL Basophils # 0.0 (0-0.2) k/uL Sodium 132 L (137-145) mmol/L Potassium 4.7 (3.5-5.1) mmol/L Chloride 91 L (98-107) mmol/L Carbon Dioxide 27 (22-30) mmol/L Anion Gap 14 mmol/L BUN 23 H (9-20) mg/dL Creatinine 1.23 (0.66-1.25) mg/dL Est GFR (CKD-EPI)AfAm 78 (>60 ml/min/1.73 sqM) Est GFR (CKD-EPI)NonAf 67 (>60 ml/min/1.73 sqM) Glucose 91 (74-99) mg/dL Calcium 9.1 (8.4-10.2) mg/dL Phosphorus 3.9 (2.5-4.5) mg/dL Magnesium 0.9 L* (1.6-2.3) mg/dL Total Bilirubin 0.9 (0.2-1.3) mg/dL AST 74 H (17-59) U/L ALT 70 H (4-49) U/L Alkaline Phosphatase 150 H (38-126) U/L Troponin I <0.012 (0.000-0.034) ng/mL Total Protein 9.1 H (6.3-8.2) g/dL Albumin 4.0 (3.5-5.0) g/dL Serum Alcohol <10 mg/dL - EKG Data -: EKG Interpreted by Me (EKG shows sinus tachycardia rate of 109, NM 140, QRS 70, QTc 425) Disposition Clinical Impression: Hypomagnesemia, Weakness Disposition: HOME SELF-CARE Condition: Good Instructions (If sedation given, give patient instructions): Hypomagnesemia (ED) Is patient prescribed a controlled substance at d/c from ED?: No Referrals: Vega Montoya Jr, DO [Primary Care Provider] - 1-2 days
[2019-09-30 18:19] LABS: Basophils % (A) 1 %; Eosinophils # (A) 0.3 k/uL (0-0.7); Eosinophils % (A) 8 %; HCT 33.4 % (39.0-53.0); HGB 11.3 gm/dL (13.0-17.5); Lymphocytes # (A) 0.4 k/uL (1.0-4.8); Lymphocytes % (A) 10 %; MCH 29.1 pg (25.0-35.0); MCHC 33.9 g/dL (31.0-37.0); MCV 85.9 fL (80.0-100.0); Monocytes # (A) 0.2 k/uL (0-1.0); Monocytes % (A) 6 %; Neutrophils # (A) 2.9 k/uL (1.3-7.7); Neutrophils % (A) 73 %; Platelet Count 130 k/uL (150-450); RBC 3.89 m/uL (4.30-5.90); RDW 12.2 % (11.5-15.5)
[2019-09-30 18:27] LABS: ALT 70 U/L (4-49); AST 74 U/L (17-59); African American GFR (CKD) 78 (>60 ml/min/1.73 sqM); Alcohol <10 mg/dL; Alkaline Phosphatase 150 U/L (38-126); Anion Gap 14 mmol/L; Blood Urea Nitrogen 23 mg/dL (9-20); Calcium 9.1 mg/dL (8.4-10.2); Carbon Dioxide 27 mmol/L (22-30); Chloride 91 mmol/L (98-107); Glucose 91 mg/dL (74-99); Non-African American GFR(CKD) 67 (>60 ml/min/1.73 sqM); Phosphorus 3.9 mg/dL (2.5-4.5); Potassium 4.7 mmol/L (3.5-5.1); Sodium 132 mmol/L (137-145); Total Bilirubin 0.9 mg/dL (0.2-1.3); Total Protein 9.1 g/dL (6.3-8.2)
[2019-09-30 18:30] LABS: Magnesium 0.9 mg/dL (1.6-2.3)
[2019-09-30] MEDS ORDERED: MAGNESIUM OXIDE 400 MG TAB PO STA (18:35)
[2019-09-30] MEDS: MAGNESIUM SULFATE-D5W PMX 1 GM in DEXTROSE/WATER 1 100ML.BAG IVPB SCH ×2 (20:03→21:13)
[2019-09-30 20:28] LABS: Appearance,Urine Clear (Clear); Bilirubin,Urine Negative (Negative); Blood,Urine Negative (Negative); Color,Urine Yellow; Glucose,Urine (UA) Negative (Negative); Ketones,Urine Negative (Negative); Leukocyte Esterase,Urine Negative (Negative); Nitrite,Urine Negative (Negative); Protein,Urine Trace (Negative); Specific Gravity,Urine 1.009 (1.001-1.035); Urobilinogen,Urine <2.0 mg/dL (<2.0)
--- NOTE | 2019-09-30 20:34 | XR ---
EXAMINATION TYPE: XR chest 2V DATE OF EXAM: 09/30/2019 COMPARISON: 09/17/2019 HISTORY: Fever TECHNIQUE: FINDINGS: Heart and mediastinum are normal. Lungs are clear. Diaphragm is normal. Bony thorax appears normal. Pulmonary vascularity is normal. There are chest leads. IMPRESSION: Normal chest. No change.
[2019-09-30 22:22] VITALS: BP 108/65; PULSE 100; RESP 17; TEMP 99.4
== END 2019-09-30 22:25 | disposition home or self-care (01) ==
LOC: EC 17:05
DX: E83.42 Hypomagnesemia (principal); R53.1 Weakness; Z79.899 Other long term (current) drug therapy; Z87.891 Personal history of nicotine dependence; Z95.5 Presence of coronary angioplasty implant and graft
CPT/HCPCS: 36415; 93005; 80053; 83735; 84100; 84484; 85025; 81003; 71046; 99284; 96365; 96366; 96361 ×2; G0480; J3475; 80320

== ENCOUNTER → 2019-09-30 | Outpatient (CLI) | payer OTHER ==
[2019-09-30 23:01] LABS: Protein, Total 7.9 g/dL (6.2-8.2)
[2019-09-30 23:04] LABS: Albumin 3.6 g/dL (3.80-4.90); Albumin/Globulin Ratio 0.82 (1.60-3.17); Bilirubin, Conjugated 0.3 mg/dL (0.20-0.40); Bilirubin,Unconjugated 0.2 mg/dL; Globulin 4.4 g/dL (1.6-3.3); Total Bilirubin 0.5 mg/dL (0.3-1.2)
[2019-10-03 13:14] LABS: Albumin 3.05 g/dL (3.80-4.90); Gamma Globulin 1.32 g/dL (0.70-1.50)
== END | disposition home or self-care (01) ==
LOC: LABMAIN 15:13
PROVIDERS: ATTEND Family Medicine
DX: R11.2 Nausea with vomiting, unspecified (principal); E83.42 Hypomagnesemia; E88.81 Metabolic syndrome and other insulin resistance; R94.5 Abnormal results of liver function studies
CPT/HCPCS: 36415; 80076; 83883; 84165; 84466

== ENCOUNTER → 2019-10-05 | Outpatient (CLI) | payer OTHER ==
[2019-10-05 23:30] LABS: African American GFR (CKD) 66.5 (60.0-200.0); Albumin 3.6 g/dL (3.80-4.90); Albumin/Globulin Ratio 0.8 (1.60-3.17); Anion Gap 14.1 mmol/L (4.00-12.00); BUN/Creat Ratio 12.86 Ratio (12.00-20.00); Calcium 9.1 mg/dL (8.7-10.3); Carbon Dioxide 25.9 mmol/L (21.6-31.8); Globulin 4.5 g/dL (1.6-3.3); Non-African American GFR(CKD) 57.4 (60.0-200.0); Potassium 4.3 mmol/L (3.5-5.5); Total Bilirubin 0.5 mg/dL (0.3-1.2); Total Protein 8.1 g/dL (6.2-8.2)
[2019-10-06 07:26] LABS: Magnesium 0.8 mg/dL (1.5-2.4)
== END | disposition home or self-care (01) ==
LOC: LABMAIN 14:14
PROVIDERS: ATTEND Nurse Practitioner Family
DX: E83.42 Hypomagnesemia (principal); A49.8 Other bacterial infections of unspecified site
CPT/HCPCS: 36415; 80053; 83735

== ENCOUNTER 2019-10-06 00:19 | Emergency (ER) | payer OTHER ==
[2019-10-06] MEDS: MAGNESIUM SULFATE-D5W PMX 1 GM in DEXTROSE/WATER 1 100ML.BAG IVPB SCH ×2 (01:03→02:07)
[2019-10-06 01:08] VITALS: RESP 18
[2019-10-06 01:21] LABS: Basophils % (A) 1 %; Eosinophils # (A) 0.2 k/uL (0-0.7); Eosinophils % (A) 9 %; Lymphocytes # (A) 0.4 k/uL (1.0-4.8); Lymphocytes % (A) 17 %; MCH 30.2 pg (25.0-35.0); MCHC 35.9 g/dL (31.0-37.0); Mean Platelet Volume 9.1; Monocytes # (A) 0.2 k/uL (0-1.0); Monocytes % (A) 8 %; Neutrophils # (A) 1.6 k/uL (1.3-7.7); Neutrophils % (A) 62 %; Platelet Count 158 k/uL (150-450); RDW 12.2 % (11.5-15.5); WBC 2.5 k/uL (3.8-10.6)
--- NOTE | 2019-10-06 01:23 | ED ---
Recheck HPI - General Chief Complaint: Recheck/Abnormal Lab/Rx Stated Complaint: Abnormal Labs Source: patient, family Mode of arrival: ambulatory Limitations: no limitations - History of Present Illness Initial Comments: Ede 54-year-old woman presents the ER today after he was called by his primary care physician and advised that once again his magnesium levels were critically low. This is been happening the patient intermittently for the past few weeks he's had multiple ER visits for critical low magnesium. Patient was also recently diagnosed with HIV and is scheduled to see infectious disease though he has not had any thorough workup as of yet. Primary care is concerned that his electrolyte abnormalities may be related to his acute HIV infection. - Related Data Home Medications Medication Instructions Recorded Confirmed HYDROcodone/APAP 10-325MG [[place] 1 tab PO QID 02/03/19 09/17/19 10-325] Multivitamins, Thera [Multivitamin 1 tab PO DAILY 05/14/19 09/17/19 (formulary)] Atorvastatin Calcium [Lipitor] 20 mg PO DAILY 09/17/19 09/17/19 Previous Rx's Medication Instructions Recorded Aspirin 81 mg PO DAILY #30 chewable 08/23/19 Magnesium Oxide [Mag-Ox] 800 mg PO TID #180 tab 09/19/19 Allergies Allergy/AdvReac Type Severity Reaction Status Date / Time No Known Allergies Allergy Verified 10/06/19 00:30 Review of Systems ROS Statement: Those systems with pertinent positive or pertinent negative responses have been documented in the HPI. ROS Other: All systems not noted in ROS Statement are negative. Past Medical History Past Medical History: No Reported History Additional Past Medical History / Comment(s): low mag History of Any Multi-Drug Resistant Organisms: None Reported Past Surgical History: Heart Catheterization, Hernia Repair Additional Past Surgical History / Comment(s): november 2018 heart cath Past Anesthesia/Blood Transfusion Reactions: No Reported Reaction Date of Last Stent Placement:: 11/2018 Past Psychological History: Depression Smoking Status: Former smoker Past Alcohol Use History: None Reported, Heavy Past Drug Use History: None Reported - Past Family History Father Additional Family Medical History / Comment(s): Father in his 70s from some type of cancer. Mother Additional Family Medical History / Comment(s): Mother in her 60s from Alzheimer's dementia. Brother(s) Additional Family Medical History / Comment(s): Patient has 1 brother and 1 sister with no major medical problems. General Exam - General Exam Comments Initial Comments: Physical Exam GENERAL: Patient is well-developed and well-nourished. Patient is nontoxic and well-hydrated and is in no distress. HENT: Normocephalic, Atraumatic. EYES: PERRL, EOMI PULMONARY: Unlabored respirations. CARDIOVASCULAR: RRR Warm and well perfused extremities ABDOMEN: Non-distended SKIN: No rashes or bruising : Deferred NEUROLOGIC: Alert and oriented Normal speech Normal gait MUSCULOSKELETAL: Moving all extremities with no apparent injury PSYCHIATRIC: No SI/HI Limitations: no limitations Course Vital Signs 10/06/19 10/06/19 00:26 01:08 Temperature 98.1 F Pulse Rate 67 105 H Respiratory 20 18 Rate Blood Pressure 99/62 111/72 O2 Sat by Pulse 100 98 Oximetry Medical Decision Making - Medical Decision Making Vision care was discussed with primary care physician prior to the patient's arrival in the emergency department. Patient was asymptomatic but had a critical low magnesium level in addition patient has possible acute HIV infection and needs further workup prior to seeing Dr. Russell telles. Primary care requested that we obtain a viral load, CD4 count and HIV genotype. Labs also with multiple significant abnormalities which are similar to previous, chronic anemia is worsening, chronic leukopenia, chronic hypomagnesemia better than previous. Patient was given 2 g of IV magnesium here in the ER. Patient was cleared for discharge home for continued outpatient follow-up. - Lab Data Result diagrams: 10/06/19 01:00 10/06/19 01:00 Lab Results 10/06/19 10/06/19 Range/Units 01:00 01:00 WBC 2.5 L (3.8-10.6) k/uL RBC 3.10 L (4.30-5.90) m/uL Hgb 9.4 L D (13.0-17.5) gm/dL Hct 26.0 L (39.0-53.0) % MCV 84.0 (80.0-100.0) fL MCH 30.2 (25.0-35.0) pg MCHC 35.9 (31.0-37.0) g/dL RDW 12.2 (11.5-15.5) % Plt Count 158 (150-450) k/uL Neutrophils % 62 % Lymphocytes % 17 % Monocytes % 8 % Eosinophils % 9 % Basophils % 1 % Neutrophils # 1.6 (1.3-7.7) k/uL Lymphocytes # 0.4 L (1.0-4.8) k/uL Monocytes # 0.2 (0-1.0) k/uL Eosinophils # 0.2 (0-0.7) k/uL Basophils # 0.0 (0-0.2) k/uL Sodium 130 L (137-145) mmol/L Potassium 3.8 (3.5-5.1) mmol/L Chloride 91 L (98-107) mmol/L Carbon Dioxide 28 (22-30) mmol/L Anion Gap 11 mmol/L BUN 21 H (9-20) mg/dL Creatinine 1.20 (0.66-1.25) mg/dL Est GFR (CKD-EPI)AfAm 80 (>60 ml/min/1.73 sqM) Est GFR (CKD-EPI)NonAf 69 (>60 ml/min/1.73 sqM) Glucose 124 H (74-99) mg/dL Calcium 8.5 (8.4-10.2) mg/dL Magnesium 1.0 L (1.6-2.3) mg/dL Total Bilirubin 0.4 (0.2-1.3) mg/dL AST 61 H (17-59) U/L ALT 69 H (4-49) U/L Alkaline Phosphatase 129 H (38-126) U/L Total Protein 7.5 (6.3-8.2) g/dL Albumin 3.2 L (3.5-5.0) g/dL Disposition Clinical Impression: Hypomagnesemia, Pancytopenia, Weakness Disposition: HOME SELF-CARE Condition: Stable Additional Instructions: Follow up with Dr Montoya tomorrow to confirm when your appointment with infectious disease is Return to the ER for any worsening weakness or any new or concerning symptoms Is patient prescribed a controlled substance at d/c from ED?: No Referrals: Vega Montoya Jr, [Primary Care Provider] - 1-2 days
[2019-10-06 01:32] LABS: HGB 9.4 gm/dL (13.0-17.5)
[2019-10-06 01:46] LABS: Albumin 3.2 g/dL (3.5-5.0); Calcium 8.5 mg/dL (8.4-10.2); Potassium 3.8 mmol/L (3.5-5.1); Total Bilirubin 0.4 mg/dL (0.2-1.3); Total Protein 7.5 g/dL (6.3-8.2)
[2019-10-06 03:17] VITALS: BP 112/74; PULSE 108; TEMP 98.5
[2019-10-06 17:28] LABS: Hepatitis B Surface AB- Quant 8.8 mIU/mL; Hepatitis B Surface Antibody Equivocal (Non-Reactive); Hepatitis B Surface Antigen Non-Reactive (Non-Reactive); Hepatitis C IgG Antibody Non-Reactive (Non-Reactive)
[2019-10-07 10:36] LABS: T4/T8 Ratio (CD4:CD8) 0.4 (1.0-3.7)
[2019-10-07 16:13] LABS: HIV-1 RNA DETECTED (Not detected)
== END 2019-10-06 03:17 | disposition home or self-care (01) ==
LOC: EC 00:19
DX: E83.42 Hypomagnesemia (principal); D61.818 Other pancytopenia; R53.1 Weakness; D64.9 Anemia, unspecified; D72.819 Decreased white blood cell count, unspecified; Z21 Asymptomatic human immunodeficiency virus [HIV] infection status; Z79.899 Other long term (current) drug therapy; Z87.891 Personal history of nicotine dependence
CPT/HCPCS: 36415; 86803; 87536; 80053; 87901; 86360; 83735; 85025; 86706; 87340; 86704; 99283; 96365; 96366; J3475

== ENCOUNTER → 2019-10-06 | Outpatient (CLI) | payer OTHER | END | disposition home or self-care (01) | LOC: LABWHC1 11:17 | PROVIDERS: ATTEND Family Medicine | DX: E83.42 Hypomagnesemia (principal) | CPT/HCPCS: 36415; 83735 ==

== ENCOUNTER 2019-10-07 15:49 | Emergency (ER) | payer OTHER ==
[2019-10-07 16:33] LABS: Basophils % (A) 0 %; Eosinophils # (A) 0.2 k/uL (0-0.7); Eosinophils % (A) 4 %; HCT 27.3 % (39.0-53.0); HGB 9.6 gm/dL (13.0-17.5); Lymphocytes # (A) 0.5 k/uL (1.0-4.8); Lymphocytes % (A) 11 %; MCH 29.6 pg (25.0-35.0); MCHC 35.2 g/dL (31.0-37.0); Monocytes # (A) 0.2 k/uL (0-1.0); Monocytes % (A) 5 %; Neutrophils # (A) 3.4 k/uL (1.3-7.7); Neutrophils % (A) 77 %; Platelet Count 177 k/uL (150-450); RBC 3.26 m/uL (4.30-5.90); RDW 12.5 % (11.5-15.5); WBC 4.4 k/uL (3.8-10.6)
[2019-10-07] MEDS: MAGNESIUM SULFATE-D5W PMX 1 GM in DEXTROSE/WATER 1 100ML.BAG IVPB SCH ×2 (16:39→18:00)
[2019-10-07 16:44] LABS: Albumin 3.4 g/dL (3.5-5.0); Calcium 9.1 mg/dL (8.4-10.2); Magnesium 1.2 mg/dL (1.6-2.3); Potassium 4.2 mmol/L (3.5-5.1); Total Bilirubin 0.4 mg/dL (0.2-1.3); Total Protein 7.8 g/dL (6.3-8.2)
--- NOTE | 2019-10-07 17:40 | ED ---
Recheck HPI - General Chief Complaint: Recheck/Abnormal Lab/Rx Stated Complaint: lab recheck Time Seen by Provider: 10/07/19 16:04 Source: patient, RN notes reviewed Mode of arrival: ambulatory Limitations: no limitations - History of Present Illness Initial Comments: This a 54-year-old male presents emergency Department with chief complaint of low magnesium. Patient has been in out of the emergency department recently for this complaint. Patient states he received a call from his PCP who advised him come emergency from for magnesium. Patient denies being symptomatic he states he has no new symptoms. He does admit that this is common been ongoing and not sure why. Patient states he does not eat well he states he is able to hydrate. He does have ongoing diarrhea which is not melanotic. He has no current abdominal pain. Patient doesn't that he has a recent diagnosis of HIV and which she is scheduled see infectious disease. Patient denies any chest pain or shortness of breath or headache or dizziness no fevers or chills. - Related Data Home Medications Medication Instructions Recorded Confirmed HYDROcodone/APAP 10-325MG [[place] 1 tab PO QID 02/03/19 10/07/19 10-325] Multivitamins, Thera [Multivitamin 1 tab PO DAILY 05/14/19 10/07/19 (formulary)] Atorvastatin Calcium [Lipitor] 20 mg PO HS 09/17/19 10/07/19 Magnesium Oxide [Mag-Ox] 800 mg PO BID 10/07/19 10/07/19 Previous Rx's Medication Instructions Recorded Aspirin 81 mg PO DAILY #30 chewable 08/23/19 Allergies Allergy/AdvReac Type Severity Reaction Status Date / Time No Known Allergies Allergy Verified 10/06/19 00:30 Review of Systems ROS Statement: Those systems with pertinent positive or pertinent negative responses have been documented in the HPI. ROS Other: All systems not noted in ROS Statement are negative. Past Medical History Past Medical History: No Reported History Additional Past Medical History / Comment(s): low mag History of Any Multi-Drug Resistant Organisms: None Reported Past Surgical History: Heart Catheterization, Hernia Repair Additional Past Surgical History / Comment(s): november 2018 heart cath Past Anesthesia/Blood Transfusion Reactions: No Reported Reaction Date of Last Stent Placement:: 11/2018 Past Psychological History: Depression Smoking Status: Former smoker Past Alcohol Use History: Heavy Past Drug Use History: None Reported - Past Family History Father Additional Family Medical History / Comment(s): Father in his 70s from some type of cancer. Mother Additional Family Medical History / Comment(s): Mother in her 60s from Alzheimer's dementia. Brother(s) Additional Family Medical History / Comment(s): Patient has 1 brother and 1 sister with no major medical problems. General Exam Limitations: no limitations General appearance: alert, in no apparent distress Head exam: Present: atraumatic, normocephalic, normal inspection Eye exam: Present: normal appearance, PERRL, EOMI. Absent: scleral icterus, conjunctival injection, periorbital swelling ENT exam: Present: normal exam, normal oropharynx, mucous membranes moist Neck exam: Present: normal inspection, full ROM. Absent: tenderness, meningismus, lymphadenopathy Respiratory exam: Present: normal lung sounds bilaterally. Absent: respiratory distress, wheezes, rales, rhonchi, stridor Cardiovascular Exam: Present: normal rhythm, tachycardia, normal heart sounds. Absent: systolic murmur, diastolic murmur, rubs, gallop, clicks GI/Abdominal exam: Present: soft, normal bowel sounds. Absent: distended, tenderness, guarding, rebound, rigid Neurological exam: Present: alert, oriented X3, CN II-XII intact Skin exam: Present: warm, dry, intact, normal color. Absent: rash Course Vital Signs 10/07/19 10/07/19 15:51 17:00 Temperature 99 F Pulse Rate 118 H 111 H Respiratory 18 18 Rate Blood Pressure 113/70 117/73 O2 Sat by Pulse 97 96 Oximetry Medical Decision Making - Medical Decision Making 54-year-old male present emergency department for low magnesium. Magnesium was 1.2. Patient was given 2 g of magnesium , he does have mild hyponatremia which she was hydrated. This has been ongoing issue is no acute symptoms. Patient does have close follow-up on Thursday he is advised to return for any worsening or change in symptoms patient agrees with this plan this time. - Lab Data Result diagrams: 10/07/19 16:19 10/07/19 16:19 Lab Results 10/07/19 10/07/19 Range/Units 16:19 16:19 WBC 4.4 (3.8-10.6) k/uL RBC 3.26 L (4.30-5.90) m/uL Hgb 9.6 L (13.0-17.5) gm/dL Hct 27.3 L (39.0-53.0) % MCV 84.0 (80.0-100.0) fL MCH 29.6 (25.0-35.0) pg MCHC 35.2 (31.0-37.0) g/dL RDW 12.5 (11.5-15.5) % Plt Count 177 (150-450) k/uL Neutrophils % 77 % Lymphocytes % 11 % Monocytes % 5 % Eosinophils % 4 % Basophils % 0 % Neutrophils # 3.4 (1.3-7.7) k/uL Lymphocytes # 0.5 L (1.0-4.8) k/uL Monocytes # 0.2 (0-1.0) k/uL Eosinophils # 0.2 (0-0.7) k/uL Basophils # 0.0 (0-0.2) k/uL Sodium 127 L (137-145) mmol/L Potassium 4.2 (3.5-5.1) mmol/L Chloride 90 L (98-107) mmol/L Carbon Dioxide 32 H (22-30) mmol/L Anion Gap 5 mmol/L BUN 25 H (9-20) mg/dL Creatinine 1.12 (0.66-1.25) mg/dL Est GFR (CKD-EPI)AfAm 87 (>60 ml/min/1.73 sqM) Est GFR (CKD-EPI)NonAf 75 (>60 ml/min/1.73 sqM) Glucose 130 H (74-99) mg/dL Calcium 9.1 (8.4-10.2) mg/dL Magnesium 1.2 L (1.6-2.3) mg/dL Total Bilirubin 0.4 (0.2-1.3) mg/dL AST 58 (17-59) U/L ALT 59 H (4-49) U/L Alkaline Phosphatase 135 H (38-126) U/L Total Protein 7.8 (6.3-8.2) g/dL Albumin 3.4 L (3.5-5.0) g/dL Disposition Clinical Impression: Hypomagnesemia, Hyponatremia Disposition: HOME SELF-CARE Condition: Stable Instructions (If sedation given, give patient instructions): Hypomagnesemia (ED) Additional Instructions: Please return to the Emergency Department if symptoms worsen or any other concerns. Is patient prescribed a controlled substance at d/c from ED?: No Referrals: Vega Montoya Jr, DO [Primary Care Provider] - 1-2 days Time of Disposition: 18:24
[2019-10-07] MEDS ORDERED: SODIUM CHLORIDE 0.9% 1,000 ML IV ONE (17:52)
[2019-10-07 19:57] VITALS: BP 121/70; PULSE 109; RESP 16; TEMP 98.9
== END 2019-10-07 20:04 | disposition home or self-care (01) ==
LOC: EC 15:49
DX: E83.42 Hypomagnesemia (principal); E87.1 Hypo-osmolality and hyponatremia; Z79.899 Other long term (current) drug therapy; Z87.891 Personal history of nicotine dependence
CPT/HCPCS: 36415; 80053; 83735; 85025; 99283; 96365; 96366; J3475

== ENCOUNTER 2019-10-11 11:58 | Emergency (ER) | payer OTHER ==
[2019-10-11 12:04] VITALS: TEMP 98.9
[2019-10-11] MEDS ORDERED: SODIUM CHLORIDE 0.9% 1,000 ML IV STA (12:16)
--- NOTE | 2019-10-11 12:22 | ED ---
Dizziness HPI - General Chief Complaint: Dizziness Stated Complaint: Dizziness Time Seen by Provider: 10/11/19 12:05 Source: patient Mode of arrival: wheelchair Limitations: no limitations - History of Present Illness Initial Comments: Patient is a 54-year-old male, with recent diagnosis of HIV, presenting to the emergency Department with complaints of lightheadedness and nausea but just started an hour prior to arrival. Patient has been seen in the ER on 3 separate occasions in the last 2 weeks for low magnesium. He states he's been working with his doctor to figure out the cause of this. He states he has an appointment for a "scan" later this week, however he is unsure what exactly it is. Patient states he was walking to a doctor's office just prior to arrival when he started feeling lightheaded and nauseous, then came into the ER. He thinks his magnesium is low again. Patient denies any alcohol, drug use. He states he takes pain medication for right knee pain as well as Lipitor. He denies any other medication use. He denies any chest pain, shortness of breath, cough, fever, chills, abdominal pain, vomiting, diarrhea. Patient denies any palpitations. He has no other complaints at this time. Upon arrival to the ER, patient was slightly tachycardia, otherwise vitals were normal. - Related Data Home Medications Medication Instructions Recorded Confirmed HYDROcodone/APAP 10-325MG [[place] 1 tab PO QID 02/03/19 10/07/19 10-325] Multivitamins, Thera [Multivitamin 1 tab PO DAILY 05/14/19 10/07/19 (formulary)] Atorvastatin Calcium [Lipitor] 20 mg PO HS 09/17/19 10/07/19 Magnesium Oxide [Mag-Ox] 800 mg PO BID 10/07/19 10/07/19 Previous Rx's Medication Instructions Recorded Aspirin 81 mg PO DAILY #30 chewable 08/23/19 Allergies Allergy/AdvReac Type Severity Reaction Status Date / Time No Known Allergies Allergy Verified 10/11/19 12:03 Review of Systems ROS Statement: Those systems with pertinent positive or pertinent negative responses have been documented in the HPI. ROS Other: All systems not noted in ROS Statement are negative. Past Medical History Past Medical History: No Reported History Additional Past Medical History / Comment(s): low mag History of Any Multi-Drug Resistant Organisms: None Reported Past Surgical History: Heart Catheterization, Hernia Repair Additional Past Surgical History / Comment(s): november 2018 heart cath Past Anesthesia/Blood Transfusion Reactions: No Reported Reaction Date of Last Stent Placement:: 11/2018 Past Psychological History: Depression Smoking Status: Former smoker Past Alcohol Use History: Abuse, Heavy Past Drug Use History: None Reported - Past Family History Father Additional Family Medical History / Comment(s): Father in his 70s from some type of cancer. Mother Additional Family Medical History / Comment(s): Mother in her 60s from Alzheimer's dementia. Brother(s) Additional Family Medical History / Comment(s): Patient has 1 brother and 1 sister with no major medical problems. General Exam - General Exam Comments Initial Comments: GENERAL: Well-appearing, well-nourished and in no acute distress. HEAD: Atraumatic, normocephalic. EYES: Pupils equal round and reactive to light, extraocular movements intact, sclera anicteric, conjunctiva are normal. ENT: TMs normal, nares patent, oropharynx clear without exudates. Moist mucous membranes. NECK: Normal range of motion, supple without lymphadenopathy or JVD. LUNGS: Breath sounds clear to auscultation bilaterally and equal. No wheezes rales or rhonchi. HEART: Tachycardia rate and rhythm without murmurs, rubs or gallops. ABDOMEN: Soft, nontender, normoactive bowel sounds. No guarding, no rebound. No masses appreciated. : Deferred EXTREMITIES: Normal range of motion, no pitting or edema. No clubbing or cyanosis. NEUROLOGICAL: Cranial nerves II through XII grossly intact. Normal speech, normal gait. PSYCH: Normal mood, normal affect. SKIN: Warm, Dry, normal turgor, no rashes or lesions noted. Limitations: no limitations Course Vital Signs 10/11/19 10/11/19 10/11/19 12:02 12:32 13:46 Temperature 98.9 F Pulse Rate 116 H 114 H 106 H Respiratory 20 18 18 Rate Blood Pressure 112/84 114/78 95/56 O2 Sat by Pulse 100 99 96 Oximetry 10/11/19 10/11/19 14:05 16:22 Temperature Pulse Rate 98 86 Respiratory 16 16 Rate Blood Pressure 109/71 112/86 O2 Sat by Pulse 99 99 Oximetry EKG Findings - EKG Comments: EKG Findings:: Ventricular rate 109, P are normal 128, QTc 457. Sinus tachycardia, otherwise normal ECG. No signs of acute ischemia. Similar to p revious EKG on 09/30/2019. Medical Decision Making - Medical Decision Making Patient is 54-year-old male here for lightheadedness and nausea just prior to arrival. This is patient's fourth visit in to the ER in the past 2 weeks for similar complaint of low magnesium. Recent diagnosis of HIV. Patient was slightly tachycardia on arrival, rest of vitals normal. Sodium is 130, magnesium is 1.1. Slight transaminitis. Serum alcohol is normal. Patient is given a liter of fluids and 2 bags of magnesium. Patient's symptoms have improved. Patient will follow-up with PCP. He is in agreement with this plan of care and is stable for discharge. Return parameters were discussed with the patient and he verbalized understanding. Case discussed with Dr. Mix. - Lab Data Result diagrams: 10/11/19 12:25 10/11/19 12:25 Lab Results 10/11/19 10/11/19 Range/Units 12:25 12:25 WBC 3.6 L (3.8-10.6) k/uL RBC 3.58 L (4.30-5.90) m/uL Hgb 10.4 L (13.0-17.5) gm/dL Hct 30.3 L (39.0-53.0) % MCV 84.6 (80.0-100.0) fL MCH 29.1 (25.0-35.0) pg MCHC 34.4 (31.0-37.0) g/dL RDW 12.8 (11.5-15.5) % Plt Count 206 (150-450) k/uL Neutrophils % 65 % Lymphocytes % 18 % Monocytes % 4 % Eosinophils % 9 % Basophils % 1 % Neutrophils # 2.3 (1.3-7.7) k/uL Lymphocytes # 0.6 L (1.0-4.8) k/uL Monocytes # 0.2 (0-1.0) k/uL Eosinophils # 0.3 (0-0.7) k/uL Basophils # 0.0 (0-0.2) k/uL Sodium 130 L (137-145) mmol/L Potassium 4.1 (3.5-5.1) mmol/L Chloride 86 L (98-107) mmol/L Carbon Dioxide 27 (22-30) mmol/L Anion Gap 17 mmol/L BUN 28 H (9-20) mg/dL Creatinine 1.05 (0.66-1.25) mg/dL Est GFR (CKD-EPI)AfAm >90 (>60 ml/min/1.73 sqM) Est GFR (CKD-EPI)NonAf 82 (>60 ml/min/1.73 sqM) Glucose 139 H (74-99) mg/dL Calcium 9.8 (8.4-10.2) mg/dL Magnesium 1.1 L (1.6-2.3) mg/dL Total Bilirubin 0.7 (0.2-1.3) mg/dL AST 96 H (17-59) U/L ALT 80 H (4-49) U/L Alkaline Phosphatase 167 H (38-126) U/L Total Protein 8.6 H (6.3-8.2) g/dL Albumin 3.8 (3.5-5.0) g/dL Serum Alcohol <10 mg/dL Disposition Clinical Impression: Hypomagnesemia, Dizziness Disposition: HOME SELF-CARE Condition: Good Instructions (If sedation given, give patient instructions): Hypomagnesemia (ED), Dizziness (ED) Additional Instructions: Please return to the Emergency Department if symptoms worsen or any other concerns. Follow-up with PCP as discussed. Is patient prescribed a controlled substance at d/c from ED?: No Referrals: Easton Hobbs MD [Primary Care Provider] - 1-2 days
[2019-10-11 12:43] LABS: Basophils % (A) 1 %; Eosinophils # (A) 0.3 k/uL (0-0.7); Eosinophils % (A) 9 %; HCT 30.3 % (39.0-53.0); HGB 10.4 gm/dL (13.0-17.5); Lymphocytes # (A) 0.6 k/uL (1.0-4.8); Lymphocytes % (A) 18 %; MCH 29.1 pg (25.0-35.0); MCHC 34.4 g/dL (31.0-37.0); MCV 84.6 fL (80.0-100.0); Mean Platelet Volume 8.9; Monocytes # (A) 0.2 k/uL (0-1.0); Monocytes % (A) 4 %; Neutrophils # (A) 2.3 k/uL (1.3-7.7); Neutrophils % (A) 65 %; Platelet Count 206 k/uL (150-450); RBC 3.58 m/uL (4.30-5.90); RDW 12.8 % (11.5-15.5); WBC 3.6 k/uL (3.8-10.6)
[2019-10-11 12:54] LABS: ALT 80 U/L (4-49); AST 96 U/L (17-59); African American GFR (CKD) >90 (>60 ml/min/1.73 sqM); Albumin 3.8 g/dL (3.5-5.0); Alcohol <10 mg/dL; Alkaline Phosphatase 167 U/L (38-126); Anion Gap 17 mmol/L; Blood Urea Nitrogen 28 mg/dL (9-20); Calcium 9.8 mg/dL (8.4-10.2); Carbon Dioxide 27 mmol/L (22-30); Chloride 86 mmol/L (98-107); Glucose 139 mg/dL (74-99); Magnesium 1.1 mg/dL (1.6-2.3); Non-African American GFR(CKD) 82 (>60 ml/min/1.73 sqM); Sodium 130 mmol/L (137-145); Total Bilirubin 0.7 mg/dL (0.2-1.3); Total Protein 8.6 g/dL (6.3-8.2)
[2019-10-11 13:07] LABS: Potassium 4.1 mmol/L (3.5-5.1)
[2019-10-11] MEDS ORDERED: MAGNESIUM OXIDE 400 MG TAB PO STA ×2 (13:13→13:50)
[2019-10-11] MEDS: MAGNESIUM SULFATE-D5W PMX 1 GM in DEXTROSE/WATER 1 100ML.BAG IVPB SCH ×2 (13:48→15:04)
[2019-10-11 14:06] VITALS: RESP 16
[2019-10-11 16:22] VITALS: BP 112/86; PULSE 86
== END 2019-10-11 16:21 | disposition home or self-care (01) ==
LOC: EC 11:58
DX: E83.42 Hypomagnesemia (principal); R42 Dizziness and giddiness; M25.561 Pain in right knee; Z21 Asymptomatic human immunodeficiency virus [HIV] infection status; Z79.899 Other long term (current) drug therapy; Z87.891 Personal history of nicotine dependence
CPT/HCPCS: 36415; 93005; 80053; 83735; 85025; 99284; 96365; 96361 ×3; G0480; J3475; 80320

== ENCOUNTER 2019-10-13 17:16 | Emergency (ER) | payer OTHER ==
[2019-10-13 17:29] VITALS: RESP 18; TEMP 98
--- NOTE | 2019-10-13 18:11 | ED ---
General Adult HPI - General Chief complaint: Recheck/Abnormal Lab/Rx Stated complaint: Low magnesium Source: patient Mode of arrival: wheelchair Limitations: no limitations - History of Present Illness Initial comments: The patient is a 54-year-old male with recent diagnosis of HIV who presents to the emergency department complaining of lightheadedness and nausea. States the symptoms just started today however he does have recurrence of the same symptoms. He has been in the emergency department 4 times in the last 2 weeks because of the same symptoms. He has been known to have low sodium and low magnesium levels. States that he is working with Dr. Raymond to evaluate why this keeps happening. He is also scheduled to see Dr. Ibrahim regarding his new diagnosis of HIV. He denies any new or worsening symptoms. Denies any chest pain, shortness of breath, fevers, chills, nausea, vomiting or diarrhea. There are no alleviating, Perceptin or modifying factors - Related Data Home Medications Medication Instructions Recorded Confirmed HYDROcodone/APAP 10-325MG [[place] 1 tab PO QID 02/03/19 10/07/19 10-325] Multivitamins, Thera [Multivitamin 1 tab PO DAILY 05/14/19 10/07/19 (formulary)] Atorvastatin Calcium [Lipitor] 20 mg PO HS 09/17/19 10/07/19 Magnesium Oxide [Mag-Ox] 800 mg PO BID 10/07/19 10/07/19 Previous Rx's Medication Instructions Recorded Aspirin 81 mg PO DAILY #30 chewable 08/23/19 Allergies Allergy/AdvReac Type Severity Reaction Status Date / Time No Known Allergies Allergy Verified 10/13/19 17:29 Review of Systems ROS Statement: Those systems with pertinent positive or pertinent negative responses have been documented in the HPI. ROS Other: All systems not noted in ROS Statement are negative. Past Medical History Past Medical History: No Reported History Additional Past Medical History / Comment(s): low mag History of Any Multi-Drug Resistant Organisms: None Reported Past Surgical History: Heart Catheterization, Hernia Repair Additional Past Surgical History / Comment(s): november 2018 heart cath Past Anesthesia/Blood Transfusion Reactions: No Reported Reaction Date of Last Stent Placement:: 11/2018 Past Psychological History: Depression Smoking Status: Former smoker Past Alcohol Use History: Abuse, Heavy Past Drug Use History: None Reported - Past Family History Father Additional Family Medical History / Comment(s): Father in his 70s from some type of cancer. Mother Additional Family Medical History / Comment(s): Mother in her 60s from Alzheimer's dementia. Brother(s) Additional Family Medical History / Comment(s): Patient has 1 brother and 1 sister with no major medical problems. General Exam Limitations: no limitations Course Vital Signs 10/13/19 10/13/19 17:25 21:53 Temperature 98.0 F Pulse Rate 115 H 100 Respiratory 18 18 Rate Blood Pressure 105/64 116/75 O2 Sat by Pulse 98 98 Oximetry EKG Findings - EKG Comments: EKG Findings:: EKG demonstrates a sinus tachycardia with a ventricular rate of 105. ER interval 116. QRS 116. QTC 436. No acute ST segment elevations or depressions concerning for ischemic changes Medical Decision Making - Medical Decision Making Upon arrival the patient was placed into room 2. A thorough history and physical exam is performed. 12-lead EKG was performed. Lab studies are drawn and do demonstrate a bicytopenia which has been chronic for the patient and also demonstrates a sodium of 129 and a potassium of 1.2. The patient was given 2 g of magnesium and a liter bolus of normal saline. I discussed diagnosis, differential showed options. I did offer hospital admission over the patient refused. He states he has an appointment with Dr. Montoya tomorrow. Also the primary doctor state next week. I did inform him that he should return to the emergency department for any new or worsening symptoms. Patient agreed and was discharged home in stable condition - Lab Data Result diagrams: 10/13/19 12:59 10/13/19 12:59 Lab Results 10/13/19 10/13/19 Range/Units 12:59 12:59 WBC 2.9 L (3.8-10.6) k/uL RBC 3.29 L (4.30-5.90) m/uL Hgb 9.6 L (13.0-17.5) gm/dL Hct 27.9 L (39.0-53.0) % MCV 84.8 (80.0-100.0) fL MCH 29.2 (25.0-35.0) pg MCHC 34.5 (31.0-37.0) g/dL RDW 13.0 (11.5-15.5) % Plt Count 193 (150-450) k/uL Neutrophils % 71 % Lymphocytes % 12 % Monocytes % 9 % Eosinophils % 5 % Basophils % 1 % Neutrophils # 2.0 (1.3-7.7) k/uL Lymphocytes # 0.4 L (1.0-4.8) k/uL Monocytes # 0.3 (0-1.0) k/uL Eosinophils # 0.2 (0-0.7) k/uL Basophils # 0.0 (0-0.2) k/uL Sodium 129 L (137-145) mmol/L Potassium 4.2 (3.5-5.1) mmol/L Chloride 88 L (98-107) mmol/L Carbon Dioxide 31 H (22-30) mmol/L Anion Gap 10 mmol/L BUN 27 H (9-20) mg/dL Creatinine 0.89 (0.66-1.25) mg/dL Est GFR (CKD-EPI)AfAm >90 (>60 ml/min/1.73 sqM) Est GFR (CKD-EPI)NonAf >90 (>60 ml/min/1.73 sqM) Glucose 112 H (74-99) mg/dL Calcium 9.8 (8.4-10.2) mg/dL Magnesium 1.2 L (1.6-2.3) mg/dL Total Bilirubin 0.4 (0.2-1.3) mg/dL AST 84 H (17-59) U/L ALT 98 H (4-49) U/L Alkaline Phosphatase 144 H (38-126) U/L Total Protein 8.0 (6.3-8.2) g/dL Albumin 3.4 L (3.5-5.0) g/dL Disposition Clinical Impression: Dizziness, Hypomagnesemia, Hyponatremia Disposition: HOME SELF-CARE Condition: Stable Additional Instructions: Follow-up with Dr. Montoya tomorrow. Follow-up with Dr. Martinez at your scheduled appointment next week. Return to the emergency room for any new or worsening symptoms Is patient prescribed a controlled substance at d/c from ED?: No Referrals: Easton Hobbs MD [Primary Care Provider] - 1-2 days Jordi Martinez MD [STAFF PHYSICIAN] - 1-2 days Time of Disposition: 19:02
[2019-10-13 18:17] LABS: Basophils % (A) 1 %; Eosinophils # (A) 0.2 k/uL (0-0.7); Eosinophils % (A) 5 %; HCT 27.9 % (39.0-53.0); HGB 9.6 gm/dL (13.0-17.5); Lymphocytes # (A) 0.4 k/uL (1.0-4.8); Lymphocytes % (A) 12 %; MCH 29.2 pg (25.0-35.0); MCHC 34.5 g/dL (31.0-37.0); MCV 84.8 fL (80.0-100.0); Mean Platelet Volume 9.2; Monocytes # (A) 0.3 k/uL (0-1.0); Monocytes % (A) 9 %; Neutrophils % (A) 71 %; Platelet Count 193 k/uL (150-450); RBC 3.29 m/uL (4.30-5.90); WBC 2.9 k/uL (3.8-10.6)
[2019-10-13 18:20] LABS: ALT 98 U/L (4-49); AST 84 U/L (17-59); African American GFR (CKD) >90 (>60 ml/min/1.73 sqM); Albumin 3.4 g/dL (3.5-5.0); Alkaline Phosphatase 144 U/L (38-126); Anion Gap 10 mmol/L; Blood Urea Nitrogen 27 mg/dL (9-20); Calcium 9.8 mg/dL (8.4-10.2); Carbon Dioxide 31 mmol/L (22-30); Chloride 88 mmol/L (98-107); Glucose 112 mg/dL (74-99); Magnesium 1.2 mg/dL (1.6-2.3); Non-African American GFR(CKD) >90 (>60 ml/min/1.73 sqM); Potassium 4.2 mmol/L (3.5-5.1); Sodium 129 mmol/L (137-145); Total Bilirubin 0.4 mg/dL (0.2-1.3)
[2019-10-13] MEDS ORDERED: SODIUM CHLORIDE 0.9% 2,000 ML IV ONE (18:53)
[2019-10-13] MEDS: MAGNESIUM SULFATE-D5W PMX 1 GM in DEXTROSE/WATER 1 100ML.BAG IVPB SCH ×2 (19:05→20:10)
[2019-10-13 21:57] VITALS: BP 116/75; PULSE 100
== END 2019-10-13 21:43 | disposition home or self-care (01) ==
LOC: EC 17:16
DX: E83.42 Hypomagnesemia (principal); E87.1 Hypo-osmolality and hyponatremia; Z21 Asymptomatic human immunodeficiency virus [HIV] infection status; Z79.899 Other long term (current) drug therapy; Z87.891 Personal history of nicotine dependence
CPT/HCPCS: 36415; 93005; 80053; 83735; 85025; 99284; 96365; 96366; J3475

== ENCOUNTER 2019-10-17 15:30 | Emergency (ER) | payer OTHER ==
[2019-10-17 15:41] VITALS: RESP 18; TEMP 97.7
[2019-10-17] MEDS ORDERED: SODIUM CHLORIDE 0.9% 1,000 ML IV ONE (16:28)
[2019-10-17 16:39] LABS: ALT 89 U/L (4-49); AST 74 U/L (17-59); African American GFR (CKD) >90 (>60 ml/min/1.73 sqM); Albumin 3.8 g/dL (3.5-5.0); Alkaline Phosphatase 151 U/L (38-126); Amylase 80 U/L (30-110); Anion Gap 10 mmol/L; Blood Urea Nitrogen 22 mg/dL (9-20); Calcium 10.1 mg/dL (8.4-10.2); Carbon Dioxide 35 mmol/L (22-30); Chloride 87 mmol/L (98-107); Glucose 137 mg/dL (74-99); Non-African American GFR(CKD) 81 (>60 ml/min/1.73 sqM); Potassium 3.9 mmol/L (3.5-5.1); Sodium 132 mmol/L (137-145); Total Bilirubin 0.4 mg/dL (0.2-1.3); Total Protein 8.7 g/dL (6.3-8.2)
[2019-10-17 16:42] LABS: Creatine Kinase <20 U/L (55-170)
[2019-10-17 16:52] LABS: Creatine Kinase MB <0.2 ng/mL (0.0-2.4)
[2019-10-17 17:07] LABS: Basophils % (A) 1 %; Eosinophils # (A) 0.1 k/uL (0-0.7); Eosinophils % (A) 4 %; HCT 32.7 % (39.0-53.0); HGB 11.4 gm/dL (13.0-17.5); Lymphocytes # (A) 0.3 k/uL (1.0-4.8); Lymphocytes % (A) 10 %; MCH 30.3 pg (25.0-35.0); MCHC 34.9 g/dL (31.0-37.0); MCV 86.8 fL (80.0-100.0); Mean Platelet Volume 9.3; Monocytes # (A) 0.2 k/uL (0-1.0); Monocytes % (A) 6 %; Neutrophils # (A) 2.4 k/uL (1.3-7.7); Neutrophils % (A) 75 %; Platelet Count 218 k/uL (150-450); RBC 3.77 m/uL (4.30-5.90); RDW 13.6 % (11.5-15.5); WBC 3.1 k/uL (3.8-10.6)
[2019-10-17 17:14] LABS: Magnesium 1.2 mg/dL (1.6-2.3); Phosphorus 4.6 mg/dL (2.5-4.5)
[2019-10-17] MEDS: MAGNESIUM SULFATE-D5W PMX 1 GM in DEXTROSE/WATER 1 100ML.BAG IVPB SCH ×2 (17:30→18:03)
[2019-10-17 18:06] VITALS: PULSE 102
--- NOTE | 2019-10-17 18:15 | ED ---
General Adult HPI - General Chief complaint: Recheck/Abnormal Lab/Rx Stated complaint: irregular labs Time Seen by Provider: 10/17/19 16:14 Source: patient Mode of arrival: ambulatory Limitations: no limitations - History of Present Illness Initial comments: 54-year-old male patient presents to the emergency department today for evaluation of possible low magnesium levels. Patient states for the last 2-3 days he has been feeling dizzy and weak. Patient states this is his symptoms when his magnesium is low. States he does take a daily supplement but has low a museum mostly due to malnutrition. Patient states he does get occasional chest pain but is not experiencing any currently. States he's been having issues with magnesium for the last year or so. States he's been having chest pains on and off since that time. Denies any shortness of breath, nausea, or vomiting. States he is having some diarrhea here and there. Denies any hematochezia or melena with this. Denies alcohol or drug use. Patient denies any recent rash, fever, chills, cough, abdominal pain, back pain, numbness, tingling, dizziness, weakness, hematuria, dysuria, urinary urgency, urinary frequency, headache, visual changes, or any other complaints. - Related Data Home Medications Medication Instructions Recorded Confirmed HYDROcodone/APAP 10-325MG [[place] 1 tab PO QID 02/03/19 10/07/19 10-325] Multivitamins, Thera [Multivitamin 1 tab PO DAILY 05/14/19 10/07/19 (formulary)] Atorvastatin Calcium [Lipitor] 20 mg PO HS 09/17/19 10/07/19 Magnesium Oxide [Mag-Ox] 800 mg PO BID 10/07/19 10/07/19 Previous Rx's Medication Instructions Recorded Aspirin 81 mg PO DAILY #30 chewable 08/23/19 Allergies Allergy/AdvReac Type Severity Reaction Status Date / Time No Known Allergies Allergy Verified 10/17/19 15:41 Review of Systems ROS Statement: Those systems with pertinent positive or pertinent negative responses have been documented in the HPI. ROS Other: All systems not noted in ROS Statement are negative. Past Medical History Past Medical History: No Reported History Additional Past Medical History / Comment(s): low mag History of Any Multi-Drug Resistant Organisms: None Reported Past Surgical History: Heart Catheterization, Hernia Repair Additional Past Surgical History / Comment(s): november 2018 heart cath Past Anesthesia/Blood Transfusion Reactions: No Reported Reaction Date of Last Stent Placement:: 11/2018 Past Psychological History: Depression Smoking Status: Former smoker Past Alcohol Use History: Abuse, Heavy Past Drug Use History: None Reported - Past Family History Father Additional Family Medical History / Comment(s): Father in his 70s from some type of cancer. Mother Additional Family Medical History / Comment(s): Mother in her 60s from Alzheimer's dementia. Brother(s) Additional Family Medical History / Comment(s): Patient has 1 brother and 1 sister with no major medical problems. General Exam Limitations: no limitations General appearance: alert, in no apparent distress, other (This is a well- developed, well-nourished adult male patient in no acute distress. Vital signs upon presentation are temperature 97.7F, pulse 122, respirations 18, blood pressure 97/67, pulse ox 98% on room air.) Eye exam: Present: normal appearance, PERRL, EOMI. Absent: scleral icterus, conjunctival injection, periorbital swelling ENT exam: Present: normal exam, normal oropharynx, mucous membranes moist Respiratory exam: Present: normal lung sounds bilaterally. Absent: respiratory distress, wheezes, rales, rhonchi, stridor Cardiovascular Exam: Present: normal rhythm, tachycardia, normal heart sounds. Absent: systolic murmur, diastolic murmur, rubs, gallop, clicks GI/Abdominal exam: Present: soft, normal bowel sounds. Absent: distended, tende rness, guarding, rebound, rigid Neurological exam: Present: alert, oriented X3, CN II-XII intact Psychiatric exam: Present: normal affect, normal mood Skin exam: Present: warm, dry, intact, normal color. Absent: rash Course Vital Signs 10/17/19 10/17/19 10/17/19 15:37 17:33 18:05 Temperature 97.7 F Pulse Rate 122 H 110 H 102 H Respiratory 18 18 18 Rate Blood Pressure 97/67 109/71 102/68 O2 Sat by Pulse 98 98 98 Oximetry EKG Findings - EKG Comments: EKG Findings:: EKG obtained at 1742 shows sinus tachycardia with a ventricular rate of 105, MN interval 118, QRS duration 68, QT 342, QTc 452. No evidence of ST elevation or depression. Medical Decision Making - Medical Decision Making 54-year-old male patient presents to the emergency department today for evaluation of possible low magnesium. Patient is reporting dizziness and weakness. Physical examination is unremarkable. He is neurologically intact with no focal deficits. EKG was obtained and showed sinus tachycardia. Labs reviewed and did reveal low magnesium at 1.2. Phosphorus and potassium levels were within normal ranges. We did replace 2 g per IV. He does report feeling improved. He'll be discharged to follow-up with his primary care physician for recheck in 1-2 days. Return parameters were discussed in detail. He verbalizes understanding and agrees with this plan. - Lab Data Result diagrams: 10/17/19 16:07 10/17/19 16:07 Lab Results 10/17/19 10/17/19 10/17/19 Range/Units 16:07 16:07 16:07 WBC 3.1 L (3.8-10.6) k/uL RBC 3.77 L (4.30-5.90) m/uL Hgb 11.4 L (13.0-17.5) gm/dL Hct 32.7 L (39.0-53.0) % MCV 86.8 (80.0-100.0) fL MCH 30.3 (25.0-35.0) pg MCHC 34.9 (31.0-37.0) g/dL RDW 13.6 (11.5-15.5) % Plt Count 218 (150-450) k/uL Neutrophils % 75 % Lymphocytes % 10 % Monocytes % 6 % Eosinophils % 4 % Basophils % 1 % Neutrophils # 2.4 (1.3-7.7) k/uL Lymphocytes # 0.3 L (1.0-4.8) k/uL Monocytes # 0.2 (0-1.0) k/uL Eosinophils # 0.1 (0-0.7) k/uL Basophils # 0.0 (0-0.2) k/uL Sodium 132 L (137-145) mmol/L Potassium 3.9 (3.5-5.1) mmol/L Chloride 87 L (98-107) mmol/L Carbon Dioxide 35 H (22-30) mmol/L Anion Gap 10 mmol/L BUN 22 H (9-20) mg/dL Creatinine 1.06 (0.66-1.25) mg/dL Est GFR (CKD-EPI)AfAm >90 (>60 ml/min/1.73 sqM) Est GFR (CKD-EPI)NonAf 81 (>60 ml/min/1.73 sqM) Glucose 137 H (74-99) mg/dL Calcium 10.1 (8.4-10.2) mg/dL Phosphorus (2.5-4.5) mg/dL Magnesium (1.6-2.3) mg/dL Total Bilirubin 0.4 (0.2-1.3) mg/dL AST 74 H (17-59) U/L ALT 89 H (4-49) U/L Alkaline Phosphatase 151 H (38-126) U/L Total Creatine Kinase <20 L (55-170) U/L CK-MB (CK-2) <0.2 (0.0-2.4) ng/mL CK-MB (CK-2) Rel Index Total Protein 8.7 H (6.3-8.2) g/dL Albumin 3.8 (3.5-5.0) g/dL Amylase 80 (30-110) U/L Lipase 204 (23-300) U/L /20/20 Range/Units 16:07 WBC (3.8-10.6) k/uL RBC (4.30-5.90) m/uL Hgb (13.0-17.5) gm/dL Hct (39.0-53.0) % MCV (80.0-100.0) fL MCH (25.0-35.0) pg MCHC (31.0-37.0) g/dL RDW (11.5-15.5) % Plt Count (150-450) k/uL Neutrophils % % Lymphocytes % % Monocytes % % Eosinophils % % Basophils % % Neutrophils # (1.3-7.7) k/uL Lymphocytes # (1.0-4.8) k/uL Monocytes # (0-1.0) k/uL Eosinophils # (0-0.7) k/uL Basophils # (0-0.2) k/uL Sodium (137-145) mmol/L Potassium (3.5-5.1) mmol/L Chloride (98-107) mmol/L Carbon Dioxide (22-30) mmol/L Anion Gap mmol/L BUN (9-20) mg/dL Creatinine (0.66-1.25) mg/dL Est GFR (CKD-EPI)AfAm (>60 ml/min/1.73 sqM) Est GFR (CKD-EPI)NonAf (>60 ml/min/1.73 sqM) Glucose (74-99) mg/dL Calcium (8.4-10.2) mg/dL Phosphorus 4.6 H (2.5-4.5) mg/dL Magnesium 1.2 L (1.6-2.3) mg/dL Total Bilirubin (0.2-1.3) mg/dL AST (17-59) U/L ALT (4-49) U/L Alkaline Phosphatase (38-126) U/L Total Creatine Kinase (55-170) U/L CK-MB (CK-2) (0.0-2.4) ng/mL CK-MB (CK-2) Rel Index Total Protein (6.3-8.2) g/dL Albumin (3.5-5.0) g/dL Amylase (30-110) U/L Lipase (23-300) U/L Disposition Clinical Impression: Hypomagnesemia, Dizziness Disposition: HOME SELF-CARE Condition: Good Instructions (If sedation given, give patient instructions): Hypomagnesemia (ED), Dizziness (ED) Additional Instructions: Increase fluids. Rest. Consider using nutritional supplements such as Boost or other protein drinks when not eating. Follow up with your primary care physician for recheck in 1-2 days. Return to the emergency department immediately for any new, worsening, or concerning symptoms. Is patient prescribed a controlled substance at d/c from ED?: No Referrals: Easton Hobbs MD [Primary Care Provider] - 1-2 days
[2019-10-17 18:41] VITALS: BP 103/69
== END 2019-10-17 18:51 | disposition home or self-care (01) ==
LOC: EC 15:30
DX: E83.42 Hypomagnesemia (principal); R42 Dizziness and giddiness; R00.0 Tachycardia, unspecified; F10.10 Alcohol abuse, uncomplicated; Z79.899 Other long term (current) drug therapy; Z79.891 Long term (current) use of opiate analgesic; Z95.5 Presence of coronary angioplasty implant and graft; Z87.891 Personal history of nicotine dependence
CPT/HCPCS: 36415; 93005; 80053; 82150; 82550; 82553; 83690; 83735; 84100; 85025; 96365; 96361; 99285; J3475

== ENCOUNTER 2019-10-21 17:26 | Emergency (ER) | payer OTHER ==
[2019-10-21] MEDS ORDERED: SODIUM CHLORIDE 0.9% 1,000 ML IV STA (18:12)
--- NOTE | 2019-10-21 18:16 | ED ---
General Adult HPI - General Chief complaint: Dizziness Stated complaint: abn labs Time Seen by Provider: 10/21/19 17:45 Source: patient Mode of arrival: ambulatory Limitations: no limitations - History of Present Illness Initial comments: Patient is a 54-year-old male, with recent diagnosis of HIV, presenting to emergency Department with complaints of feeling dizzy for the past 2 days. Patient has been in the ER multiple occasions for low magnesium levels. He states he feels this way again. He states he has an appointment on Thursday with infectious disease doctor. He denies any recent fever, chills, cough, shortness of breath, chest pain. He denies any nausea or vomiting. He states his appetite is very low and he does not eat or drink very much. He has no other complaints at this time. Upon arrival to ER, patient is tachycardia, rest of vital signs are normal. - Related Data Home Medications Medication Instructions Recorded Confirmed HYDROcodone/APAP 10-325MG [[place] 1 tab PO QID 02/03/19 10/07/19 10-325] Multivitamins, Thera [Multivitamin 1 tab PO DAILY 05/14/19 10/07/19 (formulary)] Atorvastatin Calcium [Lipitor] 20 mg PO HS 09/17/19 10/07/19 Magnesium Oxide [Mag-Ox] 800 mg PO BID 10/07/19 10/07/19 Previous Rx's Medication Instructions Recorded Aspirin 81 mg PO DAILY #30 chewable 08/23/19 Allergies Allergy/AdvReac Type Severity Reaction Status Date / Time No Known Allergies Allergy Verified 10/21/19 17:32 Review of Systems ROS Statement: Those systems with pertinent positive or pertinent negative responses have been documented in the HPI. ROS Other: All systems not noted in ROS Statement are negative. Past Medical History Past Medical History: No Reported History Additional Past Medical History / Comment(s): low mag History of Any Multi-Drug Resistant Organisms: None Reported Past Surgical History: Heart Catheterization, Hernia Repair Additional Past Surgical History / Comment(s): november 2018 heart cath Past Anesthesia/Blood Transfusion Reactions: No Reported Reaction Date of Last Stent Placement:: 11/2018 Past Psychological History: Depression Smoking Status: Former smoker Past Alcohol Use History: Abuse, Heavy Past Drug Use History: None Reported - Past Family History Father Additional Family Medical History / Comment(s): Father in his 70s from some type of cancer. Mother Additional Family Medical History / Comment(s): Mother in her 60s from Alzheimer's dementia. Brother(s) Additional Family Medical History / Comment(s): Patient has 1 brother and 1 sister with no major medical problems. General Exam - General Exam Comments Initial Comments: GENERAL: Well-appearing, well-nourished and in no acute distress. HEAD: Atraumatic, normocephalic. EYES: Pupils equal round and reactive to light, extraocular movements intact, sclera anicteric, conjunctiva are normal. ENT: TMs normal, nares patent, oropharynx clear without exudates. Moist mucous membranes. NECK: Normal range of motion, supple without lymphadenopathy or JVD. LUNGS: Breath sounds clear to auscultation bilaterally and equal. No wheezes rales or rhonchi. HEART: Regular rate and rhythm without murmurs, rubs or gallops. ABDOMEN: Soft, nontender, normoactive bowel sounds. No guarding, no rebound. No masses appreciated. : Deferred EXTREMITIES: Normal range of motion, no pitting or edema. No clubbing or cyanosis. NEUROLOGICAL: Normal speech, normal gait. PSYCH: Normal mood, normal affect. SKIN: Warm, Dry, normal turgor, no rashes or lesions noted. Limitations: no limitations Course Vital Signs 10/21/19 10/21/19 17:29 22:47 Temperature 99.2 F 98.3 F Pulse Rate 129 H 97 Respiratory 18 17 Rate Blood Pressure 103/62 108/64 O2 Sat by Pulse 100 98 Oximetry EKG Findings - EKG Comments: EKG Findings:: Pituitary 119, MO interval 114, QTC 438. Sinus tachycardia otherwise normal ECG. No signs of acute ischemia. Medical Decision Making - Medical Decision Making Patient is a 54-year-old male presenting to emergency Department with complaints of dehydration and lightheadedness 2 days. Patient has been in the ER multiple occasions for low magnesium. He was recently diagnosed with HIV. He does have an appointment either on Thursday or Thursday with his infectious disease doctor. Patient arrived slightly tachycardia, afebrile. EKG shows tachycardia, no signs of acute ischemia. Lab work shows magnesium of 1.0. Also shows signs of dehydration. Patient's lab has been stable when compared to the previous 2-3 visits. Patient was given 1 L of fluids as well as 2 bags of magnesium. Patient reports feeling improvement. He is stable for discharge at this time. Return parameters were discussed with the patient he verbalizes understanding. Case discussed with Dr. To. - Lab Data Result diagrams: 10/21/19 17:48 10/21/19 17:48 Lab Results 10/21/19 10/21/19 10/21/19 Range/Units 17:48 17:48 17:48 WBC 3.6 L (3.8-10.6) k/uL RBC 3.42 L (4.30-5.90) m/uL Hgb 10.3 L (13.0-17.5) gm/dL Hct 30.5 L (39.0-53.0) % MCV 89.3 (80.0-100.0) fL MCH 30.0 (25.0-35.0) pg MCHC 33.6 (31.0-37.0) g/dL RDW 14.1 (11.5-15.5) % Plt Count 187 (150-450) k/uL Neutrophils % 66 % Lymphocytes % 14 % Monocytes % 6 % Eosinophils % 12 % Basophils % 1 % Neutrophils # 2.4 (1.3-7.7) k/uL Lymphocytes # 0.5 L (1.0-4.8) k/uL Monocytes # 0.2 (0-1.0) k/uL Eosinophils # 0.4 (0-0.7) k/uL Basophils # 0.0 (0-0.2) k/uL Sodium 129 L (137-145) mmol/L Potassium 4.2 (3.5-5.1) mmol/L Chloride 85 L (98-107) mmol/L Carbon Dioxide 35 H (22-30) mmol/L Anion Gap 9 mmol/L BUN 23 H (9-20) mg/dL Creatinine 0.99 (0.66-1.25) mg/dL Est GFR (CKD-EPI)AfAm >90 (>60 ml/min/1.73 sqM) Est GFR (CKD-EPI)NonAf 87 (>60 ml/min/1.73 sqM) Glucose 120 H (74-99) mg/dL Calcium 10.4 H (8.4-10.2) mg/dL Magnesium 1.0 L (1.6-2.3) mg/dL Total Bilirubin 0.3 (0.2-1.3) mg/dL AST 109 H (17-59) U/L ALT 125 H (4-49) U/L Alkaline Phosphatase 147 H (38-126) U/L Total Protein 7.7 (6.3-8.2) g/dL Albumin 3.4 L (3.5-5.0) g/dL Disposition Clinical Impression: Hypomagnesemia, Lightheadedness Disposition: HOME SELF-CARE Condition: Stable Instructions (If sedation given, give patient instructions): Dehydration (ED) Additional Instructions: Please return to the Emergency Department if symptoms worsen or any other concerns. Continue to follow-up with next week as discussed. Is patient prescribed a controlled substance at d/c from ED?: No Referrals: Easton Hobbs MD [Primary Care Provider] - 1-2 days
[2019-10-21 18:39] LABS: Basophils % (A) 1 %; Eosinophils # (A) 0.4 k/uL (0-0.7); Eosinophils % (A) 12 %; HCT 30.5 % (39.0-53.0); HGB 10.3 gm/dL (13.0-17.5); Lymphocytes # (A) 0.5 k/uL (1.0-4.8); Lymphocytes % (A) 14 %; MCHC 33.6 g/dL (31.0-37.0); MCV 89.3 fL (80.0-100.0); Mean Platelet Volume 9.2; Monocytes # (A) 0.2 k/uL (0-1.0); Monocytes % (A) 6 %; Neutrophils # (A) 2.4 k/uL (1.3-7.7); Neutrophils % (A) 66 %; Platelet Count 187 k/uL (150-450); RBC 3.42 m/uL (4.30-5.90); RDW 14.1 % (11.5-15.5); WBC 3.6 k/uL (3.8-10.6)
[2019-10-21 18:45] LABS: ALT 125 U/L (4-49); AST 109 U/L (17-59); African American GFR (CKD) >90 (>60 ml/min/1.73 sqM); Albumin 3.4 g/dL (3.5-5.0); Alkaline Phosphatase 147 U/L (38-126); Anion Gap 9 mmol/L; Blood Urea Nitrogen 23 mg/dL (9-20); Calcium 10.4 mg/dL (8.4-10.2); Carbon Dioxide 35 mmol/L (22-30); Chloride 85 mmol/L (98-107); Glucose 120 mg/dL (74-99); Non-African American GFR(CKD) 87 (>60 ml/min/1.73 sqM); Potassium 4.2 mmol/L (3.5-5.1); Sodium 129 mmol/L (137-145); Total Bilirubin 0.3 mg/dL (0.2-1.3); Total Protein 7.7 g/dL (6.3-8.2)
[2019-10-21] MEDS: MAGNESIUM SULFATE-D5W PMX 1 GM in DEXTROSE/WATER 1 100ML.BAG IVPB SCH ×2 (20:28→21:39)
[2019-10-21 22:48] VITALS: BP 108/64; PULSE 97; RESP 17; TEMP 98.3
== END 2019-10-21 22:48 | disposition home or self-care (01) ==
LOC: EC 17:26
DX: E83.42 Hypomagnesemia (principal); R42 Dizziness and giddiness; E86.0 Dehydration; R00.0 Tachycardia, unspecified; R63.0 Anorexia; Z21 Asymptomatic human immunodeficiency virus [HIV] infection status; Z95.818 Presence of other cardiac implants and grafts; Z87.891 Personal history of nicotine dependence; Z79.891 Long term (current) use of opiate analgesic; Z79.899 Other long term (current) drug therapy
CPT/HCPCS: 36415; 93005; 80053; 83735; 85025; 99284; 96365; 96376; 96361; J3475

== ENCOUNTER 2019-10-25 17:16 | Emergency (ER) | payer OTHER ==
[2019-10-25] MEDS ORDERED: SODIUM CHLORIDE 0.9% 1,000 ML IV ONE (17:27)
[2019-10-25 17:33] VITALS: TEMP 98.2
[2019-10-25 18:04] LABS: Basophils % (A) 1 %; Eosinophils # (A) 0.2 k/uL (0-0.7); Eosinophils % (A) 6 %; HCT 26.9 % (39.0-53.0); HGB 9.1 gm/dL (13.0-17.5); Lymphocytes # (A) 0.3 k/uL (1.0-4.8); Lymphocytes % (A) 11 %; MCH 29.6 pg (25.0-35.0); MCHC 33.6 g/dL (31.0-37.0); Mean Platelet Volume 9.4; Monocytes # (A) 0.2 k/uL (0-1.0); Monocytes % (A) 9 %; Neutrophils # (A) 1.8 k/uL (1.3-7.7); Neutrophils % (A) 71 %; Platelet Count 160 k/uL (150-450); RBC 3.06 m/uL (4.30-5.90); RDW 14.2 % (11.5-15.5); WBC 2.6 k/uL (3.8-10.6)
[2019-10-25] MEDS: MAGNESIUM SULFATE-D5W PMX 1 GM in DEXTROSE/WATER 1 100ML.BAG IVPB SCH ×2 (18:10→19:07)
--- NOTE | 2019-10-25 18:15 | ED ---
General Adult HPI - General Stated complaint: low magnesium Time Seen by Provider: 10/25/19 17:26 Source: patient, RN notes reviewed Mode of arrival: ambulatory Limitations: no limitations - History of Present Illness Initial comments: This a 54-year-old male presents emergency Department chief complaint of low magnesium. Patient has been in the emergency department, hospital and been evaluated only bases outpatient for hypomagnesemia. Patient states that he's had no new medication states he is supposed to started on new medication but his liver enzymes have been elevated. He has been taking 3 ensures daily he states he does not eat very well. He denies any nausea vomiting diarrhea constipation or dysuria patient states he is very anxious right now. Patient denies any cramping, fever or chills. - Related Data Home Medications Medication Instructions Recorded Confirmed HYDROcodone/APAP 10-325MG [[place] 1 tab PO QID 02/03/19 10/07/19 10-325] Multivitamins, Thera [Multivitamin 1 tab PO DAILY 05/14/19 10/07/19 (formulary)] Atorvastatin Calcium [Lipitor] 20 mg PO HS 09/17/19 10/07/19 Magnesium Oxide [Mag-Ox] 800 mg PO BID 10/07/19 10/07/19 Previous Rx's Medication Instructions Recorded Aspirin 81 mg PO DAILY #30 chewable 08/23/19 Allergies Allergy/AdvReac Type Severity Reaction Status Date / Time No Known Allergies Allergy Verified 10/25/19 17:33 Review of Systems ROS Statement: Those systems with pertinent positive or pertinent negative responses have been documented in the HPI. ROS Other: All systems not noted in ROS Statement are negative. Past Medical History Past Medical History: No Reported History Additional Past Medical History / Comment(s): low mag History of Any Multi-Drug Resistant Organisms: None Reported Past Surgical History: Heart Catheterization, Hernia Repair Additional Past Surgical History / Comment(s): november 2018 heart cath Past Anesthesia/Blood Transfusion Reactions: No Reported Reaction Date of Last Stent Placement:: 11/2018 Past Psychological History: Depression Smoking Status: Former smoker Past Alcohol Use History: Abuse, Heavy Past Drug Use History: None Reported - Past Family History Father Additional Family Medical History / Comment(s): Father in his 70s from some type of cancer. Mother Additional Family Medical History / Comment(s): Mother in her 60s from Alzheimer's dementia. Brother(s) Additional Family Medical History / Comment(s): Patient has 1 brother and 1 sister with no major medical problems. General Exam Limitations: no limitations General appearance: alert, in no apparent distress, anxious Head exam: Present: atraumatic, normocephalic, normal inspection Eye exam: Present: normal appearance, PERRL, EOMI. Absent: scleral icterus, conjunctival injection, periorbital swelling ENT exam: Present: normal exam, normal oropharynx, mucous membranes moist Neck exam: Present: normal inspection, full ROM. Absent: tenderness, me ningismus, lymphadenopathy Respiratory exam: Present: normal lung sounds bilaterally. Absent: respiratory distress, wheezes, rales, rhonchi, stridor Cardiovascular Exam: Present: normal rhythm, tachycardia, normal heart sounds. Absent: systolic murmur, diastolic murmur, rubs, gallop, clicks GI/Abdominal exam: Present: soft, normal bowel sounds. Absent: distended, tenderness, guarding, rebound, rigid Neurological exam: Present: alert, oriented X3, CN II-XII intact Psychiatric exam: Present: anxious Skin exam: Present: warm, dry, intact, normal color. Absent: rash Course Vital Signs 10/25/19 17:30 Temperature 98.2 F Pulse Rate 122 H Respiratory 22 Rate Blood Pressure 110/71 O2 Sat by Pulse 100 Oximetry Medical Decision Making - Medical Decision Making 54-year-old male ongoing hypomagnesemia current magnesium 1.1 was given 2 g will be discharged patient has been extensively evaluated and worked up for this - Lab Data Result diagrams: 10/25/19 17:56 10/25/19 17:56 Lab Results 10/25/19 10/25/19 Range/Units 17:56 17:56 WBC 2.6 L (3.8-10.6) k/uL RBC 3.06 L (4.30-5.90) m/uL Hgb 9.1 L (13.0-17.5) gm/dL Hct 26.9 L (39.0-53.0) % MCV 88.0 (80.0-100.0) fL MCH 29.6 (25.0-35.0) pg MCHC 33.6 (31.0-37.0) g/dL RDW 14.2 (11.5-15.5) % Plt Count 160 (150-450) k/uL Neutrophils % 71 % Lymphocytes % 11 % Monocytes % 9 % Eosinophils % 6 % Basophils % 1 % Neutrophils # 1.8 (1.3-7.7) k/uL Lymphocytes # 0.3 L (1.0-4.8) k/uL Monocytes # 0.2 (0-1.0) k/uL Eosinophils # 0.2 (0-0.7) k/uL Basophils # 0.0 (0-0.2) k/uL Sodium 130 L (137-145) mmol/L Potassium 3.8 (3.5-5.1) mmol/L Chloride 86 L (98-107) mmol/L Carbon Dioxide 34 H (22-30) mmol/L Anion Gap 10 mmol/L BUN 28 H (9-20) mg/dL Creatinine 1.01 (0.66-1.25) mg/dL Est GFR (CKD-EPI)AfAm >90 (>60 ml/min/1.73 sqM) Est GFR (CKD-EPI)NonAf 85 (>60 ml/min/1.73 sqM) Glucose 131 H (74-99) mg/dL Calcium 9.7 (8.4-10.2) mg/dL Magnesium 1.1 L (1.6-2.3) mg/dL Total Bilirubin 0.3 (0.2-1.3) mg/dL AST 180 H (17-59) U/L ALT 209 H (4-49) U/L Alkaline Phosphatase 139 H (38-126) U/L Total Protein 7.6 (6.3-8.2) g/dL Albumin 3.3 L (3.5-5.0) g/dL Disposition Clinical Impression: Hypomagnesemia, Transaminitis Disposition: HOME SELF-CARE Condition: Stable Instructions (If sedation given, give patient instructions): Hypomagnesemia (ED) Additional Instructions: Please return to the Emergency Department if symptoms worsen or any other concerns. Is patient prescribed a controlled substance at d/c from ED?: No Referrals: Easton Hobbs MD [Primary Care Provider] - 1-2 days Time of Disposition: 19:25
[2019-10-25 18:23] LABS: ALT 209 U/L (4-49); AST 180 U/L (17-59); African American GFR (CKD) >90 (>60 ml/min/1.73 sqM); Albumin 3.3 g/dL (3.5-5.0); Alkaline Phosphatase 139 U/L (38-126); Anion Gap 10 mmol/L; Blood Urea Nitrogen 28 mg/dL (9-20); Calcium 9.7 mg/dL (8.4-10.2); Carbon Dioxide 34 mmol/L (22-30); Chloride 86 mmol/L (98-107); Glucose 131 mg/dL (74-99); Magnesium 1.1 mg/dL (1.6-2.3); Non-African American GFR(CKD) 85 (>60 ml/min/1.73 sqM); Potassium 3.8 mmol/L (3.5-5.1); Sodium 130 mmol/L (137-145); Total Bilirubin 0.3 mg/dL (0.2-1.3); Total Protein 7.6 g/dL (6.3-8.2)
[2019-10-25] MEDS ORDERED: LORazepam 2 MG/ML INJ IV STA (18:41)
[2019-10-25 19:33] VITALS: RESP 18
[2019-10-25 22:01] VITALS: BP 108/94; PULSE 98
== END 2019-10-25 20:15 | disposition home or self-care (01) ==
LOC: EC 17:16
DX: E83.42 Hypomagnesemia (principal); R74.0 Nonspecific elevation of levels of transaminase and lactic acid dehydrogenase [LDH]; Z79.899 Other long term (current) drug therapy; Z87.891 Personal history of nicotine dependence
CPT/HCPCS: 36415; 80053; 83735; 85025; 99283; 96365; 96366; J3475

== ENCOUNTER → 2019-10-28 | Outpatient (CLI) | payer OTHER ==
--- NOTE | 2019-10-28 15:37 | CT ---
EXAMINATION TYPE: CT abdomen pelvis wo con DATE OF EXAM: 10/28/2019 COMPARISON: Abdominal ultrasound dated 08/01/2019 HISTORY: Abnormal liver functions, asymptomatic CT DLP: 412 mGycm Automated exposure control for dose reduction was used. TECHNIQUE: Helical acquisition of images was performed from the lung bases through the pelvis. FINDINGS: Active intravenous and oral contrast limit evaluation of both the hollow and solid viscera. LUNG BASES: Patchy opacities at the lung bases could relate to the extensive patient motion seen in t he lower thorax. LIVER/GB: Extensive patient motion is seen in the upper abdomen limiting evaluation. The finding of h epatic steatosis on the prior ultrasound is not redemonstrated on unenhanced CT. Phrygian cap is inci dentally noted of the gallbladder. No radiopaque calculi in the gallbladder on CT. PANCREAS: No significant abnormality is seen. SPLEEN: Mild splenomegaly as the spleen measures 14.1 cm in craniocaudal dimension. ADRENALS: No significant abnormality is seen. KIDNEYS: Fluid attenuated right renal midpole lateral cortical cyst. No hydronephrosis or nephrolithi asis of either kidney. FREE AIR: No free air is visualized ADENOPATHY: Suboptimally evaluated without contrast. OSSEOUS STRUCTURES: No significant abnormality is seen. BOWEL: There is long segment thickening of the sigmoid colon and prominent vasa recta. Numerous dive rticula are seen within the sigmoid colon and scattered diverticula throughout the remainder the colo n. Subtle pericolonic fat stranding of the sigmoid colon such as on coronal images 40, 39 and 38. OTHER: Postsurgical change of the left lower anterior abdominal wall. IMPRESSION: 1. LONG SEGMENT BOWEL WALL THICKENING OF THE SIGMOID COLON WITH PROMINENT VASA RECTA AND VERY SUBTLE PERICOLONIC FAT STRANDING. ALTHOUGH THE PATIENT IS ASYMPTOMATIC ACUTE DIVERTICULITIS SHOULD BE CONSID ERED. CORRELATE WITH PATIENT'S SYMPTOMS. COLONOSCOPY IS RECOMMENDED TO EVALUATE THE LONG SEGMENT THIC KENING OF THE SIGMOID COLON. 2. THE PREVIOUSLY SEEN HEPATIC STEATOSIS ON ULTRASOUND IS NOT REDEMONSTRATED ON UNENHANCED CT. 3. SPLENOMEGALY.
== END | disposition home or self-care (01) ==
LOC: RADCTMAIN 09:37
PROVIDERS: ATTEND Family Medicine
DX: K63.89 Other specified diseases of intestine (principal); R93.3 Abnormal findings on diagnostic imaging of other parts of digestive tract; K76.0 Fatty (change of) liver, not elsewhere classified; R16.1 Splenomegaly, not elsewhere classified
CPT/HCPCS: 74176

== ENCOUNTER → 2019-11-01 | Outpatient (CLI) | payer OTHER ==
[2019-11-01 19:05] LABS: African American GFR (CKD) 72.7 (60.0-200.0); Albumin 3.2 g/dL (3.80-4.90); Albumin/Globulin Ratio 0.76 (1.60-3.17); Anion Gap 10.5 mmol/L (4.00-12.00); BUN/Creat Ratio 16.92 Ratio (12.00-20.00); Bilirubin, Conjugated 0.2 mg/dL (0.20-0.40); Bilirubin,Unconjugated 0.2 mg/dL; Calcium 9.7 mg/dL (8.7-10.3); Carbon Dioxide 35.5 mmol/L (21.6-31.8); Globulin 4.2 g/dL (1.6-3.3); Non-African American GFR(CKD) 62.7 (60.0-200.0); Potassium 4.1 mmol/L (3.5-5.5); Total Bilirubin 0.4 mg/dL (0.3-1.2); Total Protein 7.4 g/dL (6.2-8.2)
== END | disposition home or self-care (01) ==
LOC: LABWHC1 10:03
PROVIDERS: ATTEND Internal Medicine Infectious Disease
DX: R94.5 Abnormal results of liver function studies (principal); B20 Human immunodeficiency virus [HIV] disease; E87.8 Other disorders of electrolyte and fluid balance, not elsewhere classified; Z79.899 Other long term (current) drug therapy
CPT/HCPCS: 36415; 80053; 82248; 83735; 84100; 86708

== ENCOUNTER 2019-11-15 17:33 | Inpatient (IN) | payer OTHER ==
[2019-11-15] MEDS ORDERED: SODIUM CHLORIDE 0.9% 1,000 ML IV STA (18:02)
[2019-11-15] MEDS ORDERED: ASPIRIN 81 MG PO STA (18:04)
[2019-11-15 18:18] LABS: Basophils % (A) 1 %; Eosinophils # (A) 0.1 k/uL (0-0.7); Eosinophils % (A) 4 %; HCT 29.5 % (39.0-53.0); HGB 9.8 gm/dL (13.0-17.5); Lymphocytes # (A) 0.3 k/uL (1.0-4.8); Lymphocytes % (A) 10 %; MCH 30.5 pg (25.0-35.0); MCHC 33.4 g/dL (31.0-37.0); MCV 91.4 fL (80.0-100.0); Mean Platelet Volume 9.1; Monocytes # (A) 0.2 k/uL (0-1.0); Monocytes % (A) 6 %; Neutrophils # (A) 2.5 k/uL (1.3-7.7); Neutrophils % (A) 78 %; Platelet Count 165 k/uL (150-450); RBC 3.22 m/uL (4.30-5.90); RDW 15.5 % (11.5-15.5); WBC 3.2 k/uL (3.8-10.6)
[2019-11-15 18:25] LABS: Albumin 3.4 g/dL (3.5-5.0); Calcium 10.5 mg/dL (8.4-10.2); Magnesium 1.8 mg/dL (1.6-2.3); Potassium 3.8 mmol/L (3.5-5.1); Total Bilirubin 0.6 mg/dL (0.2-1.3); Total Protein 8.1 g/dL (6.3-8.2)
[2019-11-15 18:29] LABS: INR 0.9 (<1.2); Partial Thromboplastin Time 22.1 sec (22.0-30.0); Prothrombin Time 9.8 sec (9.0-12.0)
--- NOTE | 2019-11-15 19:03 | ED ---
General Adult HPI - General Source: patient, RN notes reviewed, old records reviewed Mode of arrival: wheelchair Limitations: no limitations <Victor Manuel Schmidt Gabby - Last Filed: 11/15/19 22:50> <WestleyCaridad Mervin - Last Filed: 11/21/19 23:35> - General Chief complaint: Syncope Stated complaint: Abd Pain, Chest Pain, Vomiting Time Seen by Provider: 11/15/19 17:45 - History of Present Illness Initial comments: 54-year-old male patient past medical history significant for HIV, chronic low magnesium, elevated liver enzymes, presents to ED for chief complaint of syncope. [facility] Reports he was walking up the stairs with his brother when he began to feel very dizzy. Patient reports that he sat on the step and then had a witnessed loss of consciousness for approximately 1 minute by his brother. No trauma to head or neck occurred. Patient reports that he is having chest pain and has been having these for the last year. Ports that the pain is in his right lower pectoral region. States that it is a pressure and it is essentially there every day waxing and waning. Not having any active pain in his chest at this time however. Patient is not a great historian and describing the chest pain, only states that it comes and goes every day. Patient also reports that he has shortness of breath on a daily basis for the last year. Reports this is unchanged. Patient denies any headache at this time however reports that he feels the last 3 months he has not been processing his thoughts clearly and feels that she was somewhat altered. Denies any other complaints. Systemic: Pt denies fatigue, fever/chills, rash. Pt denies weakness, night sweats, weight loss. Neuro: Pt denies headache, visual disturbances, syncope or pre-syncope. HEENT: Pt denies ocular discharge or irritation, otalgia, rhinorrhea, pharyngitis or notable lymphadenopathy. Cardiopulmonary: Pt denies heart palpitations, dyspnea on exertion. Abdominal/GI: Pt denies n/v/d. : Pt denies dysuria, burning w/ urination, frequency/urgency. Denies new onset urinary or bowel incontinence. MSK: Pt denies myalgia, loss of strength or function in extremities. Neuro: Pt denies new onset weakness, paresthesias. (Victor Manuel Schmidt) - Related Data Home Medications Medication Instructions Recorded Confirmed Magnesium Oxide [Mag-Ox] 400 mg PO BID 10/07/19 11/19/19 Previous Rx's Medication Instructions Recorded Sulfamethox-Tmp 800-160Mg [Bactrim 1 tab PO DAILY #30 tab 11/19/19 DS 800-160 mg] Allergies Allergy/AdvReac Type Severity Reaction Status Date / Time No Known Allergies Allergy Verified 11/15/19 18:36 Review of Systems ROS Other: All systems not noted in ROS Statement are negative. <Victor Manuel Schmidt - Last Filed: 11/15/19 22:50> ROS Other: All systems not noted in ROS Statement are negative. <Caridad Christy - Last Filed: 11/21/19 23:35> ROS Statement: Those systems with pertinent positive or pertinent negative responses have been documented in the HPI. Past Medical History Past Medical History: No Reported History Additional Past Medical History / Comment(s): low mag, liver failure, hiv + History of Any Multi-Drug Resistant Organisms: None Reported Past Surgical History: Heart Catheterization, Hernia Repair Additional Past Surgical History / Comment(s): november 2018 heart cath Past Anesthesia/Blood Transfusion Reactions: No Reported Reaction Date of Last Stent Placement:: 11/2018 Past Psychological History: Depression Smoking Status: Former smoker Past Alcohol Use History: None Reported Past Drug Use History: None Reported - Past Family History Father Additional Family Medical History / Comment(s): Father in his 70s from some type of cancer. Mother Additional Family Medical History / Comment(s): Mother in her 60s from Alzheimer's dementia. Brother(s) Additional Family Medical History / Comment(s): Patient has 1 brother and 1 sister with no major medical problems. <Victor Manuel Schmidt - Last Filed: 11/15/19 22:50> General Exam Limitations: no limitations <Victor Manuel Schmidt - Last Filed: 11/15/19 22:50> - General Exam Comments Initial Comments: Constitutional: NAD, AOX3, Pt has pleasant affect. HEENT: NC/AT, trachea midline, neck supple, no lymphadenopathy. Posterior pharynx non erythematous, without exudates. External ears appear normal, without discharge. Mucous membranes moist. Eyes PERRLA, EOM intact. There is no scleral icterus. No pallor noted. Cardiopulmonary: RRR, no murmurs, rubs or gallops, no JVD noted. Lungs CTAB in anterior and posterior hatch. No peripheral edema. Abdominal exam: Abdomen soft and non-distended. Abdomen non-tender to palpation in all 4 quadrants. Bowel sounds active in LLQ. No hepatosplenomegaly. No ecchymosis Neuro: CN II-XII intact. No nuchal rigidity. No raccon eyes, no felipe sign, no hemotympanum. No cervical spinal tenderness. MSK: No posterior calf tenderness bilaterally, homans sign negative bilaterally. Posterior tibialis and radial pulse +2 bilaterally. Sensation intact in upper and lower extremities. Full active ROM in upper and lower extremities, 5/5 stregnth. (Victor Manuel Schmidt) Course Vital Signs 11/15/19 11/15/19 11/15/19 17:36 18:28 19:00 Temperature 98.0 F Pulse Rate 137 H 126 H 114 H Respiratory 18 18 18 Rate Blood Pressure 92/65 100/65 97/68 O2 Sat by Pulse 100 99 100 Oximetry 11/15/19 11/15/19 11/15/19 20:00 21:00 22:33 Temperature Pulse Rate 106 H 105 H 93 Respiratory 18 18 18 Rate Blood Pressure 108/72 106/79 91/61 O2 Sat by Pulse 98 97 100 Oximetry Medical Decision Making - Lab Data Result diagrams: 11/15/19 18:00 11/15/19 18:00 <Victor Manuel Schmidt - Last Filed: 11/15/19 22:50> - Lab Data Result diagrams: 11/19/19 06:40 11/19/19 06:40 <Caridad Christy - Last Filed: 11/21/19 23:35> - Medical Decision Making 54-year-old male patient past medical history significant for HIV, chronic low magnesium, elevated liver enzymes, presents to ED for chief complaint of syncope. [facility]. Reports he was walking up the stairs with his brother when he began to feel very dizzy. Patient reports that he sat on the step and then had a witnessed loss of consciousness for approximately 1 minute by his brother. No trauma to head or neck occurred. Patient reports that he is having chest pain and has been having these for the last year. Ports that the pain is in his right lower pectoral region. States that it is a pressure and it is essentially there every day waxing and waning. Not having any active pain in his chest at this time however. Patient is not a great historian and describing the chest pain, only states that it comes and goes every day. Patient also reports that he has shortness of breath on a daily basis for the last year. Reports this is unchanged. Patient denies any headache at this time however reports that he feels the last 3 months he has not been processing his thoughts clearly and feels that she was somewhat altered. Denies any other complaints. Patient vital signs displayed mild hypotension and tachycardia. Physical exam displayed intact neurologic exam, no other acute pathology. Laboratory investigations revealed white blood cell count of 3.2. Hemoglobin around baseline. AST ALT are elevated, this has been ongoing for some time and is being watched by his ecological risk assessor as well as his infectious disease physician. Upon and negative. UA negative. CT chest angiography for pulmonary embolism displayed potential mild alveolar edema, no s uspicious focal infiltrate no CT evidence for acute pulmonary embolism. CT brain without contrast displayed no acute intracranial hemorrhage or midline shift. There is mild diffuse age-related cerebral atrophy and chronic small vessels hemic changes noted. Aspirin was administered after CT brain resolved. Patient will be admitted for she'll troponin and for further evaluation. Case discussed with Dr. Christy. (Victor Manuel Schmidt) I was available for consultation in the emergency department. The history and physical exam were done by the midlevel provider. I was consulted for this patients care. I reviewed the case with the midlevel provider and based on their presentation of the patient, I agree with the assessment, medical decision making and plan of care as documented. Discussed the case with Dr. Montoya who accepted admssion of the patient. Chart was dictated using [employer] dictation software. Attempts were made to correct any dictation errors however some typographical errors may persist. Patient was seen during a national state of emergency due to the Covid-19 pandemic. (Caridad Christy) - Lab Data Lab Results 11/15/19 11/15/19 11/15/19 Range/Units 18:00 18:00 18:00 WBC 3.2 L (3.8-10.6) k/uL RBC 3.22 L (4.30-5.90) m/uL Hgb 9.8 L (13.0-17.5) gm/dL Hct 29.5 L (39.0-53.0) % MCV 91.4 (80.0-100.0) fL MCH 30.5 (25.0-35.0) pg MCHC 33.4 (31.0-37.0) g/dL RDW 15.5 (11.5-15.5) % Plt Count 165 (150-450) k/uL Neutrophils % 78 % Lymphocytes % 10 % Monocytes % 6 % Eosinophils % 4 % Basophils % 1 % Neutrophils # 2.5 (1.3-7.7) k/uL Lymphocytes # 0.3 L (1.0-4.8) k/uL Monocytes # 0.2 (0-1.0) k/uL Eosinophils # 0.1 (0-0.7) k/uL Basophils # 0.0 (0-0.2) k/uL Anisocytosis PT 9.8 (9.0-12.0) sec INR 0.9 (<1.2) APTT 22.1 (22.0-30.0) sec D-Dimer (<0.60) mg/L FEU Sodium 133 L (137-145) mmol/L Potassium 3.8 (3.5-5.1) mmol/L Chloride 89 L (98-107) mmol/L Carbon Dioxide 31 H (22-30) mmol/L Anion Gap 13 mmol/L BUN 37 H (9-20) mg/dL Creatinine 1.25 (0.66-1.25) mg/dL Est GFR (CKD-EPI)AfAm 77 (>60 ml/min/1.73 sqM) Est GFR (CKD-EPI)NonAf 66 (>60 ml/min/1.73 sqM) Glucose 150 H (74-99) mg/dL Calcium 10.5 H (8.4-10.2) mg/dL Magnesium 1.8 (1.6-2.3) mg/dL Total Bilirubin 0.6 (0.2-1.3) mg/dL GGT (15-73) U/L AST 549 H (17-59) U/L ALT 345 H (4-49) U/L Alkaline Phosphatase 245 H (38-126) U/L Ammonia (<30) umol/L Troponin I (0.000-0.034) ng/mL Total Protein 8.1 (6.3-8.2) g/dL Albumin 3.4 L (3.5-5.0) g/dL Triglycerides (<150) mg/dL Cholesterol (<200) mg/dL LDL Cholesterol, Calc (0-99) mg/dL HDL Cholesterol (40-60) mg/dL Urine Color Urine Appearance (Clear) Urine pH (5.0-8.0) Ur Specific [place] (1.001-1.035) Urine Protein (Negative) Urine Glucose (UA) (Negative) Urine Ketones (Negative) Urine Blood (Negative) Urine Nitrite (Negative) Urine Bilirubin (Negative) Urine Urobilinogen (<2.0) mg/dL Ur Leukocyte Esterase (Negative) Urine RBC (0-5) /hpf Urine WBC (0-5) /hpf Ur Squamous Epith Cells (0-4) /hpf Granular Casts (0) /lpf Urine Mucus (None) /hpf T-Suppressor Cells (190-832) cell/ul % CD4 [place] (35-66) % Absolute CD4 [place] (443-1471) cell/ul CD4/CD8 Ratio (1.0-3.7) % CD8 Suppressor (9-37) % Coronavirus (PCR) (Not Detected) HIV-1 RNA Quant (<40) Copies/mL HIV RNA logcopies/mL Ult (<1.60) HIV-1 RNA (PCR) (Not detected) 11/15/19 11/15/19 11/15/19 Range/Units 18:00 18:00 19:15 WBC (3.8-10.6) k/uL RBC (4.30-5.90) m/uL Hgb (13.0-17.5) gm/dL Hct (39.0-53.0) % MCV (80.0-100.0) fL MCH (25.0-35.0) pg MCHC (31.0-37.0) g/dL RDW (11.5-15.5) % Plt Count (150-450) k/uL Neutrophils % % Lymphocytes % % Monocytes % % Eosinophils % % Basophils % % Neutrophils # (1.3-7.7) k/uL Lymphocytes # (1.0-4.8) k/uL Monocytes # (0-1.0) k/uL Eosinophils # (0-0.7) k/uL Basophils # (0-0.2) k/uL Anisocytosis PT (9.0-12.0) sec INR (<1.2) APTT (22.0-30.0) sec D-Dimer 0.77 H (<0.60) mg/L FEU Sodium (137-145) mmol/L Potassium (3.5-5.1) mmol/L Chloride (98-107) mmol/L Carbon Dioxide (22-30) mmol/L Anion Gap mmol/L BUN (9-20) mg/dL Creatinine (0.66-1.25) mg/dL Est GFR (CKD-EPI)AfAm (>60 ml/min/1.73 sqM) Est GFR (CKD-EPI)NonAf (>60 ml/min/1.73 sqM) Glucose (74-99) mg/dL Calcium (8.4-10.2) mg/dL Magnesium (1.6-2.3) mg/dL Total Bilirubin (0.2-1.3) mg/dL GGT (15-73) U/L AST (17-59) U/L ALT (4-49) U/L Alkaline Phosphatase (38-126) U/L Ammonia (<30) umol/L Troponin I <0.012 (0.000-0.034) ng/mL Total Protein (6.3-8.2) g/dL Albumin (3.5-5.0) g/dL Triglycerides (<150) mg/dL Cholesterol (<200) mg/dL LDL Cholesterol, Calc (0-99) mg/dL HDL Cholesterol (40-60) mg/dL Urine Color Yellow Urine Appearance Clear (Clear) Urine pH 6.0 (5.0-8.0) Ur Specific [place] 1.014 (1.001-1.035) Urine Protein 1+ H (Negative) Urine Glucose (UA) Negative (Negative) Urine Ketones Negative (Negative) Urine Blood Negative (Negative) Urine Nitrite Negative (Negative) Urine Bilirubin Negative (Negative) Urine Urobilinogen <2.0 (<2.0) mg/dL Ur Leukocyte Esterase Negative (Negative) Urine RBC <1 (0-5) /hpf Urine WBC 1 (0-5) /hpf Ur Squamous Epith Cells <1 (0-4) /hpf Granular Casts 6 (0) /lpf Urine Mucus Rare H (None) /hpf T-Suppressor Cells (190-832) cell/ul % CD4 [place] (35-66) % Absolute CD4 [place] (443-1471) cell/ul CD4/CD8 Ratio (1.0-3.7) % CD8 Suppressor (9-37) % Coronavirus (PCR) (Not Detected) HIV-1 RNA Quant (<40) Copies/mL HIV RNA logcopies/mL Ult (<1.60) HIV-1 RNA (PCR) (Not detected) 11/15/19 11/16/19 11/16/19 Range/Units 21:37 00:41 04:35 WBC (3.8-10.6) k/uL RBC (4.30-5.90) m/uL Hgb (13.0-17.5) gm/dL Hct (39.0-53.0) % MCV (80.0-100.0) fL MCH (25.0-35.0) pg MCHC (31.0-37.0) g/dL RDW (11.5-15.5) % Plt Count (150-450) k/uL Neutrophils % % Lymphocytes % % Monocytes % % Eosinophils % % Basophils % % Neutrophils # (1.3-7.7) k/uL Lymphocytes # (1.0-4.8) k/uL Monocytes # (0-1.0) k/uL Eosinophils # (0-0.7) k/uL Basophils # (0-0.2) k/uL Anisocytosis PT (9.0-12.0) sec INR (<1.2) APTT (22.0-30.0) sec D-Dimer (<0.60) mg/L FEU Sodium (137-145) mmol/L Potassium (3.5-5.1) mmol/L Chloride (98-107) mmol/L Carbon Dioxide (22-30) mmol/L Anion Gap mmol/L BUN (9-20) mg/dL Creatinine (0.66-1.25) mg/dL Est GFR (CKD-EPI)AfAm (>60 ml/min/1.73 sqM) Est GFR (CKD-EPI)NonAf (>60 ml/min/1.73 sqM) Glucose (74-99) mg/dL Calcium (8.4-10.2) mg/dL Magnesium (1.6-2.3) mg/dL Total Bilirubin (0.2-1.3) mg/dL GGT (15-73) U/L AST (17-59) U/L ALT (4-49) U/L Alkaline Phosphatase (38-126) U/L Ammonia <9 (<30) umol/L Troponin I <0.012 (0.000-0.034) ng/mL Total Protein (6.3-8.2) g/dL Albumin (3.5-5.0) g/dL Triglycerides (<150) mg/dL Cholesterol (<200) mg/dL LDL Cholesterol, Calc (0-99) mg/dL HDL Cholesterol (40-60) mg/dL Urine Color Urine Appearance (Clear) Urine pH (5.0-8.0) Ur Specific [place] (1.001-1.035) Urine Protein (Negative) Urine Glucose (UA) (Negative) Urine Ketones (Negative) Urine Blood (Negative) Urine Nitrite (Negative) Urine Bilirubin (Negative) Urine Urobilinogen (<2.0) mg/dL Ur Leukocyte Esterase (Negative) Urine RBC (0-5) /hpf Urine WBC (0-5) /hpf Ur Squamous Epith Cells (0-4) /hpf Granular Casts (0) /lpf Urine Mucus (None) /hpf T-Suppressor Cells (190-832) cell/ul % CD4 [place] (35-66) % Absolute CD4 [place] (443-1471) cell/ul CD4/CD8 Ratio (1.0-3.7) % CD8 Suppressor (9-37) % Coronavirus (PCR) Not Detected (Not Detected) HIV-1 RNA Quant (<40) Copies/mL HIV RNA logcopies/mL Ult (<1.60) HIV-1 RNA (PCR) (Not detected) 11/16/19 11/16/19 11/16/19 Range/Units 06:40 06:40 06:40 WBC (3.8-10.6) k/uL RBC (4.30-5.90) m/uL Hgb (13.0-17.5) gm/dL Hct (39.0-53.0) % MCV (80.0-100.0) fL MCH (25.0-35.0) pg MCHC (31.0-37.0) g/dL RDW (11.5-15.5) % Plt Count (150-450) k/uL Neutrophils % % Lymphocytes % % Monocytes % % Eosinophils % % Basophils % % Neutrophils # (1.3-7.7) k/uL Lymphocytes # (1.0-4.8) k/uL Monocytes # (0-1.0) k/uL Eosinophils # (0-0.7) k/uL Basophils # (0-0.2) k/uL Anisocytosis PT (9.0-12.0) sec INR (<1.2) APTT (22.0-30.0) sec D-Dimer (<0.60) mg/L FEU Sodium (137-145) mmol/L Potassium (3.5-5.1) mmol/L Chloride (98-107) mmol/L Carbon Dioxide (22-30) mmol/L Anion Gap mmol/L BUN (9-20) mg/dL Creatinine (0.66-1.25) mg/dL Est GFR (CKD-EPI)AfAm (>60 ml/min/1.73 sqM) Est GFR (CKD-EPI)NonAf (>60 ml/min/1.73 sqM) Glucose (74-99) mg/dL Calcium (8.4-10.2) mg/dL Magnesium (1.6-2.3) mg/dL Total Bilirubin (0.2-1.3) mg/dL GGT (15-73) U/L AST (17-59) U/L ALT (4-49) U/L Alkaline Phosphatase (38-126) U/L Ammonia (<30) umol/L Troponin I <0.012 (0.000-0.034) ng/mL Total Protein (6.3-8.2) g/dL Albumin (3.5-5.0) g/dL Triglycerides 149 (<150) mg/dL Cholesterol 113 (<200) mg/dL LDL Cholesterol, Calc 65 (0-99) mg/dL HDL Cholesterol 18 L (40-60) mg/dL Urine Color Urine Appearance (Clear) Urine pH (5.0-8.0) Ur Specific [place] (1.001-1.035) Urine Protein (Negative) Urine Glucose (UA) (Negative) Urine Ketones (Negative) Urine Blood (Negative) Urine Nitrite (Negative) Urine Bilirubin (Negative) Urine Urobilinogen (<2.0) mg/dL Ur Leukocyte Esterase (Negative) Urine RBC (0-5) /hpf Urine WBC (0-5) /hpf Ur Squamous Epith Cells (0-4) /hpf Granular Casts (0) /lpf Urine Mucus (None) /hpf T-Suppressor Cells 342 (190-832) cell/ul % CD4 [place] 17 L (35-66) % Absolute CD4 [place] 84 L (443-1471) cell/ul CD4/CD8 Ratio 0.2 L (1.0-3.7) % CD8 Suppressor 71 H (9-37) % Coronavirus (PCR) (Not Detected) HIV-1 RNA Quant (<40) Copies/mL HIV RNA logcopies/mL Ult (<1.60) HIV-1 RNA (PCR) (Not detected) 11/16/19 11/16/19 11/17/19 Range/Units 06:40 06:40 06:31 WBC 3.3 L (3.8-10.6) k/uL RBC 2.56 L (4.30-5.90) m/uL Hgb 7.8 L D (13.0-17.5) gm/dL Hct 23.8 L (39.0-53.0) % MCV 93.2 (80.0-100.0) fL MCH 30.6 (25.0-35.0) pg MCHC 32.8 (31.0-37.0) g/dL RDW 16.2 H (11.5-15.5) % Plt Count 141 L (150-450) k/uL Neutrophils % 77 % Lymphocytes % 11 % Monocytes % 4 % Eosinophils % 7 % Basophils % 1 % Neutrophils # 2.6 (1.3-7.7) k/uL Lymphocytes # 0.4 L (1.0-4.8) k/uL Monocytes # 0.1 (0-1.0) k/uL Eosinophils # 0.2 (0-0.7) k/uL Basophils # 0.0 (0-0.2) k/uL Anisocytosis Slight PT (9.0-12.0) sec INR (<1.2) APTT (22.0-30.0) sec D-Dimer (<0.60) mg/L FEU Sodium (137-145) mmol/L Potassium (3.5-5.1) mmol/L Chloride (98-107) mmol/L Carbon Dioxide (22-30) mmol/L Anion Gap mmol/L BUN (9-20) mg/dL Creatinine (0.66-1.25) mg/dL Est GFR (CKD-EPI)AfAm (>60 ml/min/1.73 sqM) Est GFR (CKD-EPI)NonAf (>60 ml/min/1.73 sqM) Glucose (74-99) mg/dL Calcium (8.4-10.2) mg/dL Magnesium (1.6-2.3) mg/dL Total Bilirubin (0.2-1.3) mg/dL GGT 468 H (15-73) U/L AST (17-59) U/L ALT (4-49) U/L Alkaline Phosphatase (38-126) U/L Ammonia (<30) umol/L Troponin I (0.000-0.034) ng/mL Total Protein (6.3-8.2) g/dL Albumin (3.5-5.0) g/dL Triglycerides (<150) mg/dL Cholesterol (<200) mg/dL LDL Cholesterol, Calc (0-99) mg/dL HDL Cholesterol (40-60) mg/dL Urine Color Urine Appearance (Clear) Urine pH (5.0-8.0) Ur Specific [place] (1.001-1.035) Urine Protein (Negative) Urine Glucose (UA) (Negative) Urine Ketones (Negative) Urine Blood (Negative) Urine Nitrite (Negative) Urine Bilirubin (Negative) Urine Urobilinogen (<2.0) mg/dL Ur Leukocyte Esterase (Negative) Urine RBC (0-5) /hpf Urine WBC (0-5) /hpf Ur Squamous Epith Cells (0-4) /hpf Granular Casts (0) /lpf Urine Mucus (None) /hpf T-Suppressor Cells (190-832) cell/ul % CD4 [place] (35-66) % Absolute CD4 [place] (443-1471) cell/ul CD4/CD8 Ratio (1.0-3.7) % CD8 Suppressor (9-37) % Coronavirus (PCR) (Not Detected) HIV-1 RNA Quant 1,282,768 H (<40) Copies/mL HIV RNA logcopies/mL Ult 6.11 H (<1.60) HIV-1 RNA (PCR) DETECTED H (Not detected) 11/17/19 Range/Units 06:31 WBC (3.8-10.6) k/uL RBC (4.30-5.90) m/uL Hgb (13.0-17.5) gm/dL Hct (39.0-53.0) % MCV (80.0-100.0) fL MCH (25.0-35.0) pg MCHC (31.0-37.0) g/dL RDW (11.5-15.5) % Plt Count (150-450) k/uL Neutrophils % % Lymphocytes % % Monocytes % % Eosinophils % % Basophils % % Neutrophils # (1.3-7.7) k/uL Lymphocytes # (1.0-4.8) k/uL Monocytes # (0-1.0) k/uL Eosinophils # (0-0.7) k/uL Basophils # (0-0.2) k/uL Anisocytosis PT (9.0-12.0) sec INR (<1.2) APTT (22.0-30.0) sec D-Dimer (<0.60) mg/L FEU Sodium 134 L (137-145) mmol/L Potassium 4.0 (3.5-5.1) mmol/L Chloride 99 (98-107) mmol/L Carbon Dioxide 27 (22-30) mmol/L Anion Gap 8 mmol/L BUN 25 H (9-20) mg/dL Creatinine 1.14 (0.66-1.25) mg/dL Est GFR (CKD-EPI)AfAm 86 (>60 ml/min/1.73 sqM) Est GFR (CKD-EPI)NonAf 74 (>60 ml/min/1.73 sqM) Glucose 90 (74-99) mg/dL Calcium 8.8 (8.4-10.2) mg/dL Magnesium 1.1 L (1.6-2.3) mg/dL Total Bilirubin 0.4 (0.2-1.3) mg/dL GGT (15-73) U/L AST 315 H (17-59) U/L ALT 258 H (4-49) U/L Alkaline Phosphatase 204 H (38-126) U/L Ammonia (<30) umol/L Troponin I (0.000-0.034) ng/mL Total Protein 6.6 (6.3-8.2) g/dL Albumin 2.5 L (3.5-5.0) g/dL Triglycerides (<150) mg/dL Cholesterol (<200) mg/dL LDL Cholesterol, Calc (0-99) mg/dL HDL Cholesterol (40-60) mg/dL Urine Color Urine Appearance (Clear) Urine pH (5.0-8.0) Ur Specific [place] (1.001-1.035) Urine Protein (Negative) Urine Glucose (UA) (Negative) Urine Ketones (Negative) Urine Blood (Negative) Urine Nitrite (Negative) Urine Bilirubin (Negative) Urine Urobilinogen (<2.0) mg/dL Ur Leukocyte Esterase (Negative) Urine RBC (0-5) /hpf Urine WBC (0-5) /hpf Ur Squamous Epith Cells (0-4) /hpf Granular Casts (0) /lpf Urine Mucus (None) /hpf T-Suppressor Cells (190-832) cell/ul % CD4 [place] (35-66) % Absolute CD4 [place] (443-1471) cell/ul CD4/CD8 Ratio (1.0-3.7) % CD8 Suppressor (9-37) % Coronavirus (PCR) (Not Detected) HIV-1 RNA Quant (<40) Copies/mL HIV RNA logcopies/mL Ult (<1.60) HIV-1 RNA (PCR) (Not detected) Disposition Is patient prescribed a controlled substance at d/c from ED?: No <Victor Manuel Schmidt - Last Filed: 11/15/19 22:50> <Caridad Christy - Last Filed: 11/21/19 23:35> Clinical Impression: Chest pain, Syncope Disposition: ADMITTED IP TO THIS HOSP Condition: Stable
--- NOTE | 2019-11-15 19:20 | XR ---
EXAMINATION TYPE: XR chest 2V DATE OF EXAM: 11/15/2019 COMPARISON: Prior chest x-ray September 30, 2019 HISTORY: Chest pain and shortness of breath. History of liver failure. TECHNIQUE: Frontal and lateral views of the chest are obtained. FINDINGS: Overlying EKG leads are redemonstrated. There is no new suspicious focal air space opacity , pleural effusion, or pneumothorax seen. The cardiac silhouette size remains within normal limits. The osseous structures are intact. IMPRESSION: No acute cardiopulmonary process. No significant change from prior.
--- NOTE | 2019-11-15 19:21 | CT ---
EXAMINATION TYPE: CT brain wo con DATE OF EXAM: 11/15/2019 HISTORY: Syncope. Weakness. CT DLP: 1127.4 mGycm. Automated Exposure Control for Dose Reduction was Utilized. TECHNIQUE: CT scan of the head is performed without contrast. COMPARISON: None. FINDINGS: There is no acute intracranial hemorrhage or midline shift identified. There is diffuse v entricular and sulcal prominence consistent with diffuse age-related cerebral atrophy. There is low- attenuation in the periventricular white matter consistent with chronic small vessel ischemic change. The globes are intact and the visualized sinuses are clear. IMPRESSION: No acute intracranial hemorrhage or midline shift. There is mild diffuse age-related ce rebral atrophy and chronic small vessel ischemic change noted.
[2019-11-15 19:26] LABS: Appearance,Urine Clear (Clear); Bilirubin,Urine Negative (Negative); Blood,Urine Negative (Negative); Color,Urine Yellow; Glucose,Urine (UA) Negative (Negative); Granular Casts,Urine 6 /lpf (0); Ketones,Urine Negative (Negative); Leukocyte Esterase,Urine Negative (Negative); Mucus,Urine Rare /hpf; Nitrite,Urine Negative (Negative); Protein,Urine 1+ (Negative); RBC,Urine <1 /hpf (0-5); Specific Gravity,Urine 1.014 (1.001-1.035); Squamous Epithelial Cell,Urine <1 /hpf (0-4); Urobilinogen,Urine <2.0 mg/dL (<2.0); WBC,Urine 1 /hpf (0-5)
--- NOTE | 2019-11-15 20:16 | CT ---
EXAMINATION TYPE: CT chest angio for PE DATE OF EXAM: 11/15/2019 COMPARISON: Chest x-ray earlier today HISTORY: Chest pain with abnormal lab levels CT DLP: 211.4 mGycm. Automated Exposure Control for Dose Reduction was Utilized. CONTRAST: CTA scan of the thorax is performed with IV Contrast, patient injected with 100 mL of Isovue 300, pul monary embolism protocol. MIP Images are created on CT scanner and reviewed. FINDINGS: LUNGS: Some respiratory motion artifact degradation. Mild diffuse increased opacity or alveolar edema thought present. No suspicious focal consolidation or groundglass opacities seen. No pleural effusio n or pneumothorax noted. No suspicious masses. Slightly elevated left hemidiaphragm. MEDIASTINUM: There is satisfactory enhancement of the pulmonary artery and its branches, there is no CT evidence for pulmonary embolism. There are no greater than 1 cm hilar or mediastinal lymph nodes . No cardiomegaly or pericardial effusion is seen. OTHER: Probable simple appearing 1 cm exophytic cyst laterally right kidney midpole level on the last axial images partially imaged. Small degree of subareolar bilateral gynecomastia noted. IMPRESSION: Perhaps mild alveolar edema. No suspicious focal infiltrate. No CT evidence for acute pul monary embolism. Correlate for fluid overload state.
[2019-11-15] MEDS ORDERED: NITROGLYCERIN SL TABS 0.4 MG TAB SUBLINGUAL PRN (21:36)
[2019-11-16 08:13] LABS: Cholesterol 113 mg/dL (<200); HDL Cholesterol 18 mg/dL (40-60); LDL Cholesterol,Calculated 65 mg/dL (0-99); Triglycerides 149 mg/dL (<150)
[2019-11-16] MEDS ORDERED: DOBUTamine DRIP for NUC MED 500 MG in DEXTROSE/WATER 1 250ML.BAG IV ONE (09:00)
--- NOTE | 2019-11-16 10:49 | CONS ---
CONSULTATION CHIEF COMPLAINT: Chest pain and syncope. This is a 54-year-old gentleman with history of HIV, chronic hypomagnesemia, elevated liver enzymes, who presented to hospital complaining of syncope. Patient states that he was walking up stairs, felt very dizzy and then had loss of consciousness for about a minute. His brother witnessed it. He subsequently complained of pre chest pain and he states that he has been having chest pain for over a year. It is waxing and waning, mild intensity, unrelated to exertion and unassociated with diaphoresis. At the time of my evaluation, he appears comfortable at rest. EKG does not reveal ischemic changes. He had a CT scan of the chest that was negative for pulmonary embolism. His CT scan of the brain that was negative. PAST MEDICAL HISTORY: Significant for HIV. MEDICATIONS: Include magnesium oxide. ALLERGIES: No known drug allergies. FAMILY HISTORY: Negative for premature coronary artery disease. SOCIAL HISTORY: Negative for smoking, EtOH abuse, or drug abuse. REVIEW OF SYSTEMS: HEENT: Unremarkable. CARDIAC: As described above. RESPIRATORY: As described above. GI: Negative. GENITOURINARY: Negative. ALLERGY/IMMUNOLOGY: Negative. SKIN: Negative. MUSCULOSKELETAL: Significant for arthritis. PSYCHOSOCIAL: Negative. ENDOCRINOLOGICAL: Negative. DERM: Negative. CONSTITUTIONAL: Negative. ONCOLOGICAL: Negative. Rest of the system review is not relevant. PHYSICAL EXAM: Comfortable at rest. Afebrile. Heart rate is 100 beats per minute. Blood pressure is 120/75, respiratory rate is 18. CHEST: Clear to percussion. Heart exam reveals first and second heart sounds. Systolic murmur at the apex. ABDOMEN: Soft. Exam of extremities did not reveal any edema. LABS: Show that the troponins are negative. EKG is normal. ASSESSMENT: 1. Precordial chest pain, sharp, atypical, probably noncardiac. 2. Syncope, could be related to hypotension. PLAN: I will obtain a 2D echo and dobutamine echo on him for further evaluation. If these are negative, he can be discharged home. If not, will evaluate him further. MMODL / IJN: [id number] /
--- NOTE | 2019-11-16 12:00 | ECHOF ---
Referral Reason:chest pain MEASUREMENTS -------- HEIGHT: 167.6 cm WEIGHT: 49.4 kg BP: IVSd: 0.8 cm (0.6 - 1.1) LVIDd: 2.2 cm (3.9 - 5.3) LVPWd: 1.0 cm (0.6 - 1.1) IVSs: 0.9 cm LVIDs: 1.4 cm LVPWs: 1.3 cm Ao Diam: 3.2 cm (2.0 - 3.7) AV Cusp: 2.2 cm (1.5 - 2.6) LA Diam: 2.3 cm (2.7 - 3.8) MV EXCURSION: 18.395 mm (> 18.000) MV EF SLOPE: 50 mm/s (70 - 150) EPSS: 0.5 cm MV E Ba: 0.58 m/s MV DecT: 128 ms MV A Ba: 0.70 m/s MV E/A Ratio: 0.82 RAP: 5.00 mmHg RVSP: 20.05 mmHg FINDINGS -------- Sinus rhythm. This was a technically difficult study with suboptimal views. The left ventricular size is normal. Left ventricular wall thickness is normal. Overall left vent ricular systolic function is normal with, an EF between 55 - 60 %. The right ventricle is normal in size. The left atrial size is normal. The right atrial size is normal. Lumason used The aortic valve is trileaflet and appears structurally normal. The mitral valve is normal. The mitral valve leaflets are mildly thickened. There is trace mitral regurgitation. The tricuspid valve appears structurally normal. Trace tricuspid regurgitation present. Right david tricular systolic pressure is normal at < 35 mmHg. There is no pulmonic regurgitation present. The aortic root size is normal. IVC Not well visulized. There is no pericardial effusion. CONCLUSIONS -------- 1. Sinus rhythm. 2. This was a technically difficult study with suboptimal views. 3. The left ventricular size is normal. 4. Left ventricular wall thickness is normal. 5. Overall left ventricular systolic function is normal with, an EF between 55 - 60 %. 6. The right ventricle is normal in size. 7. The left atrial size is normal. 8. The right atrial size is normal. 9. Lumason used 10. The aortic valve is trileaflet and appears structurally normal. 11. The mitral valve is normal. 12. The mitral valve leaflets are mildly thickened. 13. There is trace mitral regurgitation. 14. The tricuspid valve appears structurally normal. 15. Trace tricuspid regurgitation present. 16. Right ventricular systolic pressure is normal at < 35 mmHg. 17. There is no pulmonic regurgitation present. 18. The aortic root size is normal. 19. IVC Not well visulized. 20. There is no pericardial effusion. WAGE ADJUSTER: Noemi Dhillon RDCS
[2019-11-16] MEDS: ASPIRIN 325 MG TAB PO SCH (12:22)
--- NOTE | 2019-11-16 15:22 | P.HPIM ---
History of Present Illness H&P Date: 11/16/19 Chief Complaint: Syncope with chest pain and vomiting 54-year-old male patient past medical history recent diagnosis of HIV, hypomagnesemia, past substance abuse, current elevated liver enzymes. On 11/15/2019 presented to the emergency room due to witnessed syncopal episode for approximately 1 minute. He was returning home from a magnesium infusion at the hospital. His brother was assisting him into his apartment developed chest pain and collapsed to the floor. This is not the first time that this has happened but they decided to bring him to the emergency room after this episode. Review of Systems Constitutional: Reports anorexia, Reports chills, Reports chronic pain, Reports fatigue, Reports sweats, Reports weakness Ears, nose, mouth and throat: Reports as per HPI Cardiovascular: Reports chest pain, Reports dyspnea on exertion, Reports irregular heart beat Respiratory: Reports as per HPI Gastrointestinal: Reports as per HPI, Reports abdominal pain, Reports loss of appetite Genitourinary: Reports as per HPI Musculoskeletal: Reports frequent falls, Reports muscle weakness, Reports myalgias Integumentary: Reports as per HPI Neurological: Reports change in mentation, Reports syncope Psychiatric: Reports anxiety, Reports hopelessness, Reports memory loss Endocrine: Reports as per HPI Hematologic/Lymphatic: Reports as per HPI Allergic/Immunologic: Reports as per HPI Past Medical History Past Medical History: No Reported History, Chest Pain / Angina, GERD/Reflux, Liver Disease, Memory Impairment, Syncope Additional Past Medical History / Comment(s): low mag, liver failure, hiv + History of Any Multi-Drug Resistant Organisms: None Reported Past Surgical History: Heart Catheterization, Hernia Repair Additional Past Surgical History / Comment(s): november 2018 heart cath Past Anesthesia/Blood Transfusion Reactions: No Reported Reaction Date of Last Stent Placement:: 11/2018 Past Psychological History: Depression Smoking Status: Former smoker Past Alcohol Use History: None Reported Past Drug Use History: None Reported - Past Family History Father Family Medical History: Cancer, Coronary Artery Disease (CAD) Additional Family Medical History / Comment(s): Father in his 70s from some type of cancer. Mother Additional Family Medical History / Comment(s): Mother in her 60s from Alzheimer's dementia. Brother(s) Additional Family Medical History / Comment(s): Patient has 1 brother and 1 sister with no major medical problems. Medications and Allergies Home Medications Medication Instructions Recorded Confirmed Type Magnesium Oxide [Mag-Ox] 400 mg PO BID 10/07/19 11/15/19 History Allergies Allergy/AdvReac Type Severity Reaction Status Date / Time No Known Allergies Allergy Verified 11/15/19 18:36 Physical Exam Vitals: Vital Signs Temp Pulse Pulse Pulse Pulse Pulse Resp 11/16/19 12:00 111 H 16 11/16/19 08:45 98.3 F 136 H 124 H 106 H 18 11/16/19 04:07 18 11/16/19 04:00 97.7 F 100 20 11/16/19 00:00 98.3 F 99 18 11/15/19 22:33 93 18 11/15/19 21:00 105 H 18 11/15/19 20:00 106 H 18 11/15/19 19:00 114 H 18 11/15/19 18:28 126 H 18 11/15/19 17:36 98.0 F 137 H 18 BP BP BP BP BP Pulse Ox 11/16/19 12:00 102/65 98 11/16/19 08:45 83/52 84/54 91/61 95 11/16/19 04:07 96 11/16/19 04:00 121/75 90 L 11/16/19 00:00 112/70 97 11/15/19 22:33 91/61 100 11/15/19 21:00 106/79 97 11/15/19 20:00 108/72 98 11/15/19 19:00 97/68 100 11/15/19 18:28 100/65 99 11/15/19 17:36 92/65 100 Intake and Output 11/15/19 11/16/19 11/16/19 22:59 06:59 14:59 Output Total 0 Balance 0 Output: Urine 0 Other: # Voids 1 Weight 49.6 kg 49.6 kg 49.6 kg GENERAL: Ill appearing malnourished adult, A and O X3, following commands HEAD: Atraumatic, normocephalic. EYES: Pupils equal round and reactive to light, extraocular movements intact, sclera anicteric, conjunctiva are normal. ENT:nares patent, oropharynx clear without exudates. Moist mucous membranes. NECK: Normal range of motion, supple without lymphadenopathy or JVD, no thyromegaly LUNGS: Breath sounds clear to auscultation bilaterally and equal. No wheezes rales or rhonchi. HEART: Tachycardia with regular rate and rhythm without murmurs, rubs or gallops.S1S2 Normal ABDOMEN: Soft, soreness with palpation right upper quadrant with some guarding, normoactive bowel sounds. No masses appreciated. EXTREMITIES: Normal range of motion, no pitting or edema. No clubbing or cyanosis. NEUROLOGICAL: Cranial nerves II through XII grossly intact. Normal speech, easily fatigued and weak. PSYCH: Mildly anxious about current health status. SKIN: Warm, Dry, normal turgor, no rashes or lesions noted. Results CBC & Chem 7: 11/15/19 18:00 11/15/19 18:00 Labs: Abnormal Lab Results - Last 24 Hours (Table) 11/15/19 11/15/19 11/15/19 Range/Units 18:00 18:00 18:00 WBC 3.2 L (3.8-10.6) k/uL RBC 3.22 L (4.30-5.90) m/uL Hgb 9.8 L (13.0-17.5) gm/dL Hct 29.5 L (39.0-53.0) % Lymphocytes # 0.3 L (1.0-4.8) k/uL D-Dimer 0.77 H (<0.60) mg/L FEU Sodium 133 L (137-145) mmol/L Chloride 89 L (98-107) mmol/L Carbon Dioxide 31 H (22-30) mmol/L BUN 37 H (9-20) mg/dL Glucose 150 H (74-99) mg/dL Calcium 10.5 H (8.4-10.2) mg/dL AST 549 H (17-59) U/L ALT 345 H (4-49) U/L Alkaline Phosphatase 245 H (38-126) U/L Albumin 3.4 L (3.5-5.0) g/dL HDL Cholesterol (40-60) mg/dL Urine Protein (Negative) Urine Mucus (None) /hpf 11/15/19 11/16/19 Range/Units 19:15 06:40 WBC (3.8-10.6) k/uL RBC (4.30-5.90) m/uL Hgb (13.0-17.5) gm/dL Hct (39.0-53.0) % Lymphocytes # (1.0-4.8) k/uL D-Dimer (<0.60) mg/L FEU Sodium (137-145) mmol/L Chloride (98-107) mmol/L Carbon Dioxide (22-30) mmol/L BUN (9-20) mg/dL Glucose (74-99) mg/dL Calcium (8.4-10.2) mg/dL AST (17-59) U/L ALT (4-49) U/L Alkaline Phosphatase (38-126) U/L Albumin (3.5-5.0) g/dL HDL Cholesterol 18 L (40-60) mg/dL Urine Protein 1+ H (Negative) Urine Mucus Rare H (None) /hpf Thrombosis Risk Factor Assmnt - Choose All That Apply Each Factor Represents 1 point: Age 41-60 years Thrombosis Risk Factor Assessment Total Risk Factor Score: 1 Thrombosis Risk Factor Assessment Level: Low Risk Assessment and Plan (1) HIV disease Current Visit: Yes Status: Acute Code(s): B20 - HUMAN IMMUNODEFICIENCY VIRUS [HIV] DISEASE SNOMED Code(s): 57392089 (2) HIV dementia Current Visit: Yes Status: Acute Code(s): B20 - HUMAN IMMUNODEFICIENCY VIRUS [HIV] DISEASE; F02.80 - DEMENTIA IN OTH DISEASES CLASSD ELSWHR W/O BEHAVRL DISTURB SNOMED Code(s): 933223686 (3) Chest pain Current Visit: Yes Status: Acute Code(s): R07.9 - CHEST PAIN, UNSPECIFIED SNOMED Code(s): 57341616 (4) Syncope Current Visit: Yes Status: Acute Code(s): R55 - SYNCOPE AND COLLAPSE SNOMED Code(s): 527629944 (5) Hypomagnesemia Current Visit: No Status: Acute Code(s): E83.42 - HYPOMAGNESEMIA SNOMED Code(s): 196814599 (6) Lightheadedness Current Visit: No Status: Acute Code(s): R42 - DIZZINESS AND GIDDINESS SNOMED Code(s): 896811739 (7) Pancytopenia Current Visit: No Status: Acute Priority: Medium Code(s): D61.818 - OTHER PANCYTOPENIA SNOMED Code(s): 792286177 (8) Transaminitis Current Visit: No Status: Acute Code(s): R74.0 - NONSPEC ELEV OF LEVELS OF TRANSAMNS & LACTIC ACID DEHYDRGNSE SNOMED Code(s): 232724802 (9) Weakness Current Visit: No Status: Acute Code(s): R53.1 - WEAKNESS SNOMED Code(s): 64596854 Plan: 1. Continue to monitor vital signs 2. Initiate banana bag with multivitamins IV 3. Continue fall risk 4. We'll continue daily lab draws 5. We'll consult GI doctor (Dr. Cerda) for transaminitis 6. Dehydration 7. Consult infectious disease Dr. Martinez 8. We'll reassess tomorrow Time with Patient: Greater than 30
[2019-11-16] MEDS ORDERED: SODIUM CHLORIDE 0.9% 1,000 ML with MVI, ADULT NO.4 WITH VIT K 10 ML, THIAMINE 100 MG, F... IV ONE ×4 (15:30)
--- NOTE | 2019-11-16 16:15 | ECHOS ---
STRESS ECHOCARDIOGRAM LUMASON: Vial INDICATIONS: Chest pain. MEDICATIONS: BASELINE HEART RATE: 107 BASELINE BLOOD PRESSURE: 132/59 MAXIMUM HEART RATE: 156 MAXIMUM BLOOD PRESSURE: 110/72 85% MPHR: 143 100% MPHR: 168 METS: MAXIMUM STAGE REACHED: TOTAL EXERCISE TIME: CLINICAL INFORMATION: Baseline EKG revealed normal sinus rhythm, sinus tachycardia without significant ST-T changes. With the dobutamine administration, the patient's heart rate went up to 155 beats per minute. Resting heart rate was about 107 beats per minute. He did not have any symptoms. EKG did not reveal any ST-segment changes to indicate ischemia. There was no significant arrhythmia. By EKG criteria, this is unremarkable dobutamine stress test. Baseline echo images revealed normal wall motion and wall thickening of all segments. This patient was administered echo contrast to enhance quality of images. With the dobutamine administration there was progressive increase in contractility noted suggesting that there is no evidence of stress-induced ischemia on this study. Patient's maximal heart rate was 155 beats per minute and he received about 30 mcg of dobutamine. However, he developed some transient hypotension requiring some fluids and the pressure came back to 110/70, and he was then sent back to his room. He did not have any symptoms whatsoever. By EKG criteria, this is an unremarkable dobutamine stress test. Normal dobutamine stress echocardiogram without evidence of ischemia. MMODL / IJN: [id number] /
[2019-11-16] MEDS: MAGNESIUM OXIDE 400 MG TAB PO SCH (20:06)
[2019-11-17 07:32] LABS: Albumin 2.5 g/dL (3.5-5.0); Calcium 8.8 mg/dL (8.4-10.2); Magnesium 1.1 mg/dL (1.6-2.3); Total Bilirubin 0.4 mg/dL (0.2-1.3); Total Protein 6.6 g/dL (6.3-8.2)
[2019-11-17 07:43] LABS: Anisocytosis Slight; Basophils % (A) 1 %; Eosinophils # (A) 0.2 k/uL (0-0.7); Eosinophils % (A) 7 %; HCT 23.8 % (39.0-53.0); Lymphocytes # (A) 0.4 k/uL (1.0-4.8); Lymphocytes % (A) 11 %; MCH 30.6 pg (25.0-35.0); MCHC 32.8 g/dL (31.0-37.0); MCV 93.2 fL (80.0-100.0); Mean Platelet Volume 9.6; Monocytes # (A) 0.1 k/uL (0-1.0); Monocytes % (A) 4 %; Neutrophils # (A) 2.6 k/uL (1.3-7.7); Neutrophils % (A) 77 %; Platelet Count 141 k/uL (150-450); RBC 2.56 m/uL (4.30-5.90); RDW 16.2 % (11.5-15.5); WBC 3.3 k/uL (3.8-10.6)
[2019-11-17 07:49] LABS: HGB 7.8 gm/dL (13.0-17.5)
[2019-11-17] MEDS ORDERED: Magnesium Replacement Protocol 1 EACH MISC MISCELLANE PRN (07:52)
[2019-11-17] MEDS: MAGNESIUM SULFATE-D5W PMX 1 GM in DEXTROSE/WATER 1 100ML.BAG IVPB SCH ×3 (08:46→15:32)
[2019-11-17] MEDS: ASPIRIN 325 MG TAB PO SCH (08:47)
[2019-11-17] MEDS: MAGNESIUM OXIDE 400 MG TAB PO SCH ×2 (08:47→20:30)
--- NOTE | 2019-11-17 10:33 | P.PN ---
Subjective Progress Note Date: 11/17/19 This is a 54-year-old gentleman with history of HIV, chronic hypomagnesemia, elevated liver enzymes, who presented to the hospital complaining of a syncopal episode with prior dizziness. Patient also had an episode of chest discomfort prior to this episode and for this reason a cardiology consultation was requested. His EKG did not reveal any significant changes and CTA of the chest was negative for pulmonary embolism. Patient was seen in consultation yesterday by Dr. Marie and advised to undergo a stress echocardiographic study which was performed yesterday and was negative for any reversible ischemia. Echocardiogram with Doppler study revealed an ejection fraction of 55-60%. Blood pressure 128/60 with a heart rate of 108, 99% on 2 L of oxygen. White blood cell count 3.3, hemoglobin 7.8, platelet count 141. Sodium 134, potassium 4.0, BUN 25, creatinine 1.1. AST 3:15 ALT 258 alk phos 204 total bilirubin 0.4, GGT 468. At the time of my examination this morning the patient denies any ch est discomfort in his breathing is stable. He states that he ate a good breakfast this morning. He does still complain of intermittent episodes of dizziness. Objective - Vital Signs Vital signs: Vital Signs Temp 98 F 11/17/19 08:00 Pulse 125 H 11/17/19 08:00 Resp 22 11/17/19 08:00 BP 95/45 11/17/19 08:00 Pulse Ox 95 11/17/19 08:00 Intake & Output 11/16/19 11/17/19 11/17/19 18:59 06:59 18:59 Intake Total 120 270 Output Total 200 Balance -80 270 Weight 49.6 kg 50.3 kg Intake: Oral 120 270 Output: Urine 200 Other: # Voids 2 1 # Bowel Movements 0 - Exam PHYSICAL EXAMINATION: GENERAL: 54-year-old thin, frail, 54-year-old gentleman in no acute distress at the time of my examination HEENT: Head is atraumatic, normocephalic. Pupils equal, round. Sclera anicteric. Conjunctiva are clear. Mucous membranes of the mouth are moist. Neck is supple. There is no elevated jugular venous pressure. No carotid] b ruit is heard. HEART EXAMINATION: Heart S1, S2 normal. No murmur or gallop heard. CHEST EXAMINATION: Lungs are clear to auscultation and precussion. No chest wall tenderness is noted on palpation or with deep breathing. ABDOMEN: Soft, nontender. Bowel sounds are heard. No organomegaly noted. EXTREMITIES: 2+ peripheral pulses with no evidence of peripheral edema and no calf tenderness noted. NEUROLOGIC patient is awake, alert and oriented 3 . . - Labs CBC & Chem 7: 11/17/19 06:31 11/17/19 06:31 Labs: Abnormal Lab Results - Last 24 Hours (Table) 11/16/19 11/17/19 11/17/19 Range/Units 06:40 06:31 06:31 WBC 3.3 L (3.8-10.6) k/uL RBC 2.56 L (4.30-5.90) m/uL Hgb 7.8 L D (13.0-17.5) gm/dL Hct 23.8 L (39.0-53.0) % RDW 16.2 H (11.5-15.5) % Plt Count 141 L (150-450) k/uL Lymphocytes # 0.4 L (1.0-4.8) k/uL Sodium 134 L (137-145) mmol/L BUN 25 H (9-20) mg/dL Magnesium 1.1 L (1.6-2.3) mg/dL GGT 468 H (15-73) U/L AST 315 H (17-59) U/L ALT 258 H (4-49) U/L Alkaline Phosphatase 204 H (38-126) U/L Albumin 2.5 L (3.5-5.0) g/dL Assessment and Plan Plan: Assessment and plan #1 atypical chest pain, stress echocardiographic study negative for reversible is. Echocardiogram with Doppler study revealed a normal left ventricular systolic function. #2 dizziness and syncope #3 HIV #4 chronic hypomagnesemia #5 elevated liver enzymes Plan We will check and is set of orthostatic blood pressure on the patient, his stress echo was negative for reversible ischemia and echo revealed normal left ventricular systolic function. From cardiology's perspective the patient may be able to be discharged home, follow-up in the office post discharge. DNP note has been reviewed, I agree with a documented findings and plan of care. Patient was seen and examined.
[2019-11-17 12:58] LABS: T4/T8 Ratio (CD4:CD8) 0.2 (1.0-3.7)
--- NOTE | 2019-11-17 13:44 | P.PN ---
Subjective Progress Note Date: 11/17/19 Principal diagnosis: Syncope with chest pain and vomiting 54-year-old male patient presented emergency room on 11/15/2019 due syncopal episode which lasted approximately 1 minute was witnessed by his brother. He had just returned from the infusion center and where he received 2 g of magnesium for hypomagnesemia. His past medical history of HIV positive hypomagnesemia past substance abuse current liver enzymes are elevated. 11/17/2019 54-year-old male gentleman admitted for syncope chest pain nausea. Currently laying in bed comfortably with no complaints at this time. Underwent echocardiogram yesterday with ejection fraction of 55-60%. Blood pressure is stable at 109/64 afebrile 98.6 respiratory rate 18 on room air and is satting 95%. GGT level was 468, AST reduced to 3:15, ELT reduced to 50 805S has come down from 204, magnesium today was 1.1 and was treated with IV magnesium as he is on protocol this time. Objective - Vital Signs Vital signs: Vital Signs Temp 98.6 F 11/17/19 12:00 Pulse 125 H 11/17/19 08:00 Resp 18 11/17/19 12:00 BP 109/64 11/17/19 12:00 Pulse Ox 95 11/17/19 12:00 Intake & Output 11/16/19 11/17/19 11/17/19 18:59 06:59 18:59 Intake Total 120 270 Output Total 200 Balance -80 270 Weight 49.6 kg 50.3 kg Intake: Oral 120 270 Output: Urine 200 Other: # Voids 2 1 # Bowel Movements 0 - Exam GENERAL: Frail, dehydrated, malnourished, but in no acute distress. HEAD: Atraumatic, normocephalic. EYES: Pupils equal round and reactive to light, extraocular movements intact, sclera anicteric, conjunctiva are normal. ENT:nares patent, oropharynx clear without exudates. Moist mucous membranes. NECK: Normal range of motion, supple without lymphadenopathy or JVD, no thyromegaly LUNGS: Breath sounds clear to auscultation bilaterally and equal. No wheezes rales or rhonchi. HEART: Regular rate and rhythm without murmurs, rubs or gallops.S1S2 Normal ABDOMEN: Soft, nontender, normoactive bowel sounds. No guarding, no rebound. No masses appreciated. EXTREMITIES: Normal range of motion, no pitting or edema. No clubbing or cyanosis. NEUROLOGICAL: Cranial nerves II through XII grossly intact. Normal speech, normal gait. PSYCH: Normal mood, normal affect. SKIN: Warm, Dry, flaking, tenting turgor, no rashes or lesions noted. - Labs CBC & Chem 7: 11/17/19 06:31 11/17/19 06:31 Labs: Abnormal Lab Results - Last 24 Hours (Table) 11/16/19 11/16/19 11/17/19 Range/Units 06:40 06:40 06:31 WBC 3.3 L (3.8-10.6) k/uL RBC 2.56 L (4.30-5.90) m/uL Hgb 7.8 L D (13.0-17.5) gm/dL Hct 23.8 L (39.0-53.0) % RDW 16.2 H (11.5-15.5) % Plt Count 141 L (150-450) k/uL Lymphocytes # 0.4 L (1.0-4.8) k/uL Sodium (137-145) mmol/L BUN (9-20) mg/dL Magnesium (1.6-2.3) mg/dL GGT 468 H (15-73) U/L AST (17-59) U/L ALT (4-49) U/L Alkaline Phosphatase (38-126) U/L Albumin (3.5-5.0) g/dL % CD4 Nursery 17 L (35-66) % Absolute CD4 Nursery 84 L (443-1471) cell/ul CD4/CD8 Ratio 0.2 L (1.0-3.7) % CD8 Suppressor 71 H (9-37) % 11/17/19 Range/Units 06:31 WBC (3.8-10.6) k/uL RBC (4.30-5.90) m/uL Hgb (13.0-17.5) gm/dL Hct (39.0-53.0) % RDW (11.5-15.5) % Plt Count (150-450) k/uL Lymphocytes # (1.0-4.8) k/uL Sodium 134 L (137-145) mmol/L BUN 25 H (9-20) mg/dL Magnesium 1.1 L (1.6-2.3) mg/dL GGT (15-73) U/L AST 315 H (17-59) U/L ALT 258 H (4-49) U/L Alkaline Phosphatase 204 H (38-126) U/L Albumin 2.5 L (3.5-5.0) g/dL % CD4 Nursery (35-66) % Absolute CD4 Nursery (443-1471) cell/ul CD4/CD8 Ratio (1.0-3.7) % CD8 Suppressor (9-37) % Assessment and Plan (1) HIV disease Current Visit: Yes Status: Acute Code(s): B20 - HUMAN IMMUNODEFICIENCY VIRUS [HIV] DISEASE SNOMED Code(s): 53026698 (2) HIV dementia Current Visit: Yes Status: Acute Code(s): B20 - HUMAN IMMUNODEFICIENCY VIRUS [HIV] DISEASE; F02.80 - DEMENTIA IN OTH DISEASES CLASSD ELSWHR W/O BEHAVRL DISTURB SNOMED Code(s): 467834860 (3) Chest pain Current Visit: Yes Status: Acute Code(s): R07.9 - CHEST PAIN, UNSPECIFIED SNOMED Code(s): 48054653 (4) Syncope Current Visit: Yes Status: Acute Code(s): R55 - SYNCOPE AND COLLAPSE SNOMED Code(s): 846261776 (5) Hypomagnesemia Current Visit: No Status: Acute Code(s): E83.42 - HYPOMAGNESEMIA SNOMED Code(s): 668410007 (6) Lightheadedness Current Visit: No Status: Acute Code(s): R42 - DIZZINESS AND GIDDINESS SNOMED Code(s): 931921964 (7) Pancytopenia Current Visit: No Status: Acute Priority: Medium Code(s): D61.818 - OTHER PANCYTOPENIA SNOMED Code(s): 217487523 (8) Transaminitis Current Visit: No Status: Acute Code(s): R74.0 - NONSPEC ELEV OF LEVELS OF TRANSAMNS & LACTIC ACID DEHYDRGNSE SNOMED Code(s): 788868119 (9) Weakness Current Visit: No Status: Acute Code(s): R53.1 - WEAKNESS SNOMED Code(s): 49883942 Plan: 1. We'll continue to monitor vitals and labs. 2. We'll continue with electrolyte replacement protocol for magnesium. 3. Initiate CIWA protocol for possible alcohol withdrawal. 4. We'll follow recommendations from both GI and infectious disease 5. We'll continue to rehydrate. 6. Will infuse one multivitamin IV bed. 7. Reorder lab work for tomorrow morning 8. We'll reassess tomorrow Time with Patient: Greater than 30
[2019-11-17] MEDS ORDERED: SODIUM CHLORIDE 0.9% 1,000 ML with MVI, ADULT NO.4 WITH VIT K 10 ML, THIAMINE 100 MG, F... IV ONE ×4 (14:00)
[2019-11-17] MEDS ORDERED: LORazepam 2 MG/ML INJ IV PRN ×3 (14:01)
[2019-11-17] MEDS ORDERED: THIAMINE 100 MG/ML 2 ML VIAL IM STA (14:01)
--- NOTE | 2019-11-17 15:03 | P.CN ---
Psychiatric Consult - . Consult date: 11/17/19 Consult:: 11/17/19 14:55 IDENTIFYING DATA: This patient is a 54-year-old male currently lives with his brother in an apartment and has no kids. HISTORY OF PRESENT ILLNESS: The patient presented to the hospital with the complaint of syncope chest pain and nausea. Apparently according to the ER report patient was leaving the [facility] for a magnesium infusion and while going up the stairs patient became dizzy and had loss of consciousness for 1 minute. Patient's WBCs were 3.2 and UA was negative on admission. Patient had a computed tomography scan of his brain which did not show any acute changes. Patient did have however age-related atrophy and chronic small vessel changes. Patient was asked to be seen for "HIV anxiety/dementia". Nurse taking care of patient claims that patient recently had a new diagnosis of HIV. Patient was seen at the bedside and was initially cooperative with singer songwriter however was a poor historian and was easily distracted at times by different noises in the hallways. Patient spoke about "I got a lot going on right now" and spoke about seeing "lots of doctors" and that "they will figure it out". He did speak briefly about feeling overwhelmed and possibly depressed and anxious. She was not able to elaborate much on this. Patient was evasive and vague during the interview. He became irritated penitentiary through the interview and told the singer songwriter to leave several times and stopped responding to questions. He denies any suicidal or homical ideations, intent or plan. Patient denies any auditory, visual hallucinations. PAST PSYCHIATRIC HISTORY: Patient has a a history of depression and anxiety. Unknown psychiatric history. Patient does not have any previous mental health admissions as per EMR. PAST MEDICAL HISTORY: HIV, liver failure, low magnesium. ALLERGIES: as per EMR. CHEMICAL DEPENDENCY HISTORY: as per HPI. FAMILY PSYCHIATRIC/SUBSTANCE USE HISTORY: denies SOCIAL HISTORY: Unable to obtain social history. MENTAL STATUS EXAM: General Appearance: Patient appears to be stated age is alert, irritated and dismissive. Patient appears to have poor hygiene and grooming wearing hospital gown with fair eye contact. Behavior: Patient is calmly lying in bed without any agitated behavior. Irritated and dismissive. Speech: Patient's speech is fluent and nonpressured. Mood/Affect: Patient reports their mood is possibly depressed and anxious, affect is incongruent Suicidality/Homicidality: Patient denies having any suicidal or homicidal ideation intent or plan. Perceptions: Patient denies any visual hallucinations and denies any auditory hallucinations Though content/process: Poor train of thought, logical. Demanding Memory and concentration: Unwilling to cooperate with cognitive exam. Judgment and insight: Limited IMPRESSIONS: Delirium, likely multifactorial Possible underlying depressive disorder and anxiety disorder. Possible alcohol abuse per history. PLAN: -At this time patient DOES NOT meet criteria for inpatient psychiatric a dmission. -Delirium precautions recommended with patient including - avoiding use of narcotics and [employer] sedatives, limit anticholinergic medications when possible, frequent re-orientation, minimize use of restraints, open window shades during the day and close them at night -Would recommend the following medication changes/additions: Would highly recommend decreasing patient's Ativan or any benzodiazepines as soon as clinically appropriate as this may be contributing to patient's altered mental status. Patient was unwilling to speak about medications to help with his anxiety and depression however if patient is willing in the near future to be started on Zoloft 50 mg daily then this could be started. -Continue with treatment of underlying medical comorbidities. Continue with [facility] protocol for possible alcohol withdrawal. -Psychiatry will sign off at this point, please contact with any questions.
[2019-11-17] MEDS: THIAMINE 100 MG TAB PO SCH (17:02)
--- NOTE | 2019-11-17 19:53 | PN ---
PROGRESS NOTE DATE OF SERVICE: 11/17/2019 REASON FOR FOLLOW UP: 1. HIV/AIDS. 2. Elevated liver enzymes. INTERVAL HISTORY: The patient is currently afebrile. Patient is breathing comfortably. Denies having any chest pain or shortness of breath or cough. No abdominal pain or diarrhea. The patient is slightly jittery. The patient continues to deny alcohol use. PHYSICAL EXAMINATION: Blood pressure 109/64 with a pulse of 125, temperature 98.6, he is 95% on room air. General description: The patient is a middle-aged male lying in bed in no distress. Respiratory system: Unlabored breathing. Clear to auscultation anteriorly. Heart S1, S2. Regular rate and rhythm. Abdomen soft. No tenderness. LABS: White count 3.3, 84. The liver enzymes have improved with ALT down to 258 from 345. His GGT has been high. DIAGNOSTIC IMPRESSION AND PLAN: 1. Patient with HIV/AIDS, CD4 count is very low with waiting for his genotype to improve before starting on . We will add Bactrim for prophylaxis. 2. Elevated liver enzymes, possibly related to alcoholism. The patient has been denying. We will check a serum alcohol level on his blood draw on admission. 3. Await further recommendations from Gastroenterology. 4. Continue supportive care. MMODL / IJN: [id number] /
[2019-11-17 22:55] VITALS: RESP 18
--- NOTE | 2019-11-17 23:49 | CONS ---
CONSULTATION DATE OF DICTATION: 11/17/2019 REASON FOR CONSULTATION: Elevated LFTs. HISTORY OF PRESENT ILLNESS: The patient is a 54-year-old white male with history of HIV diagnosed a few months ago with decreased CD4 was being evaluated by Dr. Cerda on an outpatient basis for elevated serum transaminase for the last 6 weeks duration. Serum transaminases were slightly elevated since August of this year and they continue to gradually increase and he was seen by Dr. Cerda in the office about 2 weeks ago. Serum transaminases were in the range of 500s at that time with a normal bilirubin and alkaline phosphatase. He had extensive workup done on outpatient basis and all workup for chronic liver disease including hepatitis serologies for A, B and C, autoimmune workup, metabolic workup was all negative. The patient denies being on any new medications in the last 2 months. In fact, his only outpatient medication is on magnesium supplements. He was taking [place] in the past, which he quit taking about a month ago. He was admitted to hospital with shortness of breath and feeling weak and tired. He denies any alcohol use. He states that he was an alcoholic when he was young, but he quit drinking about 30 years ago. He reports no abdominal pain. No nausea, vomiting. PAST MEDICAL HISTORY: Significant for HIV with low CD4 count diagnosed 2 months ago. PAST SURGICAL HISTORY: Hernia repair, cardiac catheterization. MEDICATIONS AT HOME: Magnesium supplement. ALLERGIES: None. SOCIAL HISTORY: Alcohol abuse in the past. Quit drinking 30 years ago. Former smoker. FAMILY HISTORY: Father coronary artery disease. Mother had Alzheimer's dementia. REVIEW OF SYSTEMS: CARDIOPULMONARY: No chest pain or shortness of breath. GENITOURINARY: No dysuria or hematuria. MUSCULOSKELETAL: Unremarkable. SKIN: Unremarkable. ENDOCRINE: Unremarkable. PSYCHIATRIC: Unremarkable. NEUROLOGY: Unremarkable. ENT/VISION: Unremarkable. CONSTITUTIONAL: Weight loss of 20 pounds. No fever, chills or night sweats. PHYSICAL EXAMINATION: On physical examination, he appears comfortable in no apparent distress. Vital signs are stable. Blood pressure 112/86, pulse rate 85 and afebrile. HEENT EXAMINATION: Unremarkable. Conjunctivae pink. Sclerae anicteric. Oral cavity no lesions. NECK: No JVD or lymph node enlargement. CHEST: Clear to auscultation. HEART: Regular rate and rhythm. ABDOMEN: Soft. Bowel sounds are positive. No organomegaly. There was mild tenderness in the right upper quadrant area. EXTREMITIES: No pedal edema. SKIN: No rashes. NEUROLOGIC: Alert and oriented x3. No focal deficits. LABS: Labs done at the time of admission to the hospital: WBC 3.2, hemoglobin 9.8, platelets normal, MCV normal. PT/INR is within normal limits. AST and ALT are 549 and 345 respectively, alkaline phosphatase 245, T-bilirubin is normal. Today AST is down to 318, ALT is down to 258, and alkaline phosphatase 204. T bilirubin is normal. Platelets are slightly decreased at 141, hemoglobin 7.8, and WBC 3.3. Coronavirus PCR is negative. CD4 levels are 17 and 84. IMPRESSION: 1. Elevated serum transaminases for the last 2 months' duration. The patient has history of remote history of heavy alcohol use and he states that he has quit drinking completely about 30 years ago. He had extensive investigation by Dr. Cerda on outpatient basis including hepatitis serologies for A, B and C, autoimmune workup and metabolic workup all of which was negative. He is also noted to have mild pancytopenia, which raises the possibility of underlying chronic liver disease with cirrhosis of the liver. Etiology of elevated serum transaminases continues to remain unclear, possibility of active alcohol use cannot be excluded. However, the patient is denying it at this present time. Serum transaminases have been gradually increasing for the last 2 months and he is not on any medications other than magnesium supplements at the current time to rule out alcoholic liver disease versus medication induced hepatitis. 2. Decreased CD4 count/HIV, presently on no medications. RECOMMENDATIONS: I had a lengthy discussion with the patient and at this time will proceed with ultrasound-guided liver biopsy for a definitive diagnosis. I explained to him risks, benefits, and complications of procedure and he is agreeable to it. The plan was discussed with Dr. Montoya. We will follow him closely. Thank you for this consultation. MMODL / IJN: [id number] /
--- NOTE | 2019-11-18 00:19 | P.CONS ---
History of Present Illness - Reason for Consult Consult date: 11/16/19 HIV Requesting physician: Vega Montoya Jr - Chief Complaint Syncopal episode x 1 day - History of Present Illness Patient is a 54-year male with a past medical he significant for chronic low magnesium and this patient has been recent diagnosis in the outpatient setting with HIV medication has been put on hold as the patient was noticed to have elevated liver enzymes which is currently being worked up in the outpatient setting by GI patient presenting to the ER yesterday with a syncopal episode apparently the patient was living [facility] cancer treated with the patient did have magnesium infusion when he was walking up the stairs with his brother he began to feel very dizzy patient sat on the step and have witnessed loss of consciousness approximately 1 minute for that reason and the patient has been brought into the ER with the patient has been evaluated by the ER physician. Have extensive work-up including a CT of the brain there was negative for any bleed patient did have a CT angiogram that was negative for PE this shows mild elevated edema no suspicious focal infiltrate patient has been afebrile slightly leukopenic and he did have an elevated liver enzymes infectious was consulted for further management of his underlying HIV. The patient will denies having any headache no URI symptoms no chest pain or shortness of breath minimal cough no nausea vomiting no abdominal pain or diarrhea no urinary symptoms Review of Systems Positive point has been mentioned in HPI rest of the systems are negative Past Medical History Past Medical History: No Reported History, Chest Pain / Angina, GERD/Reflux, Liver Disease, Memory Impairment, Syncope Additional Past Medical History / Comment(s): low mag, liver failure, hiv + History of Any Multi-Drug Resistant Organisms: None Reported Past Surgical History: Heart Catheterization, Hernia Repair Additional Past Surgical History / Comment(s): november 2018 heart cath Past Anesthesia/Blood Transfusion Reactions: No Reported Reaction Date of Last Stent Placement:: 11/2018 Past Psychological History: Depression Smoking Status: Former smoker Past Alcohol Use History: None Reported Past Drug Use History: None Reported - Past Family History Father Family Medical History: Cancer, Coronary Artery Disease (CAD) Additional Family Medical History / Comment(s): Father in his 70s from some type of cancer. Mother Additional Family Medical History / Comment(s): Mother in her 60s from Alzheimer's dementia. Brother(s) Additional Family Medical History / Comment(s): Patient has 1 brother and 1 sister with no major medical problems. Medications and Allergies Home Medications Medication Instructions Recorded Confirmed Type Magnesium Oxide [Mag-Ox] 400 mg PO BID 10/07/19 11/15/19 History Allergies Allergy/AdvReac Type Severity Reaction Status Date / Time No Known Allergies Allergy Verified 11/15/19 18:36 Physical Exam Vitals: Vital Signs Temp Pulse Pulse Pulse Resp BP BP 11/17/19 08:00 98 F 125 H 22 11/17/19 04:00 97.8 F 116 H 18 129/69 11/17/19 00:00 97.8 F 104 H 20 90/57 11/16/19 20:10 18 11/16/19 20:00 97.9 F 109 H 20 99/54 11/16/19 15:45 98.2 F 111 H 18 105/53 11/16/19 12:00 111 H 16 102/65 BP Pulse Ox 11/17/19 08:00 95/45 95 11/17/19 04:00 99 11/17/19 00:00 99 11/16/19 20:10 94 L 11/16/19 20:00 92 L 11/16/19 15:45 96 11/16/19 12:00 98 Intake and Output 11/16/19 11/17/19 11/17/19 22:59 06:59 14:59 Intake Total 390 Output Total 200 Balance 190 Intake: Oral 390 Output: Urine 200 Other: # Voids 1 1 # Bowel Movements 0 Weight 50.3 kg GENERAL DESCRIPTION: Middle-aged male lying in bed, no distress. No tachypnea or accessory muscle of respiration use. HEENT: Shows Pallor , no scleral icterus. Oral mucous membrane is dry. NECK: Trachea central, no thyromegaly. LUNGS: Unlabored breathing. Clear to auscultation anteriorly. No wheeze or crackle. HEART: S1, S2, regular rate and rhythm. ABDOMEN: Soft, no tenderness , guarding or rigidity EXTREMITIES: No edema of feet. SKIN: No rash, no masses palpable. NEUROLOGICAL: The patient is awake, alert, oriented x3, mood and affect normal. Results CBC & Chem 7: 11/17/19 06:31 11/17/19 06:31 Labs: Abnormal Lab Results - Last 24 Hours (Table) 11/16/19 11/17/19 11/17/19 Range/Units 06:40 06:31 06:31 WBC 3.3 L (3.8-10.6) k/uL RBC 2.56 L (4.30-5.90) m/uL Hgb 7.8 L D (13.0-17.5) gm/dL Hct 23.8 L (39.0-53.0) % RDW 16.2 H (11.5-15.5) % Plt Count 141 L (150-450) k/uL Lymphocytes # 0.4 L (1.0-4.8) k/uL Sodium 134 L (137-145) mmol/L BUN 25 H (9-20) mg/dL Magnesium 1.1 L (1.6-2.3) mg/dL GGT 468 H (15-73) U/L AST 315 H (17-59) U/L ALT 258 H (4-49) U/L Alkaline Phosphatase 204 H (38-126) U/L Albumin 2.5 L (3.5-5.0) g/dL Assessment and Plan Assessment: -patient with HIV recent diagnosed in the outpatient setting in this patient who was prescribed Biktarvy however there was put on hold as the patient was noticed to have elevated liver enzymes. He did have extensive work-up in the outpatient setting by GI with no clear etiology however in view of elevated AST GGT high clinical suspicious of possible alcohol abuse with the patient is currently being denying (1) HIV disease Current Visit: Yes Status: Acute Code(s): B20 - HUMAN IMMUNODEFICIENCY VIRUS [HIV] DISEASE SNOMED Code(s): 79662391 Plan: 1-we will continue to hold on any antiretroviral at this point that his liver enzymes improved all we have radiology for them 2-we will add Bactrim for PCP prophylaxis. 3-we will check daily liver enzymes and if showing a downward trend will point to the possibility of alcohol abuse in the outpatient setting which has been taken off while inpatient We will follow on clinical condition and cultures to further adjust medication if needed Thank you for this consultation we will follow the patient along with you Time with Patient: Greater than 30
[2019-11-18] MEDS: THIAMINE 100 MG TAB PO SCH ×2 (06:27→17:34)
[2019-11-18] MEDS: ASPIRIN 325 MG TAB PO SCH (08:16)
[2019-11-18] MEDS: SULFAMETHOX-TMP 800-160MG 1 EACH TAB PO SCH (08:16)
[2019-11-18] MEDS: MAGNESIUM OXIDE 400 MG TAB PO SCH ×2 (08:16→20:24)
[2019-11-18] MEDS: MULTIVITAMINS, THERA 1 EACH TAB PO SCH (08:16)
[2019-11-18 08:31] LABS: Basophils % (A) 1 %; Eosinophils # (A) 0.2 k/uL (0-0.7); Eosinophils % (A) 7 %; HCT 23.6 % (39.0-53.0); Lymphocytes # (A) 0.3 k/uL (1.0-4.8); Lymphocytes % (A) 13 %; MCH 31.3 pg (25.0-35.0); MCV 92.2 fL (80.0-100.0); Mean Platelet Volume 8.8; Monocytes # (A) 0.1 k/uL (0-1.0); Monocytes % (A) 6 %; Neutrophils # (A) 1.8 k/uL (1.3-7.7); Neutrophils % (A) 71 %; Platelet Count 144 k/uL (150-450); RBC 2.56 m/uL (4.30-5.90); RDW 15.8 % (11.5-15.5); WBC 2.5 k/uL (3.8-10.6)
[2019-11-18 08:43] LABS: ALT 286 U/L (4-49); AST 405 U/L (17-59); African American GFR (CKD) >90 (>60 ml/min/1.73 sqM); Albumin 2.5 g/dL (3.5-5.0); Alkaline Phosphatase 223 U/L (38-126); Anion Gap 8 mmol/L; Blood Urea Nitrogen 26 mg/dL (9-20); Calcium 9.1 mg/dL (8.4-10.2); Carbon Dioxide 28 mmol/L (22-30); Chloride 98 mmol/L (98-107); Glucose 94 mg/dL (74-99); Magnesium 1.5 mg/dL (1.6-2.3); Non-African American GFR(CKD) 78 (>60 ml/min/1.73 sqM); Potassium 3.7 mmol/L (3.5-5.1); Sodium 134 mmol/L (137-145); Total Bilirubin 0.3 mg/dL (0.2-1.3); Total Protein 6.7 g/dL (6.3-8.2)
[2019-11-18 09:10] LABS: Prothrombin Time 10.2 sec (9.0-12.0)
[2019-11-18 10:22] VITALS: BMI 17.7
[2019-11-18] MEDS: MAGNESIUM SULFATE-D5W PMX 1 GM in DEXTROSE/WATER 1 100ML.BAG IVPB SCH ×2 (11:32→15:12)
--- NOTE | 2019-11-18 14:59 | P.PN ---
Subjective Progress Note Date: 11/18/19 Principal diagnosis: Syncope with chest pain and vomiting 54-year-old male patient presented emergency room on 11/15/2019 due syncopal episode which lasted approximately 1 minute was witnessed by his brother. He had just returned from the infusion center and where he received 2 g of magnesium for hypomagnesemia. His past medical history of HIV positive hypomagnesemia past substance abuse current liver enzymes are elevated. 11/17/2019 54-year-old male gentleman admitted for syncope chest pain nausea. Currently laying in bed comfortably with no complaints at this time. Underwent echocardiogram yesterday with ejection fraction of 55-60%. Blood pressure is stable at 109/64 afebrile 98.6 respiratory rate 18 on room air and is satting 95%. GGT level was 468, AST reduced to 3:15, ELT reduced to 50 805S has come down from 204, magnesium today was 1.1 and was treated with IV magnesium as he is on protocol this time. [id number] male gentleman admitted for syncope, chest pain and nausea. Currently the patient is laying in bed comfortably with no complaints at this time. He was to have a ultrasound biopsy today but that was canceled due to the fact that he was on 325 mg aspirin since admission. He was now wait 1 week since his last dose and this will be completed an outpatient basis. Vital signs currently are 98.1 temperature, pulse rate 101, respiratory rate 18, blood pressure in the supine position of 92. Her lab evaluation this patient WBC of 2.5, hemoglobin of 8.0, hematocrit of 22.6, platelet count 144, lymphocytes 0.3, PT of 10.2, INR 1.0. It'll for today sodium 134, potassium at 3.7, WILBER of 26, creatinine of 1.08, GFR 78, magnesium of 1.5 in which she gets magnesium infusion protocol as needed, AST is elevated today for 05, ELT also was elevated from yesterday to 86. Objective - Vital Signs Vital signs: Vital Signs Temp 98.1 F 11/18/19 11:25 Pulse 101 H 11/18/19 11:25 Resp 18 11/18/19 11:25 BP 92/64 11/18/19 11:25 Pulse Ox 98 11/18/19 11:25 Intake & Output 11/17/19 11/18/19 11/18/19 18:59 06:59 18:59 Intake Total 636 900 Balance 636 900 Weight 49.9 kg 49.9 kg Intake: Oral 636 900 Other: Voiding Method Toilet # Voids 5 1 - Exam GENERAL: Frail, dehydrated, malnourished, but in no acute distress. HEAD: Atraumatic, normocephalic. EYES: Pupils equal round and reactive to light, extraocular movements intact, sclera anicteric, conjunctiva are normal. ENT:nares patent, oropharynx clear without exudates. Moist mucous membranes. NECK: Normal range of motion, supple without lymphadenopathy or JVD, no thyromegaly LUNGS: Breath sounds clear to auscultation bilaterally and equal. No wheezes rales or rhonchi. HEART: Regular rate and rhythm without murmurs, rubs or gallops.S1S2 Normal ABDOMEN: Soft, nontender, normoactive bowel sounds. No guarding, no rebound. No masses appreciated. EXTREMITIES: Normal range of motion, no pitting or edema. No clubbing or cyanosis. NEUROLOGICAL: Cranial nerves II through XII grossly intact. Normal speech, normal gait. PSYCH: Normal mood, normal affect. SKIN: Warm, Dry, flaking, tenting turgor, no rashes or lesions noted. - Labs CBC & Chem 7: 11/18/19 08:04 11/18/19 08:04 Labs: Abnormal Lab Results - Last 24 Hours (Table) 11/18/19 11/18/19 Range/Units 08:04 08:04 WBC 2.5 L (3.8-10.6) k/uL RBC 2.56 L (4.30-5.90) m/uL Hgb 8.0 L (13.0-17.5) gm/dL Hct 23.6 L (39.0-53.0) % RDW 15.8 H (11.5-15.5) % Plt Count 144 L (150-450) k/uL Lymphocytes # 0.3 L (1.0-4.8) k/uL Sodium 134 L (137-145) mmol/L BUN 26 H (9-20) mg/dL Magnesium 1.5 L (1.6-2.3) mg/dL AST 405 H (17-59) U/L ALT 286 H (4-49) U/L Alkaline Phosphatase 223 H (38-126) U/L Albumin 2.5 L (3.5-5.0) g/dL Assessment and Plan (1) HIV disease Current Visit: Yes Status: Acute Code(s): B20 - HUMAN IMMUNODEFICIENCY VIRUS [HIV] DISEASE SNOMED Code(s): 63102953 (2) HIV dementia Current Visit: Yes Status: Acute Code(s): B20 - HUMAN IMMUNODEFICIENCY VIRUS [HIV] DISEASE; F02.80 - DEMENTIA IN OTH DISEASES CLASSD ELSWHR W/O BEHAVRL DISTURB SNOMED Code(s): 587152989 (3) Chest pain Current Visit: Yes Status: Acute Code(s): R07.9 - CHEST PAIN, UNSPECIFIED SNOMED Code(s): 26735853 (4) Syncope Current Visit: Yes Status: Acute Code(s): R55 - SYNCOPE AND COLLAPSE SNOMED Code(s): 746743588 (5) Hypomagnesemia Current Visit: No Status: Acute Code(s): E83.42 - HYPOMAGNESEMIA SNOMED Code(s): 864007511 (6) Lightheadedness Current Visit: No Status: Acute Code(s): R42 - DIZZINESS AND GIDDINESS SNOMED Code(s): 063293315 (7) Pancytopenia Current Visit: No Status: Acute Priority: Medium Code(s): D61.818 - OTHER PANCYTOPENIA SNOMED Code(s): 275861169 (8) Transaminitis Current Visit: No Status: Acute Code(s): R74.0 - NONSPEC ELEV OF LEVELS OF TRANSAMNS & LACTIC ACID DEHYDRGNSE SNOMED Code(s): 468872728 (9) Weakness Current Visit: No Status: Acute Code(s): R53.1 - WEAKNESS SNOMED Code(s): 70295829 Plan: . With liquid current replacement protocol particular for magnesium. 2. Continue with the CIWA protocol for possible alcohol withdrawal. 3. We'll follow recommendations from both GI and infectious disease. 4. We will continue to gently rehydrate. 5. We will increase physical activity by walking around the home with the assistance of staff. 6. As discussed with social work we will begin paperwork process for advanced medical directives for brother to assist in making decisions on patient's healthcare. 7. We will reorder lab work for tomorrow morning. 8. We will reassess tomorrow. Time with Patient: Greater than 30
[2019-11-18 15:26] LABS: HIV-1 RNA DETECTED (Not detected)
--- NOTE | 2019-11-18 15:35 | PN ---
PROGRESS NOTE DATE OF DICTATION: 11/18/2019 Patient is a 54-year-old pleasant white male admitted to the hospital with history of HIV, CD4 less than 100, admitted to the hospital with elevated serum transaminases, some shortness of breath and not feeling well. He received aspirin in the emergency room. The patient was scheduled for liver biopsy today as a part of evaluation for elevated serum transaminases. The biopsy was canceled because the patient received a dose of aspirin yesterday. Patient denies any new symptoms today. PHYSICAL EXAMINATION: Appears comfortable; no apparent distress. VITAL SIGNS: Stable. Blood pressure is 92/64, pulse rate 101, temperature 98.1. HEENT examination unremarkable. Conjunctivae pink. Sclerae anicteric. Oral cavity no lesions. NECK: No JVD or lymph node enlargement. CHEST: Clear to auscultation. HEART: Regular rate and rhythm. ABDOMEN: Soft. Mild tenderness in the epigastric area. EXTREMITIES: No pedal edema. SKIN: No rashes. NEUROLOGIC: Alert and oriented x3. No focal deficits. LABS: AST is 405. ALT is 286 and alkaline phosphatase is 223. T-bilirubin is 0.3. WBC 2.8, hemoglobin 8, and platelets are 144. IMPRESSION: 1. Elevated serum transaminases for the last 2 months' duration. All workup on an outpatient basis was negative. The patient was scheduled for an ultrasound-guided liver biopsy today, but it was canceled because he received aspirin yesterday. Remote history of alcohol use. 2. Pancytopenia, possibly related to underlying chronic liver disease, possible cirrhosis of the liver. 3. Human immunodeficiency virus/CD4 count less than 100, on no medications currently. RECOMMENDATIONS: 1. At this time will reschedule liver biopsy next week. 2. Continue to hold aspirin. 3. Monitor LFTs on a daily basis. 4. Will discuss with Dr. Montoya and plan if the liver biopsy will be done as an inpatient or on an outpatient basis. Thank you for this consultation. MMODL / IJN: [id number] /
--- NOTE | 2019-11-18 17:26 | PN ---
PROGRESS NOTE DATE OF SERVICE: 11/18/2019 REASON FOR FOLLOWUP: HIV/AIDS. INTERVAL HISTORY: The patient is currently afebrile. The patient is breathing comfortably. Slightly anxious. No chest pain, shortness of breath or cough. No abdominal pain or diarrhea. PHYSICAL EXAMINATION: Blood pressure , temperature of 98. He is 96% on room air. General description is a middle-aged male lying in bed in no distress. RESPIRATORY SYSTEM: Unlabored breathing. Clear to auscultation anteriorly. HEART: S1, S2. Regular rate and rhythm. ABDOMEN: Soft. No tenderness. LABS: Hemoglobin 8.0, white count 2.5, BUN of 26, creatinine 1.08. Liver enzymes slightly elevated today compared to yesterday. DIAGNOSTIC IMPRESSION AND PLAN: Patient with human immunodeficiency virus/acquired immunodeficiency syndrome with a low CD4 count, on prophylaxis with Bactrim DS; to continue. Waiting for the liver function issue to resolve before starting him on anti-retroviral and monitor his clinical course closely. Awaiting liver biopsy from GI. MMDESHAUN / TORITON: [id number] /
[2019-11-19] MEDS: THIAMINE 100 MG TAB PO SCH (06:18)
[2019-11-19 07:26] LABS: Anisocytosis Slight; Basophils % (A) 1 %; Eosinophils # (A) 0.2 k/uL (0-0.7); Eosinophils % (A) 8 %; HCT 26.1 % (39.0-53.0); HGB 8.9 gm/dL (13.0-17.5); Lymphocytes # (A) 0.4 k/uL (1.0-4.8); Lymphocytes % (A) 17 %; MCH 31.4 pg (25.0-35.0); MCV 92.3 fL (80.0-100.0); Mean Platelet Volume 9.4; Monocytes # (A) 0.1 k/uL (0-1.0); Monocytes % (A) 5 %; Neutrophils # (A) 1.8 k/uL (1.3-7.7); Neutrophils % (A) 67 %; Platelet Count 152 k/uL (150-450); RBC 2.83 m/uL (4.30-5.90); RDW 16.2 % (11.5-15.5); WBC 2.7 k/uL (3.8-10.6)
[2019-11-19 07:45] LABS: Albumin 2.8 g/dL (3.5-5.0); Calcium 9.9 mg/dL (8.4-10.2); Magnesium 1.6 mg/dL (1.6-2.3); Potassium 4.3 mmol/L (3.5-5.1); Total Bilirubin 0.3 mg/dL (0.2-1.3); Total Protein 7.1 g/dL (6.3-8.2)
[2019-11-19] MEDS: MAGNESIUM OXIDE 400 MG TAB PO SCH (09:56)
[2019-11-19] MEDS: SULFAMETHOX-TMP 800-160MG 1 EACH TAB PO SCH (09:56)
[2019-11-19] MEDS: MULTIVITAMINS, THERA 1 EACH TAB PO SCH (09:56)
--- NOTE | 2019-11-19 10:44 | P.PN ---
Subjective Progress Note Date: 11/19/19 Principal diagnosis: Witnessed syncope with chest pain and vomiting 54-year-old male patient presented emergency room on 11/15/2019 due syncopal episode which lasted approximately 1 minute was witnessed by his brother. He had just returned from the infusion center and where he received 2 g of magnesium for hypomagnesemia. His past medical history of HIV positive hypomagnesemia past substance abuse current liver enzymes are elevated. 11/17/2019 54-year-old male gentleman admitted for syncope chest pain nausea. Currently laying in bed comfortably with no complaints at this time. Underwent echocardiogram yesterday with ejection fraction of 55-60%. Blood pressure is stable at 109/64 afebrile 98.6 respiratory rate 18 on room air and is satting 95%. GGT level was 468, AST reduced to 3:15, ELT reduced to 50 805S has come down from 204, magnesium today was 1.1 and was treated with IV magnesium as he is on protocol this time. [id number] male gentleman admitted for syncope, chest pain and nausea. Currently the patient is laying in bed comfortably with no complaints at this time. He was to have a ultrasound biopsy today but that was canceled due to the fact that he was on 325 mg aspirin since admission. He was now wait 1 week since his last dose and this will be completed an outpatient basis. Vital signs currently are 98.1 temperature, pulse rate 101, respiratory rate 18, blood pressure in the supine position of 92. Her lab evaluation this patient WBC of 2.5, hemoglobin of 8.0, hematocrit of 22.6, platelet count 144, lymphocytes 0.3, PT of 10.2, INR 1.0. It'll for today sodium 134, potassium at 3.7, WILBER of 26, creatinine of 1.08, GFR 78, magnesium of 1.5 in which she gets magnesium infusion protocol as needed, AST is elevated today for 05, ELT also was elevated from yesterday to 86. 11/19/2019 54-year-old male admitted for syncope, chest pain and nausea. Patient currently is laying in bed comfortably with no complaints at this time. Made multiple comments stating that he feels better today and has been able to eat more here at the hospital than at home. He is scheduled for ultrasound guided liver biopsy for Thursday and will be discharged home until the procedure. Today's vital signs regular blood pressure is 9456 heart rate of 120, afebrile 97.3, satting 95% on room air. Today's lab work is white blood cell count 2.7, hemoglobin 8.9, hematocrit 26.1, platelet count 152. Chemistry reveals sodium 134, potassium 4.3, WILBER 27, creatinine 1.25, AST 60-398, ELT is mildly elevated from yesterday to 311, alk phos is 242 and albumin 2.8. Objective - Vital Signs Vital signs: Vital Signs Temp 97.3 F L 11/19/19 10:05 Pulse 120 H 11/19/19 10:05 Resp 18 11/19/19 10:05 BP 94/56 11/19/19 10:05 Pulse Ox 94 L 11/19/19 10:05 Intake & Output 11/18/19 11/19/19 11/19/19 18:59 06:59 18:59 Intake Total 500 236 Output Total 2 Balance 498 236 Weight 49.9 kg 48.7 kg Intake: Oral 500 236 Output: Urine 2 Other: Voiding Method Toilet Toilet Urinal # Voids 1 1 - Exam GENERAL: Frail but improved, dehydrated, malnourished, but in no acute distress. HEAD: Atraumatic, normocephalic. EYES: Pupils equal round and reactive to light, extraocular movements intact, sclera anicteric, conjunctiva are normal. ENT:nares patent, oropharynx clear without exudates. Moist mucous membranes. NECK: Normal range of motion, supple without lymphadenopathy or JVD, no t hyromegaly LUNGS: Breath sounds clear to auscultation bilaterally and equal. No wheezes rales or rhonchi. HEART: Regular rate and rhythm without murmurs, rubs or gallops.S1S2 Normal ABDOMEN: Soft, nontender, normoactive bowel sounds. No guarding, no rebound. No masses appreciated. EXTREMITIES: Normal range of motion, no pitting or edema. No clubbing or cyanosis. NEUROLOGICAL: Cranial nerves II through XII grossly intact. Normal speech, normal gait. PSYCH: Normal mood, normal affect. SKIN: Warm, Dry, flaking, tenting turgor, no rashes or lesions noted. - Labs CBC & Chem 7: 11/19/19 06:40 11/19/19 06:40 Labs: Abnormal Lab Results - Last 24 Hours (Table) 11/16/19 11/19/19 11/19/19 Range/Units 06:40 06:40 06:40 WBC 2.7 L (3.8-10.6) k/uL RBC 2.83 L (4.30-5.90) m/uL Hgb 8.9 L (13.0-17.5) gm/dL Hct 26.1 L (39.0-53.0) % RDW 16.2 H (11.5-15.5) % Lymphocytes # 0.4 L (1.0-4.8) k/uL Sodium 134 L (137-145) mmol/L Chloride 96 L (98-107) mmol/L BUN 27 H (9-20) mg/dL AST 398 H (17-59) U/L ALT 311 H (4-49) U/L Alkaline Phosphatase 242 H (38-126) U/L Albumin 2.8 L (3.5-5.0) g/dL HIV-1 RNA Quant 1,282,768 H (<40) Copies/mL HIV RNA logcopies/mL Ult 6.11 H (<1.60) HIV-1 RNA (PCR) DETECTED H (Not detected) Assessment and Plan (1) HIV disease Current Visit: Yes Status: Acute Code(s): B20 - HUMAN IMMUNODEFICIENCY VIRUS [HIV] DISEASE SNOMED Code(s): 88218508 (2) HIV dementia Current Visit: Yes Status: Acute Code(s): B20 - HUMAN IMMUNODEFICIENCY VIRUS [HIV] DISEASE; F02.80 - DEMENTIA IN OTH DISEASES CLASSD ELSWHR W/O BEHAVRL DISTURB SNOMED Code(s): 670684477 (3) Chest pain Current Visit: Yes Status: Acute Code(s): R07.9 - CHEST PAIN, UNSPECIFIED SNOMED Code(s): 35251055 (4) Syncope Current Visit: Yes Status: Acute Code(s): R55 - SYNCOPE AND COLLAPSE SNOMED Code(s): 228484715 (5) Hypomagnesemia Current Visit: No Status: Acute Code(s): E83.42 - HYPOMAGNESEMIA SNOMED Code(s): 377503232 (6) Lightheadedness Current Visit: No Status: Acute Code(s): R42 - DIZZINESS AND GIDDINESS SNOMED Code(s): 624582503 (7) Pancytopenia Current Visit: No Status: Acute Priority: Medium Code(s): D61.818 - OTHER PANCYTOPENIA SNOMED Code(s): 279885016 (8) Transaminitis Current Visit: No Status: Acute Code(s): R74.0 - NONSPEC ELEV OF LEVELS OF TRANSAMNS & LACTIC ACID DEHYDRGNSE SNOMED Code(s): 281573825 (9) Weakness Current Visit: No Status: Acute Code(s): R53.1 - WEAKNESS SNOMED Code(s): 18522006 Plan: 1. Discharge home to brother's house 2. Have paperwork ready for patient to take home to fill out for advanced directives for brother to assist in making medical decisions on patient's behalf. 3 liver biopsy to be completed on Thursday. 4. Will follow-up in office on 11/23/2019 Time with Patient: Greater than 30
--- NOTE | 2019-11-19 10:49 | P.DS ---
Providers Date of admission: 11/17/19 08:07 Attending physician: Vega Montoya Consults: 11/15/19 21:36 Consult Physician Urgent Consulting Provider: Terrell Holloway Consult Reason/Comments: chest pain Do you want consulting provider notified?: Yes 11/16/19 15:09 Consult Physician Routine Consulting Provider: Dontrell Cerda Consult Reason/Comments: Transaminitis Do you want consulting provider notified?: Yes 11/16/19 15:11 Consult Physician Routine Consulting Provider: Jordi Martinez Consult Reason/Comments: HIV Do you want consulting provider notified?: Already Contacted 11/16/19 15:16 Consult Physician Routine Consulting Provider: Tung Quiñonez Consult Reason/Comments: HIV anxiety/dementia Do you want consulting provider notified?: Yes Primary care physician: Vega Montoya - Discharge Diagnosis(es) (1) HIV disease Current Visit: Yes Status: Acute (2) HIV dementia Current Visit: Yes Status: Acute (3) Chest pain Current Visit: Yes Status: Acute (4) Syncope Current Visit: Yes Status: Acute (5) Hypomagnesemia Current Visit: No Status: Acute (6) Lightheadedness Current Visit: No Status: Acute (7) Pancytopenia Current Visit: No Status: Acute Priority: Medium (8) Transaminitis Current Visit: No Status: Acute (9) Weakness Current Visit: No Status: Acute Hospital Course: As noted in today's SOAP note for 11/19/2019 Patient Condition at Discharge: Stable Plan - Discharge Summary Discharge Rx Participant: No New Discharge Prescriptions: No Action Magnesium Oxide [Mag-Ox] 400 mg PO BID Discharge Medication List Magnesium Oxide [Mag-Ox] 400 mg PO BID 10/07/19 [History] Follow up Appointment(s)/Referral(s): Vega Montoya Jr, DO [Primary Care Provider] - 1-2 days Discharge Disposition: HOME SELF-CARE
--- NOTE | 2019-11-19 12:58 | PN ---
PROGRESS NOTE DATE OF SERVICE: November 19, 2019 Patient is a 54 -year-old pleasant white male with history of HIV and CD4 count less than 100, admitted the hospital with elevated LFTs, some shortness of breath. He is doing better. He was scheduled for a liver biopsy yesterday but was cancelled because he got aspirin recently. He denies any symptoms. He wants to go home. PHYSICAL EXAMINATION: Appears comfortable, no apparent distress. VITAL SIGNS: Stable. Blood pressure 94/56, pulse 120, temperature 97.3. HEENT examination unremarkable. Conjunctivae pink. Sclerae anicteric. Oral cavity no lesions. NECK: No JVD or lymph node enlargement. CHEST: Clear to auscultation. HEART: Regular rate and rhythm. ABDOMEN: Soft. Bowel sounds are positive. No organomegaly. EXTREMITIES: No pedal edema. SKIN no rashes. NEURO: Alert and oriented x3. No focal deficits. LABS: AST is 398, ALT is a 311, T-bilirubin normal and alkaline phosphatase 242. WBC 2.7, hemoglobin 8.9, platelets 152. IMPRESSION: 1. Elevated LFTs for the last 2 months' duration. All workup on an outpatient basis was negative. The patient is scheduled for an ultrasound liver biopsy in a week from now and he will continue to hold off on aspirin. 2. History of HIV and CD4 count less than 100, on no medications currently. 3. Remote history of alcohol use. RECOMMENDATIONS: 1. The patient can be discharged home today. 2. He was advised to avoid any [id number] medications at this time. 3. Scheduled for liver biopsy in a week from now. 4. He was advised to follow up with Dr. Cerda in 2 weeks. Thank you for this consultation. MMODL / IJN: [id number] /
[2019-11-19 15:35] VITALS: BP 103/71; PULSE 74; TEMP 97.4
--- NOTE | 2019-11-19 17:58 | PN ---
PROGRESS NOTE DATE OF SERVICE: 11/19/2019 REASON FOR FOLLOWUP: HIV/AIDS. INTERVAL HISTORY: The patient is currently afebrile. Patient is breathing comfortably, feeling better. No chest pain, shortness of breath or cough. No abdominal pain or diarrhea. PHYSICAL EXAMINATION: Blood pressure 94/56, pulse of 120, temperature 97.8. He is 94% on room air. General description is a middle-aged male lying in bed in no distress. Respiratory system: Unlabored breathing, clear to auscultation anteriorly. Heart S1, S2. Regular rate and rhythm. Abdomen soft, no tenderness. LABS: Creatinine is 1.25, potassium is 4.3, AST 398, ALT 311. DIAGNOSTIC IMPRESSION AND PLAN: Patient with HIV/AIDS. This patient currently seems to have a problem with elevated liver enzymes with unclear etiology. We are waiting for the liver issue to be resolved before starting him on anti-retroviral. He has been advised Bactrim DS 1 daily for PCP and ( ) infection prophylaxis. Prescription sent out. Follow up in the office in 2 weeks. Continue supportive care. MMODL / IJN: [id number] /
== END 2019-11-19 18:33 | disposition home or self-care (01) | DRG 977 ==
LOC: EC 17:33 → 3SCARD 21:23 → OBSVTOIN 11-17 08:07
PROVIDERS: ADMIT Family Medicine; ATTEND Family Medicine
DX: B20 Human immunodeficiency virus [HIV] disease (principal); E83.42 Hypomagnesemia; E86.0 Dehydration; F02.80 Dementia in other diseases classified elsewhere, unspecified severity, without behavioral disturbance, psychotic disturbance, mood disturbance, and anxiety; F32.9 Major depressive disorder, single episode, unspecified; F41.9 Anxiety disorder, unspecified; Z82.0 Family history of epilepsy and other diseases of the nervous system; Z82.49 Family history of ischemic heart disease and other diseases of the circulatory system; Z87.891 Personal history of nicotine dependence; Z91.81 History of falling; R74.0 Nonspecific elevation of levels of transaminase and lactic acid dehydrogenase [LDH]; Z11.59 Encounter for screening for other viral diseases; I95.9 Hypotension, unspecified; Z92.29 Personal history of other drug therapy; Z80.9 Family history of malignant neoplasm, unspecified
CPT/HCPCS: 36415; 70450; 71046; 71275; 80053; 80061; 81001; 82140; 82977; 83735; 84484; 85025; 85379; 85610; 85730; 86360; 87536; 87635; 87901; 93005; 93306; 93351; 96360; 99285

== ENCOUNTER → 2019-11-29 | Outpatient (CLI) | payer OTHER | END | disposition home or self-care (01) | LOC: LABWHC1 10:57 | PROVIDERS: ATTEND Family Medicine | DX: Z11.59 Encounter for screening for other viral diseases (principal) ==

== ENCOUNTER 2019-12-01 08:40 | Day surgery (SDC) | payer OTHER ==
[2019-12-01 09:05] VITALS: TEMP 98.2
[2019-12-01 09:16] LABS: Platelet Count 146 k/uL (150-450)
[2019-12-01 09:41] LABS: INR 0.9 (<1.2); Prothrombin Time 9.6 sec (9.0-12.0)
[2019-12-01] MEDS ORDERED: HYDROmorphone 0.5 MG/0.5 ML SYRINGE IVP PRN ×2 (10:06→10:12)
[2019-12-01] MEDS ORDERED: HYDROmorphone 1 MG/ML 1 ML SYRINGE IVP PRN (10:09)
[2019-12-01 11:11] VITALS: RESP 16
--- NOTE | 2019-12-01 11:49 | CT ---
EXAMINATION TYPE: CT biopsy liver DATE OF EXAM: 12/01/2019 COMPARISON: NONE HISTORY: Cirrhosis of the liver CT DLP: 1371mGycm The procedure was explained to the patient. The risks, complications, benefits, and alternatives wer e discussed and any questions were answered. Informed consent was obtained. Patient was placed supi ne on the CT table and prepped and draped in the usual sterile fashion. All elements of maximal barrier and sterile technique utilized. Utilizing CT guidance, an 18 gauge core biopsy needle access into the posterior segment right lobe o f the liver was achieved and a single 18 gauge core sample was obtained. The patient was stable thro ughout the procedure and remained stable upon discharge. IMPRESSION: 1. Successful 18 gauge core biopsy of the liver.
[2019-12-01 15:36] VITALS: BP 101/71; PULSE 105
== END 2019-12-01 14:45 | disposition home or self-care (01) ==
LOC: RADPROMAIN 08:40
PROVIDERS: ATTEND Family Medicine
DX: K76.0 Fatty (change of) liver, not elsewhere classified (principal); K74.60 Unspecified cirrhosis of liver
CPT/HCPCS: 36415; 47000; 77012; 85049; 85610; 88307; 88313

== ENCOUNTER → 2019-12-07 | Outpatient (CLI) | payer OTHER ==
[2019-12-07 13:00] LABS: Basophils % (A) 1 %; Eosinophils # (A) 0.1 k/uL (0-0.7); Eosinophils % (A) 4 %; HCT 26.3 % (39.0-53.0); HGB 8.4 gm/dL (13.0-17.5); Lymphocytes # (A) 0.3 k/uL (1.0-4.8); Lymphocytes % (A) 14 %; MCH 30.3 pg (25.0-35.0); MCHC 31.8 g/dL (31.0-37.0); MCV 95.1 fL (80.0-100.0); Monocytes # (A) 0.3 k/uL (0-1.0); Monocytes % (A) 14 %; Neutrophils # (A) 1.5 k/uL (1.3-7.7); Neutrophils % (A) 64 %; Platelet Count 152 k/uL (150-450); RBC 2.77 m/uL (4.30-5.90); RDW 15.8 % (11.5-15.5); WBC 2.4 k/uL (3.8-10.6)
[2019-12-07 18:42] LABS: ALT 94 U/L (10-49); AST 79 U/L (14-35); African American GFR (CKD) 38.5 (60.0-200.0); Albumin/Globulin Ratio 0.78 (1.60-3.17); Alkaline Phosphatase 134 U/L (41-126); BUN/Creat Ratio 14.09 Ratio (12.00-20.00); Bilirubin, Conjugated <0.20 mg/dL (0.20-0.40); Calcium 8.8 mg/dL (8.7-10.3); Carbon Dioxide 29.2 mmol/L (21.6-31.8); Chloride 91 mmol/L (96-109); Globulin 4.5 g/dL (1.6-3.3); Glucose 100 mg/dL (70-110); Magnesium 2.1 mg/dL (1.5-2.4); Non-African American GFR(CKD) 33.2 (60.0-200.0); Phosphorus 3.5 mg/dL (2.4-5.1); Sodium 129 mmol/L (135-145); Total Bilirubin 0.2 mg/dL (0.3-1.2)
== END | disposition home or self-care (01) ==
LOC: LABWHC1 10:46
PROVIDERS: ATTEND Nurse Practitioner Family
DX: E83.42 Hypomagnesemia (principal); R74.0 Nonspecific elevation of levels of transaminase and lactic acid dehydrogenase [LDH]; Z21 Asymptomatic human immunodeficiency virus [HIV] infection status
CPT/HCPCS: 36415; 80053; 82248; 83735; 84100; 85025

== ENCOUNTER → 2019-12-20 | Outpatient (CLI) | payer OTHER ==
[2019-12-20 12:53] LABS: Anisocytosis Slight; HCT 27.9 % (39.0-53.0); HGB 9.8 gm/dL (13.0-17.5); MCH 32.4 pg (25.0-35.0); MCHC 35.1 g/dL (31.0-37.0); MCV 92.3 fL (80.0-100.0); Mean Platelet Volume 9.2; Platelet Count 203 k/uL (150-450); Poikilocytosis Slight; RBC 3.02 m/uL (4.30-5.90); RDW 16.3 % (11.5-15.5); WBC 6.1 k/uL (3.8-10.6)
[2019-12-20 14:13] LABS: Eosinophils # (M) 0.06 k/uL (0-0.7); Lymphocytes # (M) 0.92 k/uL (1.0-4.8); Monocytes # (M) 0.92 k/uL (0-1.0); Neutrophils # (M) 4.21 k/uL (1.3-7.7); Neutrophils % (M) 69 %; Nucleated Red Blood Cells 0 /100 WBC (0-0); Total Cells Counted 100
[2019-12-20 14:19] LABS: Large Platelets Present; Reactive Lymphocytes Present
[2019-12-20 21:51] LABS: African American GFR (CKD) 22.7 (60.0-200.0); Albumin 3.5 g/dL (3.80-4.90); Albumin/Globulin Ratio 0.83 (1.60-3.17); Anion Gap 13.5 mmol/L (4.00-12.00); BUN/Creat Ratio 12.65 Ratio (12.00-20.00); Calcium 8.5 mg/dL (8.7-10.3); Carbon Dioxide 24.5 mmol/L (21.6-31.8); Globulin 4.2 g/dL (1.6-3.3); Magnesium 1.2 mg/dL (1.5-2.4); Non-African American GFR(CKD) 19.6 (60.0-200.0); Phosphorus 5.1 mg/dL (2.4-5.1); Potassium 3.9 mmol/L (3.5-5.5); Total Bilirubin 0.5 mg/dL (0.3-1.2); Total Protein 7.7 g/dL (6.2-8.2)
== END | disposition home or self-care (01) ==
LOC: LABWHC1 11:16
PROVIDERS: ATTEND Nurse Practitioner Family
DX: R19.7 Diarrhea, unspecified (principal); R11.10 Vomiting, unspecified; Z79.899 Other long term (current) drug therapy
CPT/HCPCS: 36415; 80053; 82150; 83690; 83735; 84100; 85025

== ENCOUNTER → 2020-01-10 | Outpatient (CLI) | payer OTHER ==
[2020-01-11 12:25] LABS: T Helper Cell (CD4) 667 cell/ul (443-1471); T Helper Cell (CD4) % 14 % (35-66); T Suppressor Cell (CD8) >3000 cell/ul (190-832); T Suppressor Cell (CD8) % 76 % (9-37); T4/T8 Ratio (CD4:CD8) 0.2 (1.0-3.7)
== END | disposition home or self-care (01) ==
LOC: LABWHC1 10:34
PROVIDERS: ATTEND Internal Medicine Infectious Disease
DX: B20 Human immunodeficiency virus [HIV] disease (principal)
CPT/HCPCS: 36415; 86360; 87536

== ENCOUNTER 2020-02-07 22:32 | Emergency (ER) | payer OTHER ==
[2020-02-07] MEDS: MAGNESIUM SULFATE-D5W PMX 1 GM in DEXTROSE/WATER 1 100ML.BAG IVPB SCH ×2 (22:55→23:56)
[2020-02-07 23:12] LABS: Basophils # (A) 0.1 k/uL (0-0.2); Basophils % (A) 1 %; Eosinophils # (A) 0.3 k/uL (0-0.7); Eosinophils % (A) 4 %; HCT 34.4 % (39.0-53.0); HGB 11.8 gm/dL (13.0-17.5); Lymphocytes # (A) 2.6 k/uL (1.0-4.8); Lymphocytes % (A) 34 %; MCH 33.7 pg (25.0-35.0); MCHC 34.2 g/dL (31.0-37.0); Mean Platelet Volume 7.6; Monocytes # (A) 0.8 k/uL (0-1.0); Monocytes % (A) 10 %; Neutrophils # (A) 3.8 k/uL (1.3-7.7); Neutrophils % (A) 49 %; Platelet Count 319 k/uL (150-450); RBC 3.49 m/uL (4.30-5.90); RDW 12.9 % (11.5-15.5); WBC 7.7 k/uL (3.8-10.6)
[2020-02-07 23:16] LABS: Calcium 9.8 mg/dL (8.4-10.2); Potassium 3.8 mmol/L (3.5-5.1)
[2020-02-07 23:18] LABS: MCV 98.4 fL (80.0-100.0)
[2020-02-07 23:24] LABS: Magnesium 0.8 mg/dL (1.6-2.3)
--- NOTE | 2020-02-07 23:28 | ED ---
General Adult HPI - General Chief complaint: Recheck/Abnormal Lab/Rx Stated complaint: Abnormal labs Time Seen by Provider: 02/07/20 22:44 Source: patient, RN notes reviewed Mode of arrival: ambulatory Limitations: no limitations - History of Present Illness Initial comments: This a 54-year-old male presents emergency Department with chief complaint of hypomagnesemia. Patient states that he called his doctor today to have it checked. He's had history of low magnesium. Patient states that he received a phone call around 9 PM stating that his magnesium was critical. Patient denies feeling any symptoms. Patient is currently being treated for HIV in which they initially believed this was the cause of his hypomagnesemia. Patient denies any severe diarrhea no nausea vomiting no chest pain no chills fevers. - Related Data Home Medications Medication Instructions Recorded Confirmed Magnesium Oxide [Mag-Ox] 400 mg PO BID 10/07/19 12/01/19 Sulfamethoxazole/Trimethoprim 1 each PO DAILY 11/29/19 12/01/19 [Bactrim DS 800-160 mg] Allergies Allergy/AdvReac Type Severity Reaction Status Date / Time No Known Allergies Allergy Verified 12/01/19 09:05 Review of Systems ROS Statement: Those systems with pertinent positive or pertinent negative responses have been documented in the HPI. ROS Other: All systems not noted in ROS Statement are negative. Past Medical History Past Medical History: No Reported History, Chest Pain / Angina, GERD/Reflux, Liver Disease, Memory Impairment, Syncope Additional Past Medical History / Comment(s): low mag, liver failure, hiv + History of Any Multi-Drug Resistant Organisms: None Reported Past Surgical History: Heart Catheterization, Hernia Repair Additional Past Surgical History / Comment(s): november 2018 heart cath Past Anesthesia/Blood Transfusion Reactions: No Reported Reaction Date of Last Stent Placement:: 11/2018 Past Psychological History: Depression Past Alcohol Use History: None Reported Past Drug Use History: None Reported - Past Family History Father Family Medical History: Cancer, Coronary Artery Disease (CAD) Additional Family Medical History / Comment(s): Father in his 70s from some type of cancer. Mother Additional Family Medical History / Comment(s): Mother in her 60s from Alzheimer's dementia. Brother(s) Additional Family Medical History / Comment(s): Patient has 1 brother and 1 sister with no major medical problems. General Exam Limitations: no limitations General appearance: alert, in no apparent distress Head exam: Present: atraumatic, normocephalic, normal inspection Eye exam: Present: normal appearance, PERRL, EOMI. Absent: scleral icterus, conjunctival injection, periorbital swelling Neck exam: Present: normal inspection. Absent: tenderness, meningismus, lymph adenopathy Respiratory exam: Present: normal lung sounds bilaterally. Absent: respiratory distress, wheezes, rales, rhonchi, stridor Cardiovascular Exam: Present: regular rate, normal rhythm, normal heart sounds. Absent: systolic murmur, diastolic murmur, rubs, gallop, clicks GI/Abdominal exam: Present: soft, normal bowel sounds. Absent: distended, tenderness, guarding, rebound, rigid Course Vital Signs 02/07/20 22:36 Temperature 97.9 F Pulse Rate 85 Respiratory 18 Rate Blood Pressure 112/74 O2 Sat by Pulse 100 Oximetry Procedures - [place] Protocol (Time Out) Nurse: Brenna Polanco Medical Decision Making - Medical Decision Making 54-year-old presented for hypomagnesemia. Patient has chronic low magnesium. Patient currently magnesium is 0.8. Patient was given 2 g magnesium IV and oral Mag-Ox. I did offer admission to the patient but patient states he feels comfortable with discharge after medications with reaching with PCP and restarting oral medications at home. Patient understands the importance of recheck and close follow-up and understands risk of leaving. - Lab Data Result diagrams: 02/07/20 20:50 02/07/20 20:50 Lab Results 02/07/20 02/07/20 Range/Units 20:50 20:50 WBC 7.7 (3.8-10.6) k/uL RBC 3.49 L (4.30-5.90) m/uL Hgb 11.8 L (13.0-17.5) gm/dL Hct 34.4 L (39.0-53.0) % MCV 98.4 D (80.0-100.0) fL MCH 33.7 (25.0-35.0) pg MCHC 34.2 (31.0-37.0) g/dL RDW 12.9 (11.5-15.5) % Plt Count 319 (150-450) k/uL Neutrophils % 49 % Lymphocytes % 34 % Monocytes % 10 % Eosinophils % 4 % Basophils % 1 % Neutrophils # 3.8 (1.3-7.7) k/uL Lymphocytes # 2.6 (1.0-4.8) k/uL Monocytes # 0.8 (0-1.0) k/uL Eosinophils # 0.3 (0-0.7) k/uL Basophils # 0.1 (0-0.2) k/uL Sodium 138 (137-145) mmol/L Potassium 3.8 (3.5-5.1) mmol/L Chloride 101 (98-107) mmol/L Carbon Dioxide 27 (22-30) mmol/L Anion Gap 10 mmol/L BUN 27 H (9-20) mg/dL Creatinine 1.47 H (0.66-1.25) mg/dL Est GFR (CKD-EPI)AfAm 63 (>60 ml/min/1.73 sqM) Est GFR (CKD-EPI)NonAf 54 (>60 ml/min/1.73 sqM) Glucose 94 (74-99) mg/dL Calcium 9.8 (8.4-10.2) mg/dL Magnesium 0.8 L* (1.6-2.3) mg/dL Disposition Clinical Impression: Hypomagnesemia Disposition: HOME SELF-CARE Condition: Stable Instructions (If sedation given, give patient instructions): Hypomagnesemia (ED) Additional Instructions: Please return to the Emergency Department if symptoms worsen or any other concerns. Is patient prescribed a controlled substance at d/c from ED?: No Referrals: Vega Montoya Jr, [Primary Care Provider] - 1-2 days Time of Disposition: 23:55
[2020-02-07] MEDS ORDERED: MAGNESIUM OXIDE 400 MG TAB PO STA (23:44)
[2020-02-08 01:04] VITALS: BP 123/61; PULSE 94; RESP 16; TEMP 97.8
== END 2020-02-08 01:00 | disposition home or self-care (01) ==
LOC: EC 22:32
DX: E83.42 Hypomagnesemia (principal)
CPT/HCPCS: 36415; 80048; 83735; 85025; 99283; 96365; J3475

== ENCOUNTER → 2020-02-07 | Outpatient (CLI) | payer OTHER ==
[2020-02-07 20:31] LABS: African American GFR (CKD) 61.2 (60.0-200.0); Albumin/Globulin Ratio 1.03 (1.60-3.17); Anion Gap 10.4 mmol/L (4.00-12.00); BUN/Creat Ratio 14.67 Ratio (12.00-20.00); Calcium 9.9 mg/dL (8.7-10.3); Carbon Dioxide 29.6 mmol/L (21.6-31.8); Globulin 3.9 g/dL (1.6-3.3); Non-African American GFR(CKD) 52.8 (60.0-200.0); Potassium 3.6 mmol/L (3.5-5.5); Total Bilirubin 0.3 mg/dL (0.3-1.2); Total Protein 7.9 g/dL (6.2-8.2)
[2020-02-08 11:12] LABS: Magnesium 0.8 mg/dL (1.5-2.4)
== END | disposition home or self-care (01) ==
LOC: LABWHC1 13:29
PROVIDERS: ATTEND Nurse Practitioner Family
DX: E87.8 Other disorders of electrolyte and fluid balance, not elsewhere classified (principal); Z79.899 Other long term (current) drug therapy
CPT/HCPCS: 36415; 80053; 83735

== ENCOUNTER → 2020-02-20 | Outpatient (CLI) | payer OTHER ==
[2020-02-21 02:12] LABS: African American GFR (CKD) 49.1 (60.0-200.0); Albumin 4.1 g/dL (3.80-4.90); Anion Gap 11.5 mmol/L (4.00-12.00); BUN/Creat Ratio 16.67 Ratio (12.00-20.00); Calcium 10.1 mg/dL (8.7-10.3); Carbon Dioxide 28.5 mmol/L (21.6-31.8); Globulin 4.1 g/dL (1.6-3.3); Non-African American GFR(CKD) 42.3 (60.0-200.0); Total Bilirubin 0.4 mg/dL (0.2-1.2); Total Protein 8.2 g/dL (6.2-8.2)
[2020-02-21 10:15] LABS: Magnesium 0.9 mg/dL (1.5-2.4)
== END | disposition home or self-care (01) ==
LOC: LABWHC1 14:35
PROVIDERS: ATTEND Family Medicine
DX: E87.8 Other disorders of electrolyte and fluid balance, not elsewhere classified (principal); Z79.899 Other long term (current) drug therapy
CPT/HCPCS: 36415; 80053; 83735

== ENCOUNTER → 2020-02-27 | Outpatient (CLI) | payer OTHER ==
[2020-02-27 20:13] LABS: Anion Gap 8.1 mmol/L (4.00-12.00); Carbon Dioxide 28.9 mmol/L (21.6-31.8); Magnesium 1.2 mg/dL (1.5-2.4); Potassium 4.3 mmol/L (3.5-5.5)
== END | disposition home or self-care (01) ==
LOC: LABWHC1 13:27
PROVIDERS: ATTEND Family Medicine
DX: E83.2 Disorders of zinc metabolism (principal); E83.42 Hypomagnesemia; E87.8 Other disorders of electrolyte and fluid balance, not elsewhere classified
CPT/HCPCS: 36415; 80051; 83735

== ENCOUNTER → 2020-05-11 | Outpatient (CLI) | payer OTHER ==
[~2020-05-11] MED LIST: SODIUM CHLORIDE 0.9% 500 ML 500 ML in EMPTY BAG 1 BAG IV PRN
[2020-05-11 08:52] VITALS: BP 124/65; PULSE 82; RESP 16; TEMP 97.8
[2020-05-11] MEDS: MAGNESIUM SULFATE-D5W PMX 1 GM in DEXTROSE/WATER 1 100ML.BAG IVPB NR ×2 (08:53→09:52)
== END | disposition home or self-care (01) ==
LOC: PROCWHC3 08:35
PROVIDERS: ATTEND Nurse Practitioner Family
DX: E83.42 Hypomagnesemia (principal)
CPT/HCPCS: 96365; J3475

== ENCOUNTER → 2020-06-06 | Outpatient (CLI) | payer OTHER ==
[2020-06-06 10:21] LABS: Basophils # (A) 0.1 k/uL (0-0.2); Basophils % (A) 2 %; Eosinophils # (A) 0.2 k/uL (0-0.7); Eosinophils % (A) 2 %; HCT 42.4 % (39.0-53.0); HGB 15.1 gm/dL (13.0-17.5); Lymphocytes # (A) 1.9 k/uL (1.0-4.8); Lymphocytes % (A) 30 %; MCHC 35.5 g/dL (31.0-37.0); MCV 95.7 fL (80.0-100.0); Mean Platelet Volume 7.6; Monocytes # (A) 0.5 k/uL (0-1.0); Monocytes % (A) 9 %; Neutrophils # (A) 3.4 k/uL (1.3-7.7); Neutrophils % (A) 55 %; Platelet Count 246 k/uL (150-450); RBC 4.43 m/uL (4.30-5.90); RDW 11.7 % (11.5-15.5); WBC 6.3 k/uL (3.8-10.6)
[2020-06-06 17:10] LABS: ALT 26 U/L (10-49); AST 22 U/L (14-35); Albumin/Globulin Ratio 1.26 (1.60-3.17); Alkaline Phosphatase 91 U/L (41-126); BUN/Creat Ratio 18.42 Ratio (12.00-20.00); Bilirubin, Conjugated <0.20 mg/dL (0.20-0.40); Calcium 10.1 mg/dL (8.7-10.3); Carbon Dioxide 29.2 mmol/L (21.6-31.8); Chloride 100 mmol/L (96-109); Globulin 3.5 g/dL (1.6-3.3); Glucose 108 mg/dL (70-110); Non-African American GFR(CKD) 39.7 (60.0-200.0); Sodium 139 mmol/L (135-145); Total Bilirubin 0.4 mg/dL (0.2-1.2); Total Protein 7.9 g/dL (6.2-8.2)
[2020-06-07 12:15] LABS: HIV-1 RNA DETECTED (Not detected); HIV-1 RNA, Quant <40 Copies/mL (<40)
[2020-06-07 14:08] LABS: T4/T8 Ratio (CD4:CD8) 0.4 (1.0-3.7)
== END | disposition home or self-care (01) ==
LOC: LABWHC1 09:18
PROVIDERS: ATTEND Internal Medicine Infectious Disease
DX: B20 Human immunodeficiency virus [HIV] disease (principal)
CPT/HCPCS: 36415; 80048; 80076; 85025; 86360; 87536

== ENCOUNTER → 2020-07-19 | Outpatient (CLI) | payer OTHER ==
[2020-07-19 08:44] VITALS: BP 116/74; PULSE 73; RESP 16; TEMP 97.7
[2020-07-19] MEDS: MAGNESIUM SULFATE-D5W PMX 1 GM in DEXTROSE/WATER 1 100ML.BAG IVPB SCH ×3 (08:45→09:52)
== END | disposition home or self-care (01) ==
LOC: PROCWHC3 08:03
PROVIDERS: ATTEND Nurse Practitioner Family
DX: E83.42 Hypomagnesemia (principal)
CPT/HCPCS: 96365; 96366; J3475

== ENCOUNTER 2021-02-13 15:11 | Emergency (ER) | payer OTHER ==
[2021-02-13 16:11] VITALS: BP 115/76; PULSE 95; RESP 18; TEMP 98
--- NOTE | 2021-02-13 16:37 | ED ---
ENT HPI - General Chief complaint: ENT Stated complaint: object in ear Time Seen by Provider: 02/13/21 16:13 Source: patient Mode of arrival: ambulatory Limitations: no limitations - History of Present Illness Initial comments: 55-year-old male presents to emergency Department with chief complaint of foreign body in the left ear. Patient reports he was cleaning his ears with a Q-tip and the cotton swab is stuck in his left ear. He denies any pain. Denies any changes to his hearing. Denies any other complaints. This occurred about one hour prior to arrival. - Related Data Home Medications Medication Instructions Recorded Confirmed Magnesium Oxide [Mag-Ox] 400 mg PO BID 10/07/19 07/19/20 Allergies Allergy/AdvReac Type Severity Reaction Status Date / Time No Known Allergies Allergy Verified 02/13/21 16:11 Review of Systems ROS Statement: Those systems with pertinent positive or pertinent negative responses have been documented in the HPI. ROS Other: All systems not noted in ROS Statement are negative. Past Medical History Past Medical History: Chest Pain / Angina, GERD/Reflux, Liver Disease, Memory Impairment, Syncope Additional Past Medical History / Comment(s): low mag, liver failure, hiv + History of Any Multi-Drug Resistant Organisms: None Reported Past Surgical History: Heart Catheterization, Hernia Repair Additional Past Surgical History / Comment(s): november 2018 heart cath Past Anesthesia/Blood Transfusion Reactions: No Reported Reaction Date of Last Stent Placement:: 11/2018 Past Psychological History: Depression Smoking Status: Former smoker Past Alcohol Use History: None Reported Past Drug Use History: None Reported - Past Family History Father Family Medical History: Cancer, Coronary Artery Disease (CAD) Additional Family Medical History / Comment(s): Father in his 70s from some type of cancer. Mother Additional Family Medical History / Comment(s): Mother in her 60s from Alzheimer's dementia. Brother(s) Additional Family Medical History / Comment(s): Patient has 1 brother and 1 sister with no major medical problems. General Exam Limitations: no limitations General appearance: alert, in no apparent distress Head exam: Present: atraumatic, normocephalic Eye exam: Present: normal appearance, PERRL Pupils: Present: normal accommodation ENT exam: Present: normal exam, normal oropharynx, mucous membranes moist, TM's normal bilaterally. Absent: normal external ear exam (Foreign body left ear) Neck exam: Present: normal inspection. Absent: tenderness Respiratory exam: Present: normal lung sounds bilaterally. Absent: respiratory distress Cardiovascular Exam: Present: regular rate, normal rhythm, normal heart sounds Extremities exam: Present: normal inspection, full ROM Back exam: Present: normal inspection, full ROM Neurological exam: Present: alert, oriented X3 Psychiatric exam: Present: normal affect, normal mood Skin exam: Present: warm, dry, intact, normal color Course Vital Signs 02/13/21 16:08 Temperature 98.0 F Pulse Rate 95 Respiratory 18 Rate Blood Pressure 115/76 O2 Sat by Pulse 99 Oximetry Procedures - Foreign Body Removal Ear Location: ear canal (L) Foreign Body Suspected: other (Cotton swab) Foreign Body Removed: yes Foreign Body Removal Technique: forceps Tympanic Membrane Intact: No Patient Tolerated Procedure: well, no complications Complications: none Medical Decision Making - Medical Decision Making Cotton swab in the left ear. I was able to remove it with forceps. Patient tolerated procedure well. Case discussed with Dr. Torres. Disposition Clinical Impression: Foreign body in left ear Disposition: HOME SELF-CARE Condition: Stable Instructions (If sedation given, give patient instructions): Ear Foreign Body (ED) Additional Instructions: Please return to the Emergency Department if symptoms worsen or any other concerns. Is patient prescribed a controlled substance at d/c from ED?: No Referrals: Vega Montoya Jr, DO [Primary Care Provider] - 1-2 days Time of Disposition: 16:37
== END 2021-02-13 16:40 | disposition home or self-care (01) ==
LOC: EC 15:11
DX: T16.2XXA Foreign body in left ear, initial encounter (principal); Z87.891 Personal history of nicotine dependence; Z82.49 Family history of ischemic heart disease and other diseases of the circulatory system; W22.8XXA Striking against or struck by other objects, initial encounter
CPT/HCPCS: 69200; 99282

== ENCOUNTER → 2021-03-25 | Outpatient (CLI) | payer OTHER ==
[2021-03-25 15:07] LABS: Basophils # (A) 0.1 k/uL (0-0.2); Basophils % (A) 1 %; Eosinophils % (A) 1 %; HCT 41.6 % (39.0-53.0); HGB 15.2 gm/dL (13.0-17.5); Hyperchromasia Slight; Lymphocytes # (A) 2.2 k/uL (1.0-4.8); Lymphocytes % (A) 26 %; MCH 33.6 pg (25.0-35.0); MCHC 36.6 g/dL (31.0-37.0); MCV 91.7 fL (80.0-100.0); Mean Platelet Volume 8.3; Monocytes # (A) 0.5 k/uL (0-1.0); Monocytes % (A) 6 %; Neutrophils # (A) 5.5 k/uL (1.3-7.7); Neutrophils % (A) 65 %; Platelet Count 277 k/uL (150-450); RBC 4.54 m/uL (4.30-5.90); RDW 12.8 % (11.5-15.5); WBC 8.5 k/uL (3.8-10.6)
[2021-03-26 05:46] LABS: African American GFR (CKD) 48.7 (60.0-200.0); Albumin 4.4 g/dL (3.80-4.90); Albumin/Globulin Ratio 1.29 (1.60-3.17); Anion Gap 12.8 mmol/L (4.00-12.00); BUN/Creat Ratio 20.56 Ratio (12.00-20.00); Calcium 9.5 mg/dL (8.7-10.3); Carbon Dioxide 25.2 mmol/L (21.6-31.8); Globulin 3.4 g/dL (1.6-3.3); Potassium 4.2 mmol/L (3.5-5.5); Total Bilirubin 0.4 mg/dL (0.2-1.2); Total Protein 7.8 g/dL (6.2-8.2)
[2021-03-26 12:42] LABS: T4/T8 Ratio (CD4:CD8) 0.6 (1.0-3.7)
[2021-03-26 13:56] LABS: HIV-1 RNA Not detected (Not detected); HIV-1 RNA, Quant <40 Copies/mL (<40)
== END | disposition home or self-care (01) ==
LOC: LABWHC1 14:14
PROVIDERS: ATTEND Internal Medicine Infectious Disease
DX: B20 Human immunodeficiency virus [HIV] disease (principal)
CPT/HCPCS: 36415; 80053; 85025; 86360; 87536

== ENCOUNTER 2022-11-09 11:37 | Emergency (ER) | payer OTHER ==
[2022-11-09 12:18] VITALS: RESP 16
--- NOTE | 2022-11-09 14:30 | XR ---
EXAMINATION TYPE: XR knee complete RT DATE OF EXAM: 11/09/2022 COMPARISON: None HISTORY: Right knee pain and swelling TECHNIQUE: 3 view right knee FINDINGS: Posterior patellar spurring is present superiorly and inferiorly. No significant joint effu mandy. There is mild narrowing of medial compartment joint space. Some medial tibial plateau spurring is present. Lateral cartilage appears preserved. No acute fractures are identified. IMPRESSION: 1. Mild degenerative changes. 2. No acute osseous abnormality. 3. Suspicious soft tissue swelling not identified.
[2022-11-09] MEDS ORDERED: KETOROLAC 15 MG/ML 1 ML VIAL IM STA (14:41)
[2022-11-09] MEDS ORDERED: DEXAMETHASONE SOD PHOSPHATE 10 MG/ML 1 ML VIAL IM STA (14:41)
--- NOTE | 2022-11-09 14:44 | ED ---
Extremity Problem HPI - General Chief complaint: Extremity Problem,Nontraumatic Stated complaint: rt knee pain Time Seen by Provider: 11/09/22 12:57 Source: patient Mode of arrival: ambulatory Limitations: no limitations - History of Present Illness Initial comments: Patient is a 57-year-old male presenting with chief complaint of right knee pain. He notes a small amount of swelling to the knee. No known injury or trauma. He states that he has had episodes like this in the past. No redness or warmth. No fevers. No wounds. He has not taken any analgesic medication at home. No swelling to the lower leg. No nausea or vomiting. No numbness or tingling. - Related Data Home Medications Medication Instructions Recorded Confirmed Magnesium Oxide [Mag-Ox] 400 mg PO BID 10/07/19 07/19/20 Allergies Allergy/AdvReac Type Severity Reaction Status Date / Time No Known Allergies Allergy Verified 02/13/21 16:11 Review of Systems ROS Statement: Those systems with pertinent positive or pertinent negative responses have been documented in the HPI. ROS Other: All systems not noted in ROS Statement are negative. Past Medical History Past Medical History: Chest Pain / Angina, GERD/Reflux, Liver Disease, Memory Impairment, Syncope Additional Past Medical History / Comment(s): low mag, liver failure, hiv + History of Any Multi-Drug Resistant Organisms: None Reported Past Surgical History: Heart Catheterization, Hernia Repair Additional Past Surgical History / Comment(s): november 2018 heart cath Past Anesthesia/Blood Transfusion Reactions: No Reported Reaction Date of Last Stent Placement:: 11/2018 Past Psychological History: Depression Smoking Status: Former smoker Past Alcohol Use History: None Reported Past Drug Use History: None Reported - Past Family History Father Family Medical History: Cancer, Coronary Artery Disease (CAD) Additional Family Medical History / Comment(s): Father in his 70s from some type of cancer. Mother Additional Family Medical History / Comment(s): Mother in her 60s from Alzheimer's dementia. Brother(s) Additional Family Medical History / Comment(s): Patient has 1 brother and 1 sister with no major medical problems. General Exam Limitations: no limitations General appearance: alert, in no apparent distress Head exam: Present: atraumatic, normocephalic, normal inspection Eye exam: Present: normal appearance, EOMI. Absent: scleral icterus, periorbital swelling Neck exam: Present: normal inspection, full ROM Right Knee exam: Present: full ROM, tenderness, swelling. Absent: deformity, erythema Neurological exam: Present: alert, oriented X3, CN II-XII intact Psychiatric exam: Present: normal affect, normal mood Skin exam: Present: warm, dry, intact, normal color. Absent: rash Course Vital Signs 11/09/22 11/09/22 12:16 15:10 Temperature 97.7 F 97.9 F Pulse Rate 80 76 Respiratory 16 16 Rate Blood Pressure 134/66 126/72 O2 Sat by Pulse 100 98 Oximetry Medical Decision Making - Medical Decision Making Was pt. sent in by a medical professional or institution (, PA, [employer], urgent care, hospital, or jail...) When possible be specific @ -No Did you speak to anyone other than the patient for history (EMS, parent, family, police, friend...)? What history was obtained from this source @ -No Did you review nursing and triage notes (agree or disagree)? Why? @ -I reviewed and agree with nursing and triage notes Were old charts reviewed (outside hosp., previous admission, EMS record, old EKG, old radiological studies, urgent care reports/EKG's, jail records)? Report findings @ -No old charts were reviewed Differential Diagnosis (chest pain, altered mental status, abdominal pain women, abdominal pain men, vaginal bleeding, weakness, fever, dyspnea, syncope, headache, dizziness, GI bleed, back pain, seizure, CVA, palpatations, mental health, musculoskeletal)? @ -Differential Musculoskeletal Muscular strain, contusion, ligament sprain, fracture, arthritis, septic arthritis, bursitis, cellulitis, muscle spasm, nerve compression, DVT, arterial occlusion, herpes zoster, electrolyte abnormality, tumor.... This is not meant to be in all inclusive list EKG interpreted by me (3pts min.). @ -As above X-rays interpreted by me (1pt min.). @ -X-ray shows no fracture or dislocation CT interpreted by me (1pt min.). @ -None done U/S interpreted by me (1pt. min.). @ -None done What testing was considered but not performed or refused? (CT, X-rays, U/S, labs)? Why? @ -None What meds were considered but not given or refused? Why? @ -None Did you discuss the management of the patient with other professionals (professionals i.e. DrAlex, PA, [employer], lab, RT, psych nurse, pediatric social worker, hoist operator, teacher, air antisubmarine officer, case operator)? Give summary @ -No Was smoking cessation discussed for >3mins.? @ -No Was critical care preformed (if so, how long)? @ -No Were there social determinants of health that impacted care today? How? (Homelessness, low income, unemployed, alcoholism, drug addiction, transportation, low edu. Level, literacy, decrease access to med. care, [facility], rehab)? @ -No Was there de-escalation of care discussed even if they declined (Discuss DNR or withdrawal of care, Hospice)? DNR status @ -No What co-morbidities impacted this encounter? (DM, HTN, Smoking, COPD, CAD, Cancer, CVA, ARF, Chemo, Hep., AIDS, mental health diagnosis, sleep apnea, morbid obesity)? @ -None Was patient admitted / discharged? Hospital course, mention meds given and route, prescriptions, significant lab abnormalities, going to OR and other pertinent info. @ -Patient is a 57-year-old male presenting with chief complaint of right knee pain and swelling. No injury. No redness or warmth. No fevers or chills. On physical examination there is mild amount of swelling and no vascular compromise. No numbness or tingling. Patient has had episodes like this before. X-rays negative for any acute process. Patient is educated on supportive management at home with rest, ice, compression, elevation, Motrin and Tylenol as needed. Follow-up with PCP. Report back to ER with any new or worsening symptoms. Discussed return parameters and answered all questions. Patient conveyed verbal understanding and agreed to the plan. I discussed this case in detail with my attending Dr. Castro Undiagnosed new problem with uncertain prognosis? @ -No Drug Therapy requiring intensive monitoring for toxicity (Heparin, Nitro, Insulin, Cardizem)? @ -No Were any procedures done? @ -No Diagnosis/symptom? @ -Knee pain Acute, or Chronic, or Acute on Chronic? @ -Acute Uncomplicated (without systemic symptoms) or Complicated (systemic symptoms)? @ -Uncomplicated Side effects of treatment? @ -No Exacerbation, Progression, or Severe Exacerbation? @ -No Poses a threat to life or bodily function? How? (Chest pain, [place], [place], pneumonia, PE, COPD, DKA, ARF, appy, cholecystitis, CVA, Diverticulitis, Homicidal, Suicidal, threat to staff... and all critical care pts) @ -No Disposition Clinical Impression: Knee pain Disposition: HOME SELF-CARE Condition: Good Instructions (If sedation given, give patient instructions): Swollen Knee Joint (ED), Knee Pain (ED) Additional Instructions: Follow-up with PCP in 2-3 days. Report back to ER with any new or worsening symptoms. Take Motrin and Tylenol as needed for pain control. Rest, ice, elevate the knee. Is patient prescribed a controlled substance at d/c from ED?: No Referrals: Vega Montoya Jr, DO [Primary Care Provider] - 1-2 days Time of Disposition: 14:44
[2022-11-09 15:13] VITALS: BP 126/72; PULSE 76; TEMP 97.9
== END 2022-11-09 15:15 | disposition home or self-care (01) ==
LOC: EC 11:37
DX: M25.561 Pain in right knee (principal); Z87.891 Personal history of nicotine dependence
CPT/HCPCS: 73562; 99283; 96372 ×2; J1100; J1885

== ENCOUNTER → 2024-01-21 | Outpatient (CLI) | payer OTHER ==
[2024-01-21 18:24] LABS: Basophils # (A) 0.04 X 10*3/uL (0.00-0.10); Basophils % (A) 0.5 %; Eosinophils # (A) 0.04 X 10*3/uL (0.04-0.35); Eosinophils % (A) 0.5 %; HCT 44.4 % (39.6-50.0); HGB 15.7 g/dL (13.0-17.0); Lymphocytes # (A) 2.29 X 10*3/uL (0.90-5.00); Lymphocytes % (A) 30.5 %; MCH 32.7 pg (27.0-32.0); MCHC 35.4 g/dL (32.0-37.0); MCV 92.5 FL (80.0-97.0); Mean Platelet Volume 11.5 FL (9.5-12.2); Monocytes # (A) 0.57 X 10*3/uL (0.20-1.00); Monocytes % (A) 7.6 %; NRBC Per 100 WBC 0 X 10*3/uL (0.00-0.01); Neutrophils # (A) 4.55 X 10*3/uL (1.80-7.70); Neutrophils % (A) 60.5 %; Platelet Count 242 X 10*3/uL (140-440); RDW 11.9 % (11.5-14.5); WBC 7.52 X 10*3/uL (4.50-10.00)
[2024-01-21 18:36] LABS: ALT 26 U/L (10-49); AST 18 U/L (14-35); Albumin 4.7 g/dL (3.8-4.9); Albumin/Globulin Ratio 1.47 Ratio (1.60-3.17); Alkaline Phosphatase 95 U/L (41-126); BUN/Creat Ratio 15.22 Ratio (12.00-20.00); Blood Urea Nitrogen 27.4 mg/dL (9.0-27.0); Calcium 9.6 mg/dL (8.7-10.3); Carbon Dioxide 26.6 mmol/L (21.6-31.8); Chloride 98 mmol/L (96-109); Globulin 3.2 g/dL (1.6-3.3); Glucose 128 mg/dL (70-110); Potassium 4.1 mmol/L (3.5-5.5); Sodium 140 mmol/L (135-145); Total Bilirubin 0.5 mg/dL (0.3-1.2); Total Protein 7.9 g/dL (6.2-8.2)
[2024-01-22 11:25] LABS: T4/T8 Ratio (CD4:CD8) 0.7 (1.0-3.7)
[2024-01-22 11:27] LABS: HIV-1 RNA DETECTED (Not detected); HIV-1 RNA, Quant <20 Copies/mL (<20); LOG HIV Copies/mL <1.30 (<1.30)
== END | disposition home or self-care (01) ==
LOC: LABWHC1 12:55
PROVIDERS: ATTEND Family Medicine
DX: B20 Human immunodeficiency virus [HIV] disease (principal)
CPT/HCPCS: 36415; 80053; 85025; 86360; 87536

== ENCOUNTER → 2024-08-30 | Outpatient (CLI) | payer OTHER ==
[2024-08-31 03:04] LABS: Basophils % (A) 0.9 %; Eosinophils # (A) 0.09 X 10*3/uL (0.04-0.35); Eosinophils % (A) 0.8 %; HCT 40.5 % (39.6-50.0); HGB 13.7 g/dL (13.0-17.0); Lymphocytes # (A) 2.88 X 10*3/uL (0.90-5.00); MCH 31.5 pg (27.0-32.0); MCHC 33.8 g/dL (32.0-37.0); MCV 93.1 FL (80.0-97.0); Mean Platelet Volume 12.1 FL (9.5-12.2); Monocytes # (A) 0.88 X 10*3/uL (0.20-1.00); Monocytes % (A) 7.6 %; NRBC Per 100 WBC 0 X 10*3/uL (0.00-0.01); Neutrophils # (A) 7.48 X 10*3/uL (1.80-7.70); Neutrophils % (A) 64.8 %; Platelet Count 268 X 10*3/uL (140-440); RBC 4.35 X 10*6/uL (4.40-5.60); WBC 11.53 X 10*3/uL (4.50-10.00)
[2024-08-31 03:40] LABS: ALT 23 U/L (10-49); AST 21 U/L (14-35); Albumin 4.4 g/dL (3.8-4.9); Albumin/Globulin Ratio 1.38 Ratio (1.60-3.17); Alkaline Phosphatase 114 U/L (41-126); BUN/Creat Ratio 17.12 Ratio (12.00-20.00); Blood Urea Nitrogen 27.4 mg/dL (9.0-27.0); Calcium 9.5 mg/dL (8.7-10.3); Carbon Dioxide 25.8 mmol/L (21.6-31.8); Chloride 103 mmol/L (96-109); Globulin 3.2 g/dL (1.6-3.3); Glucose 110 mg/dL (70-110); Potassium 3.9 mmol/L (3.5-5.5); Sodium 142 mmol/L (135-145); Total Bilirubin 0.9 mg/dL (0.3-1.2); Total Protein 7.6 g/dL (6.2-8.2)
[2024-08-31 09:37] LABS: HIV-1 RNA DETECTED (Not detected); HIV-1 RNA, Quant <20 Copies/mL (<20); LOG HIV Copies/mL <1.30 (<1.30)
[2024-08-31 13:31] LABS: T4/T8 Ratio (CD4:CD8) 0.9 (1.0-3.7)
== END | disposition home or self-care (01) ==
LOC: LABWHC1 15:50
PROVIDERS: ATTEND Internal Medicine Infectious Disease
DX: B20 Human immunodeficiency virus [HIV] disease (principal)
CPT/HCPCS: 36415; 80053; 85025; 86360; 87536